=== PATIENT | male | born 1960 | race Caucasian/White ===

== ENCOUNTER 2022-10-22 08:36 | Emergency (ER) | payer MEDICAID, SELFPAY ==
--- NOTE | ~2022-10-22 | US_ITS ---
EXAMINATION: US VENOUS ULTRASOUND WITH DOPPLER LOWER EXTREMITY, LEFT CLINICAL INFORMATION: Pain and bruising. Evaluate for deep vein thrombosis. COMPARISON: None available. TECHNIQUE: Ultrasound of the deep veins is performed from the hip to the calf with compression sonography and color and pulse Doppler assessment. Spectral analysis with color-flow imaging is performed. FINDINGS: The common femoral vein is compressible and exhibits a normal phasic waveform; this suggests that the iliac veins are widely patent above. Within the proximal thigh, the visualized profunda femoris vein is normal. The examined greater saphenous vein and saphenofemoral junction are normal. Superficial femoral vein is patent in the proximal, mid and distal thigh. Popliteal vein is normal to the level of the trifurcation. On compression lyons scale and color Doppler images, the visualized deep calf veins are normal. No evidence of Bland's cyst. US/US venous duplex LE IMPRESSION: No evidence of deep vein thrombosis in the left lower extremity.
[2022-10-22 08:38] VITALS: BP 150/93; PULSE 93; RESP 18; TEMP 35.9; O2SAT 97; BMI 32.3
--- NOTE | 2022-10-22 09:07 | ED.GENADULT ---
HPI - General Adult General Chief complaint: General Medical Stated complaint: L calf pain/bruise Time Seen by Provider: 10/22/22 09:05 Source: patient Mode of arrival: ambulatory History of Present Illness HPI narrative: 62-year-old male with past medical history RLE DVT on Xarelto, s/p right hip replacement in May, presenting to the ED complaining of left calf cramping and noted ecchymosis on Friday. Patient reports cramping still present with persistent pain. denies recently missing doses of his Xarelto. Denies known injury, trauma or fall, SOB/CP, numbness/tingling Onset (ago): day(s) Related Data Allergies Allergy/AdvReac Type Severity Reaction Status Date / Time No Known Allergies Allergy Verified 10/22/22 08:41 Review of Systems Review of Systems: Constitutional: No Fever, No Chills ENT/Mouth: No Ear Pain, No Nasal Congestion, No sore throat, No Rhinorrhea, No Swallowing Difficulty Cardiovascular: No Chest Pain, No SOB Respiratory: No Cough, No Sputum, No Wheezing Gastrointestinal: No Nausea, No Vomiting, No Diarrhea, No Constipation, No Abdominal pain Genitourinary: No Dysuria, No Urinary Frequency, No Hematuria, No Flank Pain Musculoskeletal: + joint pain, No Myalgias, + Joint Swelling Skin: + Skin Lesions, No rash Neuro: No Weakness, No Numbness, No Paresthesias Yes all other systems are reviewed and are negative Constitutional: Constitutional: Reports as per [facility] Past Medical History Attestation statement: The following information was validated with the patient. Social History Social History Advance Directives: No Advance Directives Information Provided: Yes Physical Exam ED Vital Signs: Vital Signs - 24 hr 10/22/22 08:38 Temperature 96.6 F L Pulse Rate 93 Respiratory Rate 18 Blood Pressure 150/93 H Pulse Oximetry 97 Oxygen Delivery Method Room Air BMI result Body Mass Index 32.3 Const General: cooperative, healthy appearing and no acute distress Orientation/consciousness: patient oriented x3 Limitations: no limitations HENMT Head: Yes normal to inspection and Yes atraumatic Ears: hearing grossly normal bilaterally General nose exam: Normal external nose present Face and sinus: Yes normal facial exam Eyes General: appearance normal, both eyes and all related structures EOM: EOMs intact bilaterally Neck Neck: Yes normal visual inspection and Yes no meningeal signs Resp Effort & Inspection: normal respiratory effort and no respiratory distress Cardio Rate: regular rate Heart sounds: S1 normal heart sound present and S2 normal heart sound present Peripheral pulses: posterior tibial pulses present Skin Rashes: no rashes Wounds: no wounds Neuro General: patient oriented x3, tone normal and no meningeal signs Gait exam (Neuro): Normal gait present Extrem Other: +Left lower extremity 2+ pitting edema with posterior popliteal ecchymosis. Calf with noted tenderness to palpation. Compartments soft. Neurovascularly intact distally. No erythema/ warmth. No RLE edema Course Course Course Narrative: US venous duplex LE LT IMPRESSION:? No evidence of deep vein thrombosis in the left lower extremity. - H&H stable. INR 1.5 >> Hamlet wrap applied for comfort and stability. Recommended close PCP follow-up. Results discussed with patient including worrisome signs and symptoms and strict return precautions, and when to return to the emergency department. They verbalized understanding and feel safe for discharge at this time. Medical Decision Making Medical Decision Making [facility] Narrative: 62-year-old male with past medical history RLE DVT on Xarelto, s/p right hip replacement in May, presenting to the ED complaining of left calf cramping and noted ecchymosis on Friday. on exam vital signs stable, NAD, nontoxic appearing, physical exam as above with noted left lower extremity pitting edema and posterior popliteal ecchymosis and calf tenderness parents denies reported trauma. Concern for DVT vs hematoma. Low suspicion for PE/ACS at this time. low concern for compartment syndrome Plan: Labs, venous duplex ultrasound Please refer to course for remaining clinical decision making, interpretation of labs/imaging results, and discussions with consultants and/or family members. Differential Diagnosis Differential Diagnoses: The differential diagnosis associated with the presentation includes As above Admission/Observation Consideration of admission/observation: Escalation of care including admission/observation considered Lab Data [facility] Lab Attestation statement: I reviewed the patient's lab results. 10/22/22 10:39 Labs: Lab Results 10/22/22 10/22/22 Range/Units 10:39 10:39 WBC 4.8 (4.8-10.8) X10*3/uL RBC 4.55 L (4.60-5.80) X10*6/uL Hgb 13.4 L (14.0-18.0) g/dl Hct 39.8 L (42.0-52.0) % MCV 87.5 (80.0-98.0) fL MCH 29.5 (27.0-33.0) pg MCHC 33.7 (31.0-36.0) g/dl RDW 15.0 (11.0-16.0) % Plt Count 137 L (160-400) X10*3/uL MPV 8.4 L (9.4-12.4) fL Immature Gran % (Auto) 0.4 (0.0-0.4) % Neut % (Auto) 71.6 (45-73) % Lymph % (Auto) 15.6 L (20-40) % [place] % (Auto) 10.4 (2-11) % Eos % (Auto) 1.2 (0-4) % Baso % (Auto) 0.8 (0-2) % Lymph # (Auto) 0.8 L (1.2-4.9) X10*3/uL [place] # (Auto) 0.5 (0.1-1.2) X10*3/uL Eos # (Auto) 0.1 (0.0-0.4) X10*3/uL Baso # (Auto) 0.0 (0.0-0.2) X10*3/uL Abs Immat Gran (auto) 0.02 (0.00-0.03) X10*3/uL Absolute Neuts (auto) 3.4 (2.0-8.3) x10*3/uL Absolute Nucleated RBC 0.000 (0.0-0.012) X10*3/uL Nucleated RBC % (auto) 0.0 (0.0-0.2) /100WBC PT 17.6 H (10.0-13.1) SEC INR 1.5 H (0.9-1.1) APTT 36.1 (26.0-36.4) SEC Radiology Impression Discussion of test interpretation with radiology: I have reviewed the radiologist's reading. External Record Review External record reviewed: Inpatient record, Office record, Outpatient record, Prior outpatient labs, Prior outpatient radiology, Primary care record and Outside ED record Discharge Plan Discharge Clinical Impression: Pain of left calf, Ecchymosis Patient Disposition: Home, Self-Care Instructions: Leg Pain (ED), Ecchymosis (ED) Additional Instructions: Your blood work is reassuring. Your ultrasound does not show a blood clot wear Hamlet wrap at home for comfort and stability. Elevate. please have close follow-up with your doctor. If symptoms persist or worsen, bruising spreading, you develop shortness of breath, redness or warmth to your leg return to the ED Referrals: Danuta Sanford MD [Primary Care Provider] - 3 days Interventions: ED Discharge Assessment Last Done: 10/22/22 11:24 Discharge Date/Time: 10/22/22 11:29
[2022-10-22 10:45] LABS: MANUAL DIFF FLAG NO
[2022-10-22 10:47] LABS: Basophils Percent Auto 0.8 % (0-2); Eosinophils Absolute Auto 0.1 X10*3/uL (0.0-0.4); Eosinophils Percent Auto 1.2 % (0-4); Hematocrit 39.8 % (42.0-52.0); Hemoglobin 13.4 g/dl (14.0-18.0); Imm Gran Abs Auto 0.02 X10*3/uL (0.00-0.03); Imm Gran Pct Auto 0.4 % (0.0-0.4); Lymphocytes Absolute Auto 0.8 X10*3/uL (1.2-4.9); Lymphocytes Percent Auto 15.6 % (20-40); Mean Corpuscular HGB Conc 33.7 g/dl (31.0-36.0); Mean Corpuscular Hemoglobin 29.5 pg (27.0-33.0); Mean Corpuscular Volume 87.5 fL (80.0-98.0); Mean Platelet Volume 8.4 fL (9.4-12.4); Monocytes Absolute Auto 0.5 X10*3/uL (0.1-1.2); Monocytes Percent Auto 10.4 % (2-11); Neutrophils Absolute Auto 3.4 x10*3/uL (2.0-8.3); Neutrophils Percent Auto 71.6 % (45-73); Platelet Count 137 X10*3/uL (160-400); Red Blood Count 4.55 X10*6/uL (4.60-5.80); White Blood Count 4.8 X10*3/uL (4.8-10.8)
[2022-10-22 10:55] LABS: INTERNATIONAL NORM RATIO 1.5 (0.9-1.1); Prothrombin Time 17.6 SEC (10.0-13.1)
[2022-10-22 10:58] LABS: Partial Thromboplastin Time 36.1 SEC (26.0-36.4)
== END 2022-10-22 11:29 | disposition home or self-care (01) ==
PROVIDERS: Physician Assistant; Emergency Provider Emergency Medicine Emergency Medical Services; PCP Internal Medicine
DX: M79.662 Pain in left lower leg (principal); R58 Hemorrhage, not elsewhere classified; R60.0 Localized edema; Z86.718 Personal history of other venous thrombosis and embolism; Z79.01 Long term (current) use of anticoagulants
CPT/HCPCS: 36415; 85025; 85610; 85730; 93971; 99283; 99284

== ENCOUNTER 2022-11-10 12:50 | Observation (INO) | payer OTHER, SELFPAY ==
[2022-11-10] VITALS (9 sets, daily range): BP systolic 119–155; BP diastolic 67–89; PULSE 63–140; RESP 13–20; TEMP 36.4–37.1; O2SAT 96–97; BMI 32.3
--- NOTE | ~2022-11-10 | XR_ITS ---
EXAMINATION: XR CHEST CLINICAL INFORMATION: Atrial fibrillation. Rule out CHF. COMPARISON: Previous chest x-ray most recent October 2016 TECHNIQUE: 2 views of the chest were obtained. FINDINGS: The cardiac and mediastinal contours are normal. The lungs are clear. No pleural effusion or pneumothorax. Degenerative changes of the spine. XR/XR chest 2V IMPRESSION: No evidence for acute disease in the chest.
--- NOTE | 2022-11-10 12:52 | ECG_ITS ---
Test Reason : PALPITATIONS Blood Pressure : / mmHG Vent. Rate : 144 BPM Atrial Rate : 000 BPM P-R Int : 000 ms QRS Dur : 074 ms QT Int : 290 ms P-R-T Axes : 000 019 -17 degrees QTc Int : 449 ms Atrial fibrillation with rapid ventricular response Nonspecific ST abnormality Abnormal ECG No previous ECGs available Referred By: Mati Royal Electronically Signed By:Estiven Hutchins
--- NOTE | 2022-11-10 13:13 | ED_ITS ---
HPI - General Adult General Chief complaint: General Medical <Mati Royal - Last Filed: 11/10/22 13:13> Stated complaint: Irregular heartbeat <Mati Royla - Last Filed: 11/10/22 13:13> Time Seen by Provider: 11/10/22 13:13 <Mati Royal - Last Filed: 11/10/22 13:13> Source: patient <Dany Hwang MD - Last Filed: 11/10/22 17:16> Mode of arrival: ambulatory <Dany Hwang MD - Last Filed: 11/10/22 17:16> Limitations: no limitations <Dany Hwang MD - Last Filed: 11/10/22 17:16> History of Present Illness HPI narrative: 62-year-old male who presents emergency department for evaluation of rapid irregular heartbeat. The patient states that he woke up from sleep in states that he was having a drain that startled him. This was at 02:00 hours on 11/10/2022 (greater than 24 hours prior to evaluation). He states that since the onset he has been feeling anxious. He feels a fluttering sensation in his heart. He states that he can feel his heart beating irregularly. He denied chest pain, neck pain, arm pain, jaw pain nausea, vomiting, shortness of breath or dyspnea on exertion. He states that he has had intermittent fluttering sensations the last 1-2 hours but has never lasted this long. He states that 30 years ago he did have a very rapid heart rate and was given 1 shot a medication at [facility] which resolved his symptoms. The patient states that he had a left hip surgery 6 years ago which was complica phillip and eventually required surgical repair May 2022. He states that approximately 1 year prior he developed a blood clot in was on Xarelto 20 mg once a day until 2 weeks prior when his doctor stopped his medication. He does not have a history of atrial fibrillation or coronary artery disease.. <Dany Hwang MD - Last Filed: 11/10/22 17:16> Related Data Allergies/adverse reactions: Allergies Allergy/AdvReac Type Severity Reaction Status Date / Time No Known Allergies Allergy Verified 10/22/22 08:41 <Mati Brown Last Filed: 11/10/22 13:13> Review of Systems Review of Systems: Yes all other systems are reviewed and are negative <Dany Hwang MD - Last Filed: 11/10/22 17:16> [facility] Past Medical History [facility] Narrative: Past medical history: None. Past surgical history: Right hip replacement 6 years prior, revision May 2022. Social history: He denies tobacco use. He states he drinks 3 vodka drinks 3 times a week. Denies drug use. <Dany Hwang MD - Last Filed: 11/10/22 17:16> Social History Social History: Social History Advance Directives: No Advance Directives Information Provided: Yes <Mati Royal - Last Filed: 11/10/22 13:13> Physical Exam ED Vital Signs: Vital Signs - 24 hr 11/10/22 13:05 11/10/22 13:51 11/10/22 15:03 Temperature 98.5 F 98.2 F Pulse Rate 63 140 H 79 Respiratory Rate 20 18 13 Blood Pressure 155/87 H 154/81 H 125/79 Pulse Oximetry 97 96 96 Oxygen Delivery Method Room Air Room Air Room Air 11/10/22 15:59 Temperature Pulse Rate 90 Respiratory Rate 19 Blood Pressure 128/83 Pulse Oximetry 96 Oxygen Delivery Method Room Air BMI result Body Mass Index 32.3 <Mati Royal - Last Filed: 11/10/22 13:13> Vital Signs - 24 hr 11/10/22 13:05 11/10/22 13:51 11/10/22 15:03 Temperature 98.5 F 98.2 F Pulse Rate 63 140 H 79 Respiratory Rate 20 18 13 Blood Pressure 155/87 H 154/81 H 125/79 Pulse Oximetry 97 96 96 Oxygen Delivery Method Room Air Room Air Room Air 11/10/22 15:59 Temperature Pulse Rate 90 Respiratory Rate 19 Blood Pressure 128/83 Pulse Oximetry 96 Oxygen Delivery Method Room Air BMI result Body Mass Index 32.3 <Dany Hwang MD - Last Filed: 11/10/22 17:16> Const General: cooperative and no acute distress <Dany Hwang MD - Last Filed: 11/10/22 17:16> Orientation/consciousness: oriented to person and oriented to place <MD Kevin Walton Last Filed: 11/10/22 17:16> Limitations: no limitations <Dany Hwang MD - Last Filed: 11/10/22 17:16> HENMT Head: Yes normal to inspection, Yes normocephalic and Yes atraumatic <Dany Hwang MD - Last Filed: 11/10/22 17:16> Ears: external ears normal <MD Kevin Walton Last Filed: 11/10/22 17:16> General nose exam: Normal external nose present <MD Kevin Walton Last Filed: 11/10/22 17:16> Face and sinus: Yes normal facial exam <MD Kevin Walton Last Filed: 11/10/22 17:16> Mouth: Normal oral and palatal mucosa present <Dany Hwang MD - Last Filed: 11/10/22 17:16> Throat: Yes posterior oropharynx normal <MD Kevin Walton Last Filed: 11/10/22 17:16> Eyes General: appearance normal, both eyes and all related structures <MD Kevin Walton Last Filed: 11/10/22 17:16> Pupils: Equal, round and reactive pupils present <MD Kevin Walton Last Filed: 11/10/22 17:16> Neck Neck: Yes normal visual inspection, Yes no lymphadenopathy, Yes trachea midline and Yes supple <Dany Hwang MD - Last Filed: 11/10/22 17:16> Chest Chest palpation & inspection: normal inspection of the chest and normal palpation of entire chest wall <MD Kevin Walton Last Filed: 11/10/22 17:16> Resp Effort & Inspection: normal respiratory effort and able to speak in complete sentences <MD Kevin Walton Last Filed: 11/10/22 17:16> Auscultation: clear to auscultation bilaterally <MD Kevin Walton Last Filed: 11/10/22 17:16> Cardio Other: Irregularly irregular rhythm, normal S1-S2, no murmurs rubs or gallops <Fernanda Hwang MD - Last Filed: 11/10/22 17:16> Heart sounds: Murmur heart sound present <Dany Hwang MD - Last Filed: 11/10/22 17:16> GI Inspection: Yes normal to inspection <Dany Hwang MD - Last Filed: 11/10/22 17:16> Palpation (GI): Soft to palpation, nontender and no guarding <Dany Hwang MD - Last Filed: 11/10/22 17:16> Auscultation: normal bowel sounds <Dany Hwang MD - Last Filed: 11/10/22 17:16> General: Yes no CVA tenderness <Dany Hwang MD - Last Filed: 11/10/22 17:16> Back/Spine/Pelvis Back: no CVA tenderness <Dany Hwang MD - Last Filed: 11/10/22 17:16> Skin General skin exam: no rashes or lesions noted <Dany Hwang MD - Last Filed: 11/10/22 17:16> Neuro General: oriented to person and oriented to place <Dany Hwang MD - Last Filed: 11/10/22 17:16> Cranial nerves: Yes CN's II-XII intact bilaterally and Yes Equal, round and reactive pupils present <Dany Hwang MD - Last Filed: 11/10/22 17:16> Cognition (Neuro): normal cognition <Dany Hwang MD - Last Filed: 11/10/22 17:16> Motor exam (neuro): 5/5 motor strength present throughout <Dany Hwang MD - Last Filed: 11/10/22 17:16> Extrem General: Yes normal to inspection <Dany Hwang MD - Last Filed: 11/10/22 17:16> Psych Appearance: grossly normal <Dany Hwang MD - Last Filed: 11/10/22 17:16> Speech and movement: Normal speech and movement present <Dany Hwang MD - Last Filed: 11/10/22 17:16> Affect: normal affect <Dany Hwang MD - Last Filed: 11/10/22 17:16> Attitude: cooperative <Dany Hwang MD - Last Filed: 11/10/22 17:16> Thought process: Normal thought process present <Dany Hwang MD - Last Filed: 11/10/22 17:16> Thought content: Normal thought content present <Dany Hwang MD - Last Filed: 11/10/22 17:16> Course Course Course Narrative: A 62-year-old male presents for evaluation of irregular heartbeat. He reports this started 1-1/2 days ago. His pulse on palpation is irregular and fast. EKG shows AFib at 1:44bpm <Mati Royal - Last Filed: 11/10/22 13:13> Medications Administered Discontinued Medications Generic Name Dose Route Start Last Admin Trade Name Freq PRN Reason Stop Dose Admin Diltiazem HCl 20 mg 11/10/22 13:43 11/10/22 13:50 Diltiazem Hcl 50 Mg/10 Ml Vial IVPUSH 11/10/22 13:44 20 mg STAT STA Administration Rivaroxaban 20 mg 11/10/22 13:43 11/10/22 13:49 Rivaroxaban 20 Mg Tablet PO 11/10/22 13:44 20 mg ONCE ONE Administration <Mati Royal - Last Filed: 11/10/22 13:13> Medications Administered Discontinued Medications Generic Name Dose Route Start Last Admin Trade Name Freq PRN Reason Stop Dose Admin Diltiazem HCl 20 mg 11/10/22 13:43 11/10/22 13:50 Diltiazem Hcl 50 Mg/10 Ml Vial IVPUSH 11/10/22 13:44 20 mg STAT STA Administration Rivaroxaban 20 mg 11/10/22 13:43 11/10/22 13:49 Rivaroxaban 20 Mg Tablet PO 11/10/22 13:44 20 mg ONCE ONE Administration <Dany Hwang MD - Last Filed: 11/10/22 17:16> Medical Decision Making Medical Decision Making MDM Narrative: 8-year-old male who presents emergency department for evaluation rapid irregular heart rate which began on Friday morning (11/09/2022) at 02:00 hours. Twelve EKG revealed atrial fibrillation with a RVR 120-150 beats per minute. Patient has no history of atrial fibrillation. I ordered a CBC, CMP, lipase, magnesium, PT/INR, PTT, urine drug screen, ETOH level. Patient was placed on a cardiac and O2 saturation monitor. Patient was ordered to get diltiazem 20 mg IV. Patient was also given Xarelto 20 mg orally. 1708: My interpretation patient's laboratory evaluation as follows: CBC was normal. PT/INR was normal. CMP was normal. Lipase was normal. High sensitive troponin I was detectable but not elevated 3.7. Twelve EKG is consistent with atrial fibrillation with rapid ventricular response with no ischemic or injury pattern Patient required a 2nd dose of diltiazem 10 mg IV. He remains in atrial fibrillation. I will discuss admission with the covering hospitalist. <Dany Hwang MD - Last Filed: 11/10/22 17:16> Differential Diagnosis Differential diagnosis includes was not limited to atrial fibrillation, myocardial infarction, congestive heart failure <Dany Hwang MD - Last Filed: 11/10/22 17:16> Consult Healthcare Provider Management of the patient was discussed with: Hospitalist <Dany Hwang MD - Last Filed: 11/10/22 17:16> Lab Data [facility] Lab Attestation statement: I reviewed the patient's lab results. <Dany Hwang MD - Last Filed: 11/10/22 17:16> Please see [facility] <Dany Hwang MD - Last Filed: 11/10/22 17:16> Result Diagrams: 11/10/22 13:37 11/10/22 13:37 <Mati Royal - Last Filed: 11/10/22 13:13> Labs: Lab Results 11/10/22 11/10/22 11/10/22 Range/Units 13:37 13:37 14:45 WBC 6.2 (4.8-10.8) X10*3/uL RBC 4.78 (4.60-5.80) X10*6/uL Hgb 14.3 (14.0-18.0) g/dl Hct 41.3 L (42.0-52.0) % MCV 86.4 (80.0-98.0) fL MCH 29.9 (27.0-33.0) pg MCHC 34.6 (31.0-36.0) g/dl RDW 15.1 (11.0-16.0) % Plt Count 208 D (160-400) X10*3/uL MPV 9.0 L (9.4-12.4) fL Immature Gran % (Auto) 0.5 H (0.0-0.4) % Neut % (Auto) 70.2 (45-73) % Lymph % (Auto) 17.6 L (20-40) % [place] % (Auto) 10.1 (2-11) % Eos % (Auto) 1.0 (0-4) % Baso % (Auto) 0.6 (0-2) % Lymph # (Auto) 1.1 L (1.2-4.9) X10*3/uL [place] # (Auto) 0.6 (0.1-1.2) X10*3/uL Eos # (Auto) 0.1 (0.0-0.4) X10*3/uL Baso # (Auto) 0.0 (0.0-0.2) X10*3/uL Abs Immat Gran (auto) 0.03 (0.00-0.03) X10*3/uL Absolute Neuts (auto) 4.4 (2.0-8.3) x10*3/uL Absolute Nucleated RBC 0.000 (0.0-0.012) X10*3/uL Nucleated RBC % (auto) 0.0 (0.0-0.2) /100WBC PT (10.0-13.1) SEC INR (0.9-1.1) APTT (26.0-36.4) SEC Sodium 140 (135-145) mmol/L Potassium 4.2 (3.3-5.1) mmol/L Chloride 108 (96-108) mmol/L Carbon Dioxide 22 (22-29) mmol/L Anion Gap 14 (12-20) BUN 16 (9-16) mg/dL Creatinine 0.93 (0.5-1.4) mg/dL Estim Creat Clear Calc 126.3 Estimated GFR > 60 Random Glucose 108 (60-115) mg/dL Calcium 9.2 (8.4-10.2) mg/dL Magnesium 1.8 (1.6-2.6) mg/dL Total Bilirubin 0.5 (0.0-1.0) mg/dL AST 20 (5-37) U/L ALT 36 (0-40) U/L Alkaline Phosphatase 66 (39-117) U/L Troponin I High Sens 3.7 (<3.5-35.0) ng/L Total Protein 6.9 (6.5-8.0) g/dL Albumin 4.2 (3.5-5.0) g/dL Lipase 17 (8-78) U/L Urine Opiates Screen (Not Detect) Urine Fentanyl Screen (Not Detect) Ur Barbiturates Screen (Not Detect) Ur Phencyclidine Scrn (Not Detect) Ur Amphetamines Screen (Not Detect) U Benzodiazepines Scrn (Not Detect) Urine Cocaine Screen (Not Detect) U Marijuana (THC) Screen (Not Detect) Ethyl Alcohol < 10 mg/dL 11/10/22 11/10/22 Range/Units 14:45 16:01 WBC (4.8-10.8) X10*3/uL RBC (4.60-5.80) X10*6/uL Hgb (14.0-18.0) g/dl Hct (42.0-52.0) % MCV (80.0-98.0) fL MCH (27.0-33.0) pg MCHC (31.0-36.0) g/dl RDW (11.0-16.0) % Plt Count (160-400) X10*3/uL MPV (9.4-12.4) fL Immature Gran % (Auto) (0.0-0.4) % Neut % (Auto) (45-73) % Lymph % (Auto) (20-40) % [place] % (Auto) (2-11) % Eos % (Auto) (0-4) % Baso % (Auto) (0-2) % Lymph # (Auto) (1.2-4.9) X10*3/uL [place] # (Auto) (0.1-1.2) X10*3/uL Eos # (Auto) (0.0-0.4) X10*3/uL Baso # (Auto) (0.0-0.2) X10*3/uL Abs Immat Gran (auto) (0.00-0.03) X10*3/uL Absolute Neuts (auto) (2.0-8.3) x10*3/uL Absolute Nucleated RBC (0.0-0.012) X10*3/uL Nucleated RBC % (auto) (0.0-0.2) /100WBC PT 12.3 (10.0-13.1) SEC INR 1.1 (0.9-1.1) APTT 31.2 (26.0-36.4) SEC Sodium (135-145) mmol/L Potassium (3.3-5.1) mmol/L Chloride (96-108) mmol/L Carbon Dioxide (22-29) mmol/L Anion Gap (12-20) BUN (9-16) mg/dL Creatinine (0.5-1.4) mg/dL Estim Creat Clear Calc Estimated GFR Random Glucose (60-115) mg/dL Calcium (8.4-10.2) mg/dL Magnesium (1.6-2.6) mg/dL Total Bilirubin (0.0-1.0) mg/dL AST (5-37) U/L ALT (0-40) U/L Alkaline Phosphatase (39-117) U/L Troponin I High Sens (<3.5-35.0) ng/L Total Protein (6.5-8.0) g/dL Albumin (3.5-5.0) g/dL Lipase (8-78) U/L Urine Opiates Screen Not Detected (Not Detect) Urine Fentanyl Screen Not Detected (Not Detect) Ur Barbiturates Screen Not Detected (Not Detect) Ur Phencyclidine Scrn Not Detected (Not Detect) Ur Amphetamines Screen Not Detected (Not Detect) U Benzodiazepines Scrn Not Detected (Not Detect) Urine Cocaine Screen Not Detected (Not Detect) U Marijuana (THC) Screen POSITIVE H (Not Detect) Ethyl Alcohol mg/dL <Mati Royal - Last Filed: 11/10/22 13:13> Lab Results 11/10/22 11/10/22 11/10/22 Range/Units 13:37 13:37 14:45 WBC 6.2 (4.8-10.8) X10*3/uL RBC 4.78 (4.60-5.80) X10*6/uL Hgb 14.3 (14.0-18.0) g/dl Hct 41.3 L (42.0-52.0) % MCV 86.4 (80.0-98.0) fL MCH 29.9 (27.0-33.0) pg MCHC 34.6 (31.0-36.0) g/dl RDW 15.1 (11.0-16.0) % Plt Count 208 D (160-400) X10*3/uL MPV 9.0 L (9.4-12.4) fL Immature Gran % (Auto) 0.5 H (0.0-0.4) % Neut % (Auto) 70.2 (45-73) % Lymph % (Auto) 17.6 L (20-40) % [place] % (Auto) 10.1 (2-11) % Eos % (Auto) 1.0 (0-4) % Baso % (Auto) 0.6 (0-2) % Lymph # (Auto) 1.1 L (1.2-4.9) X10*3/uL [place] # (Auto) 0.6 (0.1-1.2) X10*3/uL Eos # (Auto) 0.1 (0.0-0.4) X10*3/uL Baso # (Auto) 0.0 (0.0-0.2) X10*3/uL Abs Immat Gran (auto) 0.03 (0.00-0.03) X10*3/uL Absolute Neuts (auto) 4.4 (2.0-8.3) x10*3/uL Absolute Nucleated RBC 0.000 (0.0-0.012) X10*3/uL Nucleated RBC % (auto) 0.0 (0.0-0.2) /100WBC PT (10.0-13.1) SEC INR (0.9-1.1) APTT (26.0-36.4) SEC Sodium 140 (135-145) mmol/L Potassium 4.2 (3.3-5.1) mmol/L Chloride 108 (96-108) mmol/L Carbon Dioxide 22 (22-29) mmol/L Anion Gap 14 (12-20) BUN 16 (9-16) mg/dL Creatinine 0.93 (0.5-1.4) mg/dL Estim Creat Clear Calc 126.3 Estimated GFR > 60 Random Glucose 108 (60-115) mg/dL Calcium 9.2 (8.4-10.2) mg/dL Magnesium 1.8 (1.6-2.6) mg/dL Total Bilirubin 0.5 (0.0-1.0) mg/dL AST 20 (5-37) U/L ALT 36 (0-40) U/L Alkaline Phosphatase 66 (39-117) U/L Troponin I High Sens 3.7 (<3.5-35.0) ng/L Total Protein 6.9 (6.5-8.0) g/dL Albumin 4.2 (3.5-5.0) g/dL Lipase 17 (8-78) U/L Urine Opiates Screen (Not Detect) Urine Fentanyl Screen (Not Detect) Ur Barbiturates Screen (Not Detect) Ur Phencyclidine Scrn (Not Detect) Ur Amphetamines Screen (Not Detect) U Benzodiazepines Scrn (Not Detect) Urine Cocaine Screen (Not Detect) U Marijuana (THC) Screen (Not Detect) Ethyl Alcohol < 10 mg/dL 11/10/22 11/10/22 Range/Units 14:45 16:01 WBC (4.8-10.8) X10*3/uL RBC (4.60-5.80) X10*6/uL Hgb (14.0-18.0) g/dl Hct (42.0-52.0) % MCV (80.0-98.0) fL MCH (27.0-33.0) pg MCHC (31.0-36.0) g/dl RDW (11.0-16.0) % Plt Count (160-400) X10*3/uL MPV (9.4-12.4) fL Immature Gran % (Auto) (0.0-0.4) % Neut % (Auto) (45-73) % Lymph % (Auto) (20-40) % [place] % (Auto) (2-11) % Eos % (Auto) (0-4) % Baso % (Auto) (0-2) % Lymph # (Auto) (1.2-4.9) X10*3/uL [place] # (Auto) (0.1-1.2) X10*3/uL Eos # (Auto) (0.0-0.4) X10*3/uL Baso # (Auto) (0.0-0.2) X10*3/uL Abs Immat Gran (auto) (0.00-0.03) X10*3/uL Absolute Neuts (auto) (2.0-8.3) x10*3/uL Absolute Nucleated RBC (0.0-0.012) X10*3/uL Nucleated RBC % (auto) (0.0-0.2) /100WBC PT 12.3 (10.0-13.1) SEC INR 1.1 (0.9-1.1) APTT 31.2 (26.0-36.4) SEC Sodium (135-145) mmol/L Potassium (3.3-5.1) mmol/L Chloride (96-108) mmol/L Carbon Dioxide (22-29) mmol/L Anion Gap (12-20) BUN (9-16) mg/dL Creatinine (0.5-1.4) mg/dL Estim Creat Clear Calc Estimated GFR Random Glucose (60-115) mg/dL Calcium (8.4-10.2) mg/dL Magnesium (1.6-2.6) mg/dL Total Bilirubin (0.0-1.0) mg/dL AST (5-37) U/L ALT (0-40) U/L Alkaline Phosphatase (39-117) U/L Troponin I High Sens (<3.5-35.0) ng/L Total Protein (6.5-8.0) g/dL Albumin (3.5-5.0) g/dL Lipase (8-78) U/L Urine Opiates Screen Not Detected (Not Detect) Urine Fentanyl Screen Not Detected (Not Detect) Ur Barbiturates Screen Not Detected (Not Detect) Ur Phencyclidine Scrn Not Detected (Not Detect) Ur Amphetamines Screen Not Detected (Not Detect) U Benzodiazepines Scrn Not Detected (Not Detect) Urine Cocaine Screen Not Detected (Not Detect) U Marijuana (THC) Screen POSITIVE H (Not Detect) Ethyl Alcohol mg/dL <Dany Hwang MD - Last Filed: 11/10/22 17:16> Independent Interpretation I performed an independent interpretation of an: EKG <Dany Hwang MD - Last Filed: 11/10/22 17:16> Interpretation: My independent interpretation patient's 12 EKG done at 12:56 hours is as follows: Atrial fibrillation with a ventricular rate of 144, normal QRS and QTC intervals, no ST segment elevation, no ST segment depression, no T-wave abnormalities. No old EKG for comparison <Dany Hwang MD - Last Filed: 11/10/22 17:16> Discharge Plan Discharge Clinical Impression: New onset atrial fibrillation, Atrial fibrillation with rapid ventricular response <Mati Royal - Last Filed: 11/10/22 13:13> Patient Disposition: Admitted As Inpatient <Mati Royal - Last Filed: 11/10/22 13:13>
[2022-11-10 13:41] LABS: MANUAL DIFF FLAG NO
[2022-11-10 13:42] LABS: Basophils Percent Auto 0.6 % (0-2); Eosinophils Absolute Auto 0.1 X10*3/uL (0.0-0.4); Hematocrit 41.3 % (42.0-52.0); Hemoglobin 14.3 g/dl (14.0-18.0); Imm Gran Abs Auto 0.03 X10*3/uL (0.00-0.03); Imm Gran Pct Auto 0.5 % (0.0-0.4); Lymphocytes Absolute Auto 1.1 X10*3/uL (1.2-4.9); Lymphocytes Percent Auto 17.6 % (20-40); Mean Corpuscular HGB Conc 34.6 g/dl (31.0-36.0); Mean Corpuscular Hemoglobin 29.9 pg (27.0-33.0); Mean Corpuscular Volume 86.4 fL (80.0-98.0); Monocytes Absolute Auto 0.6 X10*3/uL (0.1-1.2); Monocytes Percent Auto 10.1 % (2-11); Neutrophils Absolute Auto 4.4 x10*3/uL (2.0-8.3); Neutrophils Percent Auto 70.2 % (45-73); Platelet Count 208 X10*3/uL (160-400); Red Blood Count 4.78 X10*6/uL (4.60-5.80); Red Cell Distribution Width 15.1 % (11.0-16.0); White Blood Count 6.2 X10*3/uL (4.8-10.8)
[2022-11-10] MEDS: Rivaroxaban 20 MG TABLET PO (13:49)
[2022-11-10] MEDS: dilTIAZem HCL 50 MG/10 ML VIAL 20 MG IVPUSH (13:50)
[2022-11-10 14:03] LABS: Troponin-I High Sensitivity 3.7 ng/L (<3.5-35.0)
--- NOTE | 2022-11-10 14:09 | PC.NURSE ---
pt a+o x4, denies pain. he reports that last night he began having heart flutters that he describes as feeling excited/feeling anxious . he reports that the flutters woke him up from his sleep and he thought he was having a nightmare. pt states that he was taken off of eliquis about 2 wks ago. he also says this has happened to him in the past and was given med and it helped him. no other medical hx reported. 20g IV inserted in L hand and 20g in his R forearm. iv Cardizem given and po eliquis given. current HR mid 90s to 105. pt resting quietly, no apparent distress. he denies cp.
[2022-11-10 14:56] LABS: INTERNATIONAL NORM RATIO 1.1 (0.9-1.1); Prothrombin Time 12.3 SEC (10.0-13.1)
[2022-11-10 14:58] LABS: Partial Thromboplastin Time 31.2 SEC (26.0-36.4)
[2022-11-10 15:22] LABS: Alanine Aminotransferase 36 U/L (0-40); Albumin Level 4.2 g/dL (3.5-5.0); Alkaline Phosphatase 66 U/L (39-117); Anion Gap 14 (12-20); Aspartate Amino Transferase 20 U/L (5-37); Bilirubin Total 0.5 mg/dL (0.0-1.0); Blood Urea Nitrogen 16 mg/dL (9-16); Calcium 9.2 mg/dL (8.4-10.2); Carbon Dioxide 22 mmol/L (22-29); Chloride 108 mmol/L (96-108); Creatinine Clr Calc Pharmacy 126.3; Estimated Glomerular Filt Rate > 60; Ethanol < 10 mg/dL; Glucose Random 108 mg/dL (60-115); Lipase 17 U/L (8-78); Magnesium 1.8 mg/dL (1.6-2.6); Potassium 4.2 mmol/L (3.3-5.1); Sodium 140 mmol/L (135-145); Total Protein 6.9 g/dL (6.5-8.0)
[2022-11-10 16:51] LABS: Amphetamine Screen Urine Not Detected (Not Detect); Barbiturates, Urine Not Detected (Not Detect); Benzodiazepines Screen Urine Not Detected (Not Detect); Cannabinoid Screen Urine POSITIVE (Not Detect); Cocaine Screen Urine Not Detected (Not Detect); Fentanyl, urine Not Detected (Not Detect); Opiate Screen Urine Not Detected (Not Detect); Phencyclidine Screen Urine Not Detected (Not Detect)
--- NOTE | 2022-11-10 17:23 | PM.IMHP ---
History of Present Illness Date of Service: 11/10/22 Attending physician on admission: Maxime Jacobsen Chief Complaint: Palpitations Pt is a 62-year-old male with a PMH significant for?hx of DVT in 2021 previously on Xarelto (stopped two weeks ago), testicular cancer at age 37 s/p left orchiectomy, and right hip replacement who presents to the ED with?a rapid, irregular heartbeat for the past 36+ hours. Patient states that he awoke from sleep approximately 02:00 on Friday morning feeling anxious. Went to the bathroom and found himself feeling hot, anxious, and with a fluttering heartbeat. Checked his pulse and noticed that it was rapid and irregular. Patient then went back to sleep and awoke the next morning to find he still had a rapid irregular heartbeat which lasted throughout the day and through the next night. Pt presented to the ED today when he awoke to persistent irregular heartbeat. Patient states that he has had approximately 5 similar episodes in the past, the first when he was in his 30s. 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 Went to ED at [facility] where he received an injection that returned him to normal sinus rhythm. Around 1 year ago patient experienced his longest episode of rapid irregular heartbeat which lasted throughout the night. Other episodes have been quite brief, lasting minutes to maybe an hour or two. 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 Patient denies paroxysmal nocturnal dyspnea, but , who is at bedside, says that the patient will occasionally stops breathing at night while sleeping. Patient denies fever, chills, nausea, vomiting, diarrhea. No abdominal pain. Denies chest pain/pressure. No shortness of breath. Denies lightheadedness, dizziness, headache. In the ED patient was afebrile, but tachycardic up to 140s, hypertensive up 155/87. Labs were unremarkable, troponin negative at 3.7. EKG demonstrated AFib with RVR of 144. Pt was treated with Cardizem 20 mg IV push and Xarelto. Pt will be admitted to the hospital under observation for treatment and further evaluation of AFib with RVR. Review of Systems Review of Systems: Rapid, irregular heartbeat Feeling anxious Feeling flushed/hot Denies chest pain/pressure No shortness of breath Denies fever, chills, nausea, vomiting, diarrhea, abdominal pain Yes all other systems are reviewed and are negative PMFSH Social History Patient Tobacco Use Status: Never used Tobacco Advance Directives: No Advance Directives Information Provided: Yes Nutrition Risks: No Nutritional Risk Meds Allergies Allergy/AdvReac Type Severity Reaction Status Date / Time No Known Allergies Allergy Verified 10/22/22 08:41 Home Medications Medication Instructions Recorded Confirmed Last Taken Type No Known Home Meds 11/10/22 11/10/22 Unknown History Physical Exam Vital Signs and Narrative: Vital Signs: Last Vital Signs Temp 98.2 F 11/10/22 15:03 Pulse 90 11/10/22 15:59 Resp 19 11/10/22 15:59 BP 128/83 11/10/22 15:59 Pulse Ox 96 11/10/22 15:59 O2 Del Method Room Air 11/10/22 15:59 BMI result Body Mass Index 32.3 Constitutional: Alert, in no acute distress. Mental Status: Oriented to person, place and time. Eyes: Pupils are equal, round, and reactive to light. Ear, Nose, and Throat: Oropharynx clear, mucous membranes moist. Ears and nose without deformities. Trachea midline. Respiratory: Clear to auscultation bilaterally. No wheezing, rales, or rhonchi. Cardiovascular: Irregularly irregular rhythm, tachycardic. Gastrointestinal: Abdomen soft, non-tender, non-distended. Normal bowel sounds. Neurologic: Cranial nerves II-XII are grossly intact bilaterally. No focal neurological deficits. Moves all extremities spontaneously. Skin: No rashes or lesions noted. Musculoskeletal: No cyanosis or clubbing. Extremities: No edema. Psychiatric: Normal mood and affect. Results Labs 11/10/22 13:37 11/10/22 14:45 Labs: Laboratory Results - last 24 hr 11/10/22 11/10/22 11/10/22 13:37 13:37 14:45 MCV 86.4 MCH 29.9 MCHC 34.6 RDW 15.1 Plt Count 208 D MPV 9.0 L Immature Gran % (Auto) 0.5 H Neut % (Auto) 70.2 Lymph % (Auto) 17.6 L Maverick % (Auto) 10.1 Eos % (Auto) 1.0 Baso % (Auto) 0.6 Lymph # (Auto) 1.1 L Maverick # (Auto) 0.6 Eos # (Auto) 0.1 Baso # (Auto) 0.0 Abs Immat Gran (auto) 0.03 Absolute Neuts (auto) 4.4 Absolute Nucleated RBC 0.000 Nucleated RBC % (auto) 0.0 PT INR APTT Anion Gap 14 Estim Creat Clear Calc 126.3 Estimated GFR > 60 Random Glucose 108 Calcium 9.2 Magnesium 1.8 Total Bilirubin 0.5 AST 20 ALT 36 Alkaline Phosphatase 66 Troponin I High Sens 3.7 Total Protein 6.9 Albumin 4.2 Lipase 17 Urine Opiates Screen Urine Fentanyl Screen Ur Barbiturates Screen Ur Phencyclidine Scrn Ur Amphetamines Screen U Benzodiazepines Scrn Urine Cocaine Screen U Marijuana (THC) Screen Ethyl Alcohol < 10 11/10/22 11/10/22 14:45 16:01 MCV MCH MCHC RDW Plt Count MPV Immature Gran % (Auto) Neut % (Auto) Lymph % (Auto) Maverick % (Auto) Eos % (Auto) Baso % (Auto) Lymph # (Auto) Maverick # (Auto) Eos # (Auto) Baso # (Auto) Abs Immat Gran (auto) Absolute Neuts (auto) Absolute Nucleated RBC Nucleated RBC % (auto) PT 12.3 INR 1.1 APTT 31.2 Anion Gap Estim Creat Clear Calc Estimated GFR Random Glucose Calcium Magnesium Total Bilirubin AST ALT Alkaline Phosphatase Troponin I High Sens Total Protein Albumin Lipase Urine Opiates Screen Not Detected Urine Fentanyl Screen Not Detected Ur Barbiturates Screen Not Detected Ur Phencyclidine Scrn Not Detected Ur Amphetamines Screen Not Detected U Benzodiazepines Scrn Not Detected Urine Cocaine Screen Not Detected U Marijuana (THC) Screen POSITIVE H Ethyl Alcohol Assessment and Plan (1) Atrial fibrillation with rapid ventricular response: Status: Acute Plan Pt is a 62-year-old male with a PMH significant for?hx of DVT in 2021 previously on Xarelto (stopped two weeks ago), testicular cancer at age 37 s/p left orchiectomy, and right hip replacement who presents to the ED with?a rapid, irregular heartbeat for the past 36+ hours. Pt will be admitted to observation on telemetry for treatment and further evaluation of AFib with RVR. AFib with RVR Pt states he has noticed a fast, irregular heartbeat for past 36+ hours EKG showed AFib with RVR of 144 Has had approximately 5 previous similar episodes in past 25 years Patient received diltiazem 20 mg and 10 mg IV in ED with rate improvement Will be started on Cardizem 30 mg p.o. q.6 Will restart Xarelto 20 mg daily Echocardiogram Cardiology consult Monitor on telemetry Question of ELIEL Patient denies PND, though endorses stopping breathing during sleep Consider home sleep study Full Code Attending:?Dr. Jacobsen DVT Prophylaxis: On Xarelto Pt will be admitted to observation on telemetry for treatment and further evaluation of AFib with RVR. Time Spent With Patient Time: Total time managing care of this patient today ____ minutes. Quality Stroke Does the patient have a stroke diagnosis?: No VTE Prior VTE?: No VTE Risk Level:: Medical - moderate - high VTE Device Contraindication: Treatment Not Indicated VTE Drug Contraindication: N/A - Med Ordered
--- NOTE | 2022-11-10 17:42 | PHA.MEDREC ---
Addendum entered by Eboni Mcclain RPh 11/10/22 17:48: KATHY HAS REVIEWED MED REC Original Note: Pharmacy Consult ? Medication Reconciliation Pharmacy has completed the medication reconciliation. Spoke to patient to confirm meds. Patient does not currently take any meds. Patient reports previously being on Xarelto 20mg but has discontinued the medication about 2 weeks ago.
[2022-11-10] MEDS: dilTIAZem HCL 50 MG/10 ML VIAL 10 MG IVPUSH (17:53)
--- NOTE | 2022-11-10 17:58 | PC.NURSE ---
hr 112-115, cardizem 10mg given iv. pt seen by MARK Cross, at his bedside. pt pending admission.
--- NOTE | 2022-11-10 18:55 | PC.NURSE ---
attempted to give report to receiving RN Mariama, she is not able to take report at this time. call back in 10-15 mins will pass on to oncoming nurse.
[2022-11-10] MEDS: dilTIAZem HCL 30 MG TABLET PO (21:28)
[2022-11-10] MEDS: 0.9 % Sodium Chloride Flush 3 ML SYRINGE IVFLUSH (21:28)
[2022-11-11 03:47] VITALS: BP 136/72; PULSE 86; RESP 20; TEMP 36.3; O2SAT 96
--- NOTE | 2022-11-11 07:00 | CA_ITS ---
Transthoracic Echo with Contrast Patient (Last, First, Middle): Jf Jiménez, Gender: Male Date of : 1960 Age: 62 Procedure Date: 11/11/2022 Procedure Type: Transthoracic Echo with Contrast Location: [facility] [place] Height: 198.12 cm Weight: 127.01 kg BSA: 2.60 m2 Heart Rate: bpm BP: 136 / 72 mmHg Metal Spray Operator: WHIT Referring MD: Tay FLORES Symptoms: AFib with RVR Study Quality: Fair/Contrast ECG Rhythm: Atrial Fibrillation Conclusions: - Normal left ventricular size and systolic function. There is mildly increased left ventricular wall thickness. The visually estimated ejection fraction is between 55-60%. - Mildly increased right ventricular cavity size. There is normal right ventricular systolic function. - The left atrium is likely dilated. The right atrium is mildly dilated. - Mildly elevated right atrial pressure. There is no evidence of pulmonary hypertension. - There is mild dilatation of the sinuses of Valsalva measuring 3.90 cm and mild dilatation of the ascending aorta measuring 3.50 cm. Findings Procedure Information Contrast agent, definity, is being given per protocol without apparent complications. Left Ventricle Normal left ventricular size and systolic function. There is mildly increased left ventricular wall thickness. The visually estimated ejection fraction is between 55-60%. There is no evidence of regional wall motion abnormalities. Diastolic function is indeterminate on the basis of available data. There is moderate septal asymmetric hypertrophy. Right Ventricle Mildly increased right ventricular cavity size. There is normal right ventricular systolic function. Atria The left atrium is likely dilated. The right atrium is mildly dilated. Aortic Valve Normal aortic valve structure and function. There is no aortic valve stenosis. There is no aortic valve regurgitation. Mitral Valve The mitral valve appears normal. There is no mitral valve regurgitation. There is no mitral valve stenosis. Pulmonic Valve The pulmonic valve is likely normal. Tricuspid Valve Normal tricuspid valve structure and function. There is trace tricuspid valve regurgitation. The right ventricular systolic pressure is 26 mmHg. Mildly elevated right atrial pressure. There is no evidence of pulmonary hypertension. Great Vessels There is mild dilatation of the sinuses of Valsalva measuring 3.90 cm and mild dilatation of the ascending aorta measuring 3.50 cm. The visualized portions of the pulmonary artery and branches are normal. Venous The inferior vena cava is dilated and collapses greater than 50% with inspiration. Pericardium/Pleural There is no evidence of pericardial effusion. Prior Study Comparison No prior study available for comparison. Measurements 2D Linear Measurements IVSd: 1.40 0.6-0.9/0.6-1.0 cm LVIDd: 5.30 3.9-5.3/4.2-5.9 cm LVIDd Index: 2.04 2.4-3.2/2.2-3.1 cm/m2 LVIDs: 3.16 2.0-3.6 cm LVPWd: 1.17 0.7-1.1 cm LA Diam: 4.40 2.7-3.8/3.0-4.0 cm LAIDs Index: 1.69 1.5-2.3 cm/m2 LV Mass: 352.11 67-162/88-224 g LV Mass Index: 135.43 43-95/49-115 g/m2 LVOT Diam: 2.00 3.0+(-)1.3 cm 2D Systolic Function EF 4C: 46.10 >55% EF 2C: 50.20 >55% EF BiP: 50.70 >55% Mitral Valve MV Pk E: 0.82 MV Decel Time: 217.00 E'Lateral: 13.90 E'Medial: 13.30 E/E' Med: 6.20 E/E' Lat: 5.90 PHT: 63.00 MVA PHT: 3.49 Decel Gosper: 3.80 Aortic Valve AoV Pk Stew: 1.50 AoV Mn Stew: 1.07 AoV VTI: 0.26 AoV Pk Grad: 9.00 Aov Mn Grad: 5.00 DINESH Cont.VTI: 2.17 LVOT LVOT Pk Stew: 1.09 LVOT Mn Stew: 0.73 LVOT VTI: 0.18 LVOT Pk Grad: 5.00 LVOT Mn Grad: 3.00 LVOT Diam: 2.00 LVOT Area: 3.14 Diastolic Function MV Pk E: 0.82 E'Medial: 13.30 E/E' Med: 6.20 E' Laterial: 13.90 E/E' Lat: 5.90 Right Ventricle TAPSE (mm): 18.80 TVS' Stew: 12.30 Tricuspid Valve TR Pk Stew: 2.13 TR Pk Grad: 18.00 RA Press: 8.00 RVSP: 26.00 Great Vessels Aorta Sinus of Valsalva: 3.90 2.0-3.5 cm Ao Asc: 3.50 2.1-3.4 cm Pulmonary Valve PV Pk Stew: 1.03 Peak PV Grad: 4.00 Updated in Other Vendor System with Status of Final Estiven Hutchins MD electronically signed on 11/11/2022 1:42:57 PM with status of Final
[2022-11-11] MEDS: dilTIAZem HCL 30 MG TABLET PO (07:20)
[2022-11-11] MEDS: 0.9 % Sodium Chloride Flush 3 ML SYRINGE IVFLUSH ×2 (07:20→20:24)
[2022-11-11 07:36] VITALS: BP 140/76; PULSE 73; RESP 18; TEMP 36.2; O2SAT 97
--- NOTE | 2022-11-11 09:53 | PC.NURSE ---
Pt Afib on telemetry, HR 90s/100s with rest, as high as 160s with activity. No SOB, chest pain reported. pt is on 30mg PO Cardizem. Dr. Arnett made aware.
[2022-11-11] MEDS: Metoprolol Tartrate 25 MG TABLET PO ×3 (10:34→20:23)
[2022-11-11 11:15] VITALS: BP 129/77; PULSE 98; RESP 20; TEMP 37.1; O2SAT 95
[2022-11-11] MEDS: dilTIAZem HCL 125 MG in 0.9 % Sodium Chloride 100 ML 10 MG IVCONT (12:00)
--- NOTE | 2022-11-11 12:03 | MHC.EVENTN ---
Pt HR consistently in the 120s and higher even at rest, Pt feels heart racing, no dizziness, chest pain. Dr. Arnett made aware. Cardizem drip ordered. Cardizem drip running at 10mg/hr. Pt HR currently 130s. Will continue to monitor.
--- NOTE | 2022-11-11 12:08 | PM.CNCAR ---
History of Present Illness History of Present Illness Date of Service: 11/11/22 Requesting physician: Keegan Arnett Chief complaint: Afib Narrative: 62-year-old gentleman with background history of palpitations and alcohol use presenting for palpitations and AFib with RVR. He is saying he has been experiencing palpitations off and on for long time. He drinks workup to 3 times a week up to 3 drinks at a time. He smokes cigarettes and marijuana. He has been experiencing palpitations since Friday. He described as a fluttering sensation in the chest. No chest discomfort or shortness of breath. Previously had right lower extremity DVT and has some edema on the right leg chronically. 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 No bleeding concerns in the past. No other medical history by report. Not taking any medications at home. [facility] Social History Social History Household Members: Spouse Housing: House Do you presently have visiting nurse or other home services: No Patient Tobacco Use Status: Never used Tobacco Use of substances other than those prescribed or required for medical reasons: Yes Substance Use Type: Marijuana Substance Use Frequency: Monthly Last Used Substance: Days (ago) Last Used Substance Other:: 11/08/22 Currently Displaying Signs/Symptoms of Drug Intoxication Withdrawal: No Any prior treatment program specific to substance use: No Have you been hit, kicked, punched, or otherwise hurt by someone within the past year? If so, by whom?: No Do you feel safe in your current relationship?: No Is there a partner from a previous relationship who is making you feel unsafe now?: No Are you made to feel afraid or neglected: No Spiritual Healthcare Practices: N/A Pentecostal Healthcare Practices: Julio Cesar Cultural Healthcare Practices: N/A Advance Directives: No Advance Directives Information Provided: Yes Do you have thoughts of harming others: None Do you have a plan to hurt others: No Plan Recently lost weight without trying: No Eating poorly because of decreased appetite: No Nutrition Risks: No Nutritional Risk Poor oral hygiene: No Meds Allergies Allergy/AdvReac Type Severity Reaction Status Date / Time No Known Allergies Allergy Verified 10/22/22 08:41 Active Medications: Current Medications Acetaminophen (Acetaminophen 325 Mg Tablet) 650 mg PO Q6H PRN PRN Reason: Pain, Mild (Pain Scale 1-3) Digoxin (Digoxin 0.5 Mg/2 Ml Ampul) 0.25 mg IVPUSH Q6H [facility] Stop: 11/12/22 00:16 Docusate Sodium (Docusate Sodium 100 Mg Capsule) 100 mg PO DAILY PRN PRN Reason: Constipation Diltiazem HCl 125 mg/ Sodium (Chloride) 125 mls @ 0 mls/hr IVCONT .Q0M [facility]; Protocol Last Admin: 11/11/22 12:00 Dose: 10 mg/hr, 10 mls/hr Metoprolol Tartrate (Metoprolol Tartrate 25 Mg Tablet) 25 mg PO TID [facility]; Protocol Ondansetron HCl (Ondansetron Hcl 4 Mg/2 Ml Vial) 4 mg IVPUSH Q8H PRN PRN Reason: Nausea and Vomiting Pharmacy Consult (Consult Rx Perform Med Rec) 1 each MISCELLANE ONCE PRN PRN Reason: Consult order Sodium Chloride (0.9 % Sodium Chloride Flush 3 Ml Syringe) 3 ml IVFLUSH QSHIFT [facility] Last Admin: 11/11/22 07:20 Dose: 3 ml Home Medications Medication Instructions Recorded Confirmed Last Taken Type No Known Home Meds 11/10/22 11/10/22 Unknown History Physical Exam Vital Signs: Vital Signs: Last Vital Signs Temp 98.7 F 11/11/22 11:15 Pulse 98 11/11/22 11:15 Resp 20 11/11/22 11:15 BP 129/77 11/11/22 11:15 Pulse Ox 95 11/11/22 11:15 O2 Del Method Room Air 11/11/22 11:15 BMI result Body Mass Index 32.3 GENERAL APPEARANCE: in no acute distress, pleasant. NECK: no carotid bruit, no jugular venous distention. SKIN: no suspicious lesions, warm and dry. HEART: no murmurs, irregular rate and rhythm. LUNGS: clear to auscultation bilaterally. ABDOMEN: soft, nontender. EXTREMITIES: no edema. PERIPHERAL PULSES: equal. NEUROLOGIC: No gross deficits, AAO X 3 Objective Labs and Meds 11/10/22 13:37 11/10/22 14:45 Lab results: Laboratory Results - last 24 hr 11/10/22 11/10/22 11/10/22 13:37 13:37 14:45 WBC 6.2 RBC 4.78 Hgb 14.3 Hct 41.3 L MCV 86.4 MCH 29.9 MCHC 34.6 RDW 15.1 Plt Count 208 D MPV 9.0 L Immature Gran % (Auto) 0.5 H Neut % (Auto) 70.2 Lymph % (Auto) 17.6 L Dod[place] % (Auto) 10.1 Eos % (Auto) 1.0 Baso % (Auto) 0.6 Lymph # (Auto) 1.1 L [place] # (Auto) 0.6 Eos # (Auto) 0.1 Baso # (Auto) 0.0 Abs Immat Gran (auto) 0.03 Absolute Neuts (auto) 4.4 Absolute Nucleated RBC 0.000 Nucleated RBC % (auto) 0.0 PT INR APTT Sodium 140 Potassium 4.2 Chloride 108 Carbon Dioxide 22 Anion Gap 14 BUN 16 Creatinine 0.93 Estim Creat Clear Calc 126.3 Estimated GFR > 60 Random Glucose 108 Calcium 9.2 Magnesium 1.8 Total Bilirubin 0.5 AST 20 ALT 36 Alkaline Phosphatase 66 Troponin I High Sens 3.7 Total Protein 6.9 Albumin 4.2 Lipase 17 Urine Opiates Screen Urine Fentanyl Screen Ur Barbiturates Screen Ur Phencyclidine Scrn Ur Amphetamines Screen U Benzodiazepines Scrn Urine Cocaine Screen U Marijuana (THC) Screen Ethyl Alcohol < 10 11/10/22 11/10/22 14:45 16:01 WBC RBC Hgb Hct MCV MCH MCHC RDW Plt Count MPV Immature Gran % (Auto) Neut % (Auto) Lymph % (Auto) Doddridge % (Auto) Eos % (Auto) Baso % (Auto) Lymph # (Auto) Dod[place]idge # (Auto) Eos # (Auto) Baso # (Auto) Abs Immat Gran (auto) Absolute Neuts (auto) Absolute Nucleated RBC Nucleated RBC % (auto) PT 12.3 INR 1.1 APTT 31.2 Sodium Potassium Chloride Carbon Dioxide Anion Gap BUN Creatinine Estim Creat Clear Calc Estimated GFR Random Glucose Calcium Magnesium Total Bilirubin AST ALT Alkaline Phosphatase Troponin I High Sens Total Protein Albumin Lipase Urine Opiates Screen Not Detected Urine Fentanyl Screen Not Detected Ur Barbiturates Screen Not Detected Ur Phencyclidine Scrn Not Detected Ur Amphetamines Screen Not Detected U Benzodiazepines Scrn Not Detected Urine Cocaine Screen Not Detected U Marijuana (THC) Screen POSITIVE H Ethyl Alcohol Imaging Radiologist's impression: Impressions Chest X-Ray 11/10/22 18:20 IMPRESSION: No evidence for acute disease in the chest. Assessment and Plan (1) Atrial fibrillation with rapid ventricular response: Status: Acute Plan 62-year-old gentleman presenting for atrial fibrillation with rapid ventricular response. Currently his chads Vasc score is 0. He was on Xarelto for DVT. This was resumed on admission. I thing continue Xarelto because he will need Xarelto for 4 weeks in case we cardiovert him. Adding metoprolol 25 mg 3 times a day. Adding load of digoxin. Will review echocardiography. Keep him NPO after midnight for tentative JENNA cardioversion tomorrow. We discussed about alcohol abstinence and the relationship of alcohol use with atrial fibrillation. Thank you for allowing me to participate in the care of your patient. Please feel free to contact me if you have any questions. Time Spent With Patient Time: Total time managing care of this patient today ____ minutes. Procedures Date of Service Date of Service: 11/11/22
[2022-11-11] MEDS: Digoxin 0.5 MG/2 ML AMPUL 0.25 MG IVPUSH (12:19)
--- NOTE | 2022-11-11 14:54 | HO.PM.IMPN ---
Subjective Subjective Date of Service: 11/11/22 Interval History: Complaining of chest palpitations denies shortness of breath, no chest pain, noted to have ventricular rate up to 180s with activity and around 120 at rest, no lightheadedness, no dizziness, no fevers, no chills. Review of Systems Review of Systems: Yes all other systems are reviewed and are negative Physical Exam Vital Signs: Vital Signs: Last Vital Signs Temp 98.7 F 11/11/22 11:15 Pulse 98 11/11/22 11:15 Resp 20 11/11/22 11:15 BP 129/77 11/11/22 11:15 Pulse Ox 95 11/11/22 11:15 O2 Del Method Room Air 11/11/22 11:15 BMI result Body Mass Index 32.3 Const: Other: General awake alert x3, in no acute distress. Neck supple no JVD. CVS irregular rate rhythm, no murmurs Respiratory lungs clear to auscultation, no respiratory distress, no wheeze, no rhonchi. Gastrointestinal abdomen soft, nontender, bowel sounds audible, no guarding , no rigidity. Extremities no edema. Neuro nonfocal Skin no rash Psych appropriate affect Objective Data Active Medications Acetaminophen (Acetaminophen 325 Mg Tablet) 650 mg PO Q6H PRN PRN Reason: Pain, Mild (Pain Scale 1-3) Digoxin (Digoxin 0.5 Mg/2 Ml Ampul) 0.25 mg IVPUSH Q6H COUNT INCLUDES THE [facility] Stop: 11/12/22 00:16 Last Admin: 11/11/22 12:19 Dose: 0.25 mg Documented By: COTEMA Docusate Sodium (Docusate Sodium 100 Mg Capsule) 100 mg PO DAILY PRN PRN Reason: Constipation Diltiazem HCl 125 mg/ Sodium (Chloride) 125 mls @ 0 mls/hr IVCONT .Q0M COUNT INCLUDES THE [facility]; Protocol Last Admin: 11/11/22 12:00 Dose: 10 mg/hr, 10 mls/hr Documented By: COTEMA Metoprolol Tartrate (Metoprolol Tartrate 25 Mg Tablet) 25 mg PO TID COUNT INCLUDES THE [facility]; Protocol Ondansetron HCl (Ondansetron Hcl 4 Mg/2 Ml Vial) 4 mg IVPUSH Q8H PRN PRN Reason: Nausea and Vomiting Pharmacy Consult (Consult Rx Perform Med Rec) 1 each MISCELLANE ONCE PRN PRN Reason: Consult order Rivaroxaban (Rivaroxaban 20 Mg Tablet) 20 mg PO DAILY@1700 COUNT INCLUDES THE [facility] Sodium Chloride (0.9 % Sodium Chloride Flush 3 Ml Syringe) 3 ml IVFLUSH QSHIFT [facility] Last Admin: 11/11/22 14:50 Dose: Not Given Documented By: LOBO Non-Admin Reason: IV Running Labs 11/10/22 13:37 11/10/22 14:45 Labs: Laboratory Results - last 24 hr 11/10/22 11/10/22 11/10/22 14:45 14:45 16:01 PT 12.3 INR 1.1 APTT 31.2 Anion Gap 14 Estim Creat Clear Calc 126.3 Estimated GFR > 60 Random Glucose 108 Calcium 9.2 Magnesium 1.8 Total Bilirubin 0.5 AST 20 ALT 36 Alkaline Phosphatase 66 Total Protein 6.9 Albumin 4.2 Lipase 17 Urine Opiates Screen Not Detected Urine Fentanyl Screen Not Detected Ur Barbiturates Screen Not Detected Ur Phencyclidine Scrn Not Detected Ur Amphetamines Screen Not Detected U Benzodiazepines Scrn Not Detected Urine Cocaine Screen Not Detected U Marijuana (THC) Screen POSITIVE H Ethyl Alcohol < 10 Assessment and Plan (1) New onset atrial fibrillation: Status: Acute (2) Atrial fibrillation with rapid ventricular response: Status: Acute Plan 62-year-old male with a PMH significant for?hx of DVT in 2021 previously on Xarelto (stopped two weeks ago), testicular cancer at age 37 s/p left orchiectomy, and right hip replacement who presents to the ED with?a rapid, irregular heartbeat for the past 36+ hours. Pt will be admitted to observation on telemetry for treatment and further evaluation of AFib with RVR. AFib with RVR Persistent chest palpitations and rapid ventricular rate, normal troponin, no chest pain Has had approximately 5 previous similar episodes in past 25 years Will DC Cardizem 30 mg q.6 hours and placed on IV Cardizem drip , continue Xarelto for possible cardioversion for 4 weeks Follow Echocardiogram, check TSH, recommend to abstain from alcohol Seen by Cardiology, Dr. Hutchins added digoxin and metoprolol, possible cardioversion at a.m. will keep him NPO after midnight Question of ELIEL Recommend outpatient sleep study Alcohol use disorder as per patient he drinks alcohol 3-4 times per week mostly 2-4 vodka , his last drink was 2 days ago denies withdrawal symptoms, Full Code DVT Prophylaxis: On Xarelto Pt will need continued stay in hospital for management of atrial fibrillation with RVR, requiring telemetry monitoring. Time Spent With Patient Time: Total time managing care of this patient today ____ minutes. Quality Stroke Does the patient have a stroke diagnosis?: No VTE Prior VTE?: No VTE Risk Level:: Medical - moderate - high VTE Device Contraindication: Treatment Not Indicated VTE Drug Contraindication: N/A - Med Ordered
[2022-11-11 15:39] VITALS: BP 114/75; PULSE 85; RESP 20; TEMP 36.1; O2SAT 97
--- NOTE | 2022-11-11 15:57 | MHC.CM.PN ---
Addendum entered by Estella Armstrong 11/11/22 16:15: PTS PICKED UP HIS TRUCK, SHE WILL PROVIDE TRANSPORT AT DC Original Note: PT REPORTS HE LIVES AT HOME WITH HIS AND IS INDEPENDENT WITH CARE PT HAS NO SERVICES AND NO DME PT DOES NOT HAVE A PCP. HE REPORTS A PLAN TO SIGN UP WITH DR STEPHENS, HOWEVER HAS NOT YET SCHEDULED HIS 1ST APPT HE DOES NOT HAVE A HCP, HE DID TAKE THE INFORMATION AND DOCUMENT AND IS AWARE CM CAN ASSIST HE IS NOT COVID [employer] OBS NOTICE DELIVERED CURRENT DC PLAN IS HOME WITH NO SERVICES PT DROVE HIMSELF (SECURITY IS AWARE HIS [facility] IS PARKED IN THE ED LOT)
[2022-11-11] MEDS: Rivaroxaban 20 MG TABLET PO (16:15)
[2022-11-11 19:22] VITALS: BP 112/67; PULSE 74; RESP 20; TEMP 36.2; O2SAT 95
[2022-11-12] VITALS (14 sets, daily range): BP systolic 110–152; BP diastolic 52–93; PULSE 69–130; RESP 12–20; TEMP 35.9–36.7; O2SAT 93–98
--- NOTE | 2022-11-12 | ECG_ITS ---
Test Reason : s/p cardioversion Blood Pressure : / mmHG Vent. Rate : 068 BPM Atrial Rate : 068 BPM P-R Int : 188 ms QRS Dur : 080 ms QT Int : 378 ms P-R-T Axes : 010 010 003 degrees QTc Int : 401 ms Normal sinus rhythm Normal ECG When compared with ECG of 10-NOV-2022 12:56, Sinus rhythm has replaced Atrial fibrillation Vent. rate has decreased BY 76 BPM Referred By: Estiven Hutchins Electronically Signed By:Estiven Hutchins
[2022-11-12] MEDS: dilTIAZem HCL 125 MG in 0.9 % Sodium Chloride 100 ML 10 MG IVCONT (00:38)
[2022-11-12] MEDS: Metoprolol Tartrate 25 MG TABLET PO (09:11)
--- NOTE | 2022-11-12 11:59 | P.CONAN_ITS ---
HPI - Anesthesia Eval Consult details Narrative: recurrent a fib PMFSH Active Problems Active Problems: All Active Problems (Updated 11/10/22 @ 17:16 by Dany Hwang MD) New onset atrial fibrillation (Acute) Atrial fibrillation with rapid ventricular response (Acute) Family History Family history of problems with anesthesia: No Surgical History History of Problems with Anesthesia: No Social History Social History Household Members: Spouse Housing: House Do you presently have visiting nurse or other home services: No Patient Tobacco Use Status: Never used Tobacco Use of substances other than those prescribed or required for medical reasons: Yes Substance Use Type: Marijuana Substance Use Frequency: Monthly Last Used Substance: Days (ago) Last Used Substance Other:: 11/08/22 Currently Displaying Signs/Symptoms of Drug Intoxication Withdrawal: No Any prior treatment program specific to substance use: No Have you been hit, kicked, punched, or otherwise hurt by someone within the past year? If so, by whom?: No Do you feel safe in your current relationship?: No Is there a partner from a previous relationship who is making you feel unsafe now?: No Are you made to feel afraid or neglected: No Spiritual Healthcare Practices: N/A Shinto Healthcare Practices: Julio Cesar Cultural Healthcare Practices: N/A Advance Directives: No Advance Directives Information Provided: Yes Do you have thoughts of harming others: None Do you have a plan to hurt others: No Plan Recently lost weight without trying: No Eating poorly because of decreased appetite: No Nutrition Risks: No Nutritional Risk Poor oral hygiene: No service: No Current occupational status: disabled Meds Allergies Allergy/AdvReac Type Severity Reaction Status Date / Time No Known Allergies Allergy Verified 10/22/22 08:41 Active Medications: Current Medications Acetaminophen (Acetaminophen 325 Mg Tablet) 650 mg PO Q6H PRN PRN Reason: Pain, Mild (Pain Scale 1-3) Docusate Sodium (Docusate Sodium 100 Mg Capsule) 100 mg PO DAILY PRN PRN Reason: Constipation Diltiazem HCl 125 mg/ Sodium (Chloride) 125 mls @ 0 mls/hr IVCONT .Q0M [facility]; Protocol Last Titration: 11/12/22 10:11 Dose: 5 mg/hr, 5 mls/hr Metoprolol Tartrate (Metoprolol Tartrate 25 Mg Tablet) 25 mg PO TID [facility]; Protocol Last Admin: 11/12/22 09:11 Dose: 25 mg Ondansetron HCl (Ondansetron Hcl 4 Mg/2 Ml Vial) 4 mg IVPUSH Q8H PRN PRN Reason: Nausea and Vomiting Pharmacy Consult (Consult Rx Perform Med Rec) 1 each MISCELLANE ONCE PRN PRN Reason: Consult order Rivaroxaban (Rivaroxaban 20 Mg Tablet) 20 mg PO DAILY@1700 [facility] Last Admin: 11/11/22 16:15 Dose: 20 mg Sodium Chloride (0.9 % Sodium Chloride Flush 3 Ml Syringe) 3 ml IVFLUSH QSHIFT [facility] Last Admin: 11/12/22 07:35 Dose: Not Given Home Medications Medication Instructions Recorded Confirmed Last Taken Type No Known Home Meds 11/10/22 11/10/22 Unknown History Exam Exam Date and Time: November 12, 2022 1159 Height,Weight and Vital Signs: Height 6 ft 6 in Weight 127.191 kg Last Vital Signs Temp 97.8 F 11/12/22 10:57 Pulse 74 11/12/22 10:57 Resp 20 11/12/22 10:57 BP 128/67 11/12/22 10:57 Pulse Ox 93 11/12/22 10:57 O2 Del Method Room Air 11/12/22 10:57 Pertinent Lab Results Pertinent Lab Results: Laboratory Tests 11/10/22 11/10/22 11/10/22 13:37 13:37 14:45 WBC 6.2 RBC 4.78 Hgb 14.3 Hct 41.3 L MCV 86.4 MCH 29.9 MCHC 34.6 RDW 15.1 Plt Count 208 D MPV 9.0 L Immature Gran % (Auto) 0.5 H Neut % (Auto) 70.2 Lymph % (Auto) 17.6 L [place] % (Auto) 10.1 Eos % (Auto) 1.0 Baso % (Auto) 0.6 Lymph # (Auto) 1.1 L [place] # (Auto) 0.6 Eos # (Auto) 0.1 Baso # (Auto) 0.0 Abs Immat Gran (auto) 0.03 Absolute Neuts (auto) 4.4 Absolute Nucleated RBC 0.000 Nucleated RBC % (auto) 0.0 PT INR APTT Sodium 140 Potassium 4.2 Chloride 108 Carbon Dioxide 22 Anion Gap 14 BUN 16 Creatinine 0.93 Estim Creat Clear Calc 126.3 Estimated GFR > 60 Random Glucose 108 Calcium 9.2 Magnesium 1.8 Total Bilirubin 0.5 AST 20 ALT 36 Alkaline Phosphatase 66 Troponin I High Sens 3.7 Total Protein 6.9 Albumin 4.2 Lipase 17 Urine Opiates Screen Urine Fentanyl Screen Ur Barbiturates Screen Ur Phencyclidine Scrn Ur Amphetamines Screen U Benzodiazepines Scrn Urine Cocaine Screen U Marijuana (THC) Screen Ethyl Alcohol < 10 11/10/22 11/10/22 14:45 16:01 WBC RBC Hgb Hct MCV MCH MCHC RDW Plt Count MPV Immature Gran % (Auto) Neut % (Auto) Lymph % (Auto) [place] % (Auto) Eos % (Auto) Baso % (Auto) Lymph # (Auto) [place] # (Auto) Eos # (Auto) Baso # (Auto) Abs Immat Gran (auto) Absolute Neuts (auto) Absolute Nucleated RBC Nucleated RBC % (auto) PT 12.3 INR 1.1 APTT 31.2 Sodium Potassium Chloride Carbon Dioxide Anion Gap BUN Creatinine Estim Creat Clear Calc Estimated GFR Random Glucose Calcium Magnesium Total Bilirubin AST ALT Alkaline Phosphatase Troponin I High Sens Total Protein Albumin Lipase Urine Opiates Screen Not Detected Urine Fentanyl Screen Not Detected Ur Barbiturates Screen Not Detected Ur Phencyclidine Scrn Not Detected Ur Amphetamines Screen Not Detected U Benzodiazepines Scrn Not Detected Urine Cocaine Screen Not Detected U Marijuana (THC) Screen POSITIVE H Ethyl Alcohol Airway Mallampati Class: III TM Dist: >3cm Heart: rapid, irregular Lungs: cta Assessment and Plan Assessment Anesthesia Assessment: Anesthesia Plan Discussed and Chart Reviewed Final Anesthetic Review Family History of Problems with Anesthesia: No History of Problems with Anesthesia: No NPO: Yes ASA Class: III Final Preanesthetic Review: No Changes in Pt Med Stat, Consent Obtained/Reviewed and Anes Risks/Benef Reviewed Patient Risk: Intermediate Procedure Risk: Intermediate Anesthetic Plan Anesthetic Plan: MAC: Disposition: Standard PACU
--- NOTE | 2022-11-12 12:54 | PC.NURSE ---
telepack in floor chart
--- NOTE | 2022-11-12 13:40 | CA_ITS ---
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 JENNA performed before cardioversion. No left atrial or left atrial appendage thrombus. ??? We proceeded with cardioversion. Findings Procedure Information Consent was obtained prior to the procedure. Pre JENNA oral cavity was checked and revealed no overcrowding. The adult 3D probe was passed with no difficulty. Left Ventricle Normal left ventricular size and systolic function. The visually estimated ejection fraction is between 55-60%. There is no evidence of regional wall motion abnormalities. Right Ventricle Normal right ventricular cavity size and systolic function. Atria No thrombus in the left atrium or left atrial appendage. Aortic Valve There is a normal trileaflet aortic valve. Mitral Valve Normal mitral valve structure and function. There is trace mitral valve regurgitation. Pulmonic Valve The pulmonic valve was not well visualized. Tricuspid Valve Normal tricuspid valve structure and function. Great Vessels Small plaque is seen in the descending thoracic aorta. Pericardium/Pleural There is no evidence of pericardial effusion. Updated by Estiven Hutchins on 04:52 PM with Status of Final Estiven Hutcihns MD electronically signed on 11/13/2022 4:52:31 PM with status of Final
--- NOTE | 2022-11-12 13:51 | MHC.SHP ---
Pre-Procedural Eval Section A Date of Service: 11/12/22 The patient is an INPATIENT: Yes Section B Chief Complaint: Afib Details of Present Illness: For JENNA and cardioversion. Allergies: Allergies Allergy/AdvReac Type Severity Reaction Status Date / Time No Known Allergies Allergy Verified 10/22/22 08:41 Plan Diagnosis/Plan: Unchanged I have reviewed the history and physical and performed a pertinent physical examination on my patient. No changes have occurred unless specified. Time Spent With Patient Time: Total time managing care of this patient today ____ minutes.
--- NOTE | 2022-11-12 13:52 | PM.PNCARD ---
Subjective Subjective Date of Service: 11/12/22 Interval history: Seen and examined at bedside. Physical Exam Vital Signs: Last Vital Signs Temp 98 F 11/12/22 12:51 Pulse 81 11/12/22 12:51 Resp 20 11/12/22 12:51 BP 137/93 H 11/12/22 12:51 Pulse Ox 98 11/12/22 12:51 O2 Del Method Room Air 11/12/22 12:51 BMI result Body Mass Index 32.3 GENERAL APPEARANCE: in no acute distress, pleasant. NECK: no carotid bruit, no jugular venous distention. SKIN: no suspicious lesions, warm and dry. HEART: no murmurs, irregular rate and rhythm. LUNGS: clear to auscultation bilaterally. ABDOMEN: soft, nontender. EXTREMITIES: no edema. PERIPHERAL PULSES: equal. NEUROLOGIC: No gross deficits, AAO X 3 Objective Labs and Meds 11/10/22 13:37 11/10/22 14:45 Progress Note: A&P Assessment and plan (1) New onset atrial fibrillation: Status: Acute Plan 62 male with symptomatic PAF. For JENNA cardioversion today. Will continue Xarelto x 6 weeks post cardioversion. Complete abstinence from alcohol. Time Spent With Patient Time: Total time managing care of this patient today ____ minutes. Progress Note: Quality Stroke Does the patient have a stroke diagnosis?: No Procedures Date of Service Date of Service: 11/12/22
--- NOTE | 2022-11-12 14:59 | HO.CARDIVERS ---
Cardioversion Procedure Note Cardioversion Date of Procedure: Ordering Provider: Estiven Hutchins Performing Provider: Estiven Hutchins Indication for Procedure: PAF Performed with Transesophageal Echo: Yes JENNA findings (if JENNA Performed): No LA or MILLIE thrombus. Consent: Verbal and Written consent was obtained from the patient before starting. The patient was made aware of the risk of stroke, arrhythmia and failure to achieve sinus rhythm. Procedure: After consent obtained, defib pads were attached and the patient was sedated by the anesthesia team. Once adequate sedation achieved, single synchronized shock of 200 joules was given and patient converted to sinus rhythm. No acute complications. Recommendations: Continue Xarelto at least for next 6 weeks. Change metoprolol to Toprol-XL 75 mg once a day. Stop the Cardizem drip. Thank you for allowing me to participate in the care of your patient. Please feel free to contact me if you have any questions.
--- NOTE | 2022-11-12 15:11 | P.PNIM_ITS ---
Subjective Subjective Date of Service: 11/12/22 Interval History: Heart rate up to 160s atrial fibrillation with activity upright rated IV Cardizem drip to 15 mcg per hour patient continued to complain of palpitations no chest pain, no shortness of breath no headache or dizziness. Denies nausea vomiting diarrhea is NPO for cardioversion this afternoon. Review of Systems Review of Systems: Yes all other systems are reviewed and are negative Physical Exam Vital Signs: Vital Signs: Last Vital Signs Temp 98 F 11/12/22 15:02 Pulse 78 11/12/22 15:02 Resp 14 11/12/22 15:02 BP 148/82 H 11/12/22 15:02 Pulse Ox 98 11/12/22 15:02 O2 Del Method Room Air 11/12/22 15:02 O2 Flow Rate 4 11/12/22 14:33 BMI result Body Mass Index 32.3 Const: Other: General awake alert x3, in no acute distress.? Neck supple no JVD. CVS irregular rate rhythm, no murmurs Respiratory lungs clear to auscultation, no respiratory distress, no wheeze, no rhonchi. Gastrointestinal abdomen soft, nontender, bowel sounds audible, no guarding , no rigidity. Extremities no? edema. Neuro nonfocal Skin no rash Psych appropriate affect Objective Data Active Medications Acetaminophen (Acetaminophen 325 Mg Tablet) 650 mg PO Q6H PRN PRN Reason: Pain, Mild (Pain Scale 1-3) Docusate Sodium (Docusate Sodium 100 Mg Capsule) 100 mg PO DAILY PRN PRN Reason: Constipation Metoprolol Succinate (Metoprolol Succinate Er 25 Mg Tab.Er.24h) 75 mg PO DAILY [facility]; Protocol Ondansetron HCl (Ondansetron Hcl 4 Mg/2 Ml Vial) 4 mg IVPUSH Q8H PRN PRN Reason: Nausea and Vomiting Pharmacy Consult (Consult Rx Perform Med Rec) 1 each MISCELLANE ONCE PRN PRN Reason: Consult order Rivaroxaban (Rivaroxaban 20 Mg Tablet) 20 mg PO DAILY@1700 [facility] Last Admin: 11/11/22 16:15 Dose: 20 mg Documented By: COTEMA Sodium Chloride (0.9 % Sodium Chloride Flush 3 Ml Syringe) 3 ml IVFLUSH QSHIFT [facility] Last Admin: 11/12/22 14:24 Dose: Not Given Documented By: N-SOFFA Non-Admin Reason: See Note Labs 11/10/22 13:37 11/10/22 14:45 Assessment and Plan (1) New onset atrial fibrillation: Status: Acute (2) Atrial fibrillation with rapid ventricular response: Status: Acute Plan 62-year-old male with a PMH significant for?hx of DVT in 2021 previously on Xarelto (stopped two weeks ago), testicular cancer at age 37 s/p left orchiectomy, and right hip replacement who presents to the ED with?a rapid, ir regular heartbeat for the past 36+ hours. Pt will be admitted to observation on telemetry for treatment and further evaluation of AFib with RVR. AFib with RVR Persistent chest palpitations and rapid ventricular rate, normal troponin, no chest pain Has had approximately 5 previous similar episodes in past 25 years on IV Cardizem drip , metoprolol 25 q8 and Xarelto Echocardiogram showed EF 55-60%, normal right ventricular systolic function, likely left atrial dilatation, normal was sending Ms. home TSH, recommend to abstain from alcohol Underwent successful cardioversion converted to normal sinus rhythm Cardio recommend to DC IV Cardizem and continue Toprol-XL 75 mg daily and Xarelto for 6 weeks Question of ELIEL Recommend outpatient sleep study Alcohol use disorder as per patient he drinks alcohol 3-4 times per week mostly 2-4 vodka , his last drink was 2 days ago denies withdrawal symptoms, Full Code DVT Prophylaxis: On Xarelto Pt will need continued stay in hospital for for continued tele monitoring post cardioversion of atrial fibrillation with RVR,. Time Spent With Patient Time: Total time managing care of this patient today ____ minutes. Quality Stroke Does the patient have a stroke diagnosis?: No VTE Prior VTE?: No VTE Risk Level:: Medical - moderate - high VTE Device Contraindication: Treatment Not Indicated VTE Drug Contraindication: N/A - Med Ordered
[2022-11-12] MEDS: Metoprolol Succinate ER 25 MG TAB.ER.24H 75 MG PO (15:31)
[2022-11-12] MEDS: Rivaroxaban 20 MG TABLET PO (16:35)
[2022-11-13] VITALS: BP 127/60; PULSE 72; RESP 20; TEMP 36.1; O2SAT 97
[2022-11-13] MEDS: 0.9 % Sodium Chloride Flush 3 ML SYRINGE IVFLUSH ×2 (00:03→08:03)
[2022-11-13 03:38] VITALS: BP 116/58; PULSE 68; RESP 20; TEMP 37.3; O2SAT 97
[2022-11-13 07:22] VITALS: BP 127/73; PULSE 64; RESP 18; TEMP 37.6; O2SAT 98
[2022-11-13] MEDS: Metoprolol Succinate ER 25 MG TAB.ER.24H 75 MG PO (08:03)
--- NOTE | 2022-11-13 10:57 | MHC.CM.PN ---
Patient has been medically cleared for dc to home today, self care.
--- NOTE | 2022-11-13 12:43 | HO.POSTANES ---
Post Anesthesia Evaluation Post Anesthesia Evaluation Vital Signs: Vital Signs Temp Pulse Resp BP Pulse Ox O2 Del Method 11/13/22 07:22 99.6 F 64 18 127/73 98 Room Air 11/13/22 03:38 99.1 F 68 20 116/58 L 97 Room Air Anesthesia: Monitored Mental Status: Awake Pain Control: Satisfactory Nausea/Vomiting: None Hydration: Adequate Anesthesia-Related Issues: No Anes. Related Issues
--- NOTE | 2022-11-13 13:29 | PM.PNCARD ---
Subjective Subjective Date of Service: 11/13/22 Interval history: Seen and examined at bedside. Denying any symptoms currently in sinus rhythm. Physical Exam Vital Signs: Last Vital Signs Temp 99.6 F 11/13/22 07:22 Pulse 64 11/13/22 07:22 Resp 18 11/13/22 07:22 BP 127/73 11/13/22 07:22 Pulse Ox 98 11/13/22 07:22 O2 Del Method Room Air 11/13/22 07:22 O2 Flow Rate 4 11/12/22 14:33 BMI result Body Mass Index 32.3 GENERAL APPEARANCE: in no acute distress, pleasant. NECK: no carotid bruit, no jugular venous distention. SKIN: no suspicious lesions, warm and dry. HEART: no murmurs, regular rate and rhythm. LUNGS: clear to auscultation bilaterally. ABDOMEN: soft, nontender. EXTREMITIES: no edema. PERIPHERAL PULSES: equal. NEUROLOGIC: No gross deficits, AAO X 3 Objective Labs and Meds 11/10/22 13:37 11/10/22 14:45 Progress Note: A&P Assessment and plan (1) Atrial fibrillation with rapid ventricular response: Status: Acute Plan Pleasant 62-year-old gentleman presenting with AFib with RVR. He underwent cardioversion successfully yesterday. In sinus rhythm currently. He is going to stay on Xarelto for 6 weeks and then stop it. He will see us in the office in the coming weeks. I have advised him to completely abstain from alcohol. Should be discharged on Xarelto and Toprol-XL 75 mg once a day. Thank you for allowing me to participate in the care of your patient. Please feel free to contact me if you have any questions. Time Spent With Patient Time: Total time managing care of this patient today ____ minutes. Progress Note: Quality Stroke Does the patient have a stroke diagnosis?: No Procedures Date of Service Date of Service: 11/13/22
--- NOTE | 2022-11-13 16:37 | P.DS_ITS ---
DS: Providers Provider Date of Service: 11/13/22 Date of admission: 11/10/22 18:32 Primary care physician: Danuta Sanford MD Consults: 11/10/22 18:35 Consult to Cardiology Routine [place]ing [place] [facility] [place] Reason for consultation: Afib with RVR DS: Diagnosis Discharge Diagnosis (1) Atrial fibrillation with rapid ventricular response: Status: Acute DS: Summary Hospital Course Hospital Course: History of presenting illness. Date of Service: 11/10/22 Attending physician on admission: Maxime Jacobsen Chief Complaint: Palpitations Pt is a 62-year-old male with a PMH significant for?hx of DVT in 2021 previously on Xarelto (stopped two weeks ago), testicular cancer at age 37 s/p left orchiectomy, and right hip replacement who presents to the ED with?a rapid, irre gular heartbeat for the past 36+ hours.? Patient states that he awoke from sleep approximately 02:00 on Friday morning feeling anxious.? Went to the bathroom and found himself feeling hot, anxious, and with a fluttering heartbeat.? Checked his pulse and noticed that it was rapid and irregular.? Patient then went back to sleep and awoke the next morning to find he still had a rapid irregular heartbeat which lasted throughout the day and through the next night. Pt presented to the ED today when he awoke to persistent irregular heartbeat.? Patient states that he has had approximately 5 similar episodes in the past, the first when he was in his 30s. 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 Went to ED at [facility] where he received an injection that returned him to normal sinus rhythm.? Around 1 year ago patient experienced his longest episode of rapid irregular heartbeat which lasted throughout the night.? Other episodes have been quite brief, lasting minutes to maybe an hour or two.? Patient is not currently on any home medications and not currently seeing a entrance guard. Patient denies paroxysmal nocturnal dyspnea, but , who is at bedside, says that the patient will occasionally stops breathing at night while sleeping.? Patient denies fever, chills, nausea, vomiting, diarrhea.? No abdominal pain.? Denies chest camilo n/pressure.? No shortness of breath.? Denies lightheadedness, dizziness, headache. ? In the ED patient was afebrile, but tachycardic up to 140s, hypertensive up 155/87. Labs were unremarkable, troponin negative at 3.7. EKG demonstrated AFib with RVR of 144. Pt was treated with Cardizem 20 mg IV push and Xarelto. Pt will be admitted to the hospital under observation for treatment and further evalua tion of AFib with RVR. Hospital course 62-year-old male with a PMH significant for?hx of DVT in 2021 previously on Xarelto (stopped two weeks ago), testicular cancer at age 37 s/p left orchiectomy, and right hip replacement who presents to the ED with?a rapid, irregular heartbeat for the past 36+ hours. Pt will be admitted to observation on telemetry for treatment and further evaluation of AFib with RVR. AFib with RVR patient admitted to medical floor treated with IV Cardizem drip , Xarelto and metoprolol patient continued to be in AFib with rapid ventricular response,Echocardiogram showed EF 55-60%, normal right ventricular systolic function, likely left atrial dilatation, normal TSH, subsequently Underwent successful cardioversion converted to normal sinus rhythm , and remain in sinus rhythm in last 24 hours therefore being discharged home on Toprol-XL 75 mg daily and Xarelto for 6 weeks, patient can not continue physical therapy as before. Question of ELIEL Recommend outpatient sleep study Alcohol use disorder drinks alcohol 3-4 times per week mostly 2-4 vodka , patient had no withdrawal symptoms and has been strongly recommended to abstain from alcohol since contributing to atrial fibrillation patient understands the risk of continued alcohol and willing to quit. Time Spent with Patient Time attestation: Total time managing care of this patient today ____ minutes. Discharge coordination time: Greater than 30 minutes Quality: Safe Use of Opioids Does Pt have an Active Cancer Diagnosis on the Problem List?: No Quality: Stroke Does the patient have a stroke diagnosis?: No Physical Exam Vital Signs: Vital Signs: Last Vital Signs Temp 99.6 F 11/13/22 07:22 Pulse 64 11/13/22 07:22 Resp 18 11/13/22 07:22 BP 127/73 11/13/22 07:22 Pulse Ox 98 11/13/22 07:22 O2 Del Method Room Air 11/13/22 07:22 O2 Flow Rate 4 11/12/22 14:33 BMI result Body Mass Index 32.3 Const: Other: General awake alert x3, in no acute distress.? Neck supple no JVD. CVS regular rate rhythm, no murmurs Respiratory lungs clear to auscultation, no respiratory distress, no wheeze, no rhonchi. Gastrointestinal abdomen soft, nontender, bowel sounds audible, no guarding , no rigidity. Extremities no? edema. Neuro nonfocal Skin no rash Psych appropriate affect Discharge Plan Discharge Patient Disposition: Home, Self-Care Discharge Diagnosis: New onset atrial fibrillation with RVR Referrals: Po,Danuta Devine MD [Primary Care Provider] - 1 Week Discharge Medications: New Xarelto 20 mg Tablet 20 mg PO DAILY@1700 Qty: 40 0RF metoprolol succinate 25 mg Tablet Extended Release 24 Hr 75 mg PO DAILY Qty: 30 0RF Protocol: Hold for SBP/HR < HOLD for SBP < : 90 HOLD for HR < : 60 Discharge Orders: Discharge Order (Routine); Ordered 11/13/22 Ordered By: Keegan Arnett Diet: Advance to usual diet Activity on Discharge: As tolerated Stand Alone Forms: Patient Portal Discharge page, Work/School Release Care Plan Goals: Atrial fibrillation new onset status post cardioversion now in normal sinus rhythm continue Xarelto 20 mg 1 tablet daily for total 6 weeks and take metoprolol XL 75 mg by mouth daily, strongly recommend to abstain from alcohol Health Concerns: Alcohol use Plan of Treatment: Outpatient follow-up with primary care physician and entrance guard Dr. Hutchins call for appointment Assessment: As above Patient Instructions: Metoprolol (By mouth), Rivaroxaban (By mouth) Discharge Date/Time: 11/13/22 13:00
== END 2022-11-13 13:00 | disposition home or self-care (01) ==
LOC: HO.ED 17:16 → HO.EDOVER 18:43 → HO.IMC 18:46
PROVIDERS: Internal Medicine Cardiovascular Disease; Physician Assistant; Admitting Provider Student in an Organized Health Care Education/Training Program; Emergency Provider Emergency Medicine Emergency Medical Services; PCP Internal Medicine; Visit Provider Hospitalist
PROC: (CPT 93312; principal; 2022-11-12 13:30)
PROC: 5A2204Z Restoration of Cardiac Rhythm, Single (ICD-10-PCS; CPT 93312; 2022-11-12 13:30)
DX: I48.20 Chronic atrial fibrillation, unspecified (principal); R60.0 Localized edema; F41.9 Anxiety disorder, unspecified; F10.988 Alcohol use, unspecified with other alcohol-induced disorder; Y90.0 Blood alcohol level of less than 20 mg/100 ml; F17.210 Nicotine dependence, cigarettes, uncomplicated; F12.90 Cannabis use, unspecified, uncomplicated; Z96.641 Presence of right artificial hip joint; Z86.718 Personal history of other venous thrombosis and embolism
CPT/HCPCS: 93312; 36415; 71046; 80053; 80307; 82077; 83690; 83735; 84484; 85025; 85610; 85730; 92960; 93005; 93306; 96374; 96376; 99222; 99285; J1160; J3010; Q9957

== ENCOUNTER 2022-12-04 10:43 | Outpatient (REF) | payer OTHER, SELFPAY ==
[2022-12-04 11:00] LABS: MANUAL DIFF FLAG NO
[2022-12-04 11:39] LABS: Basophils Absolute Auto 0.1 X10*3/uL (0.0-0.2); Basophils Percent Auto 0.8 % (0-2); Eosinophils Absolute Auto 0.3 X10*3/uL (0.0-0.4); Eosinophils Percent Auto 4.4 % (0-4); Hematocrit 40.8 % (42.0-52.0); Hemoglobin 13.8 g/dl (14.0-18.0); Imm Gran Abs Auto 0.03 X10*3/uL (0.00-0.03); Imm Gran Pct Auto 0.5 % (0.0-0.4); Lymphocytes Absolute Auto 1.4 X10*3/uL (1.2-4.9); Lymphocytes Percent Auto 21.8 % (20-40); Mean Corpuscular HGB Conc 33.8 g/dl (31.0-36.0); Mean Corpuscular Hemoglobin 30.1 pg (27.0-33.0); Mean Corpuscular Volume 89.1 fL (80.0-98.0); Mean Platelet Volume 10.7 fL (9.4-12.4); Monocytes Absolute Auto 0.5 X10*3/uL (0.1-1.2); Monocytes Percent Auto 7.3 % (2-11); Neutrophils Absolute Auto 4.1 x10*3/uL (2.0-8.3); Neutrophils Percent Auto 65.2 % (45-73); Platelet Count 200 X10*3/uL (160-400); Red Blood Count 4.58 X10*6/uL (4.60-5.80); Red Cell Distribution Width 14.4 % (11.0-16.0); White Blood Count 6.3 X10*3/uL (4.8-10.8)
== END 2022-12-04 10:44 | disposition home or self-care (01) ==
LOC: HO.LAB 10:43
PROVIDERS: PCP Internal Medicine; Visit Provider Physician Assistant
DX: Z79.01 Long term (current) use of anticoagulants (principal)
CPT/HCPCS: 36415; 85025

== ENCOUNTER → 2022-12-05 14:05 | Outpatient (BNVA) | payer OTHER, SELFPAY | PROVIDERS: PCP Internal Medicine; Referring Provider Internal Medicine; Visit Provider Internal Medicine Cardiovascular Disease | DX: I48.0 Paroxysmal atrial fibrillation (principal); Z79.01 Long term (current) use of anticoagulants; Z79.899 Other long term (current) drug therapy | CPT/HCPCS: 93005; 99212 ==

== ENCOUNTER → 2023-01-15 09:57 | Outpatient (REF) | payer OTHER, SELFPAY | LOC: HO.SL 09:57 | PROVIDERS: PCP Internal Medicine; Visit Provider Physician Assistant | DX: R06.81 Apnea, not elsewhere classified (principal); I48.91 Unspecified atrial fibrillation; R06.83 Snoring; F10.11 Alcohol abuse, in remission | CPT/HCPCS: 95806 ==

== ENCOUNTER 2023-02-18 10:06 | Outpatient (AMB) | payer OTHER, SELFPAY ==
[2023-02-18 10:13] VITALS: BP 178/82; PULSE 84; O2SAT 98; BMI 33.9
--- NOTE | 2023-02-18 10:13 | MHC.PC.OV ---
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 Allergies No Known Allergies Allergy (Verified 02/18/23 10:16) Medication List - Last Reconciled 02/18/23 by Danuta Sanford MD metoprolol succinate ER 50 mg See Protocol PO DAILY 60 days Tobacco use date assessed: 12/04/22 Dental Screening Dental Screen Date: 02/18/23 Did you have a dental visit in the last 12 months?: No Did you have a dental problem in the last 6 months where you did not have access to dental care?: No Was dental information given to patient?: No HPI 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 Patient follows up with Cardiology with atrial fibrillation (October 2022) patient had JENNA cardioversion and successfully cardioverted on Xarelto and metoprolol 75 mg once a day patient has stop drinking alcohol already metoprolol was decreased to 50 mg once a day due to dizziness echocardiogram November 2022 55-60% ejection fraction. R hip pain s/p replacement 2016 falling off work- With r rotator cuff. post [facility] Medical History (Updated 02/18/23 @ 10:59 by Danuta Sanford MD) Atrial fibrillation DVT (deep venous thrombosis) History of alcohol abuse History of cardioversion Testicular cancer Witnessed apneic spells Surgical History (Updated 02/18/23 @ 10:52 by Danuta Sanford MD) H/O rotator cuff surgery H/O thumb surgery History of orchiectomy History of right hip replacement Hx of tonsillectomy Family History (Updated 02/18/23 @ 10:53 by Danuta Sanford MD) Mother Breast cancer Father Irregular heart beat Maternal Grandfather Heart attack Paternal Grandfather Heart attack Social History (Updated 02/18/23 @ 10:55 by Danuta Sanford MD) Household Members: Spouse Housing: House Do you presently have visiting nurse or other home services: No Alcohol intake: former Year quit: 2022 Patient Tobacco Use Status: Former Tobacco user Tobacco use type: Cigar Years Smoked: stopped 42 years old e-Cigarette/Vaping Use: Never Used Second Hand Smoke Exposure: No Substance Use Type: Marijuana service: No Current occupational status: disabled Current occupational exposures/hazards: No Cognitive needs: No Hearing needs: No Vision needs: No Questionnaire PHQ-9 Over the last 2 weeks, how often have you been bothered by any of the following problems? 1. Little interest or pleasure in doing things: not at all 2. Feeling down, depressed, or hopeless: not at all 3. Trouble falling or staying asleep, or sleeping too much: not at all 4. Feeling tired or having little energy: not at all 5. Poor appetite or overeating: not at all 6. Feeling bad about yourself - or that you are a failure or have let yourself or your family down: not at all 7. Trouble concentrating on things, such as reading the newspaper or watching television: not at all 8. Moving or speaking so slowly that other people could have noticed. Or the opposite - being so fidgety or restless that you have been moving around a lot more than usual: not at all 9. Thoughts that you would be better off or of hurting yourself in some way: not at all Total score: 0 Depression Screening Interpretation: Negative Source: Developed by Drs. Ildefonso Mills, Celeste Knight, Brett Maurice and colleagues, with an educational leslee from [employer]. Thrive Questionnaire Date Thrive assessed: 02/18/23 I am a: Patient What is your living situation today?: I have a steady place to live Within the past 12 months, did the food you bought not last and you didn't have the money to get more?: Never true Within the past 12 months, did you worry whether your food would run out before you got money to buy more?: Never true Do you have trouble paying for medicines?: No Do you have trouble getting transportation to medical appointments?: No Do you have trouble paying your heating and electricity bill?: No Do you have trouble taking care of your child, family member or friend?: No Do you have trouble with day-to-day activities such as bathing, preparing meals, shopping, managing finances, etc.?: No Are you currently unemployed and looking for a job?: No Are you interested in more education?: No Currently or been in a relationship where the following occur: no concerns reported AUDIT C Alcohol Use Questionnaire (AUDIT-C) 1. How often do you have a drink containing alcohol?: 2-3 times a week 2. How many drinks containing alcohol do you have on a typical day when you are drinking?: 3 or 4 3. How often do you have six or more drinks on one occasion?: Never Total Score: 4 RUBÉN-7 AMB Questionnaire RUBÉN-7 Date RUBÉN - 7 assessed: 02/18/23 Feeling nervous, anxious, or on edge: 0 = Not at all Not being able to stop or control worryin = Not at all Worrying too much about different things: 0 = Not at all Trouble relaxin = Not at all Being so restless that it is hard to sit still: 0 = Not at all Becoming easily annoyed or irritable: 0 = Not at all Feeling afraid as if something awful might happen: 0 = Not at all Total RUBÉN-7 score (0-4 normal; 5-9 mild; 10-14 moderate; 15-21 severe): 0 Source: Developed by Drs. Ildefonso Mills, Celeste Knight, Brett Maurice and colleagues, with an educational leslee from [employer]. Review of Systems Const Denies poor appetite and Denies weakness Eyes Denies no additional complaints ENT Reports Normal hearing present, Denies dizziness, Denies nasal congestion, Denies tinnitus and Denies sore throat Card Denies chest pain, Denies syncope, Denies rapid heart rate and Denies dyspnea Resp Denies cough and Denies dyspnea GI Denies change in stool character, Reports constipation, Denies diarrhea, Denies nausea and Denies vomiting Denies dysuria and Denies urinary frequency Neuro Reports Normal hearing present, Denies confusion, Denies dizziness, Denies syncope and Denies weakness Psych Denies confusion Physical exam (Primary Care) Vital Signs: Last Vital Signs Pulse 84 02/18/23 10:13 BP 178/82 H 02/18/23 10:13 Pulse Ox 98 02/18/23 10:13 Oxygen Delivery Method Room Air 02/18/23 10:13 Care Plan Goal for BP management: prostate N , guaiac negative BMI result Body Mass Index 33.9 Tobacco/Smoking Status: Tobacco use Status Tobacco use date assessed 12/04/22 02/18/23 10:20 Patient Tobacco Use Status Former Tobacco user 02/18/23 10:20 Tobacco use type Cigar 02/18/23 10:20 e-Cigarette/Vaping Use Never Used 02/18/23 10:20 PHQ-9: PHQ-9 Score PHQ-9: Total score 0 02/18/23 10:20 Depression Screening Interpretation: Negative Thrive Assessment: Date of Thrive Assessment Date Thrive assessed 02/18/23 02/18/23 10:20 Currently or been in a relationship where the following occur: no concerns reported Const General: No confusion Orientation/consciousness: No confusion HENMT Head: Yes normocephalic Ears: external ears normal and TM's normal bilaterally Face and sinus: Yes normal facial exam Mouth: moist mucous membranes Throat: Yes tonsils normal Eyes Conjunctivae: conjunctivae normal Pupils: Equal, round and reactive pupils present and Pupil accommodation reflex normal Direct Ophthalmoscopy: normal light reflex Neck Neck: No lymphadenopathy Thyroid: Thyroid normal Chest Chest palpation & inspection: normal inspection of the chest Resp Effort & Inspection: normal respiratory effort and no audible wheezes Auscultation: clear to auscultation bilaterally, no crackles, no wheezes and lung sounds not diminished Cardio Rate: regular rate Rhythm: regular rhythm Peripheral pulses: radial pulses present and dorsalis pedis present GI Palpation (GI): no masses Auscultation: normal bowel sounds and normoactive bowel sounds Male General Exam: Yes normal external exam Skin General skin exam: no rashes or lesions noted Rashes: no rashes Neuro General: No confusion Cranial nerves: Yes Equal, round and reactive pupils present and Yes Normal hearing present Cognition (Neuro): normal cognition Gait exam (Neuro): Normal gait present Motor exam (neuro): 5/5 motor strength present throughout Deep tendon reflexes (DTR's): Right brachioradialis reflex intensity grade: 2+, Left brachioradialis reflex intensity grade: 2+, Right patellar reflex intensity grade: 2+ and Left patellar reflex intensity grade: 2+ Extrem General: No edema Assessment and Plan Assessment & Plan (1) Annual physical exam: Code(s): Z00.00 - Encounter for general adult medical examination without abnormal findings (2) Atrial fibrillation: Comment: Status post cardioversion October 2022 Code(s): I48.91 - Unspecified atrial fibrillation Qualifiers: Atrial fibrillation type: unspecified Qualified Code(s): I48.91 - Unspecified atrial fibrillation Plan: Chads Vasc score 0 no anticoagulation. (3) History of alcohol abuse: Code(s): F10.11 - Alcohol abuse, in remission Plan: Patient has stopped alcohol 10/2022 (4) DVT (deep venous thrombosis): Comment: 2021 Right Code(s): I82.409 - Acute embolism and thrombosis of unspecified deep veins of unspecified lower extremity (5) Tinnitus: Code(s): H93.19 - Tinnitus, unspecified ear (6) Colon cancer screening: Code(s): Z12.11 - Encounter for screening for malignant neoplasm of colon Orders: Orders Vitamin B12 and Folate Today I48.91 - Unspecified atrial fibrillation Comprehensive Met. Panel Today I48.91 - Unspecified atrial fibrillation Lipid Panel Today E78.00 - Pure hypercholesterolemia, unspecified, I48.91 - Unspecified atrial fibrillation Magnesium Today I48.91 - Unspecified atrial fibrillation Phosphorus Today I48.91 - Unspecified atrial fibrillation Prostate Specific Antigen Scr Today I48.91 - Unspecified atrial fibrillation Free T4 (Free Thyroxine) Today I48.91 - Unspecified atrial fibrillation Thyroid Stimulating Hormone Today I48.91 - Unspecified atrial fibrillation Complete Blood Count Auto Diff Today I48.91 - Unspecified atrial fibrillation Referrals Speech and Hearing Referral H93.19 - Tinnitus, unspecified ear Gastroenterology Referral Z12.11 - Encounter for screening for malignant neoplasm of colon Coding Level of Care Code New Pt Prev Care 40-64y(62822) Diagnoses Annual physical exam Z00.00 Atrial fibrillation I48.91 Atrial fibrillation type: unspecified History of alcohol abuse F10.11 DVT (deep venous thrombosis) I82.409 Tinnitus H93.19 Colon cancer screening Z12.11
[2023-02-18 10:47] VITALS: BP 130/70
== END 2023-02-18 11:17 | disposition home or self-care (01) ==
PROVIDERS: PCP Internal Medicine; Visit Provider Internal Medicine
DX: Z00.00 Encounter for general adult medical examination without abnormal findings (principal); I48.91 Unspecified atrial fibrillation; F10.11 Alcohol abuse, in remission; I82.409 Acute embolism and thrombosis of unspecified deep veins of unspecified lower extremity; H93.19 Tinnitus, unspecified ear; Z12.11 Encounter for screening for malignant neoplasm of colon
CPT/HCPCS: 99386

== ENCOUNTER 2023-05-19 09:58 | Outpatient (REF) | payer OTHER, SELFPAY ==
[2023-05-19 10:10] LABS: MANUAL DIFF FLAG NO
[2023-05-19 10:29] LABS: Basophils Percent Auto 0.6 % (0-2); Eosinophils Absolute Auto 0.1 X10*3/uL (0.0-0.4); Hematocrit 43.8 % (42.0-52.0); Hemoglobin 14.9 g/dl (14.0-18.0); Imm Gran Abs Auto 0.01 X10*3/uL (0.00-0.03); Imm Gran Pct Auto 0.2 % (0.0-0.4); Lymphocytes Percent Auto 19.2 % (20-40); Mean Corpuscular Hemoglobin 30.6 pg (27.0-33.0); Mean Corpuscular Volume 89.9 fL (80.0-98.0); Mean Platelet Volume 9.2 fL (9.4-12.4); Monocytes Absolute Auto 0.5 X10*3/uL (0.1-1.2); Monocytes Percent Auto 9.9 % (2-11); Neutrophils Absolute Auto 3.4 x10*3/uL (2.0-8.3); Neutrophils Percent Auto 68.1 % (45-73); Platelet Count 154 X10*3/uL (160-400); Red Blood Count 4.87 X10*6/uL (4.60-5.80); Red Cell Distribution Width 14.9 % (11.0-16.0)
[2023-05-19 11:36] LABS: Alanine Aminotransferase 43 U/L (0-40); Albumin Level 4.2 g/dL (3.5-5.0); Alkaline Phosphatase 71 U/L (39-117); Anion Gap 14 (12-20); Aspartate Amino Transferase 31 U/L (5-37); Bilirubin Total 0.5 mg/dL (0.0-1.0); Blood Urea Nitrogen 13 mg/dL (9-16); Calcium 9.9 mg/dL (8.4-10.2); Carbon Dioxide 26 mmol/L (22-29); Chloride 106 mmol/L (96-108); Cholesterol 272 mg/dL (<200); Estimated Glomerular Filt Rate > 60; Glucose Random 187 mg/dL (60-115); HDL Cholesterol 79 mg/dL (>40); LDL Cholesterol Calculated 179 mg/dL (<100); Magnesium 1.8 mg/dL (1.6-2.6); Phosphorus 2.9 mg/dL (2.7-4.5); Potassium 4.9 mmol/L (3.3-5.1); Sodium 141 mmol/L (135-145); Total Protein 7.6 g/dL (6.5-8.0); Triglycerides 70 mg/dL (<150)
[2023-05-19 11:53] LABS: Folate 5.4 ng/mL (> or = 4.0); Prostate Specific Antigen Scr 1.58 ng/mL (<0.05-4.0); Vitamin B12 476 pg/mL (200-900)
[2023-05-19 11:54] LABS: Free T4 (Free Thyroxine) 0.73 ng/dL (0.71-1.85); Thyroid Stimulating Hormone 1.13 uIU/mL (0.32-4.0)
== END 2023-05-19 09:59 | disposition home or self-care (01) ==
LOC: HO.LAB 09:58
PROVIDERS: PCP Internal Medicine; Visit Provider Internal Medicine
DX: I48.91 Unspecified atrial fibrillation (principal); E78.00 Pure hypercholesterolemia, unspecified
CPT/HCPCS: 36415; 80053; 80061; 82607; 82746; 83735; 84100; 84153; 84439; 84443; 85025

== ENCOUNTER 2023-05-26 12:20 | Outpatient (AMB) | payer OTHER, SELFPAY ==
--- NOTE | 2023-05-26 12:24 | MHC.OFFVIS ---
Intake Vital Signs 05/26/23 12:25 Height 6 ft 6 in Weight 278 lb BMI 32.1 BP 126/63 Blood Pressure Location Lt brachial Position Sitting Pulse 112 H Intake Visit Reasons: Colonoscopy Screening Intake Note: Patient new consult for 1st pre colonoscopy screening. Patient denies any GI issues. 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: No Accompanied by: Self / Same As Patient Allergies No Known Allergies Allergy (Verified 05/26/23 12:24) Medication List - Last Reconciled 05/26/23 by Fabiana Del Angel PA-C metoprolol succinate ER 50 mg PO DAILY HPI HPI Comments History of Present Illness Details A 62 y/o male referred for index screening colonoscopy-he is very anxious even being here to discuss the procedure No family history of GI cancers He says he feels not ready for invasive a exam- is there an alternative Has a normal bowel pattern He has a good appetite No nausea, vomiting, hematemesis, hematochezia, abdominal pain, fever chills No chest pain, shortness of breath PFSH Medical History History of cardioversion History of alcohol abuse Atrial fibrillation Witnessed apneic spells DVT (deep venous thrombosis) Testicular cancer Surgical History H/O thumb surgery Hx of tonsillectomy H/O rotator cuff surgery History of right hip replacement History of orchiectomy Family History Mother Breast cancer Father Irregular heart beat Maternal Grandfather Heart attack Paternal Grandfather Heart attack Social History Household Members: Spouse Housing: House Do you presently have visiting nurse or other home services: No Alcohol intake: former Year quit: 2022 Patient Tobacco Use Status: Former Tobacco user Tobacco use type: Cigar Years Smoked: stopped 42 years old e-Cigarette/Vaping Use: Never Used Second Hand Smoke Exposure: No Substance Use Type: Marijuana service: No Current occupational status: disabled Current occupational exposures/hazards: No Cognitive needs: No Hearing needs: No Vision needs: No Review of Systems Const All systems reviewed & are unremarkable except as noted in HPI and below Card Denies chest pain, Denies rapid heart rate and Denies dyspnea Resp Denies dyspnea GI Denies abdominal pain, Denies bloating, Denies change in bowel habits, Denies heartburn, Denies nausea and Denies vomiting Psych Reports anxiety Physical Exam Vital Signs: Last Vital Signs Pulse 112 H 05/26/23 12:25 BP 126/63 05/26/23 12:25 BMI result Body Mass Index 32.1 Const General: cooperative, healthy appearing, comfortable and no acute distress Orientation/consciousness: patient oriented x3 Limitations: no limitations Eyes Sclerae: sclerae normal Resp Effort & Inspection: normal respiratory effort and able to speak in complete sentences Auscultation: clear to auscultation bilaterally, no rales, no rhonchi and no wheezes Cardio Rate: regular rate (Oct) and tachycardic (Oct) Rhythm: regular rhythm Heart sounds: S1 normal heart sound present and S2 normal heart sound present GI Inspection: Yes normal to inspection Palpation (GI): Soft to palpation and nontender Auscultation: normal bowel sounds Skin General skin exam: no rashes or lesions noted Neuro General: patient oriented x3 Extrem General: Yes full ROM Psych Appearance: grossly normal and well kempt Mental Status: mental status grossly normal Speech and movement: Normal speech and movement present and Clear speech present Affect: normal affect Attitude: cooperative Thought process: Normal thought process present Thought content: Normal thought content present Insight: Good insight present (Psych) Judgement: Good judgement present (Psych) Assessment & Plan Assessment & Plan (1) History of alcohol abuse: Comment: few days a wk Code(s): F10.11 - Alcohol abuse, in remission (2) Colon cancer screening: Comment: Discussed benefits versus risks, and alternatives Code(s): Z12.11 - Encounter for screening for malignant neoplasm of colon Plan: Cologuard, if positive recommend colonoscopy Plan Cologuard Orders: Referrals Cologuard Test Z12.11 - Encounter for screening for malignant neoplasm of colon Patient Instructions: Pleasant 62-year-old male referred for index screening colonoscopy he has no family history of GI cancers, he has no GI complaints. We discussed on importance of screening colonoscopy as well as alternatives to include Cologuard, in which he opts for. He stands approximately 13% false positive, if positive we recommend colonoscopy. He is agreeable to the plan Will be sent to insurance for authorization any issues he will be notified. As well, he will call the office 2 weeks after sample submitted for results No major barriers to understanding were identified. Appreciate the opportunity assist in care the patient Coding Level of Care Code New Pt Level 3 (33022) Diagnoses History of alcohol abuse F10.11 Colon cancer screening Z12.11 Time Spent (min) 30
[2023-05-26 12:25] VITALS: BP 126/63; PULSE 112; BMI 32.1
== END 2023-05-26 14:07 | disposition home or self-care (01) ==
PROVIDERS: PCP Internal Medicine; Visit Provider Physician Assistant
DX: F10.11 Alcohol abuse, in remission (principal); Z12.11 Encounter for screening for malignant neoplasm of colon
CPT/HCPCS: 99203

== ENCOUNTER → 2023-05-26 12:20 | Outpatient (BNVA) | payer OTHER, SELFPAY | PROVIDERS: PCP Internal Medicine; Visit Provider Physician Assistant | DX: Z01.818 Encounter for other preprocedural examination (principal); F10.11 Alcohol abuse, in remission | CPT/HCPCS: 99202 ==

== ENCOUNTER 2023-05-28 08:33 | Outpatient (AMB) | payer OTHER, SELFPAY ==
--- NOTE | 2023-05-28 08:37 | A.OFFPC_ITS ---
Vital Signs 05/28/23 08:38 05/28/23 08:44 Height 6 ft 6 in Weight 288 lb BMI 33.3 BP 166/92 H 140/88 H Blood Pressure Location Lt brachial Rt brachial Position Sitting Sitting Pulse 83 Pulse Source Pulse Oximeter Pulse Oximetry (%) 99 Oxygen Delivery Method Room Air Intake Visit Reasons: 3 month follow up Intake Note: Patient is here to follow up on Afib. 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: Not Required per policy Accompanied by: Self / Same As Patient Allergies No Known Allergies Allergy (Verified 05/28/23 08:38) Medication List - Last Reconciled 05/28/23 by Danuta Sanford MD metoprolol succinate ER 50 mg PO DAILY Tobacco use date assessed: 05/28/23 Dental Screening Dental Screen Date: 05/28/23 Did you have a dental visit in the last 12 months?: No Did you have a dental problem in the last 6 months where you did not have access to dental care?: No Was dental information given to patient?: No HPI 3 month follow up HPI0 Details 62-year-old obese male with atrial fibri llation history of alcohol abuse DVT tinnitus last seen in February 2023. Patient is here for follow-up. Patient did see gastroenterology and was ordered for Cologuard testing. Meanwhile blood work was done May 19 noted an elevated blood sugar to 187. Also noted liver function elevation as well as a very high bad cholesterol LDL is 179 goal of less than 130. Patient has been feeling fine and will be seeing Cardiology after this appointment. FORMERLY [facility], [facility] Medical History (Updated 05/28/23 @ 09:27 by Danuta Sanford MD) History of cardioversion History of alcohol abuse Atrial fibrillation Witnessed apneic spells DVT (deep venous thrombosis) Testicular cancer Surgical History (Updated 05/28/23 @ 08:42 by EVELYNE Smith) H/O thumb surgery Hx of tonsillectomy H/O rotator cuff surgery History of right hip replacement History of orchiectomy Family History Mother Breast cancer Father Irregular heart beat Maternal Grandfather Heart attack Paternal Grandfather Heart attack Social History (Updated 05/28/23 @ 08:42 by EVELYNE Smith) Household Members: Spouse Housing: House Do you presently have visiting nurse or other home services: No Alcohol intake: current Alcohol intake frequency: holidays/special occasions only Patient Tobacco Use Status: Former Tobacco user Tobacco use type: Cigar Years Smoked: stopped 42 years old e-Cigarette/Vaping Use: Never Used Second Hand Smoke Exposure: No Substance Use Type: Marijuana service: No Current occupational status: disabled Current occupational exposures/hazards: No Cognitive needs: No Hearing needs: No Vision needs: No Questionnaire Thrive Questionnaire Date Thrive assessed: 02/18/23 RUBÉN-7 AMB Questionnaire RUBÉN-7 Date RUBÉN - 7 assessed: 02/18/23 Source: Developed by Drs. Ildefonso Mills, Celeste Knight, Brett Maurice and colleagues, with an educational leslee from [employer]. Physical exam (Primary Care) Vital Signs: Last Vital Signs Pulse 83 05/28/23 08:38 BP 140/88 H 05/28/23 08:44 Pulse Ox 99 05/28/23 08:38 Oxygen Delivery Method Room Air 05/28/23 08:38 BMI result Body Mass Index 33.3 Tobacco/Smoking Status: Tobacco use Status Tobacco use date assessed 05/28/23 05/28/23 08:46 Patient Tobacco Use Status Former Tobacco user 05/28/23 08:46 Tobacco use type Cigar 05/28/23 08:46 e-Cigarette/Vaping Use Never Used 05/28/23 08:46 Thrive Assessment: Date of Thrive Assessment Date Thrive assessed 02/18/23 05/28/23 08:46 Const General: alert; No acute distress Eyes Conjunctivae: conjunctivae normal Resp Auscultation: clear to auscultation bilaterally Cardio Rate: regular rate Rhythm: regular rhythm GI Inspection: Yes normal to inspection Extrem General: Yes normal to inspection and No edema Results AMB Hemoglobin A1c AMB Hemoglobin A1c 5.6 % Last Edit by EVELYNE Smith on 05/28/23 09:14 Assessment and Plan Assessment & Plan (1) Colon cancer screening: Comment: Discussed benefits versus risks, and alternatives Code(s): Z12.11 - Encounter for screening for malignant neoplasm of colon Plan: Cologuard testing ordered (2) Atrial fibrillation: Comment: Status post cardioversion October 2022 Code(s): I48.91 - Unspecified atrial fibrillation Qualifiers: Atrial fibrillation type: unspecified Qualified Code(s): I48.91 - Unspecified atrial fibrillation Plan: Continue to follow-up (3) Elevated blood sugar: Code(s): R73.9 - Hyperglycemia, unspecified Plan: Decrease the amount of carbohydrate intake, pasta, bread, rice and potatoes are all sugar and that is aside from all the sweet stuff, remember that fruits are good but they are Sweet also. Hemoglobin A1c is in the normal range. (4) LFT elevation: Code(s): R79.89 - Other specified abnormal findings of blood chemistry Plan: Will order for repeat testing with ultrasound of the abdomen (5) Hypercholesterolemia: Code(s): E78.00 - Pure hypercholesterolemia, unspecified Plan: Avoid fried foods, chicken skin, eggs, butter margarine, pastries and meat. Be it pork or beef they have a lot of cholesterol LDL goal of less than 130 and triglyceride of less than 150. (6) Hypertension: Code(s): I10 - Essential (primary) hypertension Plan: Noted blood pressure to be elevated presently on metoprolol. Was previously on 75 mg but due to not feeling well was drop down to 50 mg. Patient will be seeing Cardiology today. Orders: Orders Hepatitis B,C Profile 3 Months R79.89 - Other specified abnormal findings of blood chemistry AMB Hemoglobin A1c Today R73.9 - Hyperglycemia, unspecified US abdomen complete Today R79.89 - Other specified abnormal findings of blood chemistry Lipid Panel 3 Months E78.00 - Pure hypercholesterolemia, unspecified Comprehensive Met. Panel 3 Months E78.00 - Pure hypercholesterolemia, unspecified Hemoglobin A1c 3 Months E78.00 - Pure hypercholesterolemia, unspecified Coding Level of Care Code Est Pt Level 4 (05161) Diagnoses Colon cancer screening Z12.11 Atrial fibrillation, unspecified type I48.91 Atrial fibrillation type: unspecified Elevated blood sugar R73.9 LFT elevation R79.89 Hypercholesterolemia E78.00 Hypertension I10
[2023-05-28 08:38] VITALS: BP 166/92; PULSE 83; O2SAT 99; BMI 33.3
[2023-05-28 08:44] VITALS: BP 140/88
== END 2023-05-28 11:17 | disposition home or self-care (01) ==
PROVIDERS: PCP Internal Medicine; Visit Provider Internal Medicine
DX: Z12.11 Encounter for screening for malignant neoplasm of colon (principal); I48.91 Unspecified atrial fibrillation; R73.9 Hyperglycemia, unspecified; E78.00 Pure hypercholesterolemia, unspecified; I10 Essential (primary) hypertension
CPT/HCPCS: 83036; 99214

== ENCOUNTER 2023-05-28 09:37 | Outpatient (AMB) | payer OTHER, SELFPAY ==
[2023-05-28 09:59] VITALS: BP 148/80; PULSE 96; BMI 33.4
--- NOTE | 2023-05-28 09:59 | A.OFFVIS_ITS ---
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 He was seen in the hospital when he presented with paroxysmal atrial fibrillation and palpitations. After discussion he was taken for JENNA cardioversion. He was successfully cardioverted and was discharged home on rivaroxaban and metoprolol succinate 75 mg once a day. The plan was to continue the rivaroxaban for 6 weeks as his stroke risk is low. He was drinking alcohol previously and has stop drinking completely. He also has been snoring at night and had some features of sleep apnea and has been referred for sleep study by his primary care team. No bleeding concerns. He is saying he takes 3 tablets of metoprolol succinate which is 75 mg he gets some lightheadedness. 05/28/2023: He returns for follow-up. B een doing well. Occasionally feels palpitations lasting for few seconds. He is exercising and with activity he has no symptoms. No chest discomfort. He has been off Xarelto after cardioversion. His chads Vasc score was 1 for hypertension. Blood pressure is elevated. He does not drink as much but does drink on weekends specially when he is watching sports. He is saying he drinks vodka and beer. FORMERLY [facility], [facility] Medical History (Updated 05/28/23 @ 09:27 by Danuta Sanford MD) History of cardioversion History of alcohol abuse Atrial fibrillation Witnessed apneic spells DVT (deep venous thrombosis) Testicular cancer Surgical History (Updated 05/28/23 @ 08:42 by EVELYNE Smith) H/O thumb surgery Hx of tonsillectomy H/O rotator cuff surgery History of right hip replacement History of orchiectomy Family History Mother Breast cancer Father Irregular heart beat Maternal Grandfather Heart attack Paternal Grandfather Heart attack Social History (Updated 05/28/23 @ 08:42 by EVELYNE Smith) Household Members: Spouse Housing: House Do you presently have visiting nurse or other home services: No Alcohol intake: current Alcohol intake frequency: holidays/special occasions only Patient Tobacco Use Status: Former Tobacco user Tobacco use type: Cigar Years Smoked: stopped 42 years old e-Cigarette/Vaping Use: Never Used Second Hand Smoke Exposure: No Substance Use Type: Marijuana service: No Current occupational status: disabled Current occupational exposures/hazards: No Cognitive needs: No Hearing needs: No Vision needs: No Review of Systems Const Denies chills, Denies fatigue, Denies fever(s), Denies frequent falls, Denies weakness, Denies weight gain and Denies weight loss ENT Denies dizziness Card Denies chest pain, Denies leg edema, Denies lightheadedness, Denies palpitations, Denies dyspnea, Denies dyspnea on exertion, Denies orthopnea and Denies other (loss of consciousness) Resp Denies cough, Denies dyspnea and Denies dyspnea on exertion GI Denies hematochezia and Denies change in stool character Musc Denies abnormal gait, Denies muscle weakness, Denies numbness, Denies radiating pain into limb and Denies tingling Neuro Denies abnormal gait, Denies dizziness, Denies frequent falls, Denies numbness, Denies tingling and Denies weakness Endo Denies fatigue and Denies palpitations Physical Exam Vital Signs: Last Vital Signs Pulse 96 05/28/23 09:59 BP 148/80 H 05/28/23 09:59 BMI result Body Mass Index 33.4 GENERAL APPEARANCE: in no acute distress, pleasant. NECK: no carotid bruit, no jugular venous distention. SKIN: no suspicious lesions, warm and dry. HEART: no murmurs, regular rate and rhythm. LUNGS: clear to auscultation bilaterally. ABDOMEN: soft, nontender. EXTREMITIES: no edema. PERIPHERAL PULSES: equal. NEUROLOGIC: No gross deficits, AAO X 3 Results AMB Hemoglobin A1c AMB Hemoglobin A1c 5.6 % Last Edit by EVELYNE Smith on 05/28/23 09:14 Assessment & Plan Assessment & Plan (1) Hypertension: Code(s): I10 - Essential (primary) hypertension (2) Atrial fibrillation: Comment: Status post cardioversion October 2022 Code(s): I48.91 - Unspecified atrial fibrillation Qualifiers: Atrial fibrillation type: unspecified Qualified Code(s): I48.91 - Unspecified atrial fibrillation Plan Pleasant 62-year-old gentleman who is here for follow-up. He was seen in the hospital for paroxysmal atrial fibrillation and underwent cardioversion. He was on Xarelto for few weeks and subsequently was taken off the Xarelto. He could not tolerate Toprol-XL at 75 mg and was decreased to 50 mg daily and he has been tolerating that well. He has occasional palpitations lasting for few seconds. Overall he is stable. In terms of blood pressure, his blood pressure is elevated. We discussed about adding hydrochlorothiazide and we will start that as next medication. I have advised him to cut back on his alcohol as it will help his blood pressure as well as episodes of atrial fibrillation. If he had frequent palpitations then we will consider exercise stress test to rule out any obstructive coronary disease. After that we can try pill in the pocket approach with flecainide. Thank you for allowing me to participate in the care of your patient. Please feel free to contact me if you have any questions. Medications: New hydrochlorothiazide 12.5 mg PO QAM 60 tabs 3RF I10 - Essential (primary) hypertension Coding Level of Care Code Est Pt Level 4 (60632) Diagnoses Hypertension I10 Atrial fibrillation, unspecified type I48.91 Atrial fibrillation type: unspecified
== END 2023-05-28 10:35 | disposition home or self-care (01) ==
PROVIDERS: PCP Internal Medicine; Visit Provider Internal Medicine Cardiovascular Disease
DX: I10 Essential (primary) hypertension (principal); I48.91 Unspecified atrial fibrillation
CPT/HCPCS: 99214

== ENCOUNTER → 2023-05-28 09:37 | Outpatient (BNVA) | payer OTHER, SELFPAY | PROVIDERS: PCP Internal Medicine; Visit Provider Internal Medicine Cardiovascular Disease | DX: I48.91 Unspecified atrial fibrillation (principal); I10 Essential (primary) hypertension | CPT/HCPCS: 99212 ==

== ENCOUNTER 2023-06-05 09:50 | Outpatient (REF) | payer OTHER, SELFPAY ==
--- NOTE | ~2023-06-05 | US_ITS ---
EXAMINATION: US ABDOMEN COMPLETE CLINICAL INFORMATION: Other specified abnormal findings of blood chemistry. COMPARISON: None available. TECHNIQUE: Real-time imaging of the abdominal viscera. FINDINGS: PANCREAS: Limited due to bowel gas. ABDOMINAL AORTA: The proximal, mid, and distal segments are normal in caliber. INFERIOR VENA CAVA: Visualized portions are normal. LIVER: Liver echotexture is increased. Liver is upper normal in size. The liver is normal in contour. No focal hepatic lesion. There is no intrahepatic biliary duct dilatation seen. GALLBLADDER: There is ring down artifact from the anterior gallbladder wall in the fundus questionable for adenomyosis. The gallbladder wall is minimally thickened measuring 0.4 cm. No definite gallstones. The gallbladder is normal in size. COMMON BILE DUCT: Normal in caliber measuring 0.54 cm in diameter. RIGHT KIDNEY: Normal. No hydronephrosis. No renal calculi or focal parenchymal lesions. The kidney measures 12.0 cm in maximum dimension. LEFT KIDNEY: Normal. No hydronephrosis. No renal calculi or focal parenchymal lesions. The kidney measures 12.8 cm in maximum dimension. SPLEEN: Normal. The spleen measures 12.6 cm in maximum dimension. FREE FLUID: None. US/US abdomen complete IMPRESSION: Echogenic upper normal-size liver. Differential would include fatty infiltration and hepatocellular disease. Question focal adenomyosis of the gallbladder fundus. Limited visualization of the pancreas.
== END 2023-06-05 09:51 | disposition home or self-care (01) ==
LOC: HO.HMGCX 09:50
PROVIDERS: PCP Internal Medicine; Visit Provider Internal Medicine
DX: R79.89 Other specified abnormal findings of blood chemistry (principal)
CPT/HCPCS: 76700

== ENCOUNTER 2023-06-09 06:35 | Inpatient (IN) | payer OTHER, SELFPAY ==
[2023-06-09] VITALS (16 sets, daily range): BP systolic 91–127; BP diastolic 51–75; PULSE 63–156; RESP 12–20; TEMP 36.1–37.2; O2SAT 95–99; BMI 34.1
--- NOTE | 2023-06-09 | ECG_ITS ---
Test Reason : PALPITATIONS Blood Pressure : / mmHG Vent. Rate : 143 BPM Atrial Rate : 000 BPM P-R Int : 000 ms QRS Dur : 078 ms QT Int : 258 ms P-R-T Axes : 000 035 007 degrees QTc Int : 398 ms Atrial fibrillation with rapid ventricular response Nonspecific ST abnormality Abnormal ECG When compared with ECG of 12-NOV-2022 15:13, Atrial fibrillation has replaced Sinus rhythm Vent. rate has increased BY [address] now depressed in Lateral leads Referred By: Generic ED Physician Electronically Signed By:MARY JANE VELAZCO MD
--- NOTE | ~2023-06-09 | XR_ITS ---
Normal EXAMINATION: XR CHEST 2 VIEW CLINICAL INFORMATION: Shortness of breath, atrial fibrillation COMPARISON: 11/10/2022 TECHNIQUE: PA and lateral views of the chest obtained. FINDINGS: The lungs are clear. There are no pleural effusions. The cardiomediastinal silhouette is normal. XR/XR chest 2V IMPRESSION: No acute cardiopulmonary disease.
--- NOTE | 2023-06-09 06:46 | ED.ARRPALP ---
HPI - Arrhythmia/Palpitations General Chief Complaint: Arrhythmia/Palpitations Stated Complaint: arrhythmia Time Seen by Provider: 06/09/23 06:46 Source: patient, RN notes reviewed and old records reviewed Mode of arrival: ambulatory History of Present Illness HPI narrative: 62-year-old male past medical history of HTN, DVT, proximal AFib on metoprolol, not anticoagulated, presenting to the ED complaining of palpitations, increased anxiety, and SOB since Friday. Admits to similar symptoms in the past. Admits to compliance with his medications, took his Metoprolol and HCTZ today. Also reports intermittent lightheadedness. Denies fever/chills, pedal edema, abdominal pain, nausea/vomiting, chest pain MD complaint: rapid heart beat and palpitations Related Data Previous Rx's Medication Instructions Recorded apixaban 5 mg tablet (Eliquis) 5 mg PO BID #60 tabs 06/10/23 dronedarone 400 mg tablet (Multaq) 400 mg PO BID #60 tabs 06/10/23 Allergies Allergy/AdvReac Type Severity Reaction Status Date / Time No Known Allergies Allergy Verified 06/10/23 09:44 Review of Systems Review of Systems: Constitutional: No Fever, No Chills, No Fatigue, No Malaise ENT/Mouth: No Ear Pain, No Nasal Congestion, No Sinus Pain, No Hoarseness, No sore throat, No Rhinorrhea, No Swallowing Difficulty Eyes: No Eye Pain, No Swelling, No Redness, No Vision Changes Cardiovascular: No Chest Pain, + SOB, No Edema, +Palpitations Respiratory: No Cough, No Sputum, No Dyspnea Gastrointestinal: No Nausea, No Vomiting, No Diarrhea, No Constipation, No Abdominal pain Genitourinary: No Dysuria, No Urinary Frequency, No Hematuria, No Urgency, No Flank Pain Musculoskeletal: No joint pain, No Myalgias, No Joint Swelling Skin: No Skin Lesions, No rash Neuro: No Weakness, No Numbness, No Paresthesias, No Loss of Consciousness, + lightheaded, No Headache Yes all other systems are reviewed and are negative Constitutional: Constitutional: Reports as per HPI [facility] Past Medical History Attestation statement: The following information was validated with the patient. Source: old records reviewed Medical History History of cardioversion History of alcohol abuse Atrial fibrillation DVT (deep venous thrombosis) Testicular cancer Surgical History H/O thumb surgery Hx of tonsillectomy H/O rotator cuff surgery History of right hip replacement History of orchiectomy Family History Family History Mother Breast cancer Father Irregular heart beat Maternal Grandfather Heart attack Paternal Grandfather Heart attack Social History Household Members: Spouse Housing: House Do you presently have visiting nurse or other home services: No Alcohol intake: current Alcohol intake frequency: a few times a week Patient Tobacco Use Status: Former Tobacco user Quit Date: 1989 Tobacco use type: Cigar Years Smoked: stopped 42 years old e-Cigarette/Vaping Use: Never Used Second Hand Smoke Exposure: No Substance Use Type: Marijuana service: No Current occupational status: disabled Current occupational exposures/hazards: No Cognitive needs: No Hearing needs: No Vision needs: No Physical Exam Vital Signs: Vital Signs: Last Vital Signs Temp 97.8 F 06/10/23 15:52 Pulse 79 06/10/23 16:00 Resp 16 06/10/23 15:52 BP 124/63 06/10/23 16:00 Pulse Ox 98 06/10/23 15:52 O2 Del Method Room Air 06/10/23 15:52 BMI result Body Mass Index 34.1 Const: General: cooperative, healthy appearing and no acute distress Orientation/consciousness: patient oriented x3 Limitations: no limitations HEENT: Head: Yes normal to inspection and Yes atraumatic Ears: hearing grossly normal bilaterally General nose exam: Normal external nose present Face and sinus: Yes normal facial exam Eyes: General: appearance normal, both eyes and all related structures EOM: EOMs intact bilaterally Neck: Neck: Yes normal visual inspection and Yes no meningeal signs Resp: Effort & Inspection: normal respiratory effort and no respiratory distress Auscultation: clear to auscultation bilaterally, no crackles and no wheezes Cardio: Rate: tachycardic Rhythm: abnormal rhythm Heart sounds: S1 normal heart sound present and S2 normal heart sound present GI: Inspection: Yes normal to inspection Palpation (GI): Soft to palpation, nontender, no guarding and not rigid Skin: Rashes: no rashes Wounds: no wounds Neuro: General: patient oriented x3, tone normal, moves all extremities, no meningeal signs, no focal motor deficits and CN's II-XI intact bilaterally Cranial nerves: Yes CN's II-XII intact bilaterally Gait exam (Neuro): Normal gait present Extrem: General: Yes normal to inspection, Yes no pedal edema and Yes no calf tenderness Course Course Course Narrative: -905--potassium mildly low at 3.0 > PO repletion ordered -initial troponin 5.9 > repeat 3.4, RI unlikely. COVID/flu/RSV negative XR chest 2V IMPRESSION: No acute cardiopulmonary disease. -917--heart rate bouncing 92-103. will consult patients behavioral assistant Dr. Hutchins -[phone]--Dr. Hutchins evaluated patient in the ED, recommended admission with plan for cardioversion tomorrow. Recommended initiating Eliquis 5 mg b.i.d. will contact hospitalist Medications Administered Generic Name Dose Route Start Last Admin Trade Name Freq PRN Reason Stop Dose Admin Apixaban 5 mg 06/09/23 21:00 06/10/23 09:30 Apixaban 5 Mg Tablet PO 5 mg BID KASEY Administration Dronedarone 400 mg 06/10/23 11:00 06/10/23 12:28 Dronedarone Hcl 400 Mg Tablet PO 400 mg BID KASEY Administration Metoprolol Succinate 50 mg 06/10/23 16:10 06/10/23 16:41 Metoprolol Succinate Er 50 Mg Tab.Er.24h PO 50 mg DAILY KASEY Administration Protocol Sodium Chloride 3 ml 06/09/23 16:00 06/10/23 16:41 0.9 % Sodium Chloride Flush 3 Ml Syringe IVFLUSH 3 ml QSHIFT KASEY Administration Discontinued Medications Generic Name Dose Route Start Last Admin Trade Name Freq PRN Reason Stop Dose Admin Apixaban 5 mg 06/09/23 09:47 06/09/23 10:36 Apixaban 5 Mg Tablet PO 06/09/23 09:48 5 mg ONCE ONE Administration Sodium Chloride 1,000 mls @ 999 mls/hr 06/09/23 07:00 06/09/23 08:29 Ns IV 06/09/23 08:00 Infused .Q1H1M KASEY Infusion Metoprolol Tartrate 5 mg 06/09/23 06:57 06/09/23 07:02 Metoprolol Tartrate 5 Mg/5 Ml Vial IVPUSH 06/09/23 06:58 5 mg ONCE ONE Administration Metoprolol Tartrate 2.5 mg 06/09/23 07:48 06/09/23 08:28 Metoprolol Tartrate 5 Mg/5 Ml Vial IVPUSH 06/09/23 07:49 2.5 mg ONCE ONE Administration Metoprolol Tartrate 25 mg 06/09/23 12:10 06/10/23 08:47 Metoprolol Tartrate 25 Mg Tablet PO 25 mg BID KASEY Administration Protocol Metoprolol Tartrate 5 mg 06/10/23 09:20 06/10/23 09:31 Metoprolol Tartrate 5 Mg/5 Ml Vial IVPUSH 06/10/23 09:21 5 mg ONCE ONE Administration Potassium Chloride 60 meq 06/09/23 07:34 06/09/23 08:29 Potassium Chloride Packet 20 Meq Packet PO 06/09/23 07:35 60 meq ONCE ONE Administration Medical Decision Making Medical Decision Making MDM Narrative: 62-year-old male past medical history of HTN, DVT, proximal AFib on metoprolol, not anticoagulated, presenting to the ED complaining of palpitations, increased anxiety, and SOB since Friday. On exam tachycardic, low-grade temp 99.0 degrees, EKG noted AFib with RVR at a rate of 143. Physical exam as noted above. Concern for proximal AFib. Rule out metabolic and infectious etiologies. Lower suspicion for acute ACS or PE. Plan: EKG, labs, CXR, IVF, viral testing, rate control medications [id number] = 1 (anticoagulation not recommended at this time) Please refer to course for remaining clinical decision making, interpretation of labs/imaging results, and discussions with consultants and/or family members. Differential Diagnosis Differential Diagnoses: The differential diagnosis associated with the presentation includes As above Admission/Observation Consideration of admission/observation: Escalation of care including admission/observation considered Consult Healthcare Provider Management of the patient was discussed with: Signals Intelligence Analyst (Cardiology) Lab Data [facility] Lab Attestation statement: I reviewed the patient's lab results. 06/10/23 06:06 06/10/23 06:06 Labs: Lab Results 06/09/23 06/09/23 06/09/23 Range/Units 06:50 07:41 08:31 WBC 6.6 (4.8-10.8) X10*3/uL RBC 5.17 (4.60-5.80) X10*6/uL Hgb 15.9 (14.0-18.0) g/dl Hct 45.5 (42.0-52.0) % MCV 88.0 (80.0-98.0) fL MCH 30.8 (27.0-33.0) pg MCHC 34.9 (31.0-36.0) g/dl RDW 13.9 (11.0-16.0) % Plt Count 260 D (160-400) X10*3/uL MPV 8.9 L (9.4-12.4) fL Immature Gran % (Auto) 0.4 (0.0-0.4) % Neut % (Auto) 68.8 (45-73) % Lymph % (Auto) 18.5 L (20-40) % Centre % (Auto) 10.3 (2-11) % Eos % (Auto) 1.3 (0-4) % Baso % (Auto) 0.7 (0-2) % Lymph # (Auto) 1.3 (1.2-4.9) X10*3/uL Centre # (Auto) 0.7 (0.1-1.2) X10*3/uL Eos # (Auto) 0.1 (0.0-0.4) X10*3/uL Baso # (Auto) 0.1 (0.0-0.2) X10*3/uL Abs Immat Gran (auto) 0.03 (0.00-0.03) X10*3/uL Absolute Neuts (auto) 4.9 (2.0-8.3) x10*3/uL Absolute Nucleated RBC 0.000 (0.0-0.012) X10*3/uL Nucleated RBC % (auto) 0.0 (0.0-0.2) /100WBC PT 13.2 (11.1-13.3) SEC INR 1.1 (0.9-1.1) Sodium 136 (135-145) mmol/L Potassium 3.0 L D (3.3-5.1) mmol/L Chloride 99 (96-108) mmol/L Carbon Dioxide 26 (22-29) mmol/L Anion Gap 14 (12-20) BUN 13 (9-16) mg/dL Creatinine 1.32 (0.5-1.4) mg/dL Estim Creat Clear Calc 86.6 Estimated GFR 55 Random Glucose 155 H (60-115) mg/dL Calcium 9.3 D (8.4-10.2) mg/dL Magnesium 2.0 (1.6-2.6) mg/dL Total Bilirubin 0.8 (0.0-1.0) mg/dL AST 32 (5-37) U/L ALT 41 H (0-40) U/L Alkaline Phosphatase 67 (39-117) U/L Troponin I High Sens 5.9 D 3.4 (<3.5-35.0) ng/L B-Natriuretic Peptide 48 (<100) pg/mL Total Protein 8.0 (6.5-8.0) g/dL Albumin 4.5 (3.5-5.0) g/dL Influenza Type A (PCR) NEGATIVE (Negative) Influenza Type B (PCR) NEGATIVE (Negative) RSV RNA Qual (PCR) NEGATIVE (Negative) SARS-CoV-2 RNA (RT-PCR) NEGATIVE (Negative) Independent Interpretation I performed an independent interpretation of an: EKG (My interpretation EKG AFib with RVR at a rate of 143. QRS 78. QTC 398. No STEMI.) Radiology Impression Discussion of test interpretation with radiology: I have reviewed the radiologist's reading. External Record Review External record reviewed: Inpatient record, Office record, Outpatient record, Prior outpatient labs, Prior outpatient radiology, Primary care record and Outside ED record Tests considered The following testing was considered but not selected: As above Critical Care Time Critical Care Time Critical Care Time: Yes Total Critical Care Time: 50 Attestation: I have personally provided critical care time exclusive of time spent on separately billable procedures. Time includes review of lab data, radiology results, discussion with consultants, and monitoring for potential decompensation. Intervention performed as documented. Discharge Plan Discharge Clinical Impression: Atrial fibrillation with rapid ventricular response Patient Disposition: Admitted As Inpatient Interventions: Admission Worksheet (ED) Last Done: 06/09/23 15:48 Discharge Date/Time: 06/09/23 16:09
[2023-06-09 06:55] LABS: Hematocrit 45.5 % (42.0-52.0); Hemoglobin 15.9 g/dl (14.0-18.0); Mean Corpuscular HGB Conc 34.9 g/dl (31.0-36.0); Mean Corpuscular Hemoglobin 30.8 pg (27.0-33.0); Mean Platelet Volume 8.9 fL (9.4-12.4); Platelet Count 260 X10*3/uL (160-400); Red Blood Count 5.17 X10*6/uL (4.60-5.80); Red Cell Distribution Width 13.9 % (11.0-16.0); White Blood Count 6.6 X10*3/uL (4.8-10.8)
--- NOTE | 2023-06-09 06:57 | MHC.EDTECH ---
THIS PCT JUST ASSUMED CARE OF PT ,PT WAS HOOKED UP TO [facility] ARCHITECT ,VITALS TAKEN ,BLOOD DRAWN AND SENT TO LAB ,PT GOT CHANGE INTO GOWN ,PILLOW GIVEN ,CALL SINGH WITHIN PT REACH .
--- NOTE | 2023-06-09 07:00 | CA_ITS ---
Transthoracic Echocardiogram Patient (Last, First, Middle): Jf Jiménez, Gender: Male Date of : 1960 Age: 62 Procedure Date: 06/09/2023 Procedure Type: Transthoracic Echocardiogram Location: [facility] [place] Height: 193.04 cm Weight: 127.01 kg BSA: 2.56 m2 Heart Rate: 100 bpm BP: 100 / 65 mmHg General Laborer: Referring MD: Huong Fuentes NP Symptoms: afib rvr Study Quality: Fair ECG Rhythm: Atrial Fibrillation Conclusions: - Normal left ventricular size and systolic function. There is mildly increased left ventricular wall thickness. The visually estimated ejection fraction is between 55-60%. - Mildly increased right ventricular cavity size. There is normal right ventricular systolic function. Findings Left Ventricle Normal left ventricular size and systolic function. There is mildly increased left ventricular wall thickness. The visually estimated ejection fraction is between 55-60%. There is no evidence of regional wall motion abnormalities. Diastolic function is indeterminate on the basis of available data. Right Ventricle Mildly increased right ventricular cavity size. There is normal right ventricular systolic function. Atria The left atrium is normal in size. Aortic Valve Normal aortic valve structure and function. There is no aortic valve stenosis. There is no aortic valve regurgitation. Mitral Valve Normal mitral valve structure and function. There is trace mitral valve regurgitation. There is no mitral valve stenosis. Pulmonic Valve The pulmonic valve is likely normal. There is trace pulmonic valve regurgitation. Tricuspid Valve Normal tricuspid valve structure. There is trace tricuspid valve regurgitation. Normal right atrial pressure. There is no evidence of pulmonary hypertension. Great Vessels All visible segments of the aorta are normal in size. The visualized portions of the pulmonary artery and branches are normal. Venous The inferior vena cava is normal in size and collapses greater than 50% with inspiration. Pericardium/Pleural There is no evidence of pericardial effusion. Prior Study Comparison No significant change compared to prior study dated: 11/11/2022. Measurements 2D Linear Measurements IVSd: 1.11 0.6-0.9/0.6-1.0 cm LVIDd: 4.53 3.9-5.3/4.2-5.9 cm LVIDd Index: 1.77 2.4-3.2/2.2-3.1 cm/m2 LVIDs: 3.25 2.0-3.6 cm LVPWd: 1.00 0.7-1.1 cm Ao Root: 3.10 2.1-3.5 cm LA Diam: 3.90 2.7-3.8/3.0-4.0 cm LAIDs Index: 1.52 1.5-2.3 cm/m2 LV Mass: 207.79 67-162/88-224 g LV Mass Index: 81.17 43-95/49-115 g/m2 LVOT Diam: 2.20 3.0+(-)1.3 cm Mitral Valve MV Pk E: 0.74 MV Decel Time: 156.00 E'Lateral: 10.10 E'Medial: 6.96 E/E' Med: 10.60 E/E' Lat: 7.30 PHT: 46.00 MVA PHT: 4.78 Decel Kershaw: 4.73 Aortic Valve AoV Pk Stew: 1.31 AoV Mn Stew: 0.78 AoV VTI: 0.22 AoV Pk Grad: 7.00 Aov Mn Grad: 3.00 DINESH Cont.VTI: 2.31 LVOT LVOT Pk Stew: 0.68 LVOT Mn Stew: 0.44 LVOT VTI: 0.13 LVOT Pk Grad: 2.00 LVOT Mn Grad: 1.00 LVOT Diam: 2.20 LVOT Area: 3.80 Diastolic Function MV Pk E: 0.74 E'Medial: 6.96 E/E' Med: 10.60 E' Laterial: 10.10 E/E' Lat: 7.30 Right Ventricle TAPSE (mm): 19.00 TVS' Stew: 11.00 Tricuspid Valve TR Pk Stew: 2.28 TR Pk Grad: 21.00 RA Press: 3.00 RVSP: 24.00 Great Vessels Aorta Ao Root-2D: 3.10 2.0-3.7 cm Ao Asc: 3.30 2.1-3.4 cm Updated in Other Vendor System with Status of Final Estiven Hutchins MD electronically signed on 06/09/2023 8:10:57 PM with status of Final
[2023-06-09] MEDS: 0.9 % Sodium Chloride 1,000 ML 999 ML IV (07:02)
[2023-06-09] MEDS: Metoprolol Tartrate 5 MG/5 ML VIAL IVPUSH (07:02)
[2023-06-09 07:05] LABS: MANUAL DIFF FLAG NO
--- NOTE | 2023-06-09 07:10 | PC.NURSE ---
PT IS A/O X 4 NO SOB/CAITY NOTED SPEAKS IN FULL SENTENCES. LUNGS - CTA. HEART RATE - IRREGULAR AT 115. PT DENIES ANY PAIN/DISC. NO EDEMA NOTED. PT AWARE OF PLAN OF CARE.
[2023-06-09 07:11] LABS: Anion Gap 14 (12-20)
[2023-06-09 07:15] LABS: Alanine Aminotransferase 41 U/L (0-40); Albumin Level 4.5 g/dL (3.5-5.0); Alkaline Phosphatase 67 U/L (39-117); Aspartate Amino Transferase 32 U/L (5-37); Bilirubin Total 0.8 mg/dL (0.0-1.0); Blood Urea Nitrogen 13 mg/dL (9-16); Calcium 9.3 mg/dL (8.4-10.2); Carbon Dioxide 26 mmol/L (22-29); Chloride 99 mmol/L (96-108); Creatinine Clr Calc Pharmacy 86.6; Estimated Glomerular Filt Rate 55; Glucose Random 155 mg/dL (60-115); Sodium 136 mmol/L (135-145)
[2023-06-09 07:16] LABS: Troponin-I High Sensitivity 5.9 ng/L (<3.5-35.0)
--- NOTE | 2023-06-09 07:20 | PC.NURSE ---
PT TO XRAY VIA STRETCHER.
[2023-06-09 07:38] LABS: B Type Natriuretic Peptide 48 pg/mL (<100)
[2023-06-09] MEDS: Metoprolol Tartrate 5 MG/5 ML VIAL 2.5 MG IVPUSH (08:28)
[2023-06-09 08:29] LABS: Basophils Absolute Auto 0.1 X10*3/uL (0.0-0.2); Basophils Percent Auto 0.7 % (0-2); Eosinophils Absolute Auto 0.1 X10*3/uL (0.0-0.4); Eosinophils Percent Auto 1.3 % (0-4); Imm Gran Abs Auto 0.03 X10*3/uL (0.00-0.03); Imm Gran Pct Auto 0.4 % (0.0-0.4); Lymphocytes Absolute Auto 1.3 X10*3/uL (1.2-4.9); Lymphocytes Percent Auto 18.5 % (20-40); Monocytes Absolute Auto 0.7 X10*3/uL (0.1-1.2); Monocytes Percent Auto 10.3 % (2-11); Neutrophils Absolute Auto 4.9 x10*3/uL (2.0-8.3); Neutrophils Percent Auto 68.8 % (45-73)
[2023-06-09] MEDS: Potassium Chloride Packet 20 MEQ PACKET 60 MEQ PO (08:29)
[2023-06-09 08:31] LABS: Influenza A PCR NEGATIVE (Negative); Influenza B PCR NEGATIVE (Negative); Resp Syncy Virus RNA Qual PCR NEGATIVE (Negative); SARS COV2 PCR INHOUSE NEGATIVE (Negative)
[2023-06-09 08:42] LABS: INTERNATIONAL NORM RATIO 1.1 (0.9-1.1); Prothrombin Time 13.2 SEC (11.1-13.3)
[2023-06-09 08:54] LABS: Troponin-I High Sensitivity 3.4 ng/L (<3.5-35.0)
--- NOTE | 2023-06-09 09:33 | ECG_ITS ---
Test Reason : REPEAT Blood Pressure : / mmHG Vent. Rate : 098 BPM Atrial Rate : 000 BPM P-R Int : 000 ms QRS Dur : 086 ms QT Int : 324 ms P-R-T Axes : 000 015 005 degrees QTc Int : 413 ms Atrial fibrillation Abnormal ECG When compared with ECG of 09-JUN-2023 06:37, ST elevation has replaced ST depression in Lateral leads Referred By: Radha Hutton Electronically Signed By:MARY JANE VELAZCO MD
[2023-06-09] MEDS: Apixaban 5 MG TABLET PO ×2 (10:36→20:54)
--- NOTE | 2023-06-09 10:38 | PC.NURSE ---
PT SEEN BY HOSP ([facility]) PT AWARE OF PLAN OF CARE FOR ADMISSION.
--- NOTE | 2023-06-09 10:48 | PC.NURSE ---
pt states diarrhea x 1.
--- NOTE | 2023-06-09 12:08 | PM.IMHP ---
History of Present Illness Date of Service: 06/09/23 Chief Complaint: shortness of breath 62 year old man with hx of afib, HTN presenting with worsening sob, palpitations and weakness for 2 days. He has a hx of afib and was successfully cardioverted in October 2023. He reported compliance with BB and [id number] score was only a 1 so he was not placed on anticoagulation. He denied fever, chills, nausea, vomiting, diarrhea, sick contacts, recent illness, chest pain. In the ED, he was noted to be in afib rvr, given metoprolol and Eliquis. He also received Eliquis 5mg as well asd potassium for hypokalemia. He will be admitted for further management of afib rvr. Review of Systems Review of Systems: Denies any recent fever chills or decrease in appetite respiratory reported sob with tachycardia cardiovascular Denied chest pain, reported heart palpitations gastrointestinal denies any dysphagia abdominal pain nausea vomiting or diarrhea genitourinary denies any dysuria frequency or hematuria musculoskeletal denies any joint pain or swelling neuropsych denies any weakness or seizures all other systems reviewed are negative [facility] Medical History (Updated 06/09/23 @ 12:10 by Huong Fuentes NP) History of cardioversion History of alcohol abuse Atrial fibrillation DVT (deep venous thrombosis) Testicular cancer Family History Mother Breast cancer Father Irregular heart beat Maternal Grandfather Heart attack Paternal Grandfather Heart attack Surgical History H/O thumb surgery Hx of tonsillectomy H/O rotator cuff surgery History of right hip replacement History of orchiectomy Social History Household Members: Spouse Housing: House Do you presently have visiting nurse or other home services: No Alcohol intake: current Alcohol intake frequency: holidays/special occasions only Patient Tobacco Use Status: Former Tobacco user Tobacco use type: Cigar Years Smoked: stopped 42 years old e-Cigarette/Vaping Use: Never Used Second Hand Smoke Exposure: No Substance Use Type: Marijuana Advance Directives: No Advance Directives Information Provided: Yes Nutrition Risks: No Nutritional Risk service: No Current occupational status: disabled Current occupational exposures/hazards: No Cognitive needs: No Hearing needs: No Vision needs: No Meds Allergies Allergy/AdvReac Type Severity Reaction Status Date / Time No Known Allergies Allergy Verified 05/28/23 08:38 Active Medications: Current Medications Acetaminophen (Acetaminophen 325 Mg Tablet) 650 mg PO Q6H PRN PRN Reason: Pain, Mild (Pain Scale 1-3) Apixaban (Apixaban 5 Mg Tablet) 5 mg PO BID KASEY Ondansetron HCl (Ondansetron Hcl 4 Mg/2 Ml Vial) 4 mg IVPUSH Q8H PRN PRN Reason: Nausea and Vomiting Sodium Chloride (0.9 % Sodium Chloride Flush 3 Ml Syringe) 3 ml IVFLUSH QSHIFT KASEY Physical Exam Vital Signs and Narrative: Vital Signs: Last Vital Signs Temp 98.5 F 06/09/23 10:51 Pulse 84 06/09/23 10:51 Resp 18 06/09/23 10:51 BP 120/52 L 06/09/23 10:51 Pulse Ox 99 06/09/23 10:51 O2 Del Method Room Air 06/09/23 10:51 BMI result Body Mass Index 34.1 Appearing in no acute distress head is normocephalic atraumatic eyes pupils are PERRLA sclera is anicteric mouth throat mucous membranes are intact and moist neck is supple no lymphadenopathy, no JVD noted lung sounds are clear to auscultation heart IRIR positive bowel sounds, abdomen is soft, nontender neuro patient is alert x3, no focal deficits Results Labs 06/09/23 06:50 06/09/23 06:50 Labs: Laboratory Results - last 24 hr 06/09/23 06/09/23 06/09/23 06:50 07:41 08:31 MCV 88.0 MCH 30.8 MCHC 34.9 RDW 13.9 Plt Count 260 D MPV 8.9 L Immature Gran % (Auto) 0.4 Neut % (Auto) 68.8 Lymph % (Auto) 18.5 L Power % (Auto) 10.3 Eos % (Auto) 1.3 Baso % (Auto) 0.7 Lymph # (Auto) 1.3 Power # (Auto) 0.7 Eos # (Auto) 0.1 Baso # (Auto) 0.1 Abs Immat Gran (auto) 0.03 Absolute Neuts (auto) 4.9 Absolute Nucleated RBC 0.000 Nucleated RBC % (auto) 0.0 PT 13.2 INR 1.1 Anion Gap 14 Estim Creat Clear Calc 86.6 Estimated GFR 55 Random Glucose 155 H Calcium 9.3 D Magnesium 2.0 Total Bilirubin 0.8 AST 32 ALT 41 H Alkaline Phosphatase 67 B-Natriuretic Peptide 48 Total Protein 8.0 Albumin 4.5 Influenza Type A (PCR) NEGATIVE Influenza Type B (PCR) NEGATIVE RSV RNA Qual (PCR) NEGATIVE SARS-CoV-2 RNA (RT-PCR) NEGATIVE Imaging Radiologist's Impressions: Impressions Chest X-Ray 06/09/23 07:27 IMPRESSION: No acute cardiopulmonary disease. Assessment and Plan (1) Atrial fibrillation with rapid ventricular response: Status: Acute Plan 62 year old man admitted with acute on chronic atrial fibrillation with rapid ventricular response. he is s/p cardioversion 11/12/22 with issues recurrence of afib until now. Atrial fibrillation with rapid ventricular response, symptomatic sob, dyspnea and weakness Started Eliquis 5mg BID cardiology following Plan for cardioversion tomorrow metoprolol 25 BID for now Hypertension low BP hold HCTZ check orthostatic BP Hypokalemia repleted follow BMP Alcohol use. Patient reports cutting down significantly last drink 7 days ago no signs of withdrawal at this time DVT prophylaxis with Eliquis Full code patient will need at least 2 inpatient midnight requiring cardioversion and specialty follow up that can not be done at a less acute setting Quality Stroke Does the patient have a stroke diagnosis?: No VTE Prior VTE?: No VTE Risk Level:: Medical - moderate - high VTE Device Contraindication: Treatment Not Indicated VTE Drug Contraindication: N/A - Med Ordered
--- NOTE | 2023-06-09 12:34 | PM.CNCAR ---
History of Present Illness History of Present Illness Date of Service: 06/09/23 Requesting physician: Radha Hutton Chief complaint: Afib RVR Narrative: Pleasant 62-year-old gentleman who is presenting with AFib with RVR. He was seen in the office early May and was doing fine at that time. He was noticed to be hypertensive and hydrochlorothiazide 12.5 mg once a day was added to his regimen. He had that time complained that he has been experiencing some palpitations off and on lasting for few seconds. He said Friday started feeling palpitations and anxiety and these symptoms continue daily came to the emergency department. Was noticed to be in AFib with RVR. He was given IV metoprolol with some control of heart rate. He is also feeling tired. Apparently was diaphoretic when he came in but currently appears to be stable. Denying any chest discomfort. [facility] Past Medical History Medical History (Updated 06/09/23 @ 12:10 by Huong Fuentes NP) History of cardioversion History of alcohol abuse Atrial fibrillation DVT (deep venous thrombosis) Testicular cancer Family History Family History Mother Breast cancer Father Irregular heart beat Maternal Grandfather Heart attack Paternal Grandfather Heart attack Surgical History Surgical History H/O thumb surgery Hx of tonsillectomy H/O rotator cuff surgery History of right hip replacement History of orchiectomy Social History Social History Household Members: Spouse Housing: House Do you presently have visiting nurse or other home services: No Alcohol intake: current Alcohol intake frequency: holidays/special occasions only Patient Tobacco Use Status: Former Tobacco user Tobacco use type: Cigar Years Smoked: stopped 42 years old e-Cigarette/Vaping Use: Never Used Second Hand Smoke Exposure: No Substance Use Type: Marijuana Advance Directives: No Advance Directives Information Provided: Yes service: No Current occupational status: disabled Current occupational exposures/hazards: No Cognitive needs: No Hearing needs: No Vision needs: No Meds Allergies Allergy/AdvReac Type Severity Reaction Status Date / Time No Known Allergies Allergy Verified 05/28/23 08:38 Active Medications: Current Medications Acetaminophen (Acetaminophen 325 Mg Tablet) 650 mg PO Q6H PRN PRN Reason: Pain, Mild (Pain Scale 1-3) Apixaban (Apixaban 5 Mg Tablet) 5 mg PO BID [facility] Metoprolol Tartrate (Metoprolol Tartrate 25 Mg Tablet) 25 mg PO BID [facility]; Protocol Ondansetron HCl (Ondansetron Hcl 4 Mg/2 Ml Vial) 4 mg IVPUSH Q8H PRN PRN Reason: Nausea and Vomiting Sodium Chloride (0.9 % Sodium Chloride Flush 3 Ml Syringe) 3 ml IVFLUSH QSHIFT KASEY Physical Exam Vital Signs: Vital Signs: Last Vital Signs Temp 98.5 F 06/09/23 10:51 Pulse 70 06/09/23 12:17 Resp 18 06/09/23 12:17 BP 91/57 L 06/09/23 12:17 Pulse Ox 95 06/09/23 12:17 O2 Del Method Room Air 06/09/23 12:17 BMI result Body Mass Index 34.1 GENERAL APPEARANCE: in no acute distress, pleasant. NECK: no carotid bruit, no jugular venous distention. SKIN: no suspicious lesions, warm and dry. HEART: no murmurs, irregular rate and rhythm. Tachycardic. LUNGS: clear to auscultation bilaterally. ABDOMEN: soft, nontender. EXTREMITIES: no edema. PERIPHERAL PULSES: equal. NEUROLOGIC: No gross deficits, AAO X 3 Objective Labs and Meds 06/09/23 06:50 06/09/23 06:50 Lab results: Laboratory Results - last 24 hr 06/09/23 06/09/23 06/09/23 06:50 07:41 08:31 WBC 6.6 RBC 5.17 Hgb 15.9 Hct 45.5 MCV 88.0 MCH 30.8 MCHC 34.9 RDW 13.9 Plt Count 260 D MPV 8.9 L Immature Gran % (Auto) 0.4 Neut % (Auto) 68.8 Lymph % (Auto) 18.5 L [place] % (Auto) 10.3 Eos % (Auto) 1.3 Baso % (Auto) 0.7 Lymph # (Auto) 1.3 [place] # (Auto) 0.7 Eos # (Auto) 0.1 Baso # (Auto) 0.1 Abs Immat Gran (auto) 0.03 Absolute Neuts (auto) 4.9 Absolute Nucleated RBC 0.000 Nucleated RBC % (auto) 0.0 PT 13.2 INR 1.1 Sodium 136 Potassium 3.0 L D Chloride 99 Carbon Dioxide 26 Anion Gap 14 BUN 13 Creatinine 1.32 Estim Creat Clear Calc 86.6 Estimated GFR 55 Random Glucose 155 H Calcium 9.3 D Magnesium 2.0 Total Bilirubin 0.8 AST 32 ALT 41 H Alkaline Phosphatase 67 Troponin I High Sens 5.9 D 3.4 B-Natriuretic Peptide 48 Total Protein 8.0 Albumin 4.5 Influenza Type A (PCR) NEGATIVE Influenza Type B (PCR) NEGATIVE RSV RNA Qual (PCR) NEGATIVE SARS-CoV-2 RNA (RT-PCR) NEGATIVE Imaging Radiologist's impression: Impressions Chest X-Ray 06/09/23 07:27 IMPRESSION: No acute cardiopulmonary disease. Assessment and Plan (1) Atrial fibrillation with rapid ventricular response: Status: Acute Plan Pleasant 62-year-old gentleman with known history of atrial fibrillation, chads Vasc 1 was previously not on anticoagulation and presented with AFib with RVR. Start apixaban 5 mg twice a day. Continue oral metoprolol. Keep NPO after midnight for potential JENNA cardioversion tomorrow. If he cardiovert spontaneously then we have to consider anti arrhythmic therapy. I will decide that based on JENNA findings tomorrow. If he has LV dysfunction then certain medications cannot be used. He does not need long-term anticoagulation currently but will need it for at least 6 weeks post cardioversion. Thank you for allowing me to participate in the care of your patient. Please feel free to contact me if you have any questions. Procedures Date of Service Date of Service: 06/09/23
[2023-06-09] MEDS: Metoprolol Tartrate 25 MG TABLET PO ×2 (12:47→20:55)
--- NOTE | 2023-06-09 12:48 | PC.NURSE ---
this RN resumed care of pt at this time. pt medicated per provider order. vss and up to date. afib on laboratory monitor - HR between 90s-120s bpm. pt verbalizing no pain at this time but states that he's feeling palpitations. pt verbalizing no sob/wob at this time. resting comfortably in no apparent distress. respirations even and unlabored. call gregorio placed within reach.
--- NOTE | 2023-06-09 13:15 | PC.NURSE ---
tech performing orthos at this time. pt awaiting admission placement.
[2023-06-09 13:45] LABS: D Dimer High Sensitivity 165 NG/ML
--- NOTE | 2023-06-09 13:58 | PHA.MEDREC ---
Pharmacy Consult ? Medication Reconciliation Pharmacy has completed the medication reconciliation. Patient reported medications. Eleni Kenny, MauraD
--- NOTE | 2023-06-09 14:38 | PC.NURSE ---
vss and up to date at this time. pt awaiting bed placement at this time/aware of plan of care. resting comfortably in no apparent distress w/ the lights dimmed. respirations remain even and unlabored. call gregorio placed within reach.
--- NOTE | 2023-06-09 15:02 | PC.NURSE ---
echo being completed at this time.
[2023-06-09] MEDS: 0.9 % Sodium Chloride Flush 3 ML SYRINGE IVFLUSH (16:21)
[2023-06-10] VITALS (15 sets, daily range): BP systolic 94–136; BP diastolic 46–81; PULSE 60–113; RESP 14–62; TEMP 36.1–36.9; O2SAT 94–100
--- NOTE | 2023-06-10 | ECG_ITS ---
Test Reason : s/p cardioversion Blood Pressure : / mmHG Vent. Rate : 069 BPM Atrial Rate : 069 BPM P-R Int : 174 ms QRS Dur : 088 ms QT Int : 372 ms P-R-T Axes : 019 026 014 degrees QTc Int : 398 ms Sinus rhythm with occasional Premature ventricular complexes Otherwise normal ECG When compared with ECG of 09-JUN-2023 09:43, Sinus rhythm has replaced Atrial fibrillation Referred By: Estiven Hutchins Electronically Signed By:MARY JANE VELAZCO MD
[2023-06-10] MEDS: 0.9 % Sodium Chloride Flush 3 ML SYRINGE IVFLUSH ×4 (00:31→20:33)
[2023-06-10 07:10] LABS: MANUAL DIFF FLAG NO
[2023-06-10 07:18] LABS: Basophils Percent Auto 0.6 % (0-2); Eosinophils Absolute Auto 0.1 X10*3/uL (0.0-0.4); Eosinophils Percent Auto 2.3 % (0-4); Hematocrit 42.7 % (42.0-52.0); Hemoglobin 15.1 g/dl (14.0-18.0); Imm Gran Abs Auto 0.02 X10*3/uL (0.00-0.03); Imm Gran Pct Auto 0.4 % (0.0-0.4); Lymphocytes Absolute Auto 1.2 X10*3/uL (1.2-4.9); Lymphocytes Percent Auto 22.8 % (20-40); Mean Corpuscular HGB Conc 35.4 g/dl (31.0-36.0); Mean Corpuscular Hemoglobin 31.7 pg (27.0-33.0); Mean Corpuscular Volume 89.7 fL (80.0-98.0); Mean Platelet Volume 9.6 fL (9.4-12.4); Monocytes Absolute Auto 0.6 X10*3/uL (0.1-1.2); Monocytes Percent Auto 12.5 % (2-11); Neutrophils Absolute Auto 3.2 x10*3/uL (2.0-8.3); Neutrophils Percent Auto 61.4 % (45-73); Platelet Count 230 X10*3/uL (160-400); Red Blood Count 4.76 X10*6/uL (4.60-5.80); Red Cell Distribution Width 13.8 % (11.0-16.0); White Blood Count 5.1 X10*3/uL (4.8-10.8)
[2023-06-10 07:33] LABS: Anion Gap 13 (12-20); Blood Urea Nitrogen 11 mg/dL (9-16); Calcium 9.2 mg/dL (8.4-10.2); Carbon Dioxide 26 mmol/L (22-29); Chloride 103 mmol/L (96-108); Creatinine Clr Calc Pharmacy 131.3; Estimated Glomerular Filt Rate > 60; Glucose Random 116 mg/dL (60-115); Potassium 3.6 mmol/L (3.3-5.1); Sodium 138 mmol/L (135-145)
[2023-06-10] MEDS: Metoprolol Tartrate 25 MG TABLET PO (08:47)
[2023-06-10] MEDS: Apixaban 5 MG TABLET PO ×2 (09:30→20:33)
[2023-06-10] MEDS: Metoprolol Tartrate 5 MG/5 ML VIAL IVPUSH (09:31)
--- NOTE | 2023-06-10 10:05 | PM.PNCARD ---
Subjective Subjective Date of Service: 06/10/23 Interval history: Seen examined at bedside. Continues to be in atrial fibrillation with rapid ventricular response. He was given 0.5 mg IV metoprolol this morning. He is for JENNA cardioversion today. Physical Exam Vital Signs: Last Vital Signs Temp 98.1 F 06/10/23 09:50 Pulse 113 H 06/10/23 09:50 Resp 16 06/10/23 09:50 BP 110/81 06/10/23 09:50 Pulse Ox 98 06/10/23 09:50 O2 Del Method Room Air 06/10/23 09:50 BMI result Body Mass Index 34.1 GENERAL APPEARANCE: in no acute distress, pleasant. NECK: no carotid bruit, no jugular venous distention. SKIN: no suspicious lesions, warm and dry. HEART: no murmurs, irregular rate and rhythm. Tachycardic. LUNGS: clear to auscultation bilaterally. ABDOMEN: soft, nontender. EXTREMITIES: no edema. PERIPHERAL PULSES: equal. NEUROLOGIC: No gross deficits, AAO X 3 Objective Labs and Meds 06/10/23 06:06 06/10/23 06:06 Lab results: Laboratory Results - last 24 hr 06/09/23 06/10/23 13:33 06:06 WBC 5.1 RBC 4.76 Hgb 15.1 Hct 42.7 MCV 89.7 MCH 31.7 MCHC 35.4 RDW 13.8 Plt Count 230 MPV 9.6 Immature Gran % (Auto) 0.4 Neut % (Auto) 61.4 Lymph % (Auto) 22.8 [place] % (Auto) 12.5 H Eos % (Auto) 2.3 Baso % (Auto) 0.6 Lymph # (Auto) 1.2 [place] # (Auto) 0.6 Eos # (Auto) 0.1 Baso # (Auto) 0.0 Abs Immat Gran (auto) 0.02 Absolute Neuts (auto) 3.2 Absolute Nucleated RBC 0.000 Nucleated RBC % (auto) 0.0 D-Dimer High Sensitivty 165 Sodium 138 Potassium 3.6 Chloride 103 Carbon Dioxide 26 Anion Gap 13 BUN 11 Creatinine 0.87 Estim Creat Clear Calc 131.3 Estimated GFR > 60 Random Glucose 116 H Calcium 9.2 Progress Note: A&P Assessment and plan (1) Atrial fibrillation with rapid ventricular response: Status: Acute Plan 62-year-old gentleman with AFib with RVR. On metoprolol and apixaban. Plan is JENNA cardioversion today. Will start Multaq 400 mg twice a day after cardioversion. If he is stable to tomorrow then we will discharge him home with 6 weeks of apixaban. Thank you for allowing me to participate in the care of your patient. Please feel free to contact me if you have any questions. Time Spent With Patient Time: Total time managing care of this patient today ____ minutes. Progress Note: Quality Stroke Does the patient have a stroke diagnosis?: No Procedures Date of Service Date of Service: 06/10/23
--- NOTE | 2023-06-10 10:08 | HO.ANESPROP2 ---
HPI - Anesthesia Eval Consult details Narrative: 62 M for JENNA a fib with RVR h/o DVT , ETOH PMFSH Active Problems Active Problems: All Active Problems (Updated 06/09/23 @ 12:10 by Huong Fuentes NP) Atrial fibrillation with rapid ventricular response (Acute) Hypertension (Acute) Hypercholesterolemia (Acute) LFT elevation (Acute) Elevated blood sugar (Acute) Colon cancer screening (Acute) Tinnitus (Acute) History of alcohol abuse (Acute) DVT (deep venous thrombosis) (Acute) Annual physical exam (Acute) Atrial fibrillation (Acute) Past Medical History Medical History (Updated 06/11/23 @ 10:07 by Estiven Hutchins MD) History of cardioversion History of alcohol abuse Atrial fibrillation DVT (deep venous thrombosis) Testicular cancer Family History Family History Mother Breast cancer Father Irregular heart beat Maternal Grandfather Heart attack Paternal Grandfather Heart attack Family history of problems with anesthesia: No Surgical History Surgical History H/O thumb surgery Hx of tonsillectomy H/O rotator cuff surgery History of right hip replacement History of orchiectomy History of Problems with Anesthesia: No Social History Household Members: Spouse Housing: House Do you presently have visiting nurse or other home services: No Alcohol intake: current Alcohol intake frequency: a few times a week Patient Tobacco Use Status: Former Tobacco user Quit Date: 1989 Tobacco use type: Cigar Years Smoked: stopped 42 years old e-Cigarette/Vaping Use: Never Used Second Hand Smoke Exposure: No Substance Use Type: Marijuana service: No Current occupational status: disabled Current occupational exposures/hazards: No Cognitive needs: No Hearing needs: No Vision needs: No Meds Allergies Allergy/AdvReac Type Severity Reaction Status Date / Time No Known Allergies Allergy Verified 06/10/23 09:44 Active Medications: Current Medications Acetaminophen (Acetaminophen 325 Mg Tablet) 650 mg PO Q6H PRN PRN Reason: Pain, Mild (Pain Scale 1-3) Apixaban (Apixaban 5 Mg Tablet) 5 mg PO BID [facility] Last Admin: 06/10/23 09:30 Dose: 5 mg Metoprolol Tartrate (Metoprolol Tartrate 25 Mg Tablet) 25 mg PO BID [facility]; Protocol Last Admin: 06/10/23 08:47 Dose: 25 mg Ondansetron HCl (Ondansetron Hcl 4 Mg/2 Ml Vial) 4 mg IVPUSH Q8H PRN PRN Reason: Nausea and Vomiting Sodium Chloride (0.9 % Sodium Chloride Flush 3 Ml Syringe) 3 ml IVFLUSH QSHIFT [facility] Last Admin: 06/10/23 08:47 Dose: 3 ml Home Medications Medication Instructions Recorded Confirmed Last Taken Type metoprolol succinate 50 mg 50 mg PO DAILY 06/11/23 Unknown History tablet,extended release 24 hr Exam Height,Weight and Vital Signs: Height 6 ft 4 in Weight 127.006 kg Last Vital Signs Temp 98.1 F 06/10/23 09:50 Pulse 113 H 06/10/23 09:50 Resp 16 06/10/23 09:50 BP 110/81 06/10/23 09:50 Pulse Ox 98 06/10/23 09:50 O2 Del Method Room Air 06/10/23 09:50 Pertinent Lab Results Pertinent Lab Results: Laboratory Tests 06/09/23 06/09/23 06/09/23 06:50 07:41 08:31 WBC 6.6 RBC 5.17 Hgb 15.9 Hct 45.5 MCV 88.0 MCH 30.8 MCHC 34.9 RDW 13.9 Plt Count 260 D MPV 8.9 L Immature Gran % (Auto) 0.4 Neut % (Auto) 68.8 Lymph % (Auto) 18.5 L [place] % (Auto) 10.3 Eos % (Auto) 1.3 Baso % (Auto) 0.7 Lymph # (Auto) 1.3 [place] # (Auto) 0.7 Eos # (Auto) 0.1 Baso # (Auto) 0.1 Abs Immat Gran (auto) 0.03 Absolute Neuts (auto) 4.9 Absolute Nucleated RBC 0.000 Nucleated RBC % (auto) 0.0 PT 13.2 INR 1.1 D-Dimer High Sensitivty Sodium 136 Potassium 3.0 L D Chloride 99 Carbon Dioxide 26 Anion Gap 14 BUN 13 Creatinine 1.32 Estim Creat Clear Calc 86.6 Estimated GFR 55 Random Glucose 155 H Calcium 9.3 D Magnesium 2.0 Total Bilirubin 0.8 AST 32 ALT 41 H Alkaline Phosphatase 67 Troponin I High Sens 5.9 D 3.4 B-Natriuretic Peptide 48 Total Protein 8.0 Albumin 4.5 Influenza Type A (PCR) NEGATIVE Influenza Type B (PCR) NEGATIVE RSV RNA Qual (PCR) NEGATIVE SARS-CoV-2 RNA (RT-PCR) NEGATIVE 06/09/23 06/10/23 13:33 06:06 WBC 5.1 RBC 4.76 Hgb 15.1 Hct 42.7 MCV 89.7 MCH 31.7 MCHC 35.4 RDW 13.8 Plt Count 230 MPV 9.6 Immature Gran % (Auto) 0.4 Neut % (Auto) 61.4 Lymph % (Auto) 22.8 [place] % (Auto) 12.5 H Eos % (Auto) 2.3 Baso % (Auto) 0.6 Lymph # (Auto) 1.2 [place] # (Auto) 0.6 Eos # (Auto) 0.1 Baso # (Auto) 0.0 Abs Immat Gran (auto) 0.02 Absolute Neuts (auto) 3.2 Absolute Nucleated RBC 0.000 Nucleated RBC % (auto) 0.0 PT INR D-Dimer High Sensitivty 165 Sodium 138 Potassium 3.6 Chloride 103 Carbon Dioxide 26 Anion Gap 13 BUN 11 Creatinine 0.87 Estim Creat Clear Calc 131.3 Estimated GFR > 60 Random Glucose 116 H Calcium 9.2 Magnesium Total Bilirubin AST ALT Alkaline Phosphatase Troponin I High Sens B-Natriuretic Peptide Total Protein Albumin Influenza Type A (PCR) Influenza Type B (PCR) RSV RNA Qual (PCR) SARS-CoV-2 RNA (RT-PCR) Airway Mallampati Class: III TM Dist: >3cm Neck ROM: Full Loose/Missing/Broken Teeth: Yes Assessment and Plan Final Anesthetic Review Family History of Problems with Anesthesia: No History of Problems with Anesthesia: No NPO: Yes ASA Class: III and Emergency Final Preanesthetic Review: Meds/Allgs Chart Reviewed, Consent Obtained/Reviewed and Anes Risks/Benef Reviewed Patient Risk: Intermediate Procedure Risk: Intermediate Anesthetic Plan Anesthetic Plan: MAC: and Agree w/ Assess. and Plan Disposition: Standard PACU and Inp. Admit - IMC
--- NOTE | 2023-06-10 10:30 | CA_ITS ---
Transesophageal Echocardiogram Patient (Last, First, Middle): Jf Jiménez, Gender: Male Date of : 1960 Age: 62 Procedure Date: 06/10/2023 Procedure Type: Transesophageal Echocardiogram Location: [facility] [place] Height: 157.48 cm Weight: 127.01 kg BSA: 2.21 m2 Heart Rate: bpm Tape Keller Operator: JOSEPH Referring MD: Estiven Hutchins MD [employer] Supervisor: Estiven Hutchins MD Symptoms: Afib Conclusion: ??? Normal left ventricular size and systolic function. The visually estimated ejection fraction is between 55-60%. ??? There is no evidence of a thrombus in the left atrial appendage. ??? We proceeded with cardioversion. Findings Procedure Information Consent was obtained prior to the procedure. Pre JENNA oral cavity was checked and revealed no overcrowding. The probe was passed with no difficulty. Left Ventricle Normal left ventricular size and systolic function. The visually estimated ejection fraction is between 55-60%. Right Ventricle Normal right ventricular cavity size and systolic function. Atria There is no evidence of a thrombus in the left atrial appendage. Aortic Valve Normal aortic valve structure and function. Mitral Valve Normal mitral valve structure and function. Pulmonic Valve The pulmonic valve is normal. Tricuspid Valve Normal tricuspid valve structure. Great Vessels All visible segments of the aorta are normal in size. Pericardium/Pleural There is no evidence of pericardial effusion. Updated by Estiven Hutchins on 03:04 PM with Status of Final Estiven Hutchins MD electronically signed on 06/10/2023 3:04:55 PM with status of Final
--- NOTE | 2023-06-10 11:01 | HO.CARDIVERS ---
Cardioversion Procedure Note Cardioversion Date of Procedure: 06/10/2023 Ordering Provider: Estiven Hutchins Performing Provider: Estiven Hutchins Indication for Procedure: Atrial fibrillation with rapid ventricular response Performed with Transesophageal Echo: Yes JENNA findings (if JENNA Performed): No thrombus in left atrial appendage or left atrium. Consent: Verbal and Written consent was obtained from the patient before starting. The patient was made aware of the risk of stroke, arrhythmia, skin irritation. Procedure: After consent obtained, defib pads were attached and the patient was sedated by the anesthesia team. Once adequate sedation achieved, single synchronized shock of 200 joules was given which converted the rhythm to sinus. Left with anesthesia a stable condition for recovery. Complications: None Recommendations: Add Multaq 400 mg twice a day. Continue apixaban for 6 weeks.
[2023-06-10] MEDS: Dronedarone HCl 400 MG TABLET PO ×2 (12:28→20:32)
--- NOTE | 2023-06-10 12:57 | HO.PM.IMPN ---
Subjective Subjective Date of Service: 06/10/23 Review of Systems Follow up symptomatic afib rvr no chest pain, feels palpitations s/p cardioversion Physical Exam Vital Signs: Vital Signs: Last Vital Signs Temp 97.1 F 06/10/23 11:30 Pulse 66 06/10/23 11:30 Resp 20 06/10/23 11:30 BP 102/64 06/10/23 11:30 Pulse Ox 98 06/10/23 11:30 O2 Del Method Room Air 06/10/23 11:30 BMI result Body Mass Index 34.1 Appearing in no acute distress lung sounds are clear to auscultation heart regular rate rhythm, clear S1, S2 positive bowel sounds, abdomen is soft, nontender neuro patient is alert x3, no focal deficits Objective Data Active Medications Acetaminophen (Acetaminophen 325 Mg Tablet) 650 mg PO Q6H PRN PRN Reason: Pain, Mild (Pain Scale 1-3) Apixaban (Apixaban 5 Mg Tablet) 5 mg PO BID [facility] Last Admin: 06/10/23 09:30 Dose: 5 mg Documented By: KHARI Dronedarone (Dronedarone Hcl 400 Mg Tablet) 400 mg PO BID [facility] Last Admin: 06/10/23 12:28 Dose: 400 mg Documented By: KHARI Metoprolol Tartrate (Metoprolol Tartrate 25 Mg Tablet) 25 mg PO BID [facility]; Protocol Last Admin: 06/10/23 08:47 Dose: 25 mg Documented By: KHARI Sodium Chloride (0.9 % Sodium Chloride Flush 3 Ml Syringe) 3 ml IVFLUSH QSHIFT [facility] Last Admin: 06/10/23 08:47 Dose: 3 ml Documented By: KHARI Labs 06/10/23 06:06 06/10/23 06:06 Labs: Laboratory Results - last 24 hr 06/09/23 06/10/23 13:33 06:06 MCV 89.7 MCH 31.7 MCHC 35.4 RDW 13.8 Plt Count 230 MPV 9.6 Immature Gran % (Auto) 0.4 Neut % (Auto) 61.4 Lymph % (Auto) 22.8 [place] % (Auto) 12.5 H Eos % (Auto) 2.3 Baso % (Auto) 0.6 Lymph # (Auto) 1.2 [place] # (Auto) 0.6 Eos # (Auto) 0.1 Baso # (Auto) 0.0 Abs Immat Gran (auto) 0.02 Absolute Neuts (auto) 3.2 Absolute Nucleated RBC 0.000 Nucleated RBC % (auto) 0.0 D-Dimer High Sensitivty 165 Anion Gap 13 Estim Creat Clear Calc 131.3 Estimated GFR > 60 Random Glucose 116 H Calcium 9.2 Assessment and Plan (1) Atrial fibrillation with rapid ventricular response: Status: Acute Plan 62 year old man admitted with acute on chronic atrial fibrillation with rapid ventricular response. he is s/p cardioversion 11/12/22 with issues recurrence of afib until now. Atrial fibrillation with rapid ventricular response, symptomatic sob, dyspnea and weakness Started Eliquis 5mg BID cardiology following>s/p successful cardioversion today, started on Multaq 400 mg b.i.d. continue metoprolol 25 BID Hypertension low BP hold HCTZ check orthostatic BP Hypokalemia repleted follow BMP Alcohol use. Patient reports cutting down significantly last drink 7 days ago no signs of withdrawal at this time DVT prophylaxis with Eliquis Attending Dr. Ojeda Full code continue hospitalization for monitoring of status post cardioversion and safe disposition Quality Stroke Does the patient have a stroke diagnosis?: No VTE Prior VTE?: No VTE Risk Level:: Medical - moderate - high VTE Device Contraindication: Treatment Not Indicated VTE Drug Contraindication: N/A - Med Ordered
--- NOTE | 2023-06-10 13:04 | PM.DS ---
DS: Providers Provider Date of admission: 06/09/23 12:03 Primary care physician: Danuta Sanford MD Consults: 06/09/23 12:30 Consult to Cardiology Routine Consulting Provider: [facility] [place] [facility] Reason for consultation: afib rvr Has provider been notified: No DS: Diagnosis Discharge Diagnosis (1) Atrial fibrillation with rapid ventricular response: Status: Acute DS: Summary Hospital Course Hospital Course: 62 year old man with hx of afib, HTN presenting with worsening sob, palpitations and weakness for 2 days. He has a hx of afib and was successfully cardioverted in October 2023. He reported compliance with BB and [id number] score was only a 1 so he was not placed on anticoagulation. He denied fever, chills, nausea, vomiting, diarrhea, sick contacts, recent illness, chest pain. In the ED, he was noted to be in afib rvr, given metoprolol and Eliquis. He also received Eliquis 5mg as well asd potassium for hypokalemia. He will be admitted for further management of afib rvr. 62-year-old man treated for symptomatic atrial fibrillation with rapid ventricular response. Initially treated with metoprolol 25 mg twice daily, successfully cardioverted 06/10/2023. Started on Multaq 400 mg b.i.d. which he will continue at home. 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 Blood pressures during hospitalization were low. His hydrochlorothiazide was stopped and he should not continue taking it at home. He can monitor his blood pressures daily and document to share with his primary care provider to decide whether next some point he needs to be restarted on an antihypertensive. Alcohol use. No signs of withdrawal during hospitalization. Alcohol cessation encouraged Physical Exam Vital Signs: Vital Signs: Last Vital Signs Temp 97.1 F 06/10/23 11:30 Pulse 66 06/10/23 11:30 Resp 20 06/10/23 11:30 BP 102/64 06/10/23 11:30 Pulse Ox 98 06/10/23 11:30 O2 Del Method Room Air 06/10/23 11:30 BMI result Body Mass Index 34.1 DS: Data Data Completed and Pending Labs on day of discharge: Laboratory Results - last 24 hr 06/09/23 06/10/23 13:33 06:06 WBC 5.1 RBC 4.76 Hgb 15.1 Hct 42.7 MCV 89.7 MCH 31.7 MCHC 35.4 RDW 13.8 Plt Count 230 MPV 9.6 Immature Gran % (Auto) 0.4 Neut % (Auto) 61.4 Lymph % (Auto) 22.8 [place] % (Auto) 12.5 H Eos % (Auto) 2.3 Baso % (Auto) 0.6 Lymph # (Auto) 1.2 [place] # (Auto) 0.6 Eos # (Auto) 0.1 Baso # (Auto) 0.0 Abs Immat Gran (auto) 0.02 Absolute Neuts (auto) 3.2 Absolute Nucleated RBC 0.000 Nucleated RBC % (auto) 0.0 D-Dimer High Sensitivty 165 Sodium 138 Potassium 3.6 Chloride 103 Carbon Dioxide 26 Anion Gap 13 BUN 11 Creatinine 0.87 Estim Creat Clear Calc 131.3 Estimated GFR > 60 Random Glucose 116 H Calcium 9.2 Discharge Plan Discharge Patient Disposition: Home, Self-Care Discharge Diagnosis: atrial fibrillation with rapid ventricular response Referrals: Po,Danuta Devine MD [Primary Care Provider] - 1 Week Discharge Medications: New Multaq 400 mg Tablet 400 mg PO BID Qty: 60 0RF Eliquis 5 mg Tablet 5 mg PO BID Qty: 60 0RF Discontinued metoprolol succinate 50 mg tablet extended release 24 hr 50 mg PO DAILY Qty: 90 3RF hydrochlorothiazide 12.5 mg tablet 12.5 mg PO QAM Qty: 60 3RF Diet: Advance to usual diet Activity on Discharge: As tolerated Stand Alone Forms: Patient Portal Discharge page Care Plan Goals: No further episodes of atrial fibrillation Health Concerns: Atrial fibrillation with rapid ventricular response Plan of Treatment: Follow-up with printed circuit boards stripper etcher as needed Take all medications as prescribed Assessment: see discharge summary
--- NOTE | 2023-06-10 13:56 | MHC.CM.PN ---
Pt is independent, no home health services or med equipment, lives with spouse, drove himself here and plans to drive himself home. HCP form was given and discussed with him, he will take it home and discuss with family. DC plan is home, self care. CM to follow and assist as needed.
[2023-06-10] MEDS: Metoprolol Succinate ER 50 MG TAB.ER.24H PO (16:41)
[2023-06-11 03:41] VITALS: BP 120/56; PULSE 56; RESP 17; TEMP 36.3; O2SAT 97
[2023-06-11 08:00] VITALS: BP 107/55; PULSE 65; RESP 18; TEMP 36.4; O2SAT 99
[2023-06-11 08:07] VITALS: BP 107/55; BP 108/64
[2023-06-11] MEDS: 0.9 % Sodium Chloride Flush 3 ML SYRINGE IVFLUSH (08:47)
[2023-06-11] MEDS: Apixaban 5 MG TABLET PO (08:47)
[2023-06-11] MEDS: Dronedarone HCl 400 MG TABLET PO (08:47)
[2023-06-11] MEDS: Metoprolol Succinate ER 50 MG TAB.ER.24H PO (08:47)
--- NOTE | 2023-06-11 09:21 | HO.POSTANES ---
Post Anesthesia Evaluation Post Anesthesia Evaluation Date of Service: 06/10/23 Vital Signs: Vital Signs Temp Pulse Resp BP Pulse Ox O2 Del Method 06/11/23 08:07 107/55 L 06/11/23 08:07 108/64 06/11/23 08:00 97.5 F 65 18 107/55 L 99 Room Air 06/11/23 08:00 65 107/55 L 06/11/23 03:41 97.4 F 56 17 120/56 L 97 Room Air 06/10/23 23:35 63 130/70 06/10/23 23:30 97.0 F 60 62 H 130/70 97 Room Air Anesthesia: Monitored Mental Status: Awake Pain Control: Satisfactory Nausea/Vomiting: None Hydration: Adequate Anesthesia-Related Issues: No Anes. Related Issues
--- NOTE | 2023-06-11 10:06 | PM.PNCARD ---
Subjective Subjective Date of Service: 06/11/23 Interval history: Seen and examined at bedside. In sinus rhythm. He was started on Multaq last night. Tolerating medications well. Physical Exam Vital Signs: Last Vital Signs Temp 97.5 F 06/11/23 08:00 Pulse 65 06/11/23 08:00 Resp 18 06/11/23 08:00 BP 107/55 L 06/11/23 08:07 Pulse Ox 99 06/11/23 08:00 O2 Del Method Room Air 06/11/23 08:00 BMI result Body Mass Index 34.1 GENERAL APPEARANCE: in no acute distress, pleasant. NECK: no carotid bruit, no jugular venous distention. SKIN: no suspicious lesions, warm and dry. HEART: no murmurs, regular rate and rhythm. LUNGS: clear to auscultation bilaterally. ABDOMEN: soft, nontender. EXTREMITIES: no edema. PERIPHERAL PULSES: equal. NEUROLOGIC: No gross deficits, AAO X 3 Objective Labs and Meds 06/10/23 06:06 06/10/23 06:06 Progress Note: A&P Assessment and plan (1) PAF (paroxysmal atrial fibrillation): Status: Acute Plan Pleasant 62-year-old gentleman who is presenting for paroxysmal atrial fibrillation. He underwent JENNA cardioversion yesterday and has been started on Multaq. Doing well and is in sinus rhythm. Continue Multaq 400 mg twice a day and apixaban. Apixaban should be discontinued after 6 weeks. If he can tolerate and afford Multaq that it can be continued long-term. Continue Toprol XL 50 mg daily. Stop the hydrochlorothiazide. Thank you for allowing me to participate in the care of your patient. Please feel free to contact me if you have any questions. Time Spent With Patient Time: Total time managing care of this patient today ____ minutes. Progress Note: Quality Stroke Does the patient have a stroke diagnosis?: No Procedures Date of Service Date of Service: 06/11/23
[2023-06-11 12:00] VITALS: BP 121/62; RESP 16; TEMP 36.8; O2SAT 97
--- NOTE | 2023-06-11 13:06 | PM.DS ---
DS: Providers Provider Date of Service: 06/11/23 Date of admission: 06/09/23 12:03 Primary care physician: Danuta Sanford MD Consults: 06/09/23 12:30 Consult to Cardiology Routine Consulting Provider: [facility] [facility] [place] [facility] Reason for consultation: afib rvr Has provider been notified: No DS: Diagnosis Discharge Diagnosis (1) PAF (paroxysmal atrial fibrillation): Status: Acute DS: Summary Hospital Course Hospital Course: HPI on admission by Huong Fuentes NP 06/09: 62 year old man with hx of afib, HTN presenting with worsening sob, palpitations and weakness for 2 days. He has a hx of afib and was successfully cardioverted in October 2023. He reported compliance with BB and [id number] score was only a 1 so he was not placed on anticoagulation. He denied fever, chills, nausea, vomiting, diarrhea, sick contacts, recent illness, chest pain. In the ED, he was noted to be in afib rvr, given metoprolol and Eliquis. He also received Eliquis 5mg as well asd potassium for hypokalemia. He will be admitted for further management of afib rvr. Hospital course: 62-year-old man treated for symptomatic atrial fibrillation with rapid ventricular response. Initially treated with metoprolol 25 mg twice daily, successfully cardioverted 06/10/2023. Started on Multaq 400 mg b.i.d. which he will continue at home. 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 Blood pressures during hospitalization were low. His hydrochlorothiazide was stopped and he should not continue taking it at home. He can monitor his blood pressures daily and document to share with his primary care provider to decide whether next some point he needs to be restarted on an antihypertensive. Alcohol use. No signs of withdrawal during hospitalization. Alcohol cessation encouraged Follow up with cardiology as directed and pcp. Status at Discharge Functional status at discharge: independent ambulation Overall status at discharge: patient is progressing back to baseline Time Attestation Discharge coordination time: Greater than 30 minutes Quality: Safe Use of Opioids Does Pt have an Active Cancer Diagnosis on the Problem List?: No Quality: Stroke Does the patient have a stroke diagnosis?: No Physical Exam Vital Signs: Vital Signs: Last Vital Signs Temp 98.2 F 06/11/23 12:00 Pulse 65 06/11/23 08:00 Resp 16 06/11/23 12:00 BP 121/62 06/11/23 12:00 Pulse Ox 97 06/11/23 12:00 O2 Del Method Room Air 06/11/23 12:00 BMI result Body Mass Index 34.1 Constitutional - Awake and Alert, No apparent distress Eyes - PERRLA, EOMI Cardiovascular - S1S2, RRR, No edema Respiratory - Normal lung expansion, Normal respiratory effort, No respiratory distress, CTA bilaterally Extremities - no calf tenderness bilaterally, no swelling Skin - Warm/Dry Neurological - Alert & oriented x3 Psychological - Appropriate affect Discharge Plan Discharge Anticipated Discharge Date/Time: 06/11/23 13:06 Patient Disposition: Home, Self-Care Discharge Diagnosis: atrial fibrillation with rapid ventricular response Referrals: Estiven Hutchins MD [Physician] - 1 Week Po,Danuta Devine MD [Primary Care Provider] - 1 Week Discharge Medications: New Multaq 400 mg Tablet 400 mg PO BID Qty: 60 0RF Eliquis 5 mg Tablet 5 mg PO BID Qty: 60 0RF Discontinued metoprolol succinate 50 mg tablet extended release 24 hr 50 mg PO DAILY Qty: 90 3RF hydrochlorothiazide 12.5 mg tablet 12.5 mg PO QAM Qty: 60 3RF No Action metoprolol succinate 50 mg tablet extended release 24 hr 50 mg PO DAILY Discharge Orders: Discharge Order (Routine); Ordered 06/11/23 Ordered By: Leyda Clements Diet: Advance to usual diet Activity on Discharge: As tolerated Stand Alone Forms: Patient Portal Discharge page Care Plan Goals: No further episodes of atrial fibrillation Health Concerns: Atrial fibrillation with rapid ventricular response Plan of Treatment: Follow-up with fixture repairer fabricator as needed Take all medications as prescribed Assessment: see discharge summary Discharge Date/Time: 06/11/23 14:15
--- NOTE | 2023-06-11 13:27 | MHC.CM.PN ---
Pt has been medically cleared for DC, he will drive himself home, plan is home, self care.
== END 2023-06-11 14:15 | disposition home or self-care (01) | DRG 201 ==
LOC: HO.ED 09:51 → HO.EDOVER 12:11 → HO.IMC 15:20
PROVIDERS: Internal Medicine Cardiovascular Disease; Physician Assistant; Admitting Provider Nurse Practitioner Acute Care; Emergency Provider Emergency Medicine; PCP Internal Medicine; Visit Provider Physician Assistant
PROC: 5A2204Z Restoration of Cardiac Rhythm, Single (ICD-10-PCS; CPT 93312; principal; 2023-06-10 10:00)
PROC: 5A2204Z Restoration of Cardiac Rhythm, Single (ICD-10-PCS; 2023-06-10 10:00)
DX: I48.0 Paroxysmal atrial fibrillation (principal); E87.6 Hypokalemia; I10 Essential (primary) hypertension; Z20.822 Contact with and (suspected) exposure to COVID-19; Z86.718 Personal history of other venous thrombosis and embolism; Z87.891 Personal history of nicotine dependence; Z79.899 Other long term (current) drug therapy
CPT/HCPCS: 0241U; 36415; 71046; 80048; 80053; 83735; 83880; 84484; 85025; 85027; 85379; 85610; 92960; 93005; 93306; 99285; J2704; J3010; Q9957

== ENCOUNTER 2023-06-09 12:03 | Outpatient (BNV) | payer OTHER, SELFPAY | END 2023-06-10 10:30 | PROVIDERS: Admitting Provider Nurse Practitioner Acute Care; Emergency Provider Emergency Medicine; PCP Internal Medicine; Visit Provider Internal Medicine Cardiovascular Disease | DX: I48.91 Unspecified atrial fibrillation (principal) | CPT/HCPCS: 93312; 93320; 93325 ==

== ENCOUNTER → 2023-06-09 12:03 | Outpatient (BNV) | payer OTHER, SELFPAY | PROVIDERS: Admitting Provider Nurse Practitioner Acute Care; Emergency Provider Emergency Medicine; PCP Internal Medicine; Visit Provider Internal Medicine Cardiovascular Disease | DX: I48.0 Paroxysmal atrial fibrillation (principal) | CPT/HCPCS: 92960; 93306; 99223; 99232 ==

== ENCOUNTER → 2023-06-09 12:03 | Outpatient (BNV) | payer OTHER, SELFPAY | PROVIDERS: Admitting Provider Nurse Practitioner Acute Care; Emergency Provider Emergency Medicine; PCP Internal Medicine; Visit Provider Nurse Practitioner Acute Care | DX: I48.91 Unspecified atrial fibrillation (principal); I10 Essential (primary) hypertension; E87.6 Hypokalemia | CPT/HCPCS: 99223; 99232; 99239 ==

== ENCOUNTER 2023-07-02 07:52 | Outpatient (AMB) | payer OTHER, SELFPAY ==
[2023-07-02 08:01] VITALS: BP 140/76; PULSE 75; O2SAT 98; BMI 34.3
--- NOTE | 2023-07-02 08:01 | A.OFFPC_ITS ---
Vital Signs 07/02/23 08:01 07/02/23 08:45 Height 6 ft 4 in Weight 127.913 kg BMI 34.3 BP 140/76 H 134/74 Blood Pressure Location Lt brachial Lt brachial Position Sitting Pulse 75 Pulse Source Pulse Oximeter Pulse Oximetry (%) 98 Oxygen Delivery Method Room Air Intake Visit Reasons[place] [facility] [place]ib/rvr Allergies No Known Allergies Allergy (Verified 07/02/23 08:01) Medication List - Last Reconciled 07/02/23 by MARK Jorge apixaban (Eliquis) 5 mg PO BID dronedarone (Multaq) 400 mg PO BID metoprolol succinate ER 50 mg PO DAILY Tobacco use date assessed: 05/28/23 Dental Screening Dental Screen Date: 07/02/23 Did you have a dental visit in the last 12 months?: No Did you have a dental problem in the last 6 months where you did not have access to dental care?: No Was dental information given to patient?: No HPI HPI Comments History of Present Illness Details 8-year-old male with history of paroxysm al atrial fibrillation, hypertension, and alcohol use disorder presents the office today for hospital discharge follow-up. The patient was admitted to [facility] from 06/09-06/11 due to atrial fibrillation with rapid ventricular rate. Patient previously [place] [facility] [place] atrial fibrillation with RVR in October 2023 when he was successfully cardioverted and was discharged on toprol 75mg and xarelto x6 weeks. At that time, a CHADS2 Vasc score was only 1 so was not started on halfway anticoagulation. He had also been advised to cut back significantly on alcohol use or stop altogether. The patient reports that he has significantly cut back and is no longer a daily consumer of alcohol. Reports he still drinks around 4 beers on Sundays but otherwise does not consume any alcohol. He had also been compliant with his beta-abimbola. However he experienced recurrence of dyspnea on exertion, palpitations, and generalized weakness prompting him to return to the ED. while in the ED, potassium was noted to be 3.0 and was repleted with improvement to 3.6. Troponins were within normal limits and flat. Labs otherwise unremarkable. EKG in the ED showed atrial fibrillation with RVR, rate [address] depressions in the lateral leads. Rate was controlled with 5 mg IV push Lopressor x2 and 2.5 mg IV Lopressor. He was then started on metoprolol 25 mg b.i.d. and recommended for admission with cardioversion by Cardiology. He was admitted to Medicine and treated with metoprolol 25 mg twice daily and evaluated by Cardiology. He underwent JENNA showing normal LV systolic function with EF 55-60% and without evidence of any thrombus. He was successfully cardioverted on 06/10 and started on Multaq 400 mg twice daily and Toprol 50 mg daily both of which he has been compliant with. He was also advised to continue on Eliquis twice daily x6 weeks post cardioversion which can then be discontinued given low chads Vasc score. His hydrochlorothiazide was discontinued and he was advised that he should not resume this medication. Today, he reports he is feeling much better. Tested negative for ELIEL. He does occasionally feel short-lived palpitations about 2-3 times daily occur both at rest and with exertion. There is no associated lightheadedness, dyspnea, or chest pain. He does check his blood pressure on a daily basis which is well controlled with heart rates ranging in the 50s-60s. He states he has also cut back to 4 beers only consumed on Sundays and has also been working on lifestyle medication do help with his cholesterol, fatty liver, and weight. He continues following with Dr. Hutchins in cardiology. He denies any melena, hematochezia, hematemesis, epistaxis, or significant ecchymosis since starting the Eliquis. [facility] Medical History (Updated 06/13/23 @ 00:01 by Opal Hughes) History of cardioversion History of alcohol abuse Atrial fibrillation DVT (deep venous thrombosis) Testicular cancer Surgical History H/O thumb surgery Hx of tonsillectomy H/O rotator cuff surgery History of right hip replacement History of orchiectomy Family History Mother Breast cancer Father Irregular heart beat Maternal Grandfather Heart attack Paternal Grandfather Heart attack Social History Household Members: Spouse Housing: House Do you presently have visiting nurse or other home services: No Alcohol intake: current Alcohol intake frequency: a few times a week Comment: Pt gait and balance are steady. Patient Tobacco Use Status: Former Tobacco user Quit Date: 1989 Tobacco use type: Cigar Years Smoked: stopped 42 years old e-Cigarette/Vaping Use: Never Used Second Hand Smoke Exposure: No Substance Use Type: Marijuana service: No Current occupational status: disabled Current occupational exposures/hazards: No Cognitive needs: No Hearing needs: No Vision needs: Yes Questionnaire PHQ-9 Over the last 2 weeks, how often have you been bothered by any of the following problems? 1. Little interest or pleasure in doing things: not at all 2. Feeling down, depressed, or hopeless: not at all 3. Trouble falling or staying asleep, or sleeping too much: not at all 4. Feeling tired or having little energy: not at all 5. Poor appetite or overeating: not at all 6. Feeling bad about yourself - or that you are a failure or have let yourself or your family down: not at all 7. Trouble concentrating on things, such as reading the newspaper or watching television: not at all 8. Moving or speaking so slowly that other people could have noticed. Or the op posite - being so fidgety or restless that you have been moving around a lot more than usual: not at all 9. Thoughts that you would be better off or of hurting yourself in some way: not at all Total score: 0 Depression Screening Interpretation: Negative Depression Screening Done: Yes Source: Developed by Drs. Ildefonso Mills, Celeste Knight, Brett Maurice and colleagues, with an educational leslee from [employer]. Thrive Questionnaire Date Thrive assessed: 06/10/23 AUDIT C Alcohol Use Questionnaire (AUDIT-C) 1. How often do you have a drink containing alcohol?: 2-3 times a week 2. How many drinks containing alcohol do you have on a typical day when you are drinking?: 3 or 4 3. How often do you have six or more drinks on one occasion?: Never Total Score: 4 RUBÉN-7 AMB Questionnaire RUBÉN-7 Date RUBÉN - 7 assessed: 02/18/23 Source: Developed by Drs. Ildefonso Mills, Celeste Knight, Brett Maurice and colleagues, with an educational leslee from [employer]. Review of Systems Const All systems reviewed & are unremarkable except as noted in HPI and below Physical exam (Primary Care) Vital Signs: Last Vital Signs Pulse 75 07/02/23 08:01 BP 134/74 07/02/23 08:45 Pulse Ox 98 07/02/23 08:01 Oxygen Delivery Method Room Air 07/02/23 08:01 BMI result Body Mass Index 34.3 Tobacco/Smoking Status: Tobacco use Status Tobacco use date assessed 05/28/23 07/02/23 08:06 Patient Tobacco Use Status Former Tobacco user 07/02/23 08:06 Tobacco use type Cigar 07/02/23 08:06 e-Cigarette/Vaping Use Never Used 07/02/23 08:06 PHQ-9: PHQ-9 Score PHQ-9: Total score 0 07/02/23 10:49 Depression Screening Interpretation: Negative Thrive Assessment: Date of Thrive Assessment Date Thrive assessed 06/10/23 07/02/23 08:06 Const Other: Constitutional - Awake and Alert, No apparent distress Eyes - PERRLA, EOMI Cardiovascular - S1S2, RRR, No edema Respiratory - Normal lung expansion, Normal respiratory effort, No respiratory distress, CTA bilaterally Extremities - no calf tenderness bilaterally, no swelling Skin - Warm/Dry Neurological - Alert & oriented x3 Psychological - Appropriate affect Results Reviewed Results Reviewed: reviewed cbc, bmp, lipid profile, echocardiogram, ed report, h&p, cardiology consult, JENNA.cardioversion, discharge summary Assessment and Plan Assessment & Plan (1) PAF (paroxysmal atrial fibrillation): Code(s): I48.0 - Paroxysmal atrial fibrillation Plan: Rate and rhythm controlled after successful cardioversion. Continue on multaq 400mg BID and toprol 50mg daily. Continue eliquis for total of 6 weeks, refill provided. Echo reviewed. No heart failure. [id number] score 1. No indication for prison anticoagulation. Follow up with cardiology as prescribed. Check CBC to evaluate for any blood loss anemia r/t eliquis use. (2) Hypertension: Code(s): I10 - Essential (primary) hypertension Plan: BP controlled on recheck with blood pressure 134/74. Continue toprol 50mg daily. Low sodium diet and exercise encouraged. (3) Hypercholesterolemia: Code(s): E78.00 - Pure hypercholesterolemia, unspecified Plan: Uncontrolled with LDL 176 one month ago. Continue working on lowering consumption of unhealthy fats, processed foods, and sugars. Referral to nutrition placed. Orders: Orders Complete Blood Count Auto Diff Today E78.00 - Pure hypercholesterolemia, unspecified, I10 - Essential (primary) hypertension, I48.0 - Paroxysmal atrial fibrillation, R79.89 - Other specified abnormal findings of blood chemistry Comprehensive Met. Panel Today E78.00 - Pure hypercholesterolemia, unspecified, I10 - Essential (primary) hypertension, I48.0 - Paroxysmal atrial fibrillation, R79.89 - Other specified abnormal findings of blood chemistry Referrals Project Management Advisor Nutrition Referral E78.00 - Pure hypercholesterolemia, unspecified, I48.0 - Paroxysmal atrial fibrillation, R79.89 - Other specified abnormal findings of blood chemistry Medications: Refilled apixaban (Eliquis) 5 mg PO BID 26 tabs 0RF I48.91 - Unspecified atrial fibrillation Coding Level of Care Code New Pt Level 5 (47377) Diagnoses PAF (paroxysmal atrial fibrillation) I48.0 Hypertension I10 Hypercholesterolemia E78.00 Time Spent (min) 43
[2023-07-02 08:45] VITALS: BP 134/74
== END 2023-07-02 08:46 | disposition home or self-care (01) ==
PROVIDERS: PCP Internal Medicine; Visit Provider Physician Assistant
DX: I48.0 Paroxysmal atrial fibrillation (principal); I10 Essential (primary) hypertension; E78.00 Pure hypercholesterolemia, unspecified
CPT/HCPCS: 99215

== ENCOUNTER 2023-07-03 08:57 | Outpatient (REF) | payer OTHER, SELFPAY ==
[2023-07-03 09:26] LABS: MANUAL DIFF FLAG NO
[2023-07-03 09:48] LABS: Basophils Percent Auto 0.7 % (0-2); Eosinophils Absolute Auto 0.2 X10*3/uL (0.0-0.4); Eosinophils Percent Auto 2.6 % (0-4); Hematocrit 42.9 % (42.0-52.0); Hemoglobin 14.9 g/dl (14.0-18.0); Imm Gran Abs Auto 0.02 X10*3/uL (0.00-0.03); Imm Gran Pct Auto 0.3 % (0.0-0.4); Lymphocytes Absolute Auto 1.1 X10*3/uL (1.2-4.9); Lymphocytes Percent Auto 18.4 % (20-40); Mean Corpuscular HGB Conc 34.7 g/dl (31.0-36.0); Mean Corpuscular Hemoglobin 30.7 pg (27.0-33.0); Mean Corpuscular Volume 88.3 fL (80.0-98.0); Mean Platelet Volume 9.1 fL (9.4-12.4); Monocytes Absolute Auto 0.4 X10*3/uL (0.1-1.2); Monocytes Percent Auto 6.2 % (2-11); Neutrophils Absolute Auto 4.2 x10*3/uL (2.0-8.3); Neutrophils Percent Auto 71.8 % (45-73); Platelet Count 220 X10*3/uL (160-400); Red Blood Count 4.86 X10*6/uL (4.60-5.80); Red Cell Distribution Width 13.9 % (11.0-16.0); White Blood Count 5.8 X10*3/uL (4.8-10.8)
[2023-07-03 10:14] LABS: Alanine Aminotransferase 33 U/L (0-40); Albumin Level 4.2 g/dL (3.5-5.0); Alkaline Phosphatase 59 U/L (39-117); Anion Gap 14 (12-20); Aspartate Amino Transferase 22 U/L (5-37); Bilirubin Total 0.4 mg/dL (0.0-1.0); Blood Urea Nitrogen 15 mg/dL (9-16); Calcium 9.8 mg/dL (8.4-10.2); Carbon Dioxide 23 mmol/L (22-29); Chloride 106 mmol/L (96-108); Estimated Glomerular Filt Rate > 60; Glucose Random 117 mg/dL (60-115); Sodium 139 mmol/L (135-145); Total Protein 7.6 g/dL (6.5-8.0)
== END 2023-07-03 08:58 | disposition home or self-care (01) ==
LOC: HO.LAB 08:57
PROVIDERS: PCP Internal Medicine; Visit Provider Physician Assistant
DX: I48.0 Paroxysmal atrial fibrillation (principal); E78.00 Pure hypercholesterolemia, unspecified; R79.89 Other specified abnormal findings of blood chemistry; I10 Essential (primary) hypertension
CPT/HCPCS: 36415; 80053; 85025

== ENCOUNTER 2023-07-07 09:27 | Outpatient (AMB) | payer OTHER, SELFPAY ==
[2023-07-07 09:31] VITALS: BP 130/72; PULSE 60; BMI 34.7
--- NOTE | 2023-07-07 09:31 | MHC.OFFVIS ---
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 He was started on Multaq and Eliquis and now presents for follow-up. Today he reports that he has been doing well since his hospital discharge. He has not felt any recurrent AFib. He can clearly tell the difference between AFib and normal rhythm. He denies any chest discomfort at rest or with activity. No heart palpitations, presyncope, syncope, PND, orthopnea or edema. Taking all meds as directed. No bleeding issues reported. Currently still on disability. Had had a hip replacement last year. 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 [facility] Medical History History of cardioversion History of alcohol abuse Atrial fibrillation DVT (deep venous thrombosis) Testicular cancer Surgical History H/O thumb surgery Hx of tonsillectomy H/O rotator cuff surgery History of right hip replacement History of orchiectomy Family History Mother Breast cancer Father Irregular heart beat Maternal Grandfather Heart attack Paternal Grandfather Heart attack Social History Household Members: Spouse Housing: House Do you presently have visiting nurse or other home services: No Alcohol intake: current Alcohol intake frequency: a few times a week Comment: Pt gait and balance are steady. Patient Tobacco Use Status: Former Tobacco user Quit Date: 1989 Tobacco use type: Cigar Years Smoked: stopped 42 years old e-Cigarette/Vaping Use: Never Used Second Hand Smoke Exposure: No Substance Use Type: Marijuana service: No Current occupational status: disabled Current occupational exposures/hazards: No Cognitive needs: No Hearing needs: No Vision needs: Yes Review of Systems ENT Denies dizziness Card Denies chest pain, Denies chest pain at rest, Denies chest pain with activity, Denies rapid heart rate, Denies pedal edema, Denies edema, Denies leg edema, Denies lightheadedness, Denies palpitations, Denies dyspnea, Denies dyspnea on exertion and Denies orthopnea Resp Denies cough, Denies dyspnea and Denies dyspnea on exertion GI Denies hematochezia and Denies change in stool character Musc Denies abnormal gait, Denies limited range of motion, Denies muscle cramps, Denies muscle weakness, Denies numbness, Denies radiating pain into limb, Denies stiffness and Denies tingling Neuro Denies abnormal gait, Denies dizziness, Denies numbness and Denies tingling Endo Denies palpitations Physical Exam Vital Signs: Last Vital Signs Pulse 60 07/07/23 09:31 BP 130/72 07/07/23 09:31 BMI result Body Mass Index 34.7 Const General: cooperative, comfortable and no acute distress Orientation/consciousness: patient oriented x3 Neck Neck: Yes normal visual inspection Resp Effort & Inspection: normal respiratory effort Auscultation: clear to auscultation bilaterally, no crackles, no rales, no rhonchi and no wheezes Cardio Jugular venous distension: no JVD Rate: regular rate Rhythm: regular rhythm Heart sounds: S1 normal heart sound present, S2 normal heart sound present, no murmurs and no rubs Neuro General: patient oriented x3 Extrem General: Yes normal to inspection Psych Appearance: grossly normal Mental Status: mental status grossly normal Speech and movement: Normal speech and movement present Office Procedures EKG Details: Today, read by me, normal sinus rhythm, no acute ST or T-wave abnormalities, QTC 400 milliseconds rate 60 [id number], Complete Assessment & Plan Assessment & Plan (1) PAF (paroxysmal atrial fibrillation): Code(s): I48.0 - Paroxysmal atrial fibrillation Plan: History of paroxysmal atrial fibrillation with prior JENNA cardioversion 10/2023. Then maintained sinus rhythm until recently when he was admitted to [facility] with recurrent heart palpitations. He was started on Eliquis for anticoagulation and underwent a repeat JENNA cardioversion was successful conversion back to normal sinus rhythm. Transesophageal echo had shown EF 55-60%, no evidence of thrombus in the left atrial appendage, He was then started on Multaq 400 mg b.i.d. for rhythm control. He was continued on metoprolol. Today he reports that he has been feeling well since his hospital discharge. He has not felt any recurrent heart palpitations. EKG done today shows normal sinus rhythm, no acute ST or T-wave abnormalities, rate 60, QTC 400 milliseconds. Chads Vasc score of 1 with hypertension. Prior DVT isolated event. Reviewed with Dr. Hutchins who states anticoagulation can be stop 6 weeks post cardioversion which will be the week of July. Patient informed. He will let us know if he has any recurrent heart palpitations. Emergency care if needed for symptoms. Office EKG in 3 months. Cardiology follow-up and EKG in 6 months. (2) Hypertension: Code(s): I10 - Essential (primary) hypertension Plan: Well controlled at this time. Continue metoprolol. (3) Hospital discharge follow-up: Code(s): Z09 - Encounter for follow-up examination after completed treatment for conditions other than malignant neoplasm Plan: As above Plan Time spent on chart review, documentation, interview and assessment Medications: New metoprolol succinate ER 50 mg PO DAILY 90 tabs 3RF Changed From dronedarone (Multaq) 400 mg PO BID 60 tabs 0RF I48.91 - Unspecified atrial fibrillation To dronedarone (Multaq) 400 mg PO BID 90 days 180 tabs 3RF I48.91 - Unspecified atrial fibrillation Coding Level of Care Code Est Pt Level 4 (89833) Diagnoses PAF (paroxysmal atrial fibrillation) I48.0 Hypertension I10 Hospital discharge follow-up Z09 CPT Codes EKG - CPT: 53773-[id number], Complete ([id number]) Time Spent (min) 28
== END 2023-07-07 10:11 | disposition home or self-care (01) ==
PROVIDERS: PCP Internal Medicine; Visit Provider Nurse Practitioner Family
DX: I48.0 Paroxysmal atrial fibrillation (principal); I10 Essential (primary) hypertension; Z09 Encounter for follow-up examination after completed treatment for conditions other than malignant neoplasm
CPT/HCPCS: 93010; 99214

== ENCOUNTER → 2023-07-07 09:27 | Outpatient (BNVA) | payer OTHER, SELFPAY | PROVIDERS: PCP Internal Medicine; Visit Provider Nurse Practitioner Family | DX: Z09 Encounter for follow-up examination after completed treatment for conditions other than malignant neoplasm (principal); I48.0 Paroxysmal atrial fibrillation; I10 Essential (primary) hypertension | CPT/HCPCS: 93005; 99212 ==

== ENCOUNTER 2023-07-09 12:47 | Outpatient (REF) | payer OTHER, SELFPAY | END 2023-07-09 12:48 | disposition home or self-care (01) | LOC: HO.SH 12:47 | PROVIDERS: Visit Provider Internal Medicine | DX: Z01.118 Encounter for examination of ears and hearing with other abnormal findings (principal); H90.3 Sensorineural hearing loss, bilateral | CPT/HCPCS: 92557; 92567 ==

== ENCOUNTER 2023-08-06 12:21 | Outpatient (AMB) | payer OTHER, SELFPAY ==
--- NOTE | 2023-08-06 12:34 | A.OFFVIS_ITS ---
Intake VS Expanded 08/06/23 12:39 08/06/23 12:47 Height 6 ft 4 in 6 ft 4 in Weight 293 lb 6.964 oz 293 lb BMI 35.7 35.7 Intake Visit Reasons: Pure hypercholesterolemia, unspecified/LVM Allergies No Known Allergies Allergy (Verified 07/07/23 09:33) HPI Nutrition Presentation Details Pt presents for MNT for Hypercholesterolemia, elevated blood sugar, paraxosimal AFbi, fatty liver Pt reports working on reducing on candies/not adding salt to foods food allergy: denies etoh: reducing 3-4 drink smoking: occ twice/wk fruits/day: not daily (apple orange fish: 1-2 x/wk cod/lobster/seafood starches > 25 serving Ve serving/d NFT-Ygnaphw-Ke.Jeor Equation Height 6 ft 4 in Weight 293 lb Resting Metabolic Rate 2239.08 Calculated Activity Level Mild Activity Calories Needed to Maintain Weight 3078.74 Diagnosis Nutrition problem #1 food nutri know defi As related to (etiology) #1 diagnosis As evidenced by (sign/symptom) #1 knowledge deficit of diet Monitoring/Goals Nutrition problem monitoring level of knowledge/skill and total CHO intake Learning/Education Readiness to learn good Stages of change preparation Educational materials provided Yes (meal planning) Most Recent Diabetes Results: Creatinine 0.83 mg/dL (0.5-1.4) 07/03/23 Blood Urea Nitrogen 15 mg/dL (9-16) 07/03/23 Sodium 139 mmol/L (135-145) 07/03/23 Potassium 4.0 mmol/L (3.3-5.1) 07/03/23 Chloride 106 mmol/L (96-108) 07/03/23 Carbon Dioxide 23 mmol/L (22-29) 07/03/23 Calcium 9.8 mg/dL (8.4-10.2) 07/03/23 AST 22 U/L (5-37) 07/03/23 ALT 33 U/L (0-40) 07/03/23 Total Protein 7.6 g/dL (6.5-8.0) 07/03/23 Albumin 4.2 g/dL (3.5-5.0) 07/03/23 [facility] Medical History History of cardioversion History of alcohol abuse Atrial fibrillation DVT (deep venous thrombosis) Testicular cancer Surgical History H/O thumb surgery Hx of tonsillectomy H/O rotator cuff surgery History of right hip replacement History of orchiectomy Family History Mother Breast cancer Father Irregular heart beat Maternal Grandfather Heart attack Paternal Grandfather Heart attack Social History Household Members: Spouse Housing: House Do you presently have visiting nurse or other home services: No Alcohol intake: current Alcohol intake frequency: a few times a week Comment: Pt gait and balance are steady. Patient Tobacco Use Status: Former Tobacco user Quit Date: 1989 Tobacco use type: Cigar Years Smoked: stopped 42 years old e-Cigarette/Vaping Use: Never Used Second Hand Smoke Exposure: No Substance Use Type: Marijuana service: No Current occupational status: disabled Current occupational exposures/hazards: No Cognitive needs: No Hearing needs: No Vision needs: Yes Assessment & Plan Assessment & Plan (1) Elevated blood sugar: Comment: Pt also has hypercholesterolemia,l afib, fatty liver Code(s): R73.9 - Hyperglycemia, unspecified (2) Hypercholesterolemia: Code(s): E78.00 - Pure hypercholesterolemia, unspecified Plan Wt: 133 Kg ( 07/2023 ) Est kcal needs as per MSJ: 3100 (40% carb, 30% protein/fat) Est fluid needs as per 25-30 ml/d: 4000 Est prot per day as per 1 g/kg bw: 133 Recommend fiber intake : 8-10 g per day and gradually increase to 25-28 g per day for women and 35-38 g for men or as tolerated Recommend sodium intake per day : less than 1500 mg less than 2000 mg Educated patient on: ( R = reviewed V = verbalizes understanding N/R = needs review N/A = not applicable * Food sources of carbohydrate, adequate serving sizes and its role in various health conditions: R * Differences between complex carbohydrates a simple carbohydrates, role of fiber in diet: R * Lean protein sources of foods: R * Differences between types of fats and role in diet (mono on saturated fat fatty acids, saturated fatty acids, trans fats): R * Food sources of sodium in salt and healthy modifications for heart health in kidney health: R V R/V * Vitamins and minerals: N/R * Healthy plate method concept: R V * Physical activity: Benefits a precaution: R V * Patient Instructions: Reduce total carb at meal to less than 100 g choosing complex carbohydrates Choose lean protein foods, reduce on fried foods and empty calorie food in general Coding Level of Care Code Nutr Indiv Intake (61667) Diagnoses Elevated blood sugar R73.9 Hypercholesterolemia E78.00 Time Spent (min) 30
[2023-08-06 12:39] VITALS: BMI 35.7
[2023-08-19 13:18] VITALS: BMI 35.7
== END 2023-08-06 13:15 | disposition home or self-care (01) ==
PROVIDERS: PCP Internal Medicine; Visit Provider Dietitian, Registered
DX: R73.9 Hyperglycemia, unspecified (principal); E78.00 Pure hypercholesterolemia, unspecified

== ENCOUNTER → 2023-08-06 12:21 | Outpatient (BNVA) | payer OTHER, SELFPAY | PROVIDERS: PCP Internal Medicine; Visit Provider Dietitian, Registered | DX: E78.00 Pure hypercholesterolemia, unspecified (principal); R73.9 Hyperglycemia, unspecified; Z71.3 Dietary counseling and surveillance | CPT/HCPCS: 97802 ==

== ENCOUNTER 2023-10-01 08:53 | Outpatient (AMB) | payer OTHER, SELFPAY ==
[2023-10-01 08:57] VITALS: BP 152/92; PULSE 83; O2SAT 98; BMI 34.3
--- NOTE | 2023-10-01 08:57 | A.OFFPC_ITS ---
Vital Signs 3 10/01/23 08:57 10/01/23 09:39 Height 6 ft 4 in Weight 282 lb BMI 34.3 BP 152/92 H 144/80 H Blood Pressure Location Lt brachial Lt brachial Position Sitting Sitting Pulse 83 Pulse Source Pulse Oximeter Pulse Oximetry (%) 98 Oxygen Delivery Method Room Air Intake Visit Reasons: 3mth f/u Allergies No Known Allergies Allergy (Verified 10/01/23 08:57) Medication List - Last Reconciled 10/01/23 by Danuta Sanford MD alprazolam 0.25 mg PO BID PRN dronedarone (Multaq) 400 mg PO BID 90 days metoprolol succinate ER 50 mg PO DAILY Tobacco use date assessed: 10/01/23 Dental Screening Dental Screen Date: 10/01/23 Did you have a dental visit in the last 12 months?: No Did you have a dental problem in the last 6 months where you did not have access to dental care?: No Was dental information given to patient?: No HPI 3mth f/u 2 HPI0 Details 63-year-old obese male with atrial fibri llation hypercholesterolemia hypertension having an LFT elevation elevated blood sugar last seen in May 2023. Patient was advised to have the Cologuard testing. Review of the notes was seen by Cardiology in June post JENNA cardioversion started on Multaq and anticoagulation echocardiogram 55-60% ejection fraction no thrombus in the left atrial appendage continued on metoprolol and anticoagulation can be stopped 6 weeks post cardioversion week of July. August 06, 2023 [facility] Medical History History of cardioversion History of alcohol abuse Atrial fibrillation DVT (deep venous thrombosis) Testicular cancer Surgical History H/O thumb surgery Hx of tonsillectomy H/O rotator cuff surgery History of right hip replacement History of orchiectomy Family History Mother Breast cancer Father Irregular heart beat Maternal Grandfather Heart attack Paternal Grandfather Heart attack Social History Household Members: Spouse Housing: House Do you presently have visiting nurse or other home services: No Alcohol intake: current Alcohol intake frequency: a few times a week Comment: Pt gait and balance are steady. Patient Tobacco Use Status: Former Tobacco user Quit Date: 1989 Tobacco use type: Cigar Years Smoked: stopped 42 years old e-Cigarette/Vaping Use: Never Used Second Hand Smoke Exposure: No Substance Use Type: Marijuana service: No Current occupational status: disabled Current occupational exposures/hazards: No Cognitive needs: No Hearing needs: No Vision needs: Yes Questionnaire PHQ-9 Over the last 2 weeks, how often have you been bothered by any of the following problems? 1. Little interest or pleasure in doing things: nearly every day 2. Feeling down, depressed, or hopeless: nearly every day 3. Trouble falling or staying asleep, or sleeping too much: more than half the days 4. Feeling tired or having little energy: several days 5. Poor appetite or overeating: several days 6. Feeling bad about yourself - or that you are a failure or have let yourself or your family down: not at all 7. Trouble concentrating on things, such as reading the newspaper or watching television: not at all 8. Moving or speaking so slowly that other people could have noticed. Or the opposite - being so fidgety or restless that you have been moving around a lot more than usual: not at all 9. Thoughts that you would be better off or of hurting yourself in some way: not at all Total score: 10 Depression Screening Interpretation: Positive Depression Screening Done: Yes Source: Developed by Drs. Ildefonso Mills, Celeste Knight, Brett Maurice and colleagues, with an educational leslee from [employer]. Thrive Questionnaire Date Thrive assessed: 10/01/23 I am a: Patient What is your living situation today?: I have a steady place to live Within the past 12 months, did the food you bought not last and you didn't have the money to get more?: Never true Within the past 12 months, did you worry whether your food would run out before you got money to buy more?: Never true Do you have trouble paying for medicines?: No Do you have trouble getting transportation to medical appointments?: No Do you have trouble paying your heating and electricity bill?: No Do you have trouble taking care of your child, family member or friend?: No Do you have trouble with day-to-day activities such as bathing, preparing meals, shopping, managing finances, etc.?: No Are you currently unemployed and looking for a job?: No Are you interested in more education?: No Currently or been in a relationship where the following occur: no concerns reported THRIVE Score: 0 AUDIT C Alcohol Use Questionnaire (AUDIT-C) 1. How often do you have a drink containing alcohol?: 2-3 times a week 2. How many drinks containing alcohol do you have on a typical day when you are drinking?: 3 or 4 3. How often do you have six or more drinks on one occasion?: Never Total Score: 4 RUBÉN-7 AMB Questionnaire RUBÉN-7 Date RUBÉN - 7 assessed: 10/01/23 Feeling nervous, anxious, or on edge: 1 = Several days Not being able to stop or control worryin = Several days Worrying too much about different things: 1 = Several days Trouble relaxin = Several days Being so restless that it is hard to sit still: 1 = Several days Becoming easily annoyed or irritable: 1 = Several days Feeling afraid as if something awful might happen: 1 = Several days Total RUBÉN-7 score (0-4 normal; 5-9 mild; 10-14 moderate; 15-21 severe): 7 Source: Developed by Drs. Ildefonso Mills, Celeste Knight, Brett Maurice and colleagues, with an educational leslee from [employer]. Physical exam (Primary Care) Vital Signs: Last Vital Signs Pulse 83 10/01/23 08:57 BP 152/92 H 10/01/23 08:57 Pulse Ox 98 10/01/23 08:57 Oxygen Delivery Method Room Air 10/01/23 08:57 BMI result Body Mass Index 34.3 Tobacco/Smoking Status: Tobacco use Status Tobacco use date assessed 10/01/23 10/01/23 09:03 Patient Tobacco Use Status Former Tobacco user 10/01/23 09:03 Tobacco use type Cigar 10/01/23 09:03 e-Cigarette/Vaping Use Never Used 10/01/23 09:03 PHQ-9: PHQ-9 Score PHQ-9: Total score 10 10/01/23 09:03 Depression Screening Interpretation: Positive Thrive Assessment: Date of Thrive Assessment Date Thrive assessed 10/01/23 10/01/23 09:03 Currently or been in a relationship where the following occur: no concerns reported Const General: alert; No acute distress [facility] Head images: 2 1. bruise straight line on the L side of face 2. Eyes Conjunctivae: conjunctivae normal Resp Auscultation: clear to auscultation bilaterally Cardio Rate: regular rate Rhythm: regular rhythm GI Inspection: Yes normal to inspection Extrem General: Yes normal to inspection and No edema Assessment and Plan Assessment & Plan (1) PAF (paroxysmal atrial fibrillation): Comment: May 2023 status post JENNA cardioversion Code(s): I48.0 - Paroxysmal atrial fibrillation Plan: Patient followed up with Cardiology on Multaq 400 mg twice a day metoprolol 50 mg once a day- will continue to monitor for now (2) Hypertension: Code(s): I10 - Essential (primary) hypertension Plan: Continue with blood pressure medication. Decrease salt intake and exercise presently on metoprolol 50 mg once a day (3) Hypercholesterolemia: Code(s): E78.00 - Pure hypercholesterolemia, unspecified Plan: Avoid fried foods, chicken skin, eggs, butter margarine, pastries and meat. Be it pork or beef they have a lot of cholesterol LDL goal of less than 130 and triglyceride of less than 150 (4) Elevated blood sugar: Comment: Pt also has hypercholesterolemia,l afib, fatty liver Code(s): R73.9 - Hyperglycemia, unspecified Plan: Decrease the amount of carbohydrate intake, pasta, bread, rice and potatoes are all sugar and that is aside from all the sweet stuff, remember that fruits are good but they are Sweet also. (5) History of alcohol abuse: Comment: few days a wk Code(s): F10.11 - Alcohol abuse, in remission Plan: Patient is strongly advised to abstain. (6) Situational depression: Code(s): F43.21 - Adjustment disorder with depressed mood Plan: decline counselling for now Orders: Orders 2 Free T4 (Free Thyroxine) Today F43.21 - Adjustment disorder with depressed mood Complete Blood Count Auto Diff Today F43.21 - Adjustment disorder with depressed mood Thyroid Stimulating Hormone Today F43.21 - Adjustment disorder with depressed mood Magnesium Today F43.21 - Adjustment disorder with depressed mood Medications: New 2 alprazolam 0.25 mg PO BID PRN 20 tabs 0RF anxiety F43.21 - Adjustment disorder with depressed mood Coding Level of Care Code Est Pt Level 4 (79376) Diagnoses PAF (paroxysmal atrial fibrillation) I48.0 Hypertension I10 Hypercholesterolemia E78.00 Elevated blood sugar R73.9 History of alcohol abuse F10.11 Situational depression F43.21
[2023-10-01 09:39] VITALS: BP 144/80
== END 2023-10-01 09:44 | disposition home or self-care (01) ==
PROVIDERS: PCP Internal Medicine; Visit Provider Internal Medicine
DX: I48.0 Paroxysmal atrial fibrillation (principal); I10 Essential (primary) hypertension; E78.00 Pure hypercholesterolemia, unspecified; R73.9 Hyperglycemia, unspecified; F10.11 Alcohol abuse, in remission; F43.21 Adjustment disorder with depressed mood
CPT/HCPCS: 99214

== ENCOUNTER 2023-10-03 13:13 | Outpatient (REF) | payer OTHER, SELFPAY ==
[2023-10-03 13:34] LABS: MANUAL DIFF FLAG NO
[2023-10-03 13:52] LABS: Basophils Percent Auto 0.6 % (0-2); Eosinophils Absolute Auto 0.1 X10*3/uL (0.0-0.4); Eosinophils Percent Auto 1.2 % (0-4); Hematocrit 45.6 % (42.0-52.0); Hemoglobin 15.9 g/dl (14.0-18.0); Imm Gran Abs Auto 0.02 X10*3/uL (0.00-0.03); Imm Gran Pct Auto 0.3 % (0.0-0.4); Lymphocytes Percent Auto 14.8 % (20-40); Mean Corpuscular HGB Conc 34.9 g/dl (31.0-36.0); Mean Corpuscular Hemoglobin 31.7 pg (27.0-33.0); Monocytes Absolute Auto 0.6 X10*3/uL (0.1-1.2); Monocytes Percent Auto 9.2 % (2-11); Neutrophils Absolute Auto 4.9 x10*3/uL (2.0-8.3); Neutrophils Percent Auto 73.9 % (45-73); Platelet Count 191 X10*3/uL (160-400); Red Blood Count 5.01 X10*6/uL (4.60-5.80); White Blood Count 6.6 X10*3/uL (4.8-10.8)
[2023-10-03 14:07] LABS: Estimated Average Glucose 105 mg/dL; Hemoglobin A1c % 5.3 % (<6.0)
[2023-10-03 14:37] LABS: Alanine Aminotransferase 40 U/L (0-40); Albumin Level 4.5 g/dL (3.5-5.0); Alkaline Phosphatase 85 U/L (39-117); Anion Gap 19 (12-20); Aspartate Amino Transferase 38 U/L (5-37); Bilirubin Total 0.7 mg/dL (0.0-1.0); Blood Urea Nitrogen 10 mg/dL (9-16); Calcium 9.9 mg/dL (8.4-10.2); Carbon Dioxide 25 mmol/L (22-29); Chloride 101 mmol/L (96-108); Cholesterol 277 mg/dL (<200); Estimated Glomerular Filt Rate > 60; Glucose Random 115 mg/dL (60-115); HDL Cholesterol 105 mg/dL (>40); LDL Cholesterol Calculated 161 mg/dL (<100); Potassium 5.1 mmol/L (3.3-5.1); Sodium 140 mmol/L (135-145); Total Protein 8.1 g/dL (6.5-8.0); Triglycerides 57 mg/dL (<150)
[2023-10-03 14:51] LABS: Free T4 (Free Thyroxine) 0.99 ng/dL (0.71-1.85); Thyroid Stimulating Hormone 1.66 uIU/mL (0.32-4.0)
[2023-10-04 04:08] LABS: HBS Num1 0.14 mIU/mL (0-7.99); HBc Num1 0.06 S/CO (0.00-0.79); HBsAGNum1 0.41 S/CO (0.00-0.99); Hepatitis B Core Antibody Nonreactive (Nonreactive); Hepatitis B Surface Antigen Negative (Negative); ~HepC Num1 0.98 S/CO (0.00-0.79); ~Hepatitis B Surface Antibody NONREACTIVE (Nonreactive)
[2023-10-04 04:52] LABS: ~HepC Num2 0.99; ~HepC Num3 1.01; ~Hepatitis C Antibody GRAYZONE (Nonreactive)
== END 2023-10-03 13:14 | disposition home or self-care (01) ==
LOC: HO.LAB 13:13
PROVIDERS: PCP Internal Medicine; Visit Provider Internal Medicine
DX: E78.00 Pure hypercholesterolemia, unspecified (principal); F43.21 Adjustment disorder with depressed mood; R79.89 Other specified abnormal findings of blood chemistry
CPT/HCPCS: 36415; 80053; 80061; 83036; 83735; 84439; 84443; 85025; 86704; 86706; 86803; 87340

== ENCOUNTER → 2023-10-06 08:22 | Outpatient (BNVA) | payer OTHER, SELFPAY | PROVIDERS: PCP Internal Medicine; Visit Provider Nurse Practitioner Family | DX: Z79.899 Other long term (current) drug therapy (principal) | CPT/HCPCS: 93005 ==

== ENCOUNTER 2023-10-09 13:21 | Outpatient (REF) | payer OTHER, SELFPAY ==
[2023-10-10 09:20] LABS: ~HepC Num1 0.88 S/CO (0.00-0.79)
[2023-10-10 11:19] LABS: ~HepC Num2 0.88; ~HepC Num3 0.88; ~Hepatitis C Antibody GRAYZONE (Nonreactive)
[2023-10-10 15:22] LABS: HCV RNA PCR Qn <1.18 NOT DETECTED Log IU/mL (NOT DETECTED); HCV RNA PCR Qn <15 NOT DETECTED IU/mL (NOT DETECTED)
== END 2023-10-09 13:22 | disposition home or self-care (01) ==
LOC: HO.LAB 13:21
PROVIDERS: PCP Internal Medicine; Visit Provider Internal Medicine
DX: Z09 Encounter for follow-up examination after completed treatment for conditions other than malignant neoplasm (principal)
CPT/HCPCS: 36415; 86803; 87522; 87902

== ENCOUNTER → 2023-11-10 08:49 | Outpatient (BNVA) | payer OTHER, SELFPAY | PROVIDERS: PCP Internal Medicine; Visit Provider Dietitian, Registered ==

== ENCOUNTER 2023-12-29 09:12 | Outpatient (AMB) | payer OTHER, SELFPAY ==
--- NOTE | 2023-12-29 09:16 | A.OFFVIS_ITS ---
Vital Signs 12/29/23 09:19 Height 6 ft 4 in Weight 289 lb 10.998 oz BMI 35.3 BP 130/72 Blood Pressure Location Lt brachial Position Sitting Pulse 69 Intake Visit Reasons: 6 month follow up w. 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 He was seen in the hospital when he presented with paroxysmal atrial fibrillation and palpitations. After discussion he was taken for JENNA cardioversion. He was successfully cardioverted and was discharged home on rivaroxaban and metoprolol succinate 75 mg once a day. The plan was to continue the rivaroxaban for 6 weeks as his stroke risk is low. He was drinking alcohol previously and has stop drinking completely. He also has been snoring at night and had some features of sleep apnea and has been referred for sleep study by his primary care team. No bleeding concerns. He is saying he takes 3 tablets of metoprolol succinate which is 75 mg he gets some lightheadedness. 05/28/2023: He returns for follow-up. Been doing well. Occasionally feels palpitations lasting for few seconds. He is exercising and with activity he has no symptoms. No chest discomfort. He has been off Xarelto after cardioversion. His chads Vasc score was 1 for hypertension. Blood pressure is elevated. He does not drink as much but does drink on weekends specially when he is watching sports. He is saying he drinks vodka and beer. 12/29/23: The patient is here for follow-up. His recently and heWas on alprazolam after that. He is saying he has stopped using it at this stage. He is denying any significant. Taking Multaq and metoprolol. Not on anticoagulation currently. [facility] Medical History History of cardioversion History of alcohol abuse Atrial fibrillation DVT (deep venous thrombosis) Testicular cancer Surgical History H/O thumb surgery Hx of tonsillectomy H/O rotator cuff surgery History of right hip replacement History of orchiectomy Family History Mother Breast cancer Father Irregular heart beat Maternal Grandfather Heart attack Paternal Grandfather Heart attack Social History Household Members: Spouse Housing: House Do you presently have visiting nurse or other home services: No Alcohol intake: current Alcohol intake frequency: a few times a week Comment: Pt gait and balance are steady. Patient Tobacco Use Status: Former Tobacco user Tobacco use type: Cigar Years Smoked: stopped 42 years old e-Cigarette/Vaping Use: Never Used Second Hand Smoke Exposure: No Substance Use Type: Marijuana service: No Current occupational status: disabled Current occupational exposures/hazards: No Cognitive needs: No Hearing needs: No Vision needs: Yes Review of Systems Const Denies chills, Denies fatigue, Denies fever(s), Denies frequent falls, Denies weakness, Denies weight gain and Denies weight loss ENT Denies dizziness Card Denies chest pain, Denies leg edema, Denies lightheadedness, Denies palpitations, Denies dyspnea and Denies dyspnea on exertion Resp Denies cough, Denies dyspnea and Denies dyspnea on exertion GI Denies hematochezia Musc Denies abnormal gait, Denies muscle weakness, Denies numbness, Denies radiating pain into limb and Denies tingling Neuro Denies abnormal gait, Denies dizziness, Denies frequent falls, Denies numbness, Denies tingling and Denies weakness Endo Denies fatigue and Denies palpitations Physical Exam Vital Signs: Last Vital Signs Pulse 69 12/29/23 09:19 BP 130/72 12/29/23 09:19 BMI result Body Mass Index 35.3 GENERAL APPEARANCE: in no acute distress, pleasant. NECK: no carotid bruit, no jugular venous distention. SKIN: no suspicious lesions, warm and dry. HEART: no murmurs, regular rate and rhythm. LUNGS: clear to auscultation bilaterally. ABDOMEN: soft, nontender. EXTREMITIES: no edema. PERIPHERAL PULSES: equal. NEUROLOGIC: No gross deficits, AAO X 3 Office Procedures EKG Details: Sinus rhythm 69 beats per minute, normal axis, normal EKG, QTC 411 milliseconds. [id number], Complete Assessment & Plan Assessment & Plan (1) Hypertension: Code(s): I10 - Essential (primary) hypertension Category: Medical (2) Atrial fibrillation: Comment: Status post cardioversion October 2022 Code(s): I48.91 - Unspecified atrial fibrillation Category: Medical Qualifiers: Atrial fibrillation type: unspecified Qualified Code(s): I48.91 - Unspecified atrial fibrillation Plan Pleasant 63-year-old gentleman who is here for follow-up. He was seen in the hospital for paroxysmal atrial fibrillation and underwent cardioversion. He was on Xarelto for few weeks and subsequently was taken off the Xarelto. He could not tolerate Toprol-XL at 75 mg and was decreased to 50 mg daily and he has been tolerating that well. He has occasional palpitations lasting for few seconds. Overall he is stable. Blood pressure is well controlled. Clinically stable. We will see him back in few months. Thank you for allowing me to participate in the care of your patient. Please feel free to contact me if you have any questions. Coding Level of Care Code Est Pt Level 4 (21311) Diagnoses Hypertension I10 Atrial fibrillation, unspecified type I48.91 Atrial fibrillation type: unspecified CPT Codes EKG - CPT: 33877-[id number], Complete ([id number])
[2023-12-29 09:19] VITALS: BP 130/72; PULSE 69; BMI 35.3
== END 2023-12-29 09:36 | disposition home or self-care (01) ==
PROVIDERS: PCP Internal Medicine; Visit Provider Internal Medicine Cardiovascular Disease
DX: I10 Essential (primary) hypertension (principal); I48.91 Unspecified atrial fibrillation
CPT/HCPCS: 93010; 99214

== ENCOUNTER → 2023-12-29 09:12 | Outpatient (BNVA) | payer OTHER, SELFPAY | PROVIDERS: PCP Internal Medicine; Visit Provider Internal Medicine Cardiovascular Disease | DX: I48.91 Unspecified atrial fibrillation (principal); R00.2 Palpitations | CPT/HCPCS: 93005; 99212 ==

== ENCOUNTER 2024-01-19 09:48 | Outpatient (AMB) | payer OTHER, SELFPAY ==
[2024-01-19 09:54] VITALS: BP 162/92; PULSE 86; O2SAT 98; BMI 34.2
--- NOTE | 2024-01-19 09:54 | A.OFFPC_ITS ---
Vital Signs 01/19/24 09:54 Height 6 ft 4 in Weight 281 lb BMI 34.2 BP 162/92 H Blood Pressure Location Lt brachial Position Sitting Pulse 86 Pulse Source Pulse Oximeter Pulse Oximetry (%) 98 Oxygen Delivery Method Room Air Intake Visit Reasons: 3 Month F/U Allergies No Known Allergies Allergy (Verified 01/19/24 09:55) Tobacco use date assessed: 10/01/23 Dental Screening Dental Screen Date: 10/01/23 HPI 3 Month F/U HPI Details ASCVD risk 9.2% [id number] obese male with atrial fibrillation hypertension hypercholesterolemia elevated blood sugar history of alcohol abuse and situational depression coming in for follow-up. Last seen in 09/2023. Patient is here for follow-up. Review of the notes was seen by Cardiology December 28 seen (11/07/2022 successfully cardioverted discharged home on Xarelto and metoprolol 75 mg once a day planned 6 weeks of anticoagulation.) Complains of lightheadedness on 75 mg of metoprolol. Patient's recently . Multaq and metoprolol. 50 mg once a day. PAteint is taking it hard and very depressed [facility] Medical History (Updated 01/19/24 @ 09:58 by Danuta Sanford MD) Atrial fibrillation History of cardioversion History of alcohol abuse DVT (deep venous thrombosis) Testicular cancer Surgical History H/O thumb surgery Hx of tonsillectomy H/O rotator cuff surgery History of right hip replacement History of orchiectomy Family History Mother Breast cancer Father Irregular heart beat Maternal Grandfather Heart attack Paternal Grandfather Heart attack Social History Household Members: Spouse Housing: House Do you presently have visiting nurse or other home services: No Alcohol intake: current Alcohol intake frequency: a few times a week Comment: Pt gait and balance are steady. Patient Tobacco Use Status: Former Tobacco user Tobacco use type: Cigar Years Smoked: stopped 42 years old e-Cigarette/Vaping Use: Never Used Second Hand Smoke Exposure: No Substance Use Type: Marijuana service: No Current occupational status: disabled Current occupational exposures/hazards: No Cognitive needs: No Hearing needs: No Vision needs: Yes Questionnaire PHQ-9 Over the last 2 weeks, how often have you been bothered by any of the following problems? 1. Little interest or pleasure in doing things: nearly every day 2. Feeling down, depressed, or hopeless: nearly every day 3. Trouble falling or staying asleep, or sleeping too much: nearly every day 4. Feeling tired or having little energy: several days 5. Poor appetite or overeating: several days 6. Feeling bad about yourself - or that you are a failure or have let yourself or your family down: not at all 7. Trouble concentrating on things, such as reading the newspaper or watching television: not at all 8. Moving or speaking so slowly that other people could have noticed. Or the opposite - being so fidgety or restless that you have been moving around a lot more than usual: not at all 9. Thoughts that you would be better off or of hurting yourself in some way: not at all Total score: 11 Depression Screening Interpretation: Positive Depression Screening Done: Yes Source: Developed by Drs. Ildefonso Mills, Brett Sales and colleagues, with an educational leslee from [employer]. Thrive Questionnaire Date Thrive assessed: 10/01/23 AUDIT C Alcohol Use Questionnaire (AUDIT-C) 1. How often do you have a drink containing alcohol?: 2-3 times a week 2. How many drinks containing alcohol do you have on a typical day when you are drinking?: 3 or 4 3. How often do you have six or more drinks on one occasion?: Never Total Score: 4 RUBÉN-7 AMB Questionnaire RUBÉN-7 Date RUBÉN - 7 assessed: 10/01/23 Source: Developed by Drs. Ildefonso Mills, Brett Sales and colleagues, with an educational leslee from [employer]. Physical exam (Primary Care) Vital Signs: Last Vital Signs Pulse 86 01/19/24 09:54 BP 162/92 H 01/19/24 09:54 Pulse Ox 98 01/19/24 09:54 Oxygen Delivery Method Room Air 01/19/24 09:54 BMI result Body Mass Index 34.2 Tobacco/Smoking Status: Tobacco use Status Tobacco use date assessed 10/01/23 01/19/24 09:57 Patient Tobacco Use Status Former Tobacco user 01/19/24 09:57 Tobacco use type Cigar 01/19/24 09:57 e-Cigarette/Vaping Use Never Used 01/19/24 09:57 PHQ-9: PHQ-9 Score PHQ-9: Total score 10 01/19/24 09:57 Depression Screening Interpretation: Positive Thrive Assessment: Date of Thrive Assessment Date Thrive assessed 10/01/23 01/19/24 09:57 Const General: alert; No acute distress Eyes Conjunctivae: conjunctivae normal Resp Auscultation: clear to auscultation bilaterally Cardio Rate: regular rate Rhythm: regular rhythm GI Inspection: Yes normal to inspection Extrem General: Yes normal to inspection and No edema Assessment and Plan Assessment & Plan (1) PAF (paroxysmal atrial fibrillation): Comment: May 2023 status post JENNA cardioversion Code(s): I48.0 - Paroxysmal atrial fibrillation Plan: Patient continues to be followed up by Cardiology on Multaq and metoprolol chads Vasc score 1 (2) Hypertension: Code(s): I10 - Essential (primary) hypertension Plan: Continue with blood pressure medication. Decrease salt intake and exercise on metoprolol 50 mg once a day (3) Hypercholesterolemia: Code(s): E78.00 - Pure hypercholesterolemia, unspecified Plan: Avoid fried foods, chicken skin, eggs, butter margarine, pastries and meat. Be it pork or beef they have a lot of cholesterol LDL goal of less than 130 and triglyceride of less than 150. Discussion with patient ASCVD risk 9.2 intermediate (4) Elevated blood sugar: Comment: Pt also has hypercholesterolemia,l afib, fatty liver Code(s): R73.9 - Hyperglycemia, unspecified Plan: Hemoglobin A1c is normal. Decrease the amount of carbohydrate intake, pasta, bread, rice and potatoes are all sugar and that is aside from all the sweet stuff, remember that fruits are good but they are Sweet also. (5) History of alcohol abuse: Comment: few days a wk Code(s): F10.11 - Alcohol abuse, in remission Plan: Patient advised strongly to abstain from alcohol. (6) Situational depression: Code(s): F43.21 - Adjustment disorder with depressed mood Orders: Orders Lipid Panel 3 Months E78.00 - Pure hypercholesterolemia, unspecified Comprehensive Met. Panel 3 Months E78.00 - Pure hypercholesterolemia, unspecified Hemoglobin A1c 3 Months E78.00 - Pure hypercholesterolemia, unspecified Complete Blood Count Auto Diff 3 Months E78.00 - Pure hypercholesterolemia, unspecified Thyroid Stimulating Hormone 3 Months E78.00 - Pure hypercholesterolemia, unspecified Referrals Psychiatry Referral F43.21 - Adjustment disorder with depressed mood Medications: New sertraline 50 mg PO DAILY 30 tabs 1RF F43.21 - Adjustment disorder with depressed mood alprazolam 0.5 mg PO BEDTIME PRN 20 tabs 0RF sleep F43.21 - Adjustment disorder with depressed mood Coding Level of Care Code Tele New Pt Level 4 (34861) Diagnoses PAF (paroxysmal atrial fibrillation) I48.0 Hypertension I10 Hypercholesterolemia E78.00 Elevated blood sugar R73.9 History of alcohol abuse F10.11 Situational depression F43.21
== END 2024-01-19 10:15 | disposition home or self-care (01) ==
PROVIDERS: PCP Internal Medicine; Visit Provider Internal Medicine
DX: I48.0 Paroxysmal atrial fibrillation (principal); I10 Essential (primary) hypertension; E78.00 Pure hypercholesterolemia, unspecified; R73.9 Hyperglycemia, unspecified; F10.11 Alcohol abuse, in remission; F43.21 Adjustment disorder with depressed mood
CPT/HCPCS: 99214

== ENCOUNTER 2024-02-10 07:49 | Inpatient (IN) | payer OTHER, SELFPAY ==
[2024-02-10] VITALS (10 sets, daily range): BP systolic 132–196; BP diastolic 75–109; PULSE 81–131; RESP 16–22; TEMP 36.9–38; O2SAT 95–99; BMI 30.4
--- NOTE | 2024-02-10 | ECG_ITS ---
Test Reason : HYPOKALEMIA, QTC Blood Pressure : / mmHG Vent. Rate : 096 BPM Atrial Rate : 096 BPM P-R Int : 140 ms QRS Dur : 078 ms QT Int : 444 ms P-R-T Axes : 032 005 021 degrees QTc Int : 560 ms Normal sinus rhythm Nonspecific ST abnormality Prolonged QT Abnormal ECG When compared with ECG of 10-JUN-2023 11:14, Premature ventricular complexes are no longer Present ST now depressed in Lateral leads QT has lengthened Referred By: Iraj Montes De Oca Electronically Signed By:BARBI ODONNELL
--- NOTE | ~2024-02-10 | XR_ITS ---
EXAMINATION: XR CHEST CLINICAL INFORMATION: Fever, tachycardia COMPARISON: 06/09/2023 TECHNIQUE: Frontal view of the chest was obtained. FINDINGS: Cardiac and mediastinal contours are normal. Pulmonary vasculature is unremarkable. Lungs are clear. No consolidation, pneumothorax, or pleural effusion. Osteoarthritis is present in the acromioclavicular and glenohumeral joints. Degenerative spondylosis is present in the thoracic spine. XR/XR chest 1V IMPRESSION: No acute pulmonary disease.
--- NOTE | 2024-02-10 08:11 | PC.NURSE ---
Pt comes by EMS for n/v/d x3 days of unknown origin. VSS, afebrile, A&Ox3 18g in RAC from EMS wit IV fluids running. Pt dry heaves with spit up, skin is sweaty. Awaiting ED provider.
--- NOTE | 2024-02-10 08:33 | PC.NURSE ---
Pt expresses concern for ED to have his med list in which was given to EMS. List reads as follows: Multaq Sertraline Metoprolol Alprazolam
[2024-02-10 09:18] LABS: MANUAL DIFF FLAG NO
[2024-02-10 09:19] LABS: Basophils Percent Auto 0.2 % (0-2); Hematocrit 46.2 % (42.0-52.0); Imm Gran Abs Auto 0.05 X10*3/uL (0.00-0.03); Imm Gran Pct Auto 0.4 % (0.0-0.4); Lymphocytes Absolute Auto 0.7 X10*3/uL (1.2-4.9); Lymphocytes Percent Auto 5.6 % (20-40); Mean Corpuscular HGB Conc 36.8 g/dl (31.0-36.0); Mean Corpuscular Hemoglobin 32.4 pg (27.0-33.0); Mean Corpuscular Volume 88.2 fL (80.0-98.0); Mean Platelet Volume 9.1 fL (9.4-12.4); Monocytes Absolute Auto 0.9 X10*3/uL (0.1-1.2); Monocytes Percent Auto 7.1 % (2-11); Neutrophils Absolute Auto 10.4 x10*3/uL (2.0-8.3); Neutrophils Percent Auto 86.7 % (45-73); Platelet Count 202 X10*3/uL (160-400); Red Blood Count 5.24 X10*6/uL (4.60-5.80); Red Cell Distribution Width 13.7 % (11.0-16.0); White Blood Count 12.1 X10*3/uL (4.8-10.8)
[2024-02-10 09:55] LABS: Alanine Aminotransferase 46 U/L (0-40); Albumin Level 4.2 g/dL (3.5-5.0); Alkaline Phosphatase 80 U/L (39-117); Anion Gap 18 (12-20); Aspartate Amino Transferase 41 U/L (5-37); Bilirubin Direct 0.3 mg/dL (0.0-0.5); Bilirubin Total 1.2 mg/dL (0.0-1.0); Blood Urea Nitrogen 23 mg/dL (9-16); Carbon Dioxide 15 mmol/L (22-29); Chloride 106 mmol/L (96-108); Creatinine Clr Calc Pharmacy 105.1; Estimated Glomerular Filt Rate > 60; Glucose Random 139 mg/dL (60-115); Lipase 17 U/L (8-78); Potassium 2.8 mmol/L (3.3-5.1); Sodium 136 mmol/L (135-145); Total Protein 7.6 g/dL (6.5-8.0)
[2024-02-10 10:05] LABS: Influenza A PCR NEGATIVE (Negative); Influenza B PCR NEGATIVE (Negative); Resp Syncy Virus RNA Qual PCR NEGATIVE (Negative); SARS COV2 PCR INHOUSE NEGATIVE (Negative)
[2024-02-10] MEDS: ondansetron HCL 4 MG/2 ML VIAL IVPUSH (10:47)
--- NOTE | 2024-02-10 10:47 | PC.NURSE ---
Pt rests comfortably on the stretcher. C/o significant nausea, Zofran given. Pt awaiting ED provider.
--- NOTE | 2024-02-10 12:14 | ED_ITS ---
HPI - Nausea/Vomiting/Diarrhea General Chief complaint: Nausea/Vomiting/Diarrhea Stated complaint: N/V/D X3 DAYS PER EMS Time Seen by Provider: 02/10/24 11:54 Source: patient Limitations: no limitations History of Present Illness ED Provider: Dr. Dany Hwang HPI Narrative: 63-year-old male with a history of hypertension, atrial fibrillation, depression, DVT to the right leg after hip fracture who presents emergency department for evaluation of nausea, vomiting, diarrhea x3 days. Patient states he has been sick for proximally 3 days. He states that initially he was moving his bowels and vomiting every 15 minutes. He states he got a little better yesterday but developed nausea vomiting and are posadas again today. He complains of weakness, lightheadedness and dizziness. He denied fever but did have diaphoresis. He denied chest pain, shortness of breath, dyspnea on exertion, frequency or dysuria. He states that he was having epigastric abdominal pain when he attributes to vomiting. Patient was not been on antibiotics recently, has not gone on any trips outside of the country and is not aware of any other sick contacts. He states that he did make some soup 3 days ago but he did not think that this food was bad. Patient states he did have food poisoning in the past and his symptoms feel similar however the symptoms are lasting longer than his previous episode of food poisoning. Related Data Previous Rx's ?Medication ?Instructions ?Recorded dronedarone 400 mg tablet (Multaq) 400 mg PO BID 90 days #180 tabs 07/07/23 metoprolol succinate 50 mg 50 mg PO DAILY #90 tabs 07/07/23 tablet,extended release 24 hr alprazolam 0.5 mg tablet 0.5 mg PO BEDTIME PRN sleep #20 01/19/24 tabs sertraline 50 mg tablet 50 mg PO DAILY #30 tabs 01/19/24 Allergies Allergy/AdvReac Type Severity Reaction Status Date / Time No Known Allergies Allergy Verified 02/10/24 08:05 Review of Systems 2 Review of Systems: Yes all other systems are reviewed and are negative [facility] Past Medical History [facility] Narrative: Social history: The patient denies tobacco use. He drinks alcohol 3 times a week. He states that when he drinks he drinks 4-5 vodka drinks. He smokes marijuana 3 times a week. Medical History (Updated 02/10/24 @ 16:57 by Dany Hwang MD) Atrial fibrillation History of cardioversion History of alcohol abuse DVT (deep venous thrombosis) Testicular cancer Surgical History H/O thumb surgery Hx of tonsillectomy H/O rotator cuff surgery History of right hip replacement History of orchiectomy Family History Family History Mother Breast cancer Father Irregular heart beat Maternal Grandfather Heart attack Paternal Grandfather Heart attack Social History Social History Household Members: Spouse Housing: House Do you presently have visiting nurse or other home services: No Alcohol intake: current Alcohol intake frequency: a few times a week Comment: Pt gait and balance are steady. Patient Tobacco Use Status: Former Tobacco user Tobacco use type: Cigar Years Smoked: stopped 42 years old Smoked in Last 30 Days: No e-Cigarette/Vaping Use: Never Used Second Hand Smoke Exposure: No Use of substances other than those prescribed or required for medical reasons: Yes Substance Use Type: Marijuana Substance Use Frequency: Occasionally Advance Directives: No Advance Directives Information Provided: Yes Do you have a plan to hurt others: No Plan service: No Current occupational status: disabled Current occupational exposures/hazards: No Cognitive needs: No Hearing needs: No Vision needs: Yes Physical Exam 2 Vital Signs: Vital Signs: Last Vital Signs Temp 99.2 F 02/10/24 14:38 Pulse 89 02/10/24 14:38 Resp 18 02/10/24 14:38 BP 139/79 02/10/24 14:38 Pulse Ox 95 02/10/24 14:38 O2 Del Method Room Air 02/10/24 14:38 BMI result Body Mass Index 30.4 Vital signs revealed an elevated blood pressure of 175/99 otherwise unremarkable Exam: General: Awake, alert in no distress Head: Normocephalic, atraumatic EENT: PERRL, Lids normal, sclera normal, conjunctiva normal, nose normal , ears normal, throat without erythema or exudates, dry mucous membranes Neck: Supple, no adenopathy Lung: breath sounds symmetric, no wheezing, rales or rhonchi Chest: symmetric movement, nontender Heart: regular rate and rhythm, normal S1, S2 no murmurs or rubs Abdomen: soft, mild epigastric tenderness, nondistended, normal bowel sounds Back: no vertebral tenderness, no CVAT Extremities: no deformities, moves all extremities symmetrically Neuro: Awake, alert, oriented, normal speech, cranial nerves intact, moves all extremities symmetrically Psych: Pleasant, cooperative Medications Administered Generic Name Dose Route Start Last Admin Trade Name Freq PRN Reason Stop Dose Admin Potassium Chloride/Sodium Chloride 40 meq in 1,000 mls @ 250 mls/hr 02/10/24 12:15 02/10/24 16:12 Kcl 40 Meq In 0.9 % Sodium Chl IVCONT Not Given .Q4H KASEY Discontinued Medications Generic Name Dose Route Start Last Admin Trade Name Freq PRN Reason Stop Dose Admin Diphenhydramine HCl 50 mg 02/10/24 12:10 02/10/24 12:40 Diphenhydramine Hcl 50 Mg/Ml Vial IVPUSH 02/10/24 12:11 50 mg ONCE STA Administration Ketorolac Tromethamine 15 mg 02/10/24 12:10 02/10/24 12:40 Ketorolac Tromethamine 15 Mg/Ml Vial IVPUSH 02/10/24 12:11 15 mg ONCE STA Administration Metoclopramide HCl 10 mg 02/10/24 12:10 02/10/24 12:40 Metoclopramide Hcl 10 Mg/2 Ml Vial IVPUSH 02/10/24 12:11 10 mg ONCE STA Administration Ondansetron HCl 4 mg 02/10/24 10:38 02/10/24 10:47 Ondansetron Hcl 4 Mg/2 Ml Vial IVPUSH 02/10/24 10:39 4 mg ONCE ONE Administration Potassium Chloride 40 meq 02/10/24 12:10 02/10/24 14:44 Potassium Chloride Packet 20 Meq Packet PO 02/10/24 12:11 40 meq ONCE ONE Administration Medical Decision Making Medical Decision Making MDM Narrative: 63-year-old male with a history of hypertension, atrial fibrillation, depression, DVT to the right leg after hip fracture who presents emergency department for evaluation of nausea, vomiting, diarrhea x3 days. Patient had associated weakness, lightheadedness, dizziness, diaphoresis and epigastric pain. Patient was not been on antibiotics recently, has not gone on any trips outside of the country and is not aware of any other sick contacts. He states that he did make some soup 3 days ago but he did not think that this food was bad. Vital signs revealed an elevated blood pressure. Physical examination revealed epigastric tenderness. Differential diagnosis: ?Includes but is not limited to viral syndrome, gastroenteritis, food poisoning, C diff colitis, anemia, electrolyte abnormalities Following evaluation was ordered: CBC, CMP, liver panel, COVID-19, influenza, RSV, GI panel, lipase, C diff Patient was initially treated with the following: Zofran 4 mg IV EN route and Zofran 4 mg IV in department, Reglan 10 mg IV, Benadryl 50 mg IV, Toradol 15 mg IV. Normal saline x1 L. Normal saline with 40 mEq of potassium at 250 mL/hr, potassium chloride 40 mEq orally Course: 12:25 My interpretation patient's laboratory evaluation as follows: Elevated WBC 12,100 with a left shift 86 neutrophils. H&H was normal. Potassium low 2.8. CO2 low 15. BUN elevated 23 with a normal creatinine of 1.07. Glucose elevated 139. Bilirubin elevated 1.2. AST and ALT elevated 41 and 46 with a normal alk- phos. Lipase was normal. COVID-19, influenza and RSV were negative. 16:47 The patient was unable to drink his oral potassium. He states that he took 1 sip of the medication and and made all of his symptoms worse. Patient was not been able to drink fluids despite the above treatment. He continues to complain of nausea but he has had no vomiting or diarrhea since being in the emergency department. Patient was ordered to get a 2nd dose of Reglan 10 mg IV with Benadryl 50 mg IV. Given his lack of improvement in his inability to eat and drink, I will discuss admission with the covering hospitalist. I did add a magnesium to his blood work. Patient's potassium will be repeated after he completes his IV dose of potassium at 17:30 hours. Admission/Observation Consideration of admission/observation: Escalation of care including admission/observation considered Lab Data MDM Lab Attestation statement: I reviewed the patient's lab results. 02/10/24 09:14 02/10/24 09:14 Labs: Lab Results 02/10/24 Range/Units 09:14 WBC 12.1 H (4.8-10.8) X10*3/uL RBC 5.24 (4.60-5.80) X10*6/uL Hgb 17.0 (14.0-18.0) g/dl Hct 46.2 (42.0-52.0) % MCV 88.2 (80.0-98.0) fL MCH 32.4 (27.0-33.0) pg MCHC 36.8 H (31.0-36.0) g/dl RDW 13.7 (11.0-16.0) % Plt Count 202 (160-400) X10*3/uL MPV 9.1 L (9.4-12.4) fL Immature Gran % (Auto) 0.4 (0.0-0.4) % Neut % (Auto) 86.7 H (45-73) % Lymph % (Auto) 5.6 L (20-40) % [place] % (Auto) 7.1 (2-11) % Eos % (Auto) 0.0 (0-4) % Baso % (Auto) 0.2 (0-2) % Lymph # (Auto) 0.7 L (1.2-4.9) X10*3/uL [place] # (Auto) 0.9 (0.1-1.2) X10*3/uL Eos # (Auto) 0.0 (0.0-0.4) X10*3/uL Baso # (Auto) 0.0 (0.0-0.2) X10*3/uL Abs Immat Gran (auto) 0.05 H (0.00-0.03) X10*3/uL Absolute Neuts (auto) 10.4 H (2.0-8.3) x10*3/uL Absolute Nucleated RBC 0.000 (0.0-0.012) X10*3/uL Nucleated RBC % (auto) 0.0 (0.0-0.2) /100WBC Sodium 136 (135-145) mmol/L Potassium 2.8 L* D (3.3-5.1) mmol/L Chloride 106 (96-108) mmol/L Carbon Dioxide 15 L (22-29) mmol/L Anion Gap 18 (12-20) BUN 23 H (9-16) mg/dL Creatinine 1.07 (0.5-1.4) mg/dL Estim Creat Clear Calc 105.1 Estimated GFR > 60 Random Glucose 139 H (60-115) mg/dL Calcium 9.0 D (8.4-10.2) mg/dL Total Bilirubin 1.2 H (0.0-1.0) mg/dL Direct Bilirubin 0.3 (0.0-0.5) mg/dL AST 41 H (5-37) U/L ALT 46 H (0-40) U/L Alkaline Phosphatase 80 (39-117) U/L Total Protein 7.6 (6.5-8.0) g/dL Albumin 4.2 (3.5-5.0) g/dL Lipase 17 (8-78) U/L Influenza Type A (PCR) NEGATIVE (Negative) Influenza Type B (PCR) NEGATIVE (Negative) RSV RNA Qual (PCR) NEGATIVE (Negative) SARS-CoV-2 RNA (RT-PCR) NEGATIVE (Negative) Critical Care Time Critical Care Time Critical Care Time: Yes Total Critical Care Time: 35 Attestation: Critical Care: The patient was critically ill with a high probability of imminent or life threatening deterioration. I spent greater than 30 minutes of discontinuous time evaluating the patient,delivering critical care at the bedside, discussing and evaluating pertinent data with consultants. Critical care time does not include time spent performing separately billable procedures or teaching. Total time spent performing critical care was 35 minutes. Discharge Plan Discharge Patient Disposition: Admitted As Inpatient Prescriptions: No Action alprazolam 0.5 mg tablet 0.5 mg PO BEDTIME PRN (Reason: sleep) Qty: 20 0RF sertraline 50 mg tablet 50 mg PO DAILY Qty: 30 1RF Multaq 400 mg tablet 400 mg PO BID 90 Days Qty: 180 3RF metoprolol succinate 50 mg tablet extended release 24 hr 50 mg PO DAILY Qty: 90 3RF Print Language: Swedish
[2024-02-10] MEDS: Ketorolac Tromethamine 15 MG/ML VIAL IVPUSH (12:40)
[2024-02-10] MEDS: Metoclopramide HCl 10 MG/2 ML VIAL IVPUSH ×2 (12:40→17:13)
[2024-02-10] MEDS: diphenhydrAMINE HCL 50 MG/ML VIAL IVPUSH ×2 (12:40→17:13)
--- NOTE | 2024-02-10 12:42 | PC.NURSE ---
New orders place and started per SEP. VSS Pts IV noted to need reinforcement, Pt tolerated J-loop change well.
[2024-02-10] MEDS: KCl 40 mEq in 0.9 % Sodium Chl 40 MEQ/1,000 ML IV.SOLN 250 MEQ IVCONT (12:59)
--- NOTE | 2024-02-10 13:20 | PC.NURSE ---
Pt tolerating IV treatments well, no complaints and reports he has begun to feel improvement.
[2024-02-10] MEDS: Potassium Chloride Packet 20 MEQ PACKET 40 MEQ PO (14:44)
--- NOTE | 2024-02-10 15:32 | PC.NURSE ---
Pt noted to be dry heaving and spitting up oral K. Spoke with MD and plan to to let IV fluid replacement continue, hold off on oral K for now and re-assess. If Pt in need of Ativan, can order.
--- NOTE | 2024-02-10 17:24 | PM.IMHP ---
History of Present Illness Date of Service: 02/10/24 Chief Complaint: Nausea, vomitting and diarrhea The patient is a 63-year-old male with a past medical history significant for a deep vein thrombosis (DVT) in 2021 related to hip replacement, for which he completed anticoagulation with Xarelto. He also has a history of testicular cancer at age 37, status post left orchiectomy, and persistent atrial fibrillation (PAF) that required cardioversion in May 2023. He was subsequently started on Multaq and anticoagulation for 6 months due to a [id number] score of 1. He presents with 3 days of intractable nausea, vomiting, and non-bloody diarrhea. Consequently, he has been unable to eat or take medications and is becoming weak. Workup in the ED revealed a potassium level of 2.8, which improved to 3.4 after replacement. Despite hydration and antiemetic treatment (Benadryl 50 mg twice, Reglan 10 mg twice, Zofran 4 mg once), he still has been unable to tolerate oral intake, prompting admission. The patient has not traveled, has no sick contacts, and his last meal consisted of chicken and noodles that he ate alone. He denies fever, chills, or abdominal pain. A GI panel and C. difficile testing have been requested but have not yet been performed. Review of Systems Review of Systems: Gen: no fever Resp: no sob, no cough CV: no chest, no CALDERON, no leg edema GI: + n/v, no abd pain Neuro: No confusion Yes all other systems are reviewed and are negative [facility] Medical History Atrial fibrillation History of cardioversion History of alcohol abuse DVT (deep venous thrombosis) Testicular cancer Family History Mother Breast cancer Father Irregular heart beat Maternal Grandfather Heart attack Paternal Grandfather Heart attack Surgical History H/O thumb surgery Hx of tonsillectomy H/O rotator cuff surgery History of right hip replacement History of orchiectomy Social History Household Members: None Housing: Apartment Do you presently have visiting nurse or other home services: No Alcohol intake: current Alcohol intake frequency: a few times a week Comment: socks too small for pt's feet even XL; has non-skid slippers from home Patient Tobacco Use Status: Former Tobacco user Tobacco use type: Cigar Years Smoked: stopped 42 years old Smoked in Last 30 Days: No e-Cigarette/Vaping Use: Never Used Second Hand Smoke Exposure: No Use of substances other than those prescribed or required for medical reasons: Yes Substance Use Type: Marijuana Substance Use Frequency: Occasionally Currently Displaying Signs/Symptoms of Drug Intoxication Withdrawal: No Any prior treatment program specific to substance use: No Have you been hit, kicked, punched, or otherwise hurt by someone within the past year? If so, by whom?: No Do you feel safe in your current relationship?: No Current Relationship Is there a partner from a previous relationship who is making you feel unsafe now?: No Are you made to feel afraid or neglected: No Mandaen Healthcare Practices: Restoration/Scientologist Advance Directives: No Advance Directives Information Provided: Yes Do you have a plan to hurt others: No Plan Recently lost weight without trying: Unsure Eating poorly because of decreased appetite: Yes Nutrition Risks: Poor intake 0-25% >4 days Poor oral hygiene: No service: No Current occupational status: disabled Current occupational exposures/hazards: No Cognitive needs: No Hearing needs: No Vision needs: Yes Meds Allergies Allergy/AdvReac Type Severity Reaction Status Date / Time No Known Allergies Allergy Verified 02/10/24 08:05 Active Medications: Current Medications Potassium Chloride/Sodium Chloride (Kcl 40 Meq In 0.9 % Sodium Chl) 40 meq in 1,000 mls @ 250 mls/hr IVCONT .Q4H KASEY Last Infusion: 02/10/24 17:12 Dose: Infused Lactated Ringer's (Lr) 1,000 mls @ 125 mls/hr IV .Q8H KASEY Stop: 02/11/24 00:59 Physical Exam Vital Signs and Narrative: Vital Signs: Last Vital Signs Temp 98.5 F 02/10/24 17:12 Pulse 81 02/10/24 17:12 Resp 22 H 02/10/24 17:12 BP 196/109 H 02/10/24 17:12 Pulse Ox 97 02/10/24 17:12 O2 Del Method Room Air 02/10/24 17:12 BMI result Body Mass Index 30.4 Results Labs 02/11/24 06:03 02/11/24 06:03 Labs: Laboratory Results - last 24 hr 02/10/24 09:14 MCV 88.2 MCH 32.4 MCHC 36.8 H RDW 13.7 Plt Count 202 MPV 9.1 L Immature Gran % (Auto) 0.4 Neut % (Auto) 86.7 H Lymph % (Auto) 5.6 L [place] % (Auto) 7.1 Eos % (Auto) 0.0 Baso % (Auto) 0.2 Lymph # (Auto) 0.7 L [place] # (Auto) 0.9 Eos # (Auto) 0.0 Baso # (Auto) 0.0 Abs Immat Gran (auto) 0.05 H Absolute Neuts (auto) 10.4 H Absolute Nucleated RBC 0.000 Nucleated RBC % (auto) 0.0 Anion Gap 18 Estim Creat Clear Calc 105.1 Estimated GFR > 60 Random Glucose 139 H Calcium 9.0 D Magnesium 2.0 Total Bilirubin 1.2 H Direct Bilirubin 0.3 AST 41 H ALT 46 H Alkaline Phosphatase 80 Total Protein 7.6 Albumin 4.2 Lipase 17 Influenza Type A (PCR) NEGATIVE Influenza Type B (PCR) NEGATIVE RSV RNA Qual (PCR) NEGATIVE SARS-CoV-2 RNA (RT-PCR) NEGATIVE Assessment and Plan (1) Volume depletion: Status: Acute (2) Acute hypokalemia: Status: Acute (3) Diarrhea: Status: Acute (4) Vomiting: Status: Acute (5) Viral syndrome: Status: Acute Plan Pt is a 63-year-old male with a PMH significant for hx of DVT in 2021 around hip replacement, completed anticoagulation with Xarelto, testicular cancer at age 37 s/p left orchiectomy, and PAF. He required cardioversion in May 2023 and was started on Multaq and anticoagulation for 6 months for a [id number] score of 1. He presents with 3 days of intractable nausea, vomiting, and non-bloody diarrhea, complicated by hypokalemia and metabolic acidosis. #Nausea/Vomiting/Diarrhea: Suspect acute viral gastroenteritis. - Check C. difficile and GI panel. - Hydrate and replete electrolytes. - Clear liquid diet and advance as tolerated. Metabolic Acidosis: With bicarbonate of 15, likely due to the above, except for improvement with hydration., repeat 19, IVF and recheck in AM Prolonged QTc likely fom Hypokalemia, and antiemetics. Would avoid further Qt prolonging agentes, and repeat ECG in the morning Hypokalemia: Has been repleted and now 3.4, mag is normal, IVF with K and recheck in the morning Accelerated Hypertension: Likely due to not taking meds - IVmed as needed until able to take oral meds. Mildly Elevated LFTs: Likely related to the above, monitor LFTs. PAF : Not permanently anticoagulated s/p cardioversion and low [id number] score of 1 - Will continue Metoprolol and Multaq. Mood Disorder : Continue home meds. DVT Prophylaxis: Lovenox. Full code admission for at least 2 midnights for management of hypokalemia needing IV replacement in setting of prolonged Qtc, at risk for malignant arrythmia Quality Stroke Does the patient have a stroke diagnosis?: No VTE Prior VTE?: Yes VTE Risk Level:: Medical - moderate - high VTE Device Contraindication: Treatment Not Indicated VTE Drug Contraindication: N/A - Med Ordered
--- NOTE | 2024-02-10 17:31 | PHA.MEDREC ---
Pharmacy Consult ? Medication Reconciliation Pharmacy has completed the medication reconciliation. Confirmed medications with patient.
[2024-02-10 17:59] LABS: Anion Gap 18 (12-20); Blood Urea Nitrogen 23 mg/dL (9-16); Calcium 9.2 mg/dL (8.4-10.2); Carbon Dioxide 19 mmol/L (22-29); Chloride 106 mmol/L (96-108); Creatinine Clr Calc Pharmacy 111.3; Estimated Glomerular Filt Rate > 60; Glucose Random 128 mg/dL (60-115); Potassium 3.4 mmol/L (3.3-5.1); Sodium 140 mmol/L (135-145)
[2024-02-10] MEDS: Lactated Ringers 1,000 ML 125 ML IV (18:10)
[2024-02-10] MEDS: Enoxaparin Sodium 40 MG/0.4 ML SYRINGE SUBCUT (18:30)
[2024-02-10 18:52] LABS: Estimated Average Glucose 103 mg/dL; Hemoglobin A1c % 5.2 % (<6.0)
[2024-02-10] MEDS: KCl 40 mEq in 0.9 % Sodium Chl 40 MEQ/1,000 ML IV.SOLN 125 MEQ IVCONT ×2 (18:52→23:29)
--- NOTE | 2024-02-10 19:00 | PC.NURSE ---
ceived report from Shraddha Denson RN, assume care of pt at this time
[2024-02-10] MEDS: Prochlorperazine Edisylate 10 MG/2 ML VIAL 5 MG IVPUSH (21:38)
[2024-02-10] MEDS: Lactated Ringers 1,000 ML 999 ML IV (21:40)
[2024-02-10] MEDS: Dronedarone HCl 400 MG TABLET PO (21:44)
[2024-02-10] MEDS: Acetaminophen 325 MG TABLET 975 MG PO (21:45)
--- NOTE | 2024-02-10 23:02 | PC.NURSE ---
Addendum entered by Cierra Marion RN 02/11/24 06:08: Patient hypertensive on morning vitals at 04:50, SBP 184/96 which correlated with manual. Pt asymptomatic and denies pain; states he is on metoprolol though due to nausea the last time he took it was the evening of 02/08. MD notified though HR at time of notification was 58 (sinus rolnad). Amlodipine ordered by and given. Addendum entered by Cierra Marion RN 02/11/24 01:39: 00:15: EKG order clarified with MD as task appearing in worklist; MD replied that ekg is routine for 07:30 in the morning to reassess qTc. 01:30: Pt able to void, still no BM. Urine labs collected and sent. CIWA scoring 3, notified. Pt c/o nausea again, MD made aware with additional 1x dose compazine ordered; awaiting for pharmacist verification to administer. Original Note: Patient arrived to s3 at 21:00. Pt A&Ox4. Appeared flushed and diaphoretic on arrival. Vitals showed pt tachycardic 130's. Patient agreeable to rectal temp to assess for fever. Rectal temp was 100.4. Pt denies chest pain, palpitations, dizziness; asymptomatic. Covering Dr. Nazario Nettles notified; ekg deferred as recently done in ED 18:00 hour; reviewed showing prolonged QTc 560ms, discussed with MD. Orders for 975ml tylenol po and 1L LR bolus. Patient however nauseous, antiemetics requested prior to administered po meds. Compazine ordered and given with +effect. Clears liquid diet ordered and patient is tolerating at this time. Bolus initiated via right AC 18 access. MD written order to hold current fluids NS with 40mEq of KCL while bolus is infusing. Additional orders for CXR, BCx x2, lactic, and BMP/lytes. Pt is A&Ox4, very forthcoming and admits to drinking four or five vodkas at least three times a week since his seven months ago; condolences offered and resources discussed with patient who is agreeable to speaking with addiction medicine and spiritual services. Seizure precautions placed and notified, CIWA assessments ordered, thiamine IV ordered. Attempts made x2 to place a second IV though difficult due to dehydration. U/S IV requested and discussed with patient who is agreeable; attempting to obtain at this time. No BM yet, only flatus. Pt educated on stool sample need for GI panel and cdiff rule out. Contact precautions in place. No void at this time for UDS or U/A. Bed alarm on and safety measures in place. Please see admission assessment and tasks for full details.
[2024-02-10 23:11] LABS: MANUAL DIFF FLAG NO
[2024-02-10 23:13] LABS: Basophils Percent Auto 0.2 % (0-2); Hematocrit 43.2 % (42.0-52.0); Hemoglobin 15.4 g/dl (14.0-18.0); Imm Gran Abs Auto 0.03 X10*3/uL (0.00-0.03); Imm Gran Pct Auto 0.3 % (0.0-0.4); Lymphocytes Absolute Auto 0.7 X10*3/uL (1.2-4.9); Lymphocytes Percent Auto 6.1 % (20-40); Mean Corpuscular HGB Conc 35.6 g/dl (31.0-36.0); Mean Corpuscular Hemoglobin 32.3 pg (27.0-33.0); Mean Corpuscular Volume 90.6 fL (80.0-98.0); Mean Platelet Volume 8.8 fL (9.4-12.4); Monocytes Absolute Auto 0.8 X10*3/uL (0.1-1.2); Monocytes Percent Auto 6.9 % (2-11); Neutrophils Absolute Auto 9.8 x10*3/uL (2.0-8.3); Neutrophils Percent Auto 86.5 % (45-73); Platelet Count 177 X10*3/uL (160-400); Red Blood Count 4.77 X10*6/uL (4.60-5.80); Red Cell Distribution Width 13.8 % (11.0-16.0); White Blood Count 11.3 X10*3/uL (4.8-10.8)
--- NOTE | 2024-02-10 23:13 | PM.EVENT ---
Event Note Date of Service: 02/11/24 Event Note: 9:22 PM - Contacted by nursing to notify patient developed a temp of 100.4 and tachycardia of 131 bpm. No hypotension. Treatment with Tylenol, LR 1 L bolus ordered and to give Multaq. Labs: CBC, CMP, Mg, lactic acid and BCs X2 ordered. CXR stat showed no infiltrated, consolidations or pleural effusions. Viral testing for RSV, influeza and COVID-19 are negative. 9:55 PM - Tahcycardia, resolved. 10:16 PM - Informed that patient drinks 4-5 oz of vodka at least 3 times per week. CIWA q4h ordered as well as Thiamine IV, folic acid and multivitamins. 11:07 PM - Labs reviewed. Leukocytosis is improving and no lactic acidosis. K+ level is now normal. If fevers reoccur and/or BCs are positive we turner consider empiric IV antibiotic therapy. UA results are still pending. Time Spent With Patient Time: Total time managing care of this patient today ____ minutes.
[2024-02-10 23:27] LABS: Lactic Acid 1.2 mmol/L (0.5-2.0)
[2024-02-10] MEDS: Thiamine HCL 100 MG in 0.9 % Sodium Chloride 100 ML 202 MG IV (23:29)
[2024-02-10] MEDS: 0.9 % Sodium Chloride Flush 3 ML SYRINGE IVFLUSH (23:30)
[2024-02-10 23:31] LABS: Alanine Aminotransferase 42 U/L (0-40); Albumin Level 3.9 g/dL (3.5-5.0); Alkaline Phosphatase 69 U/L (39-117); Anion Gap 16 (12-20); Aspartate Amino Transferase 32 U/L (5-37); Blood Urea Nitrogen 21 mg/dL (9-16); Calcium 8.6 mg/dL (8.4-10.2); Carbon Dioxide 18 mmol/L (22-29); Chloride 109 mmol/L (96-108); Creatinine Clr Calc Pharmacy 107.5; Estimated Glomerular Filt Rate > 60; Glucose Random 147 mg/dL (60-115); Magnesium 1.9 mg/dL (1.6-2.6); Potassium 3.3 mmol/L (3.3-5.1); Sodium 140 mmol/L (135-145); Total Protein 6.9 g/dL (6.5-8.0)
[2024-02-11] VITALS (8 sets, daily range): BP systolic 133–184; BP diastolic 80–99; PULSE 71–85; RESP 16–20; TEMP 36.6–37.1; O2SAT 95–97
[2024-02-11] MEDS: Prochlorperazine Edisylate 10 MG/2 ML VIAL 5 MG IVPUSH ×3 (01:54→19:40)
[2024-02-11 02:16] LABS: Appearance Urine Clear; Color Urine Yellow; Glucose Urine UA 100 mg/dL (Negative); Leukocyte Esterase Urine Negative (Negative); Nitrite Urine Negative (Negative); Specific Gravity - Urine 1.025 (1.005-1.025); Urine Blood Negative (Negative); Urine Ketones 40 mg/dL (Negative); Urine Protein Trace mg/dL (Neg-Trace)
[2024-02-11 02:29] LABS: Amphetamine Screen Urine Not Detected (Not Detect); Barbiturates, Urine Not Detected (Not Detect); Benzodiazepines Screen Urine POSITIVE (Not Detect); Buprenorphine Scr Not Detected (Not Detect); Cannabinoid Screen Urine POSITIVE (Not Detect); Cocaine Screen Urine Not Detected (Not Detect); Fentanyl, urine Not Detected (Not Detect); Methadone Screen, Urine Not Detected (Not Detect); Opiate Screen Urine Not Detected (Not Detect); Oxycodone Screen Urine Not Detected (Not Detect); Phencyclidine Screen Urine Not Detected (Not Detect)
[2024-02-11] MEDS: KCl 40 mEq in 0.9 % Sodium Chl 40 MEQ/1,000 ML IV.SOLN 125 MEQ IVCONT (05:11)
[2024-02-11] MEDS: amLODIPine Besylate 5 MG TABLET PO (05:11)
[2024-02-11 06:40] LABS: Hematocrit 41.8 % (42.0-52.0); Hemoglobin 14.9 g/dl (14.0-18.0); Mean Corpuscular HGB Conc 35.6 g/dl (31.0-36.0); Mean Corpuscular Hemoglobin 32.3 pg (27.0-33.0); Mean Corpuscular Volume 90.5 fL (80.0-98.0); Mean Platelet Volume 9.2 fL (9.4-12.4); Platelet Count 171 X10*3/uL (160-400); Red Blood Count 4.62 X10*6/uL (4.60-5.80); Red Cell Distribution Width 13.9 % (11.0-16.0); White Blood Count 9.6 X10*3/uL (4.8-10.8)
[2024-02-11 06:44] LABS: Alanine Aminotransferase 37 U/L (0-40); Albumin Level 3.7 g/dL (3.5-5.0); Alkaline Phosphatase 67 U/L (39-117); Anion Gap 14 (12-20); Aspartate Amino Transferase 25 U/L (5-37); Bilirubin Direct 0.3 mg/dL (0.0-0.5); Bilirubin Total 1.1 mg/dL (0.0-1.0); Blood Urea Nitrogen 17 mg/dL (9-16); Calcium 8.7 mg/dL (8.4-10.2); Carbon Dioxide 19 mmol/L (22-29); Chloride 110 mmol/L (96-108); Creatinine Clr Calc Pharmacy 131.6; Estimated Glomerular Filt Rate > 60; Glucose Random 137 mg/dL (60-115); Potassium 3.5 mmol/L (3.3-5.1); Sodium 139 mmol/L (135-145); Total Protein 6.6 g/dL (6.5-8.0)
--- NOTE | 2024-02-11 07:30 | ECG_ITS ---
Test Reason : qtc check Blood Pressure : / mmHG Vent. Rate : 089 BPM Atrial Rate : 089 BPM P-R Int : 150 ms QRS Dur : 074 ms QT Int : 366 ms P-R-T Axes : 015 016 021 degrees QTc Int : 445 ms Normal sinus rhythm Nonspecific ST and T wave abnormality Abnormal ECG When compared with ECG of 10-FEB-2024 18:33, QT has shortened Referred By: Rudolph Nettles Electronically Signed By:BARBI ODONNELL
[2024-02-11] MEDS: Folic Acid 1 MG TABLET PO (08:39)
[2024-02-11] MEDS: Multivitamin TABLET 1 TAB PO (08:39)
[2024-02-11] MEDS: Sertraline HCL 50 MG TABLET PO (08:39)
[2024-02-11] MEDS: Metoprolol Succinate ER 50 MG TAB.ER.24H PO (08:39)
[2024-02-11] MEDS: Dronedarone HCl 400 MG TABLET PO ×2 (08:40→21:14)
[2024-02-11] MEDS: Thiamine HCL 100 MG in 0.9 % Sodium Chloride 100 ML 202 MG IV (08:40)
--- NOTE | 2024-02-11 09:17 | HO.PM.IMPN ---
Subjective Subjective Date of Service: 02/11/24 Interval History: f/u on n/v, diarrhea, low potasium, prolonged Qtc he's feeling much better, n/v improved. No further diarrhea, tachycardia and elevated bp resoled, K correct, Qtc has normalized Physical Exam Vital Signs: Vital Signs: Last Vital Signs Temp 98.6 F 02/11/24 07:48 Pulse 77 02/11/24 07:48 Resp 20 02/11/24 07:48 BP 136/87 02/11/24 07:48 Pulse Ox 96 02/11/24 07:48 O2 Del Method Room Air 02/11/24 07:48 BMI result Body Mass Index 30.0 General: AO X 3, no acute distress Resp: CTA bilateral CVS: S1,S2,RRR GI: +BS, NT, no distention Skin: No rash Neuro: motor grossly intact Psych: appropriate affect Objective Data Active Medications Acetaminophen (Acetaminophen 325 Mg Tablet) 975 mg PO Q6H PRN PRN Reason: Pain, Mild (Pain Scale 1-3), fever or headache Last Admin: 02/10/24 21:45 Dose: 975 mg Documented By: MARIN Alprazolam (Alprazolam 0.5 Mg Tablet) 0.5 mg PO BEDTIME PRN PRN Reason: sleep Calcium Carbonate (Calcium Carbonate 750 Mg Tab.Chew) 750 mg PO Q4H PRN PRN Reason: Heartburn Dronedarone (Dronedarone Hcl 400 Mg Tablet) 400 mg PO BID [facility] Last Admin: 02/11/24 08:40 Dose: 400 mg Documented By: SUDHAKAR Enoxaparin Sodium (Enoxaparin Sodium 40 Mg/0.4 Ml Syringe) 40 mg SUBCUT Q24H [facility] Last Admin: 02/10/24 18:30 Dose: 40 mg Documented By: CELI Folic Acid (Folic Acid 1 Mg Tablet) 1 mg PO DAILY [facility] Last Admin: 02/11/24 08:39 Dose: 1 mg Documented By: SUDHAKAR Thiamine HCl 100 mg/ Sodium (Chloride) 101 mls @ 202 mls/hr IV DAILY [facility] Stop: 02/15/24 22:29 Last Infusion: 02/11/24 09:14 Dose: Infused Documented By: SUDHAKAR Labetalol HCl (Labetalol Hcl 100 Mg/20 Ml Vial) 10 mg IVPUSH Q8H PRN; Protocol PRN Reason: l Magnesium Hydroxide (Milk Of Magnesia 30 Ml Oral.Susp) 30 ml PO DAILY PRN PRN Reason: Constipation Melatonin (Melatonin 3 Mg Tablet) 6 mg PO BEDTIME PRN PRN Reason: Insomnia Metoprolol Succinate (Metoprolol Succinate Er 50 Mg Tab.Er.24h) 50 mg PO DAILY [facility]; Protocol Last Admin: 02/11/24 08:39 Dose: 50 mg Documented By: SUDHAKAR Multivitamins/Vitamin C (Multivitamin Tablet) 1 tab PO DAILY [facility] Last Admin: 02/11/24 08:39 Dose: 1 tab Documented By: SUDHAKAR Prochlorperazine Edisylate (Prochlorperazine Edisylate 10 Mg/2 Ml Vial) 5 mg IVPUSH Q6H PRN PRN Reason: Nausea and Vomiting Last Admin: 02/11/24 08:43 Dose: 5 mg Documented By: SUDHAKAR Sertraline HCl (Sertraline Hcl 50 Mg Tablet) 50 mg PO DAILY [facility] Last Admin: 02/11/24 08:39 Dose: 50 mg Documented By: SUDHAKAR Sodium Chloride (0.9 % Sodium Chloride Flush 3 Ml Syringe) 3 ml IVFLUSH QSHIFT [facility] Last Admin: 02/11/24 08:40 Dose: Not Given Documented By: SUDHAKAR Non-Admin Reason: IV Running Labs 02/11/24 06:03 02/11/24 06:03 Labs: Laboratory Results - last 24 hr 02/10/24 02/10/24 02/10/24 09:14 17:41 23:06 MCV 88.2 MCH 32.4 MCHC 36.8 H RDW 13.7 Plt Count 202 MPV 9.1 L Immature Gran % (Auto) 0.4 Neut % (Auto) 86.7 H Lymph % (Auto) 5.6 L [place] % (Auto) 7.1 Eos % (Auto) 0.0 Baso % (Auto) 0.2 Lymph # (Auto) 0.7 L [place] # (Auto) 0.9 Eos # (Auto) 0.0 Baso # (Auto) 0.0 Abs Immat Gran (auto) 0.05 H Absolute Neuts (auto) 10.4 H Absolute Nucleated RBC 0.000 Nucleated RBC % (auto) 0.0 Anion Gap 18 18 Estim Creat Clear Calc 105.1 111.3 Estimated GFR > 60 > 60 Random Glucose 139 H 128 H Estimat Average Glucose 103 Hemoglobin A1c % 5.2 Lactic Acid 1.2 Calcium 9.0 D 9.2 Magnesium 2.0 Total Bilirubin 1.2 H Direct Bilirubin 0.3 AST 41 H ALT 46 H Alkaline Phosphatase 80 Total Protein 7.6 Albumin 4.2 Lipase 17 Urine Color Urine Appearance Urine pH Ur Specific [place] Urine Protein Urine Glucose (UA) Urine Ketones Urine Blood Urine Nitrite Ur Leukocyte Esterase Urine Opiates Screen Ur Buprenorphine Scrn Ur Oxycodone Screen Urine Methadone Screen Urine Fentanyl Screen Ur Barbiturates Screen Ur Phencyclidine Scrn Ur Amphetamines Screen U Benzodiazepines Scrn Urine Cocaine Screen U Marijuana (THC) Screen Influenza Type A (PCR) NEGATIVE Influenza Type B (PCR) NEGATIVE RSV RNA Qual (PCR) NEGATIVE SARS-CoV-2 RNA (RT-PCR) NEGATIVE 02/10/24 02/11/24 02/11/24 23:07 02:04 06:03 MCV 90.6 90.5 MCH 32.3 32.3 MCHC 35.6 35.6 RDW 13.8 13.9 Plt Count 177 171 MPV 8.8 L 9.2 L Immature Gran % (Auto) 0.3 Neut % (Auto) 86.5 H Lymph % (Auto) 6.1 L [place] % (Auto) 6.9 Eos % (Auto) 0.0 Baso % (Auto) 0.2 Lymph # (Auto) 0.7 L [place] # (Auto) 0.8 Eos # (Auto) 0.0 Baso # (Auto) 0.0 Abs Immat Gran (auto) 0.03 Absolute Neuts (auto) 9.8 H Absolute Nucleated RBC 0.000 0.000 Nucleated RBC % (auto) 0.0 0.0 Anion Gap 16 14 Estim Creat Clear Calc 107.5 131.6 Estimated GFR > 60 > 60 Random Glucose 147 H 137 H Estimat Average Glucose Hemoglobin A1c % Lactic Acid Calcium 8.6 D 8.7 Magnesium 1.9 Total Bilirubin 1.0 1.1 H Direct Bilirubin 0.3 AST 32 25 ALT 42 H 37 Alkaline Phosphatase 69 67 Total Protein 6.9 6.6 Albumin 3.9 3.7 Lipase Urine Color Yellow Urine Appearance Clear Urine pH 6.0 Ur Specific [place] 1.025 Urine Protein Trace Urine Glucose (UA) 100 H Urine Ketones 40 Urine Blood Negative Urine Nitrite Negative Ur Leukocyte Esterase Negative Urine Opiates Screen Not Detected Ur Buprenorphine Scrn Not Detected Ur Oxycodone Screen Not Detected Urine Methadone Screen Not Detected Urine Fentanyl Screen Not Detected Ur Barbiturates Screen Not Detected Ur Phencyclidine Scrn Not Detected Ur Amphetamines Screen Not Detected U Benzodiazepines Scrn POSITIVE H Urine Cocaine Screen Not Detected U Marijuana (THC) Screen POSITIVE H Influenza Type A (PCR) Influenza Type B (PCR) RSV RNA Qual (PCR) SARS-CoV-2 RNA (RT-PCR) Assessment and Plan (1) Volume depletion: Status: Acute (2) Acute hypokalemia: Status: Acute Plan Pt is a 63-year-old male with a PMH significant for hx of DVT in 2021 around hip replacement, completed anticoagulation with Xarelto, testicular cancer at age 37 s/p left orchiectomy, and PAF. He required cardioversion in May 2023 and was started on Multaq and anticoagulation for 6 months for a [id number] score of 1. He presents with 3 days of intractable nausea, vomiting, and non-bloody diarrhea, complicated by hypokalemia and metabolic acidosis. #Nausea/Vomiting/Diarrhea: Suspect acute viral gastroenteritis, possible food poison as well as cyclical vomitting from marijuana. He has been agresively hydrated and given antiemetic and has improved. C. difficile and GI panel panel requested but he's no longer having diarrhea, WBC has normalized without antibiotics, normal lactic acid. Advancing diet and if tolerated can go home. Metabolic Acidosis: With bicarbonate of 15, likely relaed to above, and hyperchloremic metabolic acidosis from NS, stopped normal saline, add LR Prolonged QTc likely fom Hypokalemia, and antiemetics, QTc is back to normal with correction of potassium and Hypokalemia: Has been repleted and now 3.4, mag is normal, IVF with K and recheck in the morning Accelerated Hypertension: Likely due to not taking meds. Blood pressure is back to normal and restarted on his home meds Mildly Elevated LFTs: Likely related to the above, LFTs back to normal PAF : Not permanently anticoagulated s/p cardioversion and low [id number] score of 1 - Will continue Metoprolol and Multaq. Mood Disorder : Continue home meds. DVT Prophylaxis: Lovenox. Full code Discharge later today if tolerated PO Quality Stroke Does the patient have a stroke diagnosis?: No VTE Prior VTE?: Yes VTE Risk Level:: Medical - moderate - high VTE Device Contraindication: Treatment Not Indicated VTE Drug Contraindication: N/A - Med Ordered
[2024-02-11] MEDS: Lactated Ringers 1,000 ML 125 ML IVCONT ×2 (09:46→17:22)
--- NOTE | 2024-02-11 13:45 | MHC.CM.PN ---
CM MET WITH PT AT BEDSIDE. PT LIVES ALONE. INDEPENDENT WITH MOBILITY AT BASELINE. +HCP PCP DR. STEPHENS. DP: HOME, NO SERVICES IS THE GOAL. PT HAS OWN RIDE HOME. CM WILL CONTINUE TO FOLLOW FOR ANY CHANGE TO DC PLAN/NEEDS
--- NOTE | 2024-02-11 14:27 | MHC.RECOVRN ---
AUDIT-C Brief Intervention Pt had positive screen for unhealthy alcohol use on admission, subsequently met with t/w to discuss alcohol use and recovery supports/options. Pt voices concern regarding alcohol use and is aware that drinking at unhealthy levels is known to increase risk of alcohol related health problems. Pt reports approximately 5 vodka drinks 3x weekly, with about 2 oz of vodka in each drink. Pt expresses how alcohol use has impacted health, including negative impact on healing time with current illness. Discussed risk reduction strategies including drinking below the recommended limit. Provided pt with written resources including information on inpatient and outpatient treatment, MILI, harm reduction, and recovery coaching. Pt plans to meet with cost recovery technician this evening and review written resources. Pt provided with t/w contact information if questions or concerns arise. Denies other questions or concerns at this time.
[2024-02-11 14:28] LABS: Anion Gap 11 (12-20); Blood Urea Nitrogen 14 mg/dL (9-16); Calcium 8.8 mg/dL (8.4-10.2); Carbon Dioxide 22 mmol/L (22-29); Chloride 109 mmol/L (96-108); Creatinine Clr Calc Pharmacy 127.1; Estimated Glomerular Filt Rate > 60; Glucose Random 154 mg/dL (60-115); Potassium 3.3 mmol/L (3.3-5.1); Sodium 139 mmol/L (135-145)
[2024-02-11] MEDS: Enoxaparin Sodium 40 MG/0.4 ML SYRINGE SUBCUT (17:22)
--- NOTE | 2024-02-11 18:20 | MHC.RECOVSUP ---
? Reason for consult Recovery Support o Current location: [address] o Identified substance use concern: Alcohol - Support ? Intervention: o Community resources provided o Harm reduction discussion ? Plan: o Patient to follow up with H after discharge ? Additional information: spoke with patient and we talk about Recovery and harm reduction.. We talk about different pathways. patient stated that he would like a catalyst recovery operator.
[2024-02-11] MEDS: 0.9 % Sodium Chloride Flush 3 ML SYRINGE IVFLUSH (19:40)
[2024-02-11 23:23] LABS: CDiff Gene PCR NEGATIVE (Negative)
[2024-02-12] VITALS (10 sets, daily range): BP systolic 120–177; BP diastolic 83–100; PULSE 67–200; RESP 12–20; TEMP 36.2–36.9; O2SAT 95–97
[2024-02-12] MEDS: ALPRAZolam 0.5 MG TABLET PO ×2 (00:49→21:44)
[2024-02-12] MEDS: Lactated Ringers 1,000 ML 125 ML IVCONT (00:50)
[2024-02-12] MEDS: Loperamide HCl 2 MG CAPSULE PO ×2 (03:59→13:22)
[2024-02-12] MEDS: Sertraline HCL 50 MG TABLET PO (09:13)
[2024-02-12] MEDS: Prochlorperazine Edisylate 10 MG/2 ML VIAL 5 MG IVPUSH ×2 (09:13→19:49)
[2024-02-12] MEDS: Dronedarone HCl 400 MG TABLET PO ×2 (09:13→21:31)
[2024-02-12] MEDS: Folic Acid 1 MG TABLET PO (09:13)
[2024-02-12] MEDS: Metoprolol Succinate ER 50 MG TAB.ER.24H PO (09:13)
[2024-02-12] MEDS: Multivitamin TABLET 1 TAB PO (09:13)
[2024-02-12] MEDS: Thiamine HCL 100 MG in 0.9 % Sodium Chloride 100 ML 202 MG IV (09:13)
[2024-02-12 10:36] LABS: Glucose, Whole Blood 122 mg/dL (60-115)
--- NOTE | 2024-02-12 10:44 | PC.NURSE ---
At ~1040 pt returned from bathroom to bed and was noted on monitor to be in SVT HR 214 highest. Pt A/Ox4 did note that he felt like his heart was beating very fast. Rapid response called, MD and code team to bedside. SVT broke and pt return to SR-ST. EKG done. No new orders at this time, will continue to monitor.
[2024-02-12 11:46] LABS: Blood Urea Nitrogen 8 mg/dL (9-16)
[2024-02-12 11:47] LABS: Calcium 8.5 mg/dL (8.4-10.2); Creatinine Clr Calc Pharmacy 159.8; Estimated Glomerular Filt Rate > 60; Glucose Random 127 mg/dL (60-115); Magnesium 1.8 mg/dL (1.6-2.6)
[2024-02-12 12:09] LABS: Anion Gap 15 (12-20); Carbon Dioxide 22 mmol/L (22-29); Chloride 102 mmol/L (96-108); Potassium 2.9 mmol/L (3.3-5.1); Sodium 136 mmol/L (135-145)
[2024-02-12] MEDS: Potassium Chloride ER 20 MEQ TAB.ER.PRT 40 MEQ PO (13:22)
[2024-02-12] MEDS: Potassium Chloride/H20 10 MEQ/100 ML PIGGYBACK 100 MEQ IV (13:22)
--- NOTE | 2024-02-12 14:14 | ECG_ITS ---
Test Reason : tachy Blood Pressure : / mmHG Vent. Rate : 091 BPM Atrial Rate : 091 BPM P-R Int : 152 ms QRS Dur : 078 ms QT Int : 360 ms P-R-T Axes : 015 010 020 degrees QTc Int : 442 ms Normal sinus rhythm Nonspecific ST and T wave abnormality Abnormal ECG When compared with ECG of 11-FEB-2024 07:29, No significant change was found Referred By: Renea Chan Electronically Signed By:BARBI ODONNELL
[2024-02-12] MEDS: Magnesium Sulfate/H2O 2 GM/50 ML PIGGYBACK IV (14:25)
--- NOTE | 2024-02-12 14:48 | HO.PM.IMPN ---
Subjective Subjective Date of Service: 02/12/24 Interval History: seen and evaluated this morning had a rapid response called for Tachycardia of 200s , resolved Found to have hypokalemia no other overnight events Review of Systems Review of Systems: Yes all other systems are reviewed and are negative Physical Exam Vital Signs: Vital Signs: Last Vital Signs Temp 97.7 F 02/12/24 12:00 Pulse 83 02/12/24 12:00 Resp 12 02/12/24 12:00 BP 143/87 H 02/12/24 12:00 Pulse Ox 97 02/12/24 12:00 O2 Del Method Room Air 02/12/24 12:00 BMI result Body Mass Index 30.0 Const: Other: Constitutional : Awake, interactive Neck : Normal inspection, Supple Cardiovascular : RRR, no JVP, no lower extremity edema Respiratory : good bilateral air entry, no crackles, wheezes or rhonchi Gastrointestinal: soft, lax, Normal bowel sounds, Non tender Skin : Warm, Dry Neurological : Alert & oriented x3, No focal deficit Objective Data Active Medications Acetaminophen (Acetaminophen 325 Mg Tablet) 975 mg PO Q6H PRN PRN Reason: Pain, Mild (Pain Scale 1-3), fever or headache Last Admin: 02/10/24 21:45 Dose: 975 mg Documented By: MARIN Alprazolam (Alprazolam 0.5 Mg Tablet) 0.5 mg PO BEDTIME PRN PRN Reason: sleep Last Admin: 02/12/24 00:49 Dose: 0.5 mg Documented By: MARIN Calcium Carbonate (Calcium Carbonate 750 Mg Tab.Chew) 750 mg PO Q4H PRN PRN Reason: Heartburn Dronedarone (Dronedarone Hcl 400 Mg Tablet) 400 mg PO BID [facility] Last Admin: 02/12/24 09:13 Dose: 400 mg Documented By: SUDHAKAR Enoxaparin Sodium (Enoxaparin Sodium 40 Mg/0.4 Ml Syringe) 40 mg SUBCUT Q24H [facility] Last Admin: 02/11/24 17:22 Dose: 40 mg Documented By: SUDHAKAR Folic Acid (Folic Acid 1 Mg Tablet) 1 mg PO DAILY [facility] Last Admin: 02/12/24 09:13 Dose: 1 mg Documented By: SUDHAKAR Thiamine HCl 100 mg/ Sodium (Chloride) 101 mls @ 202 mls/hr IV DAILY [facility] Stop: 02/15/24 22:29 Last Infusion: 02/12/24 10:12 Dose: Infused Documented By: SUDHAKAR Magnesium Sulfate (Magnesium Sulfate/H2o) 2 gm in 50 mls @ 25 mls/hr IV ONCE ONE Stop: 02/12/24 14:55 Last Admin: 02/12/24 14:25 Dose: 25 mls/hr Documented By: SUDHAKAR Labetalol HCl (Labetalol Hcl 100 Mg/20 Ml Vial) 10 mg IVPUSH Q8H PRN; Protocol PRN Reason: l Loperamide HCl (Loperamide Hcl 2 Mg Capsule) 2 mg PO Q4H PRN PRN Reason: Diarrhea Last Admin: 02/12/24 13:22 Dose: 2 mg Documented By: SUDHAKAR Magnesium Hydroxide (Milk Of Magnesia 30 Ml Oral.Susp) 30 ml PO DAILY PRN PRN Reason: Constipation Melatonin (Melatonin 3 Mg Tablet) 6 mg PO BEDTIME PRN PRN Reason: Insomnia Metoprolol Succinate (Metoprolol Succinate Er 50 Mg Tab.Er.24h) 50 mg PO DAILY [facility]; Protocol Last Admin: 02/12/24 09:13 Dose: 50 mg Documented By: SUDHAKAR Multivitamins/Vitamin C (Multivitamin Tablet) 1 tab PO DAILY [facility] Last Admin: 02/12/24 09:13 Dose: 1 tab Documented By: SUDHAKAR Prochlorperazine Edisylate (Prochlorperazine Edisylate 10 Mg/2 Ml Vial) 5 mg IVPUSH Q6H PRN PRN Reason: Nausea and Vomiting Last Admin: 02/12/24 09:13 Dose: 5 mg Documented By: SUDHAKAR Sertraline HCl (Sertraline Hcl 50 Mg Tablet) 50 mg PO DAILY [facility] Last Admin: 02/12/24 09:13 Dose: 50 mg Documented By: SUDHAKAR Sodium Chloride (0.9 % Sodium Chloride Flush 3 Ml Syringe) 3 ml IVFLUSH QSHIFT [facility] Last Admin: 02/12/24 09:00 Dose: Not Given Documented By: SUDHAKAR Non-Admin Reason: IV Running Labs 02/11/24 06:03 02/12/24 11:11 Labs: Laboratory Results - last 24 hr 02/11/24 02/12/24 02/12/24 21:20 10:33 11:11 Anion Gap 15 Estim Creat Clear Calc 159.8 Estimated GFR > 60 POC Glucose 122 H Random Glucose 127 H Calcium 8.5 Magnesium 1.8 C. difficile Tox B Gene NEGATIVE Microbiology Microbiology Results: Microbiology 02/10/24 23:07 Blood Culture - Preliminary Blood - Venous No growth after 24 hours. 02/10/24 23:07 Blood Culture - Preliminary Blood - Venous No growth after 24 hours. Assessment and Plan (1) Acute hypokalemia: Status: Acute (2) Vomiting: Status: Acute (3) SVT (supraventricular tachycardia): Status: Acute Plan Pt is a 63-year-old male with a PMH significant for hx of DVT in 2021 around hip replacement, completed anticoagulation with Xarelto, testicular cancer at age 37 s/p left orchiectomy, and PAF. He required cardioversion in May 2023 and was started on Multaq and anticoagulation for 6 months for a [id number] score of 1. SVT incident of tachycardia, responded well to carotid massage and PO MEtoprolol Correct electrolytes: Keep Mg > 2 and K >3 Monitor Nausea/Vomiting/Diarrhea likely 2/2 acute viral gastroenteritis/food poison/CVS from marijuana. DC IVF Anti-emetic as needed C. difficile -ve and GI panel pendubg WBC has normalized without antibiotics Advanced diet to regular Acute Hypokalemia K of 2.9 give IV and PO replacement acute Metabolic Acidosis resolved - Prolonged QTc likely fom Hypokalemia, and antiemetics, , QTc is back to normal with correction of potassium - Accelerated Hypertension: Blood pressure is back to normal and restarted on his home meds - Mildly Elevated LFTs: Likely related to the above, LFTs back to normal - PAF : Not permanently anticoagulated s/p cardioversion and low [id number] score of 1. continue Metoprolol and Multaq. - Mood Disorder : Continue home meds. DVT Prophylaxis: Lovenox. Give acute hypokalemia, nausea and episode of SVT will continue to monitor him overnight with a plan to DC tomorrow if better Quality Stroke Does the patient have a stroke diagnosis?: No VTE Prior VTE?: Yes VTE Risk Level:: Medical - moderate - high VTE Device Contraindication: Treatment Not Indicated VTE Drug Contraindication: N/A - Med Ordered
[2024-02-12] MEDS: Enoxaparin Sodium 40 MG/0.4 ML SYRINGE SUBCUT (18:26)
[2024-02-13] VITALS (9 sets, daily range): BP systolic 115–167; BP diastolic 66–91; PULSE 70–100; RESP 12–18; TEMP 36.1–36.9; O2SAT 95–98
[2024-02-13 06:42] LABS: Hemoglobin 14.8 g/dl (14.0-18.0); Mean Corpuscular HGB Conc 36.1 g/dl (31.0-36.0); Mean Corpuscular Hemoglobin 32.5 pg (27.0-33.0); Mean Corpuscular Volume 89.9 fL (80.0-98.0); Mean Platelet Volume 9.5 fL (9.4-12.4); Platelet Count 173 X10*3/uL (160-400); Red Blood Count 4.56 X10*6/uL (4.60-5.80); Red Cell Distribution Width 13.2 % (11.0-16.0); White Blood Count 7.9 X10*3/uL (4.8-10.8)
[2024-02-13 06:57] LABS: Anion Gap 13 (12-20); Blood Urea Nitrogen 12 mg/dL (9-16); Calcium 8.9 mg/dL (8.4-10.2); Carbon Dioxide 25 mmol/L (22-29); Chloride 102 mmol/L (96-108); Creatinine Clr Calc Pharmacy 138.1; Estimated Glomerular Filt Rate > 60; Glucose Random 101 mg/dL (60-115); Magnesium 2.2 mg/dL (1.6-2.6); Sodium 137 mmol/L (135-145)
[2024-02-13] MEDS: 0.9 % Sodium Chloride Flush 3 ML SYRINGE IVFLUSH ×3 (08:09→21:14)
[2024-02-13] MEDS: Prochlorperazine Edisylate 10 MG/2 ML VIAL 5 MG IVPUSH (08:09)
[2024-02-13] MEDS: Thiamine HCL 100 MG in 0.9 % Sodium Chloride 100 ML 202 MG IV (08:14)
[2024-02-13] MEDS: Potassium Chloride ER 20 MEQ TAB.ER.PRT 40 MEQ PO (08:23)
[2024-02-13] MEDS: Metoprolol Succinate ER 50 MG TAB.ER.24H PO (08:23)
[2024-02-13] MEDS: Multivitamin TABLET 1 TAB PO (08:23)
[2024-02-13] MEDS: Dronedarone HCl 400 MG TABLET PO ×2 (08:23→21:11)
[2024-02-13] MEDS: Sertraline HCL 50 MG TABLET PO (08:23)
[2024-02-13] MEDS: Folic Acid 1 MG TABLET PO (08:23)
--- NOTE | 2024-02-13 08:52 | PC.NURSE ---
HR 130's when ambulating to BR. Came down to 100's and then 80's within minutes. Pt reported feeling slightly dizzy. Otherwise asymptomatic. Dr. Rocio galloway.
[2024-02-13] MEDS: ondansetron HCL 4 MG/2 ML VIAL IVPUSH (10:56)
[2024-02-13] MEDS: Calcium Carbonate 750 MG TAB.CHEW PO (11:05)
[2024-02-13] MEDS: ALPRAZolam 0.5 MG TABLET PO ×2 (13:58→21:48)
[2024-02-13] MEDS: Famotidine/PF 20 MG/2 ML VIAL IVPUSH (13:58)
[2024-02-13] MEDS: Metoclopramide HCl 10 MG/2 ML VIAL 5 MG IVPUSH (13:58)
--- NOTE | 2024-02-13 14:19 | MHC.CM.PN ---
EMR REVIEWED, PT N/V/D HYPOKALEMIA, PT REMAINS HYPOKALEMIC, NO PLAN FOR DC TODAY, ANTIC PT WILL DC OVER W/E HOME SELF CARE AND WILL ARRANGE TRANSPORT, CM WILL CONT TO FOLLOW DC NEEDS.
[2024-02-13] MEDS: Enoxaparin Sodium 40 MG/0.4 ML SYRINGE SUBCUT (17:48)
--- NOTE | 2024-02-13 18:29 | PC.NURSE ---
Pt nauseous and having heartburn. Medicated with compazine and tums with poor effect. Dr. Chan ordered pepcid IV, reglan IV, and xanax po, all x1. Pt reports some effect. Resting quietly. Refusing to eat because he feels afraid he will vomit. Drinking a lot of fluids. dr. Chan aware.
[2024-02-13 19:51] LABS: Glucose, Whole Blood 107 mg/dL (60-115)
--- NOTE | 2024-02-14 00:53 | PC.NURSE ---
0026- ALERTED BY [facility] [place] [facility]IT[facility] THAT PATIENTS RHYTHM SHOWED A 2 SECOND PAUSE AT 0026. PT AWAKE, DENIED PAIN, WATCHING TV, HR 70'S. CHARGE NURSE AND HOSPITALIST ON DUTY NOTIFIED. MD MADE AWARE OF PREVIOUS DAY HYPOKALEMIA AND REPLACEMENT DOSES OF POTASSIUM AND MAG. HOSPITALIST REPLIED TO KEEP MONITORING FOR NOW. PT ON TELE, WILL CONTINUE TO MONITOR CLOSELY.
[2024-02-14 03:16] VITALS: BP 115/62; PULSE 63; RESP 16; TEMP 36.6; O2SAT 97
[2024-02-14 07:12] LABS: Anion Gap 15 (12-20); Blood Urea Nitrogen 16 mg/dL (9-16); Calcium 9.4 mg/dL (8.4-10.2); Carbon Dioxide 25 mmol/L (22-29); Chloride 101 mmol/L (96-108); Creatinine Clr Calc Pharmacy 127.1; Estimated Glomerular Filt Rate > 60; Glucose Random 103 mg/dL (60-115); Potassium 3.5 mmol/L (3.3-5.1); Sodium 137 mmol/L (135-145)
[2024-02-14 08:02] VITALS: BP 103/66; PULSE 81; RESP 18; TEMP 36.1; O2SAT 99
[2024-02-14 08:43] VITALS: BP 127/74; PULSE 102
[2024-02-14] MEDS: Metoprolol Succinate ER 50 MG TAB.ER.24H PO (08:43)
[2024-02-14] MEDS: Dronedarone HCl 400 MG TABLET PO (08:43)
[2024-02-14] MEDS: Multivitamin TABLET 1 TAB PO (08:43)
[2024-02-14] MEDS: Sertraline HCL 50 MG TABLET PO (08:44)
[2024-02-14] MEDS: 0.9 % Sodium Chloride Flush 3 ML SYRINGE IVFLUSH (08:44)
[2024-02-14] MEDS: Folic Acid 1 MG TABLET PO (08:44)
--- NOTE | 2024-02-14 10:39 | PM.DS ---
DS: Providers Provider Date of Service: 02/14/24 Date of admission: 02/10/24 17:59 Primary care physician: Danuta Sanford MD Consults: 02/10/24 22:17 Addiction Medicine Routine Consulting Provider: Joselin Arias Reason for consultation: admission assessment scoring DS: Diagnosis Discharge Diagnosis (1) Acute hypokalemia: Status: Acute (2) Vomiting: Status: Acute (3) SVT (supraventricular tachycardia): Status: Acute (4) Volume depletion: Status: Acute (5) Diarrhea: Status: Acute (6) Viral syndrome: Status: Acute DS: Summary Hospital Course Hospital Course: Admission note HPI The patient is a 63-year-old male with a past medical history significant for a deep vein thrombosis (DVT) in 2021 related to hip replacement, for which he completed anticoagulation with Xarelto. He also has a history of testicular cancer at age 37, status post left orchiectomy, and persistent atrial fibrillation (PAF) that required cardioversion in May 2023. He was subsequently started on Multaq and anticoagulation for 6 months due to a [id number] score of 1. He presents with 3 days of intractable nausea, vomiting, and non-bloody diarrhea. Consequently, he has been unable to eat or take medications and is becoming weak. Workup in the ED revealed a potassium level of 2.8, which improved to 3.4 after replacement. Despite hydration and antiemetic treatment (Benadryl 50 mg twice, Reglan 10 mg twice, Zofran 4 mg once), he still has been unable to tolerate oral intake, prompting admission. The patient has not traveled, has no sick contacts, and his last meal consisted of chicken and noodles that he ate alone. He denies fever, chills, or abdominal pain. A GI panel and C. difficile testing have been requested but have not yet been performed. Hospital course The patient was admitted primarly for evaluation of Nausea/Vomiting/Diarrhea likely secondary to acute viral gastroenteritis/food poison treated with bowel rest and advancing diet slowly, IVF, and Anti-emetic as needed as he tested negative for C.difficile. WBC has normalized without antibiotics usage as it is likely viral source. Advanced diet to regular with good tolerance. will be discharged on PRN Zofran and Omeprazole given symptoms suggestive of possible underlying gastritis. Developed an episode of SVT that responded well to carotid massage without the need of IV medications and resumed on home dose PO MEtoprolol with good tolerance. Also treated for Acute Hypokalemia with IV and PO replacement that gave him nausea. improved with omeprazole and antacids. acute Metabolic Acidosis on presentation resolved with IV fluids usage. Elevated Hypertension on admission. Blood pressure back to normal after restarting his home meds. will need outpatient follow up for BP control. Hx of PAF : Not permanently anticoagulated s/p cardioversion and low [id number] score of 1. continue Metoprolol and Multaq. Discharge plan Advance diet slowly over the next few days Drink plenty of fluids with electrolytes Zofran as needed for nausea Omeprazole for gastric reflux Time Attestation Discharge Coordination Time (in mins): 38 Quality: Safe Use of Opioids Does Pt have an Active Cancer Diagnosis on the Problem List?: No Quality: Stroke Does the patient have a stroke diagnosis?: No Physical Exam Vital Signs: Vital Signs: Last Vital Signs Temp 97.0 F 02/14/24 08:02 Pulse 102 H 02/14/24 08:43 Resp 18 02/14/24 08:02 BP 127/74 02/14/24 08:43 Pulse Ox 99 02/14/24 08:02 O2 Del Method Room Air 02/14/24 08:02 BMI result Body Mass Index 30.0 Const: Other: Constitutional : Awake, interactive Neck : Normal inspection, Supple Cardiovascular : RRR, no JVP, no lower extremity edema Respiratory : good bilateral air entry, no crackles, wheezes or rhonchi Gastrointestinal: soft, lax, Normal bowel sounds, Non tender Skin : Warm, Dry Neurological : Alert & oriented x3, No focal deficit DS: Data Data Completed and Pending Completed studies during hospitalization [Text1]: Procedures [employer] of Cardiac Rhythm, Single (06/09/23) Ultrasonography of Heart with Aorta, Transesophageal (06/09/23) Labs on day of discharge: Laboratory Results - last 24 hr 02/13/24 02/14/24 19:39 06:32 Hold Purple Top SEE NOTE Sodium 137 Potassium 3.5 Chloride 101 Carbon Dioxide 25 Anion Gap 15 BUN 16 Creatinine 0.88 Estim Creat Clear Calc 127.1 Estimated GFR > 60 POC Glucose 107 Random Glucose 103 Calcium 9.4 Preliminary micro results at discharge 02/10/24 23:07 Blood Culture - Preliminary Blood - Venous No growth after 48 hours. 02/10/24 23:07 Blood Culture - Preliminary Blood - Venous No growth after 48 hours. Imaging Chest x-ray: Radiologist's impression: ITS Impressions Chest X-Ray 02/10/24 23:10 IMPRESSION: No acute pulmonary disease. Discharge Plan Discharge Anticipated Discharge Date/Time: 02/14/24 10:19 Patient Disposition: Home, Self-Care Discharge Diagnosis: Gastroenteritis Referrals: Po,Danuta Devine MD [Primary Care Provider] - 1 Week Discharge Medications: New omeprazole 20 mg capsule,delayed release(DR/EC) 20 mg PO DAILY Qty: 90 0RF ondansetron 4 mg tablet,disintegrating 4 mg PO Q8H PRN (Reason: nausea and vomiting) Qty: 20 0RF Continued alprazolam 0.5 mg tablet 0.5 mg PO BEDTIME PRN (Reason: sleep) Qty: 20 0RF sertraline 50 mg tablet 50 mg PO DAILY Qty: 30 1RF Multaq 400 mg tablet 400 mg PO BID 90 Days Qty: 180 3RF metoprolol succinate 50 mg tablet extended release 24 hr 50 mg PO DAILY Qty: 90 3RF Discharge Orders: Discharge Order (Routine); Ordered 02/14/24 Ordered By: Renea Chan Diet: Advance to usual diet Activity on Discharge: As tolerated Stand Alone Forms: Patient Portal Discharge page Print Language: [place] Care Plan Goals: Advance diet slowly over the next few days Drink plenty of fluids with electrolytes Zofran as needed for nausea Omeprazole for gastric reflux Health Concerns: Read below Plan of Treatment: Read below Assessment: Read below
--- NOTE | 2024-02-14 11:51 | MHC.CM.PN ---
pt dcd home self care
== END 2024-02-14 11:46 | disposition home or self-care (01) | DRG 249 ==
LOC: HO.ED 16:57 → HO.S3 19:48 → HO.EDOVER 02-12 14:18
PROVIDERS: Internal Medicine; Admitting Provider Internal Medicine; Emergency Provider Emergency Medicine Emergency Medical Services; PCP Internal Medicine; Visit Provider Student in an Organized Health Care Education/Training Program
DX: A08.4 Viral intestinal infection, unspecified (principal); E87.21 Acute metabolic acidosis; I47.10 Supraventricular tachycardia, unspecified; E87.6 Hypokalemia; R94.31 Abnormal electrocardiogram [ECG] [EKG]; I48.0 Paroxysmal atrial fibrillation; I10 Essential (primary) hypertension; Z20.822 Contact with and (suspected) exposure to COVID-19; Z85.47 Personal history of malignant neoplasm of testis; Z90.79 Acquired absence of other genital organ(s); Z87.891 Personal history of nicotine dependence; Z86.718 Personal history of other venous thrombosis and embolism; Z79.899 Other long term (current) drug therapy
CPT/HCPCS: 0241U; 36415; 71045; 80048; 80053; 80076; 80307; 81003; 82248; 82947; 83036; 83605; 83690; 83735; 85025; 85027; 87040; 87493; 87507; 93005; 94799; 99285; J0737; J1200; J1650; J1885; J2405; J2765; J3411; J3475; J3480; J7120

== ENCOUNTER 2024-02-10 17:59 | Outpatient (BNV) | payer OTHER, SELFPAY | END 2024-02-12 14:14 | PROVIDERS: Admitting Provider Internal Medicine; Emergency Provider Emergency Medicine Emergency Medical Services; PCP Internal Medicine; Visit Provider Internal Medicine | DX: R00.0 Tachycardia, unspecified (principal); R94.31 Abnormal electrocardiogram [ECG] [EKG] | CPT/HCPCS: 93010 ==

== ENCOUNTER 2024-02-10 17:59 | Outpatient (BNV) | payer OTHER, SELFPAY | END 2024-02-10 18:33 | PROVIDERS: Admitting Provider Internal Medicine; Emergency Provider Emergency Medicine Emergency Medical Services; PCP Internal Medicine; Visit Provider Internal Medicine | DX: R94.31 Abnormal electrocardiogram [ECG] [EKG] (principal); E87.6 Hypokalemia | CPT/HCPCS: 93010 ==

== ENCOUNTER 2024-02-10 17:59 | Outpatient (BNV) | payer OTHER, SELFPAY | END 2024-02-11 07:30 | PROVIDERS: Admitting Provider Internal Medicine; Emergency Provider Emergency Medicine Emergency Medical Services; PCP Internal Medicine; Visit Provider Internal Medicine | DX: R94.31 Abnormal electrocardiogram [ECG] [EKG] (principal) | CPT/HCPCS: 93010 ==

== ENCOUNTER → 2024-02-10 17:59 | Outpatient (BNV) | payer OTHER, SELFPAY | PROVIDERS: Admitting Provider Internal Medicine; Emergency Provider Emergency Medicine Emergency Medical Services; PCP Internal Medicine; Visit Provider Internal Medicine | DX: E86.9 Volume depletion, unspecified (principal); E87.6 Hypokalemia; R19.7 Diarrhea, unspecified; R11.10 Vomiting, unspecified; B34.9 Viral infection, unspecified | CPT/HCPCS: 99223; 99232; 99233; 99239; 99499 ==

== ENCOUNTER 2024-02-17 13:57 | Outpatient (AMB) | payer OTHER, SELFPAY ==
--- NOTE | 2024-02-17 14:16 | A.OFFPC_ITS ---
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 He was admitted on 02/10/24 @ [facility] for Gastroenteritis and Hypokalemia. He was discharged home on 02/14/24. He was discharged home on Zofran and Omeprazole. Today Pt reports nausea and nausea (at least one episode after eating a large piece od steak last night). Denies abdominal pain, fevers or chills. He has been hydrating well with fluids. [facility] Medical History Atrial fibrillation History of cardioversion History of alcohol abuse DVT (deep venous thrombosis) Testicular cancer Surgical History H/O thumb surgery Hx of tonsillectomy H/O rotator cuff surgery History of right hip replacement History of orchiectomy Family History Mother Breast cancer Father Irregular heart beat Maternal Grandfather Heart attack Paternal Grandfather Heart attack Social History Household Members: None Housing: Apartment Do you presently have visiting nurse or other home services: No Alcohol intake: current Alcohol intake frequency: a few times a week Comment: socks too small for pt's feet even XL; has non-skid slippers from home Patient Tobacco Use Status: Former Tobacco user Tobacco use type: Cigar Years Smoked: stopped 42 years old e-Cigarette/Vaping Use: Never Used Second Hand Smoke Exposure: No Substance Use Type: Marijuana service: No Current occupational status: disabled Current occupational exposures/hazards: No Cognitive needs: No Hearing needs: No Vision needs: Yes Questionnaire Thrive Questionnaire Date Thrive assessed: 02/11/24 RUBÉN-7 AMB Questionnaire RUBÉN-7 Date RUBÉN - 7 assessed: 10/01/23 Source: Developed by Drs. Ildefonso Mills, Celeste Knight, Brett Maurice and colleagues, with an educational leslee from [employer]. Review of Systems Const All systems reviewed & are unremarkable except as noted in HPI and below Physical exam (Primary Care) Vital Signs: Last Vital Signs Pulse 87 02/17/24 14:17 BP 98/60 02/17/24 14:17 Pulse Ox 99 02/17/24 14:17 Oxygen Delivery Method Room Air 02/17/24 14:17 BMI result Body Mass Index 30.2 Tobacco/Smoking Status: Tobacco use Status Tobacco use date assessed 10/01/23 02/17/24 14:17 Patient Tobacco Use Status Former Tobacco user 02/17/24 14:17 Tobacco use type Cigar 02/17/24 14:17 e-Cigarette/Vaping Use Never Used 02/17/24 14:17 Thrive Assessment: Date of Thrive Assessment Date Thrive assessed 02/11/24 02/17/24 14:17 Const General: comfortable Orientation/consciousness: patient oriented x3 Resp Effort & Inspection: normal respiratory effort and able to speak in complete sentences Auscultation: clear to auscultation bilaterally, no crackles, no rales, no rhonchi and no wheezes Cardio Heart sounds: S1 normal heart sound present and S2 normal heart sound present GI Inspection: Yes normal to inspection Palpation (GI): Soft to palpation, not firm, nontender, no guarding, not rigid and Hepatosplenomegaly present Neuro General: patient oriented x3, gait normal and moves all extremities Psych Speech and movement: Normal speech and movement present Vital Signs: Last Vital Signs Pulse 87 02/17/24 14:17 BP 98/60 02/17/24 14:17 Pulse Ox 99 02/17/24 14:17 Oxygen Delivery Method Room Air 02/17/24 14:17 BMI result Body Mass Index 30.2 Const General: comfortable Orientation/consciousness: patient oriented x3 Resp Effort & Inspection: normal respiratory effort and able to speak in complete sentences Auscultation: clear to auscultation bilaterally, no crackles, no rales, no rhonchi and no wheezes Cardio Heart sounds: S1 normal heart sound present and S2 normal heart sound present GI Inspection: Yes normal to inspection Palpation (GI): Soft to palpation, not firm, nontender, no guarding, not rigid and Hepatosplenomegaly present Neuro General: patient oriented x3, gait normal and moves all extremities Psych Speech and movement: Normal speech and movement present Assessment and Plan Assessment & Plan (1) Gastroenteritis: Code(s): K52.9 - Noninfective gastroenteritis and colitis, unspecified Plan: Zofran PRN for Nausea/vomiting BLAND diet Advance diet slowly Coding Level of Care Code Est Pt Level 4 (09166) Diagnoses Gastroenteritis K52.9 Comment 20 minutes spent on reviewing hospital notes
[2024-02-17 14:17] VITALS: BP 98/60; PULSE 87; O2SAT 99; BMI 30.2
== END 2024-02-17 14:53 | disposition home or self-care (01) ==
PROVIDERS: PCP Internal Medicine; Visit Provider Nurse Practitioner Family
DX: K52.9 Noninfective gastroenteritis and colitis, unspecified (principal)
CPT/HCPCS: 99214

== ENCOUNTER 2024-03-04 06:39 | Outpatient (REF) | payer OTHER, SELFPAY ==
[2024-03-05 15:43] LABS: HCV RNA PCR Qn <1.18 NOT DETECTED Log IU/mL (NOT DETECTED); HCV RNA PCR Qn <15 NOT DETECTED IU/mL (NOT DETECTED)
== END 2024-03-04 06:40 | disposition home or self-care (01) ==
LOC: HO.LAB 06:39
PROVIDERS: PCP Internal Medicine; Visit Provider Internal Medicine
DX: Z09 Encounter for follow-up examination after completed treatment for conditions other than malignant neoplasm (principal); Z11.59 Encounter for screening for other viral diseases
CPT/HCPCS: 36415; 87522; 87902

== ENCOUNTER 2024-03-05 14:41 | Outpatient (AMB) | payer OTHER, SELFPAY ==
[2024-03-05 14:44] VITALS: BP 116/64; PULSE 85; O2SAT 95; BMI 31.9
--- NOTE | 2024-03-05 14:44 | A.OFFPC_ITS ---
Vital Signs 03/05/24 14:44 Height 6 ft 6 in Weight 276 lb BMI 31.9 BP 116/64 Blood Pressure Location Rt brachial Position Sitting Pulse 85 Pulse Source Pulse Oximeter Pulse Oximetry (%) 95 Oxygen Delivery Method Room Air Intake Visit Reasons: PE Intake Note: Patient is here today for a physical. 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 Allergies No Known Allergies Allergy (Verified 03/05/24 14:45) Medication List - Last Reconciled 03/05/24 by Danuta Sanford MD dronedarone (Multaq) 400 mg PO BID 90 days metoprolol succinate ER 50 mg PO DAILY ondansetron 4 mg PO Q8H PRN Tobacco use date assessed: 10/01/23 Dental Screening Dental Screen Date: 03/05/24 Did you have a dental visit in the last 12 months?: No Did you have a dental problem in the last 6 months where you did not have access to dental care?: No HPI PE HPI Details 63-year-old obese male with atrial fibri llation hypertension hypercholesterolemia elevated blood sugar with a history of alcohol abuse coming in for physical exam last seen in January 2024. Patient also has depression. Noted 15 lb weight gain. Review of the notes patient was recently seen in the [facility] for gastroenteritis. Conservative management. Patient was also discharged recently from the hospital for hypokalemia SVT diarrhea viral syndrome. Patient also has a history of DVT in 2021 related to hip replacement history of testicular cancer 37 years old status post left orchiectomy for the atrial fibrillation cardioversion done in 06/09/2023.. Diagnosis gastroenteritis. [facility] Medical History Atrial fibrillation History of cardioversion History of alcohol abuse DVT (deep venous thrombosis) Testicular cancer Surgical History H/O thumb surgery Hx of tonsillectomy H/O rotator cuff surgery History of right hip replacement History of orchiectomy Family History Mother Breast cancer Father Irregular heart beat Maternal Grandfather Heart attack Paternal Grandfather Heart attack Social History (Updated 03/05/24 @ 15:40 by Danuta Sanford MD) Household Members: None Housing: Apartment Do you presently have visiting nurse or other home services: No Alcohol intake: current Alcohol intake frequency: a few times a week Comment: 2 drinks a day Patient Tobacco Use Status: Former Tobacco user Tobacco use type: Cigar Years Smoked: stopped 42 years old, smokes weed e-Cigarette/Vaping Use: Never Used Second Hand Smoke Exposure: No Substance Use Type: Marijuana service: No Current occupational status: disabled Current occupational exposures/hazards: No Cognitive needs: No Hearing needs: No Vision needs: Yes Questionnaire PHQ-9 Over the last 2 weeks, how often have you been bothered by any of the following problems? 1. Little interest or pleasure in doing things: nearly every day 2. Feeling down, depressed, or hopeless: nearly every day 3. Trouble falling or staying asleep, or sleeping too much: nearly every day 4. Feeling tired or having little energy: several days 5. Poor appetite or overeating: several days 6. Feeling bad about yourself - or that you are a failure or have let yourself or your family down: not at all 7. Trouble concentrating on things, such as reading the newspaper or watching television: not at all 8. Moving or speaking so slowly that other people could have noticed. Or the opposite - being so fidgety or restless that you have been moving around a lot more than usual: not at all 9. Thoughts that you would be better off or of hurting yourself in some way: not at all Total score: 11 Depression Screening Interpretation: Positive Depression Screening Done: Yes Source: Developed by Drs. Ildefonso Mills, Brett Sales and colleagues, with an educational leslee from [employer]. Thrive Questionnaire Date Thrive assessed: 02/11/24 AUDIT C Alcohol Use Questionnaire (AUDIT-C) 1. How often do you have a drink containing alcohol?: 2-3 times a week 2. How many drinks containing alcohol do you have on a typical day when you are drinking?: 3 or 4 3. How often do you have six or more drinks on one occasion?: Never Total Score: 4 RUBÉN-7 AMB Questionnaire RUBÉN-7 Date RUBÉN - 7 assessed: 10/01/23 Source: Developed by Drs. Ildefonso Mills, Brett Sales and colleagues, with an educational leslee from [employer]. Review of Systems Const Denies poor appetite and Denies weakness Eyes Denies no additional complaints ENT Reports Normal hearing present, Denies dizziness, Denies nasal congestion, Denies tinnitus and Denies sore throat Card Denies chest pain, Denies syncope, Denies rapid heart rate and Denies dyspnea Resp Denies cough and Denies dyspnea GI Denies change in stool character, Reports constipation, Denies diarrhea, Denies nausea and Denies vomiting Denies dysuria and Denies urinary frequency Neuro Reports Normal hearing present, Denies confusion, Denies dizziness, Denies syncope and Denies weakness Psych Denies confusion Physical exam (Primary Care) Vital Signs: Last Vital Signs Pulse 85 03/05/24 14:44 BP 116/64 03/05/24 14:44 Pulse Ox 95 03/05/24 14:44 Oxygen Delivery Method Room Air 03/05/24 14:44 BMI result Body Mass Index 31.9 Tobacco/Smoking Status: Tobacco use Status Tobacco use date assessed 10/01/23 03/05/24 14:45 Patient Tobacco Use Status Former Tobacco user 03/05/24 14:45 Tobacco use type Cigar 03/05/24 14:45 e-Cigarette/Vaping Use Never Used 03/05/24 14:45 PHQ-9: PHQ-9 Score PHQ-9: Total score 11 03/05/24 15:06 Depression Screening Interpretation: Positive Thrive Assessment: Date of Thrive Assessment Date Thrive assessed 02/11/24 03/05/24 14:45 Const General: No confusion Orientation/consciousness: No confusion HENMT Head: Yes normocephalic Ears: external ears normal and TM's normal bilaterally Face and sinus: Yes normal facial exam Mouth: moist mucous membranes Throat: Yes tonsils normal Eyes Conjunctivae: conjunctivae normal Pupils: Equal, round and reactive pupils present and Pupil accommodation reflex normal Direct Ophthalmoscopy: normal light reflex Neck Neck: No lymphadenopathy Thyroid: Thyroid normal Chest Chest palpation & inspection: normal inspection of the chest Resp Effort & Inspection: normal respiratory effort and no audible wheezes Auscultation: clear to auscultation bilaterally, no crackles, no wheezes and lung sounds not diminished Cardio Rate: regular rate Rhythm: regular rhythm Peripheral pulses: radial pulses present and dorsalis pedis present GI Other: declined Palpation (GI): no masses Auscultation: normal bowel sounds and normoactive bowel sounds Rectal Exam - Male: Yes deferred Other: s/p orchiectomy Male General Exam: Yes normal external exam Skin General skin exam: no rashes or lesions noted Rashes: no rashes Neuro General: No confusion Cranial nerves: Yes Equal, round and reactive pupils present and Yes Normal hearing present Cognition (Neuro): normal cognition Gait exam (Neuro): Normal gait present Motor exam (neuro): 5/5 motor strength present throughout Deep tendon reflexes (DTR's): Right brachioradialis reflex intensity grade: 2+, Left brachioradialis reflex intensity grade: 2+, Right patellar reflex intensity grade: 2+ and Left patellar reflex intensity grade: 2+ Extrem General: No edema Assessment and Plan Assessment & Plan (1) Annual physical exam: Code(s): Z00.00 - Encounter for general adult medical examination without abnormal findings Plan: Patient is advised to eat healthy, keep well hydrated, keep active and have adequate sleep. (2) Gastroenteritis: Code(s): K52.9 - Noninfective gastroenteritis and colitis, unspecified Plan: Resolved (3) Colon cancer screening: Comment: Discussed benefits versus risks, and alternatives Code(s): Z12.11 - Encounter for screening for malignant neoplasm of colon Plan: Discussion about colon cancer screening (4) Hypercholesterolemia: Code(s): E78.00 - Pure hypercholesterolemia, unspecified Plan: Avoid fried foods, chicken skin, eggs, butter margarine, pastries and meat. Be it pork or beef they have a lot of cholesterol LDL goal of less than 130 and triglyceride of less than 150 (5) Hypertension: Code(s): I10 - Essential (primary) hypertension Plan: Continue with blood pressure medication. Decrease salt intake and exercise on metoprolol 50 mg once a day (6) PAF (paroxysmal atrial fibrillation): Comment: May 2023 status post JENNA cardioversion Code(s): I48.0 - Paroxysmal atrial fibrillation Plan: Continue with Multaq. (7) Situational depression: Code(s): F43.21 - Adjustment disorder with depressed mood Plan: Continue with present medication (8) Insomnia: Code(s): G47.00 - Insomnia, unspecified (9) Onychomycosis: Code(s): B35.1 - Tinea unguium (10) Colonoscopy refused: Code(s): Z53.20 - Procedure and treatment not carried out because of patient's decision for unspecified reasons Medications: New trazodone 50 mg PO BEDTIME PRN 30 tabs 3RF sleep G47.00 - Insomnia, unspec ified ciclopirox 8% 1 appl topical BEDTIME 4 weeks 6.6 mL 2RF B35.1 - Tinea unguium Coding Level of Care Code Est Pt Prev Care 40-64y(05623) Diagnoses Annual physical exam Z00.00 Gastroenteritis K52.9 Colon cancer screening Z12.11 Hypercholesterolemia E78.00 Hypertension I10 PAF (paroxysmal atrial fibrillation) I48.0 Situational depression F43.21 Insomnia G47.00 Onychomycosis B35.1 Colonoscopy refused Z53.20
== END 2024-03-05 16:05 | disposition home or self-care (01) ==
PROVIDERS: PCP Internal Medicine; Visit Provider Internal Medicine
DX: Z00.00 Encounter for general adult medical examination without abnormal findings (principal); K52.9 Noninfective gastroenteritis and colitis, unspecified; I48.0 Paroxysmal atrial fibrillation; Z12.11 Encounter for screening for malignant neoplasm of colon; E78.00 Pure hypercholesterolemia, unspecified; I10 Essential (primary) hypertension; F43.21 Adjustment disorder with depressed mood; G47.00 Insomnia, unspecified; B35.1 Tinea unguium; Z53.20 Procedure and treatment not carried out because of patient's decision for unspecified reasons
CPT/HCPCS: 99396

== ENCOUNTER 2024-05-05 11:14 | Outpatient (AMB) | payer OTHER, SELFPAY ==
[2024-05-05 11:24] VITALS: BP 150/80; PULSE 68; BMI 33.4
--- NOTE | 2024-05-05 11:24 | MHC.OFFVIS ---
Vital Signs 05/05/24 11:24 Height 6 ft 6 in Weight 288 lb 12.889 oz BMI 33.4 BP 150/80 H Blood Pressure Location Lt brachial Position Sitting Pulse 68 Pulse Source Monitor Intake Visit Reasons: 4m follow up Intake Note: 4 mth f/up [employer] Operator Required: No Accompanied by: Self / Same As Patient Allergies No Known Allergies Allergy (Verified 03/05/24 14:45) Medication List - Last Reconciled 05/05/24 by Estiven Hutchins MD ciclopirox 8% 1 appl topical BEDTIME 4 weeks dronedarone (Multaq) 400 mg PO BID 90 days metoprolol succinate ER 50 mg PO DAILY trazodone 50 mg PO BEDTIME PRN HPI Comments Details: 63-year-old gentleman who is here for follow-up. He was seen in the hospital when he presented with paroxysmal atrial fibrillation and palpitations. After discussion he was taken for JENNA cardioversion. He was successfully cardioverted and was discharged home on rivaroxaban and metoprolol succinate 75 mg once a day. The plan was to continue the rivaroxaban for 6 weeks as his stroke risk is low. He was drinking alcohol previously and has stop drinking completely. He also has been snoring at night and had some features of sleep apnea and has been referred for sleep study by his primary care team. No bleeding concerns. He is saying he takes 3 tablets of metoprolol succinate which is 75 mg he gets some lightheadedness. 05/28/2023: He returns for follow-up. Been doing well. Occasionally feels palpitations lasting for few seconds. He is exercising and with activity he has no symptoms. No chest discomfort. He has been off Xarelto after cardioversion. His chads Vasc score was 1 for hypertension. Blood pressure is elevated. He does not drink as much but does drink on weekends specially when he is watching sports. He is saying he drinks vodka and beer. 12/29/23: The patient is here for follow-up. His recently and he was on alprazolam after that. He is saying he has stopped using it at this stage. He is denying any significant. Taking Multaq and metoprolol. Not on anticoagulation currently. 05/05/24: Here for follow-up. Overall doing well. One episode of atrial fibrillation while he had gastroenteritis and was in the ER. This was short lived. He has been using Multaq and metoprolol. His blood pressure is elevated and manual recheck is 140/80. He is saying that he has been checking blood pressure at home and in the morning hours the blood pressure is high and as the time passes blood pressure improves. He unfortunately lost his in July and mornings are quite tough for him emotionally. Potentially this is the reason his blood pressure is elevated in the mornings. He continues to drink few drinks of vodka. He has been using a lot of processed foods with more salt intake than usual. [facility] Medical History Atrial fibrillation History of cardioversion History of alcohol abuse DVT (deep venous thrombosis) Testicular cancer Surgical History H/O thumb surgery Hx of tonsillectomy H/O rotator cuff surgery History of right hip replacement History of orchiectomy Family History Mother Breast cancer Father Irregular heart beat Maternal Grandfather Heart attack Paternal Grandfather Heart attack Social History Household Members: None Housing: Apartment Do you presently have visiting nurse or other home services: No Alcohol intake: current Alcohol intake frequency: a few times a week Comment: 2 drinks a day Patient Tobacco Use Status: Former Tobacco user Tobacco use type: Cigar Years Smoked: stopped 42 years old, smokes weed e-Cigarette/Vaping Use: Never Used Second Hand Smoke Exposure: No Substance Use Type: Marijuana service: No Current occupational status: disabled Current occupational exposures/hazards: No Cognitive needs: No Hearing needs: No Vision needs: Yes Review of Systems Const Denies chills, Denies fatigue, Denies fever(s), Denies frequent falls, Denies weakness, Denies weight gain and Denies weight loss ENT Denies dizziness Card Denies chest pain, Denies leg edema, Denies lightheadedness, Denies palpitations, Denies dyspnea and Denies dyspnea on exertion Resp Denies cough, Denies dyspnea and Denies dyspnea on exertion GI Denies hematochezia Musc Denies abnormal gait, Denies muscle weakness, Denies numbness, Denies radiating pain into limb and Denies tingling Neuro Denies abnormal gait, Denies dizziness, Denies frequent falls, Denies numbness, Denies tingling and Denies weakness Endo Denies fatigue and Denies palpitations Physical Exam Vital Signs: Last Vital Signs Pulse 68 05/05/24 11:24 BP 150/80 H 05/05/24 11:24 BMI result Body Mass Index 33.4 Manual blood pressure 140/80. GENERAL APPEARANCE: in no acute distress, pleasant. NECK: no carotid bruit, no jugular venous distention. SKIN: no suspicious lesions, warm and dry. HEART: no murmurs, regular rate and rhythm. LUNGS: clear to auscultation bilaterally. ABDOMEN: soft, nontender. EXTREMITIES: no edema. PERIPHERAL PULSES: equal. NEUROLOGIC: No gross deficits, AAO X 3 Office Procedures EKG Details: Sinus rhythm 68 beats per minute, normal axis, normal ECG, QTC 425 milliseconds. [id number], Complete Assessment & Plan Assessment & Plan (1) PAF (paroxysmal atrial fibrillation): Comment: May 2023 status post JENNA cardioversion Code(s): I48.0 - Paroxysmal atrial fibrillation Category: Medical (2) Hypertension: Code(s): I10 - Essential (primary) hypertension Category: Medical Plan Pleasant 63 year gentleman who is here for follow-up. He has background history of paroxysmal atrial fibrillation. He is on metoprolol and Multaq. His CHADS-VASc score is 1 for hypertension. Currently on metoprolol succinate 50 mg daily. His blood pressure is 140/80 manually. He has been eating process food and his salt intake is more than usual. I have advised him to watch closely what he is eating and also cut back on alcohol intake. He will continue to monitor his blood pressure. We will see him back in few months. If blood pressure continues to be elevated then I would favor starting him on a thiazide diuretic. Continue dronedarone and metoprolol succinate. Currently not on anticoagulation as above but as he crosses 67 we may have to do a discussion about anticoagulation. Thank you for allowing me to participate in the care of your patient. Please feel free to contact me if you have any questions. Coding Level of Care Code Est Pt Level 4 (72917) Diagnoses PAF (paroxysmal atrial fibrillation) I48.0 Hypertension I10 CPT Codes EKG - CPT: 27741-[id number], Complete ([id number])
== END 2024-05-05 11:54 | disposition home or self-care (01) ==
PROVIDERS: PCP Internal Medicine; Visit Provider Internal Medicine Cardiovascular Disease
DX: I48.0 Paroxysmal atrial fibrillation (principal); I10 Essential (primary) hypertension
CPT/HCPCS: 93010; 99214

== ENCOUNTER → 2024-05-05 11:14 | Outpatient (BNVA) | payer OTHER, SELFPAY | PROVIDERS: PCP Internal Medicine; Visit Provider Internal Medicine Cardiovascular Disease | DX: I48.0 Paroxysmal atrial fibrillation (principal); I10 Essential (primary) hypertension; R00.2 Palpitations | CPT/HCPCS: 93005; 99212 ==

== ENCOUNTER 2024-05-18 15:38 | Outpatient (AMB) | payer OTHER, SELFPAY ==
[2024-05-18 15:43] VITALS: BP 120/68; PULSE 80; O2SAT 98; BMI 33.6
--- NOTE | 2024-05-18 15:43 | A.OFFPC_ITS ---
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 Patient has refused colonoscopy. Patient has seen Cardiology in May 05 for the atrial fibrillation had JENNA cardioversion discharge on blood thinner metoprolol presently on Multaq and metoprolol patient was advised that if the blood pressure remains to be elevated thiazide diuretic to be started. [facility] Medical History Atrial fibrillation History of cardioversion History of alcohol abuse DVT (deep venous thrombosis) Testicular cancer Surgical History H/O thumb surgery Hx of tonsillectomy H/O rotator cuff surgery History of right hip replacement History of orchiectomy Family History Mother Breast cancer Father Irregular heart beat Maternal Grandfather Heart attack Paternal Grandfather Heart attack Social History Household Members: None Housing: Apartment Do you presently have visiting nurse or other home services: No Alcohol intake: current Alcohol intake frequency: a few times a week Comment: 2 drinks a day Patient Tobacco Use Status: Former Tobacco user Tobacco use type: Cigar Years Smoked: stopped 42 years old, smokes weed e-Cigarette/Vaping Use: Never Used Second Hand Smoke Exposure: No Substance Use Type: Marijuana service: No Current occupational status: disabled Current occupational exposures/hazards: No Cognitive needs: No Hearing needs: No Vision needs: Yes Questionnaire PHQ-9 Over the last 2 weeks, how often have you been bothered by any of the following problems? 1. Little interest or pleasure in doing things: nearly every day 2. Feeling down, depressed, or hopeless: nearly every day 3. Trouble falling or staying asleep, or sleeping too much: nearly every day 4. Feeling tired or having little energy: several days 5. Poor appetite or overeating: several days 6. Feeling bad about yourself - or that you are a failure or have let yourself or your family down: not at all 7. Trouble concentrating on things, such as reading the newspaper or watching television: not at all 8. Moving or speaking so slowly that other people could have noticed. Or the opposite - being so fidgety or restless that you have been moving around a lot more than usual: not at all 9. Thoughts that you would be better off or of hurting yourself in some way: not at all Total score: 11 Depression Screening Interpretation: Positive Depression Screening Done: Yes 49741 - PHQ-9 Billing: Yes Source: Developed by Drs. Ildefonso Mills, Cleeste Knight, Brett Maurice and colleagues, with an educational leslee from [employer]. Thrive Questionnaire Date Thrive assessed: 02/11/24 AUDIT C Alcohol Use Questionnaire (AUDIT-C) 1. How often do you have a drink containing alcohol?: 2-3 times a week 2. How many drinks containing alcohol do you have on a typical day when you are drinking?: 3 or 4 3. How often do you have six or more drinks on one occasion?: Never Total Score: 4 RUBÉN-7 AMB Questionnaire RUBÉN-7 Date RUBÉN - 7 assessed: 10/01/23 Source: Developed by Drs. Ildefonso Mills, Celeste Knight, Brett Maurice and colleagues, with an educational leslee from [employer]. Physical exam (Primary Care) Vital Signs: Last Vital Signs Pulse 80 05/18/24 15:43 BP 120/68 05/18/24 15:43 Pulse Ox 98 05/18/24 15:43 Oxygen Delivery Method Room Air 05/18/24 15:43 BMI result Body Mass Index 33.6 Tobacco/Smoking Status: Tobacco use Status Tobacco use date assessed 10/01/23 05/18/24 15:44 Patient Tobacco Use Status Former Tobacco user 05/18/24 15:44 Tobacco use type Cigar 05/18/24 15:44 e-Cigarette/Vaping Use Never Used 05/18/24 15:44 PHQ-9: PHQ-9 Score PHQ-9: Total score 11 05/18/24 15:56 Depression Screening Interpretation: Positive Thrive Assessment: Date of Thrive Assessment Date Thrive assessed 02/11/24 05/18/24 15:44 Const General: alert; No acute distress Eyes Conjunctivae: conjunctivae normal Resp Auscultation: clear to auscultation bilaterally Cardio Rate: regular rate Rhythm: regular rhythm GI Inspection: Yes normal to inspection Extrem General: Yes normal to inspection and No edema Coding Level of Care Code Est Pt Level 4 (99994) Diagnoses Colonoscopy refused Z53.20 Situational depression F43.21 PAF (paroxysmal atrial fibrillation) I48.0 Hypertension I10 Hypercholesterolemia E78.00 Elevated blood sugar R73.9 History of alcohol abuse F10.11 Assessment & Plan Assessment & Plan (1) Colonoscopy refused: Code(s): Z53.20 - Procedure and treatment not carried out because of patient's decision for unspecified reasons Category: Medical Plan: Discussed with the patient regarding: Tests (2) Situational depression: Code(s): F43.21 - Adjustment disorder with depressed mood Category: Medical Plan: Continue with trazodone and discussion about counseling and therapy. (3) PAF (paroxysmal atrial fibrillation): Comment: May 2023 status post JENNA cardioversion Code(s): I48.0 - Paroxysmal atrial fibrillation Category: Medical Plan: Patient follows up with Cardiology. Low chads Vasc score and so no anticoagul ation presently on Multaq and metoprolol. (4) Hypertension: Code(s): I10 - Essential (primary) hypertension Category: Medical Plan: Continue with blood pressure medication. Decrease salt intake and exercise presently takes metoprolol 50 mg once a (5) Hypercholesterolemia: Code(s): E78.00 - Pure hypercholesterolemia, unspecified Category: Medical Plan: Avoid fried foods, chicken skin, eggs, butter margarine, pastries and meat. Be it pork or beef they have a lot of cholesterol LDL goal of less than 130 and triglyceride of less than 150. Will advised patient to get retested (6) Elevated blood sugar: Comment: Pt also has hypercholesterolemia,l afib, fatty liver Code(s): R73.9 - Hyperglycemia, unspecified Category: Medical Plan: Decrease the amount of carbohydrate intake, pasta, bread, rice and potatoes are all sugar and that is aside from all the sweet stuff, remember that fruits are good but they are Sweet also. (7) History of alcohol abuse: Comment: few days a wk Code(s): F10.11 - Alcohol abuse, in remission Category: Medical Plan: Patient is advised to abstain from alcohol. Orders: Referrals Psychiatry Outpatient Consultation Service F43.21 - Adjustment disorder with depressed mood Medications: New hydrochlorothiazide 12.5 mg PO QAM 30 tabs 3RF I10 - Essential (primary) hypertension Refilled trazodone 50 mg PO BEDTIME PRN 90 tabs 3RF sleep G47.00 - Insomnia, unspecified ciclopirox 8% 1 appl topical BEDTIME 4 weeks 6.6 mL 2RF B35.1 - Tinea unguium
== END 2024-05-18 16:57 | disposition home or self-care (01) ==
LOC: HO.HMCH 15:38
PROVIDERS: PCP Internal Medicine; Visit Provider Internal Medicine
DX: Z53.20 Procedure and treatment not carried out because of patient's decision for unspecified reasons (principal); F43.21 Adjustment disorder with depressed mood; I48.0 Paroxysmal atrial fibrillation; I10 Essential (primary) hypertension; E78.00 Pure hypercholesterolemia, unspecified; R73.9 Hyperglycemia, unspecified; F10.11 Alcohol abuse, in remission

== ENCOUNTER → 2024-05-18 15:38 | Outpatient (BNVA) | payer OTHER, SELFPAY | PROVIDERS: PCP Internal Medicine; Visit Provider Internal Medicine | DX: F43.21 Adjustment disorder with depressed mood (principal); I48.0 Paroxysmal atrial fibrillation; I10 Essential (primary) hypertension; E78.00 Pure hypercholesterolemia, unspecified; R73.9 Hyperglycemia, unspecified; F10.11 Alcohol abuse, in remission | CPT/HCPCS: 99212 ==

== ENCOUNTER 2024-06-21 13:20 | Outpatient (AMB) | payer OTHER, SELFPAY ==
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
== END 2024-06-21 14:38 | disposition home or self-care (01) ==
LOC: HO.HOP 13:20
PROVIDERS: PCP Internal Medicine; Visit Provider Clinical Nurse Specialist Psychiatric/Mental Health
DX: F32.1 Major depressive disorder, single episode, moderate (principal); Z63.4 Disappearance and death of family member; F10.10 Alcohol abuse, uncomplicated
CPT/HCPCS: 90792

== ENCOUNTER → 2024-06-21 13:20 | Outpatient (BNVA) | payer OTHER, SELFPAY | PROVIDERS: PCP Internal Medicine; Visit Provider Clinical Nurse Specialist Psychiatric/Mental Health | DX: F32.1 Major depressive disorder, single episode, moderate (principal); F10.10 Alcohol abuse, uncomplicated; Z63.4 Disappearance and death of family member | CPT/HCPCS: 90792 ==

== ENCOUNTER 2024-07-16 07:16 | Outpatient (REF) | payer OTHER, SELFPAY ==
[2024-07-16 07:30] LABS: MANUAL DIFF FLAG NO
[2024-07-16 07:52] LABS: Basophils Absolute Auto 0.1 X10*3/uL (0.0-0.2); Basophils Percent Auto 1.5 % (0-2); Eosinophils Absolute Auto 0.3 X10*3/uL (0.0-0.4); Hematocrit 40.7 % (42.0-52.0); Hemoglobin 14.3 g/dl (14.0-18.0); Imm Gran Abs Auto 0.03 X10*3/uL (0.00-0.03); Imm Gran Pct Auto 0.6 % (0.0-0.4); Lymphocytes Absolute Auto 1.4 X10*3/uL (1.2-4.9); Lymphocytes Percent Auto 29.2 % (20-40); Mean Corpuscular HGB Conc 35.1 g/dl (31.0-36.0); Mean Corpuscular Hemoglobin 30.7 pg (27.0-33.0); Mean Corpuscular Volume 87.3 fL (80.0-98.0); Monocytes Absolute Auto 0.5 X10*3/uL (0.1-1.2); Monocytes Percent Auto 11.4 % (2-11); Neutrophils Absolute Auto 2.4 x10*3/uL (2.0-8.3); Neutrophils Percent Auto 51.3 % (45-73); Platelet Count 180 X10*3/uL (160-400); Red Blood Count 4.66 X10*6/uL (4.60-5.80); Red Cell Distribution Width 13.5 % (11.0-16.0); White Blood Count 4.7 X10*3/uL (4.8-10.8)
[2024-07-16 07:53] LABS: Estimated Average Glucose 114 mg/dL; Hemoglobin A1C 140.5666 umol/L; Hemoglobin A1c % 5.6 % (<6.0); Total Hemoglobin (HGBA1C) 3739.4173 umol/L
[2024-07-16 08:27] LABS: Alanine Aminotransferase 35 U/L (0-40); Albumin Level 4.4 g/dL (3.5-5.0); Alkaline Phosphatase 63 U/L (39-117); Anion Gap 20 (12-20); Aspartate Amino Transferase 36 U/L (5-37); Bilirubin Total 0.5 mg/dL (0.0-1.0); Blood Urea Nitrogen 14 mg/dL (9-16); Calcium 9.3 mg/dL (8.4-10.2); Carbon Dioxide 20 mmol/L (22-29); Chloride 98 mmol/L (96-108); Cholesterol 264 mg/dL (<200); Estimated Glomerular Filt Rate > 60; Glucose Random 100 mg/dL (60-115); HDL Cholesterol 78 mg/dL (>40); LDL Cholesterol Calculated 161 mg/dL (<100); Potassium 3.4 mmol/L (3.3-5.1); Sodium 135 mmol/L (135-145); Total Protein 7.8 g/dL (6.5-8.0); Triglycerides 126 mg/dL (<150)
[2024-07-16 08:43] LABS: Thyroid Stimulating Hormone 1.23 uIU/mL (0.32-4.0)
[2024-07-19 14:18] LABS: HCV RNA PCR Qn <1.18 NOT DETECTED Log IU/mL (NOT DETECTED); HCV RNA PCR Qn <15 NOT DETECTED IU/mL (NOT DETECTED)
== END 2024-07-16 07:17 | disposition home or self-care (01) ==
LOC: HO.LAB 07:16
PROVIDERS: PCP Internal Medicine; Visit Provider Internal Medicine
DX: E78.00 Pure hypercholesterolemia, unspecified (principal)
CPT/HCPCS: 36415; 80053; 80061; 83036; 84443; 85025; 87522; 87902

== ENCOUNTER 2024-07-19 09:46 | Outpatient (AMB) | payer OTHER, SELFPAY ==
--- OUTSIDE RECORDS SUMMARY | 2024-07-19 09:48 | XMS_ITS ---
Author Name [facility] Organization Unknown History of Medication Use Medication Directions Dispensed Refills Start Date End Date Stat methocarbamol (ROBAXIN) 750 MG tablet Take 1 tablet (750 mg total) by mouth 4 times daily (every 6 hours) as needed for muscle spasms. 06/25/2022 active minocycline (MINOCIN) 100 MG capsule Take 1 capsule (100 mg total) by mouth 2 (two) times a day. 06/25/2022 active rivaroxaban (XARELTO) 20 MG tablet Take 1 tablet (20 mg total) by mouth every morning. Take with meals. Do not start until June 20 Do not start before June 20, 2022. 06/04/2022 active acetaminophen (TYLENOL) 325 MG tablet Take 3 tablets (975 mg total) by mouth every 8 (eight) hours around the clock. 06/25/2022 active HYDROmorphone (DILAUDID) 2 MG tablet Take 1-2 tablets (2-4 mg total) by mouth every 3 (three) hours as needed for moderate pain or severe pain. Max Daily Amount: 32 mg 06/25/2022 active minocycline (MINOCIN) 100 MG capsule Take 1 capsule (100 mg total) by mouth 2 (two) times a day. 06/25/2022 active rivaroxaban (XARELTO) 20 MG tablet Take 1 tablet (20 mg total) by mouth every morning. Take with meals. Do not start until June 20 Do not start before June 20, 2022. 06/04/2022 active rivaroxaban (XARELTO) 10 MG tablet Take 1 tablet (10 mg total) by mouth every morning. Take this on Friday () morning and on morning resume previous 20mg dosing Do not start before June 19, 2022. 06/25/2022 active mupirocin (BACTROBAN) 2 % ointment Apply topically 2 (two) times a day. Apply ointment with Qtip inside each side of your nose twice a day for five days 06/07/2022 active senna-docusate (SENNA-S) 8.6-50 MG Take 2 tablets by mouth nightly. 06/25/2022 active enoxaparin (LOVENOX) 40 MG/0.4ML injection Inject 0.4 mL (40 mg total) under the skin daily. Take first dose at 7 am on 06/15/22 and last dose at 7 am on 06/16/22 Do not start before June 15, 2022. 06/04/2022 active PANTOprazole (PROTONIX) 40 MG EC tablet Take 1 tablet (40 mg total) by mouth daily. 06/25/2022 active meloxicam (MOBIC) 15 MG tablet Take 1 tablet (15 mg total) by mouth daily. 06/25/2022 active polyethylene glycol (miraLAx) 17 g packet Take 1 packet (17 g total) by mouth daily as needed for constipation (if not BM by postop day #1). 06/25/2022 active Problems Problem Status Onset Date Problem Type Date of Resolution Source Testicular cancer active ProblemAct [facility] MRSA (methicillin resistant Staphylococcus aureus) active 2016-07-21 ProblemAct [facility] Status post total replacement of right hip active EncounterDiagnosisAct [facility] Arthritis of right hip active 2022-06-17 ProblemAct [facility] Femoral neck fracture active 2017-02-27 ProblemAct [facility] Infection associated with internal fixation device of right femur active 2017-03-13 ProblemAct [facility] DVT (deep venous thrombosis) active 2021-07-21 ProblemAct [facility] Painful orthopaedic hardware active 2018-06-18 ProblemAct [facility]
--- NOTE | 2024-07-19 09:51 | MHC.PC.OV ---
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 Accompanied by: Self / Same As Patient Allergies No Known Allergies Allergy (Verified 07/19/24 09:57) Medication List - Last Reconciled 07/19/24 by Renata Vines PA-C ciclopirox 8% 1 appl topical BEDTIME 4 weeks dronedarone (Multaq) 400 mg PO BID 90 days hydrochlorothiazide 12.5 mg PO QAM metoprolol succinate ER 50 mg PO DAILY sertraline (Zoloft) 50 mg PO DAILY trazodone 50 mg orally take 1-2 tablets at bedtime prn sleep PRN; Tobacco use date assessed: 10/01/23 Dental Screening Dental Screen Date: 03/05/24 HPI HTN, atrial fibrillation HPI Details 64-year-old male with past medical history of hypercholesterolemia, hypertension, atrial fibrillation, depression last seen by Dr. Sanford April 2024 coming in for follow up. In review of the notes patient was seen by outpatient psychiatric clinic 06/28/2024 patient was started on Zoloft 50 mg daily in trazodone increased to 100 mg at bedtime. Patient takes his blood pressure at home and they have been in the 130 systolic over 70 diastolic range. He does mentioned about 1-1/2 weeks ago he started with an itchy rash above the buttocks that is spread to the groin area, arms, and abdomen. He has been using [id number] hydrocortisone cream with no relief. Denies any change in soaps, laundry detergents or foods. He did recently started new medication sertraline but has taken it intermittently and has not taken this medication in over a week. Rash continues to progress and is very itchy. [facility] Medical History Atrial fibrillation History of cardioversion History of alcohol abuse DVT (deep venous thrombosis) Testicular cancer Surgical History H/O thumb surgery Hx of tonsillectomy H/O rotator cuff surgery History of right hip replacement History of orchiectomy Family History Mother Breast cancer Father Irregular heart beat Maternal Grandfather Heart attack Paternal Grandfather Heart attack Social History Household Members: None Housing: Apartment Do you presently have visiting nurse or other home services: No Alcohol intake: current Alcohol intake frequency: a few times a week Comment: 2 drinks a day Patient Tobacco Use Status: Former Tobacco user Tobacco use type: Cigar Years Smoked: stopped 42 years old, smokes weed e-Cigarette/Vaping Use: Never Used Second Hand Smoke Exposure: No Substance Use Type: Marijuana service: No Current occupational status: disabled Current occupational exposures/hazards: No Cognitive needs: No Hearing needs: No Vision needs: Yes Questionnaire Thrive Questionnaire Date Thrive assessed: 02/11/24 RUBÉN-7 AMB Questionnaire RUBÉN-7 Date RUBÉN - 7 assessed: 10/01/23 Source: Developed by Drs. Ildefonso Mills, Celeste Knight, Brett Maurice and colleagues, with an educational leslee from [employer] Review of Systems Const Denies body aches, Denies chills, Denies fever(s), Denies headache(s) and Denies poor appetite Eyes Reports no additional complaints ENT Denies dizziness and Denies headache(s) Card Denies chest pain, Denies syncope, Denies edema, Denies irregular heart rhythm, Denies lightheadedness and Denies dyspnea Resp Denies cough and Denies dyspnea GI Denies abdominal pain, Denies constipation, Denies diarrhea, Denies nausea and Denies vomiting Reports no additional complaints Musc Reports no additional complaints and Denies abnormal gait Skin/Breast Reports system reviewed and no additional complaints, except as documented Neuro Denies abnormal gait, Denies dizziness, Denies syncope and Denies headache(s) Psych Reports no additional complaints Physical exam (Primary Care) Vital Signs: Last Vital Signs Pulse 85 07/19/24 09:57 BP 130/72 07/19/24 10:33 Pulse Ox 95 07/19/24 09:57 Oxygen Delivery Method Room Air 07/19/24 09:57 BMI result Body Mass Index 33.6 Tobacco/Smoking Status: Tobacco use Status Tobacco use date assessed 10/01/23 07/19/24 09:51 Patient Tobacco Use Status Former Tobacco user 07/19/24 09:51 Tobacco use type Cigar 07/19/24 09:51 e-Cigarette/Vaping Use Never Used 07/19/24 09:51 Thrive Assessment: Date of Thrive Assessment Date Thrive assessed 02/11/24 07/19/24 09:51 Const General: cooperative, healthy appearing, comfortable and no acute distress Orientation/consciousness: patient oriented x3 HENMT Head: Yes normocephalic Ears: hearing grossly normal bilaterally General nose exam: Normal external nose present Eyes General: appearance normal, both eyes and all related structures Conjunctivae: conjunctivae normal Neck Neck: Yes full ROM and Yes no lymphadenopathy Resp Effort & Inspection: normal respiratory effort Auscultation: clear to auscultation bilaterally, no crackles, no rales, no rhonchi and no wheezes Cardio Rate: regular rate Rhythm: regular rhythm Skin Other: Dry, erythematous rash in patches over flexor surfaces of antecubital area, above the buttocks, upper back, bilateral forearms, axilla, and behind bilateral knees. Neuro General: patient oriented x3 Gait exam (Neuro): Normal gait present Extrem General: Yes normal to inspection, Yes full ROM and No edema Psych Affect: normal affect Attitude: cooperative Insight: Good insight present (Psych) Judgement: Good judgement present (Psych) Coding Level of Care Code Est Pt Level 4 (06362) Diagnoses Alcohol abuse F10.10 Hypertension I10 Hypercholesterolemia E78.00 Elevated blood sugar R73.9 Major depressive disorder, single episode, moderate F32.1 PAF (paroxysmal atrial fibrillation) I48.0 Allergic dermatitis L23.9 Assessment & Plan Assessment & Plan (1) Alcohol abuse: Code(s): F10.10 - Alcohol abuse, uncomplicated Category: Social Hx Plan: Patient strongly advised to abstain from alcohol. Patient was seen by psych clinic not on medication at this time (2) Hypertension: Code(s): I10 - Essential (primary) hypertension Category: Medical Plan: Continue on current blood pressure medication. Avoid salt intake and encourage healthy diet and regular exercise. (3) Hypercholesterolemia: Code(s): E78.00 - Pure hypercholesterolemia, unspecified Category: Medical Plan: Avoid foods that are high in cholesterol such as red meat, fried foods, eggs and baked goods. Triglyceride goal of less than 150 and LDL goal of less than 130. Not currently on medical management. Cholesterol continues to be elevated despite patient working on dietary lifestyle modification. ASCVD risk 11.3% in the next 10 years recommending moderate to high intensity statin. Advised starting on atorvastatin low-dose for tolerability and we will repeat cholesterol in 3 months. Given the presence of a systemic rash advised patient to start atorvastatin after rash has cleared. (4) Elevated blood sugar: Comment: Pt also has hypercholesterolemia,l afib, fatty liver Code(s): R73.9 - Hyperglycemia, unspecified Category: Medical Plan: Decrease the amount of carbohydrates such as pasta, bread, rice, and potatoes and limit the amount of sweets. Although fruits are generally healthy they should be eaten in moderation as they are still high in sugar. (5) Major depressive disorder, single episode, moderate: Code(s): F32.1 - Major depressive disorder, single episode, moderate Category: Medical Plan: Patient was seen and evaluated by outpatient psych clinic started on sertraline 50 mg and trazodone increased at bedtime. (6) PAF (paroxysmal atrial fibrillation): Comment: May 2023 status post JENNA cardioversion Code(s): I48.0 - Paroxysmal atrial fibrillation Category: Medical Plan: Patient being followed by Cardiology currently on Multaq and metoprolol. CHADS-VASc score of 1 no indication for anticoagulation at this time continue to follow with Cardiology. (7) Allergic dermatitis: Code(s): L23.9 - Allergic contact dermatitis, unspecified cause Category: Medical Plan: Patient has rash over flexor surfaces as well as forearms, upper back and buttocks has been present for 1 and half weeks. Rash was evaluated by myself and . The rash is very itchy and bothersome to the patient and has some open areas due to scratching. Rash looks most consistent with allergic reaction as it is present in both flexor surfaces as well as over other areas of the body. May be due to new addition of sertraline to medication regimen advised patient to discontinue this medication altogether and reach out to psych. Does not appear to be a fungal rash at this time and does not consistent eczematous rash. Advised patient to use Zyrtec daily and we will give prednisone taper for symptom resolution. Hydroxyzine can not be given has a interacts with Multaq for QT prolonging agents. Reviewed red flag symptoms of a rash and when to present for re-evaluation. Did advise patient if rash returns or does not improve with prednisone to reach out to the office for further evaluation. Plan This note was constructed using voice recognition software. While every effort has been made to ensure accuracy and cash surrender calculator, still areas may have been included sometimes these areas may affect the content or meeting of the given symptoms. Total time spent caring for the patient today was 30 minutes. This includes time spent before the visit reviewing the chart, time spent during the visit, and time spent after the visit and documentation. Orders: Orders Lipid Panel 3 Months E78.00 - Pure hypercholesterolemia, unspecified Comprehensive Met. Panel Today E78.00 - Pure hypercholesterolemia, unspecified Medications: New atorvastatin 10 mg PO BEDTIME 90 tabs 2RF prednisone Take 4 tablets on days 1-2, take 3 tablets on days 3-4, take 2 tablets on days 5-6, take 1 tablet on days 7-8. 10 mg PO DIRECTED 20 tabs 0RF cetirizine 10 mg PO DAILY 30 tabs 2RF
[2024-07-19 09:57] VITALS: BP 142/72; PULSE 85; O2SAT 95; BMI 33.6
[2024-07-19 10:33] VITALS: BP 130/72
== END 2024-07-19 10:39 | disposition home or self-care (01) ==
PROVIDERS: PCP Internal Medicine
DX: I48.0 Paroxysmal atrial fibrillation (principal); F32.1 Major depressive disorder, single episode, moderate; F10.10 Alcohol abuse, uncomplicated; I10 Essential (primary) hypertension; E78.00 Pure hypercholesterolemia, unspecified; R73.9 Hyperglycemia, unspecified; L23.9 Allergic contact dermatitis, unspecified cause

== ENCOUNTER → 2024-07-19 09:46 | Outpatient (BNVA) | payer OTHER, SELFPAY | PROVIDERS: PCP Internal Medicine | DX: F10.10 Alcohol abuse, uncomplicated (principal); I10 Essential (primary) hypertension; E78.00 Pure hypercholesterolemia, unspecified; R73.9 Hyperglycemia, unspecified; F32.1 Major depressive disorder, single episode, moderate; I48.0 Paroxysmal atrial fibrillation; L23.9 Allergic contact dermatitis, unspecified cause | CPT/HCPCS: 99212 ==

== ENCOUNTER 2024-07-27 10:06 | Outpatient (AMB) | payer OTHER, SELFPAY ==
--- NOTE | 2024-07-27 09:40 | MHC.OFFVISPS ---
Intake Intake Visit Reasons: consultation Tutor Required: No Allergies No Known Allergies Allergy (Verified 07/19/24 09:57) Medication List - Last Reconciled 07/27/24 by Blanche Cruz APRN atorvastatin 10 mg PO BEDTIME cetirizine 10 mg PO DAILY ciclopirox 8% 1 appl topical BEDTIME 4 weeks dronedarone (Multaq) 400 mg PO BID 90 days hydrochlorothiazide 12.5 mg PO QAM metoprolol succinate ER 50 mg PO DAILY trazodone 50 mg orally take 1-2 tablets at bedtime prn sleep PRN; HPI- Psychiatric Chief Complaint: consultation HPI Narrative: in interim, pt developed a rash on inside elbows, behind knees, under his arms and in creases of groin; he was seen by PCP and advised to stop the sertraline and given prednisone taper; he reports rash improving and fading. he is taking the trazodone 100mg at bedtime and getting more sleep however he continues to wake several times in the night. He reports he feels less overwhelmed and less distraught; has more hope for the future. He is still very sad and greiivng the loss of his . he has cut down on alcohol use and drinking approximately 4 drinks a night rather than drinking most of the day. He plans to continue to cut back; no SI or HI Past Psychiatric History: no previous treatment outpt or inpt Subjective Subjective Subjective Medication Compliance: Yes Side effects from medications: No Review of Systems Medical Review of Systems: unchanged Mental Status Exam Mental Status Exam Patient Appearance: Well Grooomed and Appropriate Patient Orientation: Person, Place, Time and Situation Level of Consciousness: Awake, Appropriate and Alert Patient Behavior: Appropriate and Cooperative Mood Description: Anxious and Sad Affect Description: Anxious and Sad Patient Cognition Impaired: No Ability to Follow Directions: Good Speech Pattern: Clear and Appropriate Memory Description: Intact Hallucinations: None Delusions: Not Present Thought Process: Intact and Goal Oriented Thought Content: positive for Intact and positive for Goal Oriented Judgement: Fair Results Reviewed Results Reviewed: review of record - saw pcpc and car cooper in interim Assessment and Plan Assessment & Plan (1) Alcohol abuse: Status: Acute Code(s): F10.10 - Alcohol abuse, uncomplicated (2) Bereavement: Status: Acute Code(s): Z63.4 - Disappearance and of family member (3) Major depressive disorder, single episode, moderate: Status: Acute Code(s): F32.1 - Major depressive disorder, single episode, moderate Plan Recommend no new meds started until rash has cleared fully. Recommend he start a vitamin-B complex once daily and magnesium glycinate 100 mg at bedtime as he continues to not sleep through the night return in 4 weeks Medications: New vitamin B comp and C no.3 (B Complex Plus Vitamin C) give with food (meal/snack) 1 cap PO DAILY 90 caps 1RF magnesium glycinate 100 mg PO BEDTIME 90 caps 1RF Refilled trazodone 50 mg orally take 1-2 tablets at bedtime prn sleep PRN; 60 tabs 2RF sleep G47.00 - Insomnia, unspecified Counseling and coordination of Care Pt. Self Management counseling: Exercise, Maintenance-social rhythm, Med illness tx adherence, Mod caffeine/ETOH intake, Nutrition education and improvement, Sleep hygiene, Behavior activation, General coping skills and Greif counseling Medication management counseling: Effectiveness, Side effects, Dosing range, Duration, Drug interaction and Adherence Diagnosis and Prognosis Counseling: Accuracy of diagnosis, Prognosis over time, Impact of diagnosis on life functions, Impact of family relationship, Problematic behaviors secondary to diagnosis and Adequacy of current interventions Details: I spent 40 minutes reviewing the record, seeing the patient and documenting in the medical record. Counseling provided to the patient/caregiver as outlined below. Addressed patient/caregiver concerns regarding current medication regime including effective adherence. Addressed patient/caregiver concerns regarding diagnosis and prognosis including accuracy of diagnosis, prognosis over time, impact of diagnosis. Addressed patient/caregiver concerns regarding impact of recent stressors. [facility] Medical History Atrial fibrillation History of cardioversion History of alcohol abuse DVT (deep venous thrombosis) Testicular cancer Surgical History H/O thumb surgery Hx of tonsillectomy H/O rotator cuff surgery History of right hip replacement History of orchiectomy Family History Mother Breast cancer Father Irregular heart beat Maternal Grandfather Heart attack Paternal Grandfather Heart attack Social History Household Members: None Housing: Apartment Do you presently have visiting nurse or other home services: No Alcohol intake: current Alcohol intake frequency: a few times a week Comment: 2 drinks a day Patient Tobacco Use Status: Former Tobacco user Tobacco use type: Cigar Years Smoked: stopped 42 years old, smokes weed e-Cigarette/Vaping Use: Never Used Second Hand Smoke Exposure: No Substance Use Type: Marijuana service: No Current occupational status: disabled Current occupational exposures/hazards: No Cognitive needs: No Hearing needs: No Vision needs: Yes Social History: lives alone, 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
== END 2024-07-27 10:10 | disposition home or self-care (01) ==
PROVIDERS: PCP Internal Medicine; Visit Provider Clinical Nurse Specialist Psychiatric/Mental Health
DX: F10.10 Alcohol abuse, uncomplicated (principal); Z63.4 Disappearance and death of family member; F32.1 Major depressive disorder, single episode, moderate
CPT/HCPCS: 90833; 99214

== ENCOUNTER → 2024-07-27 10:06 | Outpatient (BNVA) | payer OTHER, SELFPAY | PROVIDERS: PCP Internal Medicine; Visit Provider Clinical Nurse Specialist Psychiatric/Mental Health | DX: F32.1 Major depressive disorder, single episode, moderate (principal); F10.10 Alcohol abuse, uncomplicated; Z63.4 Disappearance and death of family member | CPT/HCPCS: 99212 ==

== ENCOUNTER 2024-07-28 11:38 | Inpatient (IN) | payer OTHER, SELFPAY ==
[2024-07-28] VITALS (10 sets, daily range): BP systolic 97–140; BP diastolic 57–83; PULSE 90–129; RESP 12–22; TEMP 36.3–37; O2SAT 96–98; BMI 32.5
--- NOTE | ~2024-07-28 | XR_ITS ---
EXAMINATION: XR CHEST 1 VIEW HISTORY: sob COMPARISON: Comparison is made with the prior examination dated 02/10/2024. FINDINGS: A single AP portable view of the chest performed at 12:17 PM is submitted. The lungs are expanded and clear. There is no pleural effusion, pneumothorax, or pulmonary vascular congestion. The heart is normal in size. There is degenerative disc disease of the spine. XR/XR chest 1V IMPRESSION: No acute cardiopulmonary abnormality. Electronically signed by: Ildefonso Bass MD 07/28/2024 12:36 PM EST
--- NOTE | 2024-07-28 11:50 | ED_ITS ---
HPI - Arrhythmia/Palpitations General Chief Complaint: Arrhythmia/Palpitations Stated Complaint: Irregular heart beat Time Seen by Provider: 07/28/24 11:56 Source: patient Mode of arrival: ambulatory History of Present Illness ED Provider: Mateo JUAREZ narrative: 64-year-old male who has a history of paroxysmal atrial fibrillation presents with feeling his heart racing and palpitations since early this morning, he does report everyday alcohol use and denies any use of anticoagulation. He reports that he is having some associated chest discomfort and sweating. Related Data Home Medications ?Medication ?Instructions ?Recorded ?Confirmed sertraline 50 mg tablet 50 mg PO DAILY 07/28/24 Previous Rx's ?Medication ?Instructions ?Recorded metoprolol succinate 50 mg 50 mg PO DAILY #90 tabs 03/05/24 tablet,extended release 24 hr ciclopirox 8 % topical solution 1 appl topical BEDTIME 4 weeks 05/18/24 #6.6 mL hydrochlorothiazide 12.5 mg tablet 12.5 mg PO QAM #30 tabs 05/18/24 dronedarone 400 mg tablet (Multaq) 400 mg PO BID 90 days #180 tabs 07/13/24 atorvastatin 10 mg tablet 10 mg PO BEDTIME #90 tabs 07/19/24 cetirizine 10 mg tablet 10 mg PO DAILY #30 tabs 07/19/24 magnesium glycinate 100 mg PO BEDTIME #90 caps 07/27/24 trazodone 50 mg tablet 50 mg PO .COMPLEX PRN sleep #60 07/27/24 tabs vitamin B comp and C no.3 15 mg-10 1 cap PO DAILY #90 caps 07/27/24 mg-50 mg-5 mg-300 mg capsule (B Complex Plus Vitamin C) Allergies Allergy/AdvReac Type Severity Reaction Status Date / Time No Known Allergies Allergy Verified 07/28/24 11:53 Review of Systems 2 Review of Systems: Pertinent positives and negatives as stated in HPI PMF Past Medical History Source: nursing notes reviewed Medical History Atrial fibrillation History of cardioversion History of alcohol abuse DVT (deep venous thrombosis) Testicular cancer Surgical History H/O thumb surgery Hx of tonsillectomy H/O rotator cuff surgery History of right hip replacement History of orchiectomy Family History Family History Mother Breast cancer Father Irregular heart beat Maternal Grandfather Heart attack Paternal Grandfather Heart attack Social History Social History Household Members: None Housing: Apartment Do you presently have visiting nurse or other home services: No Alcohol intake: current Alcohol intake frequency: a few times a week Comment: 2 drinks a day Patient Tobacco Use Status: Former Tobacco user Tobacco use type: Cigar Years Smoked: stopped 42 years old, smokes weed Smoked in Last 30 Days: No e-Cigarette/Vaping Use: Never Used Second Hand Smoke Exposure: No Use of substances other than those prescribed or required for medical reasons: Yes Substance Use Type: Marijuana Advance Directives: No Advance Directives Information Provided: Yes Do you have a plan to hurt others: No Plan service: No Current occupational status: disabled Current occupational exposures/hazards: No Cognitive needs: No Hearing needs: No Vision needs: Yes Physical Exam 2 Vital Signs: Vital Signs: Last Vital Signs Temp 98.6 F 07/28/24 11:49 Pulse 94 07/28/24 14:23 Resp 18 07/28/24 14:23 BP 102/72 07/28/24 14:23 Pulse Ox 96 07/28/24 14:23 O2 Del Method Room Air 07/28/24 14:23 BMI result Body Mass Index 32.5 VITAL SIGNS: Reviewed. GENERAL: Well developed, well nourished, in no acute distress. HEAD: Normocephalic/atraumatic EYES: PERRLA, EOMI EARS: Ext canals without abnormality NOSE: Nares patent bilateral OROPHARYNX: no oral lesions noted, posterior pharynx clear NECK: Supple, no adenopathy LUNGS: Normal breath sounds. No adventitious sounds or accessory muscle use. SpO2<98> CARDIOVASCULAR: Regular rate and rhythm without noted murmurs ABDOMEN: Soft, non-tender, non-distended with bowel sounds. MUSCULOSKELETAL: No tenderness, deformities, or effusions noted on gross inspection. EXTREMITIES: No cyanosis, clubbing or edema. SKIN: Inspection of the skin reveals no rashes, diaphoretic NEUROLOGIC: Alert and oriented x 4. Strength and sensation to light touch were grossly intact x 4. Course Course Course Narrative: This is a Rapid Medical Exam performed in triage by Radha Hutton PA-C. Full HPI, ROS and PE to be performed by primary ED provider. 64-year-old with a past medical history ETOH abuse, proximal AFib not on AC, HTN, HLD, depression, DVT presenting to the ED c/o palpitations & SOB since 2AM. Admits to associated lightheadedness. Denies chest pain PE: EKG AFib with RVR. diaphoretic, +SOB Plan: EKG, labs, viral testing, CXR Medications Administered Discontinued Medications Generic Name Dose Route Start Last Admin Trade Name Freq PRN Reason Stop Dose Admin Diltiazem HCl 5 mg 07/28/24 13:33 07/28/24 13:43 Diltiazem Hcl 50 Mg/10 Ml Vial IVPUSH 07/28/24 13:34 Not Given STAT STA Metoprolol Tartrate 5 mg 07/28/24 12:07 07/28/24 12:10 Metoprolol Tartrate 5 Mg/5 Ml Vial IVPUSH 07/28/24 12:08 5 mg ONCE ONE Administration Protocol Metoprolol Tartrate 5 mg 07/28/24 12:27 07/28/24 13:16 Metoprolol Tartrate 5 Mg/5 Ml Vial IVPUSH 07/28/24 12:28 5 mg ONCE ONE Administration Protocol Medical Decision Making Medical Decision Making MDM Narrative: 64-year-old male with history and clinical presentation, DD DX: Atrial fibrillation with RVR and will rule out underlying infection/anemia/electrolyte derangement but suspect secondary to alcohol use which would lend itself to likely electrolyte derangement and will correct if this is the case. EKG: Atrial fibrillation with RVR, HR-134, no STEMI, QRS/QTC/QTC are within normal limits. INTERVENTION: 5 mg x2 Lopressor, labs, EKG. I reviewed and interpreted all investigations and there is no infectious leukocytosis, anemia, or thrombocytopenia. Coagulation studies are within normal limits. There is no demonstrate JACOB/electrolyte derangements and suspect that the mildly elevated transaminases are reflective of patient's alcohol use. BNP is noted to be mildly elevated at 121 likely secondary to uncontrolled rate since early this morning. Patient is not hypoxic. Alcohol is undetectable and viral testing is negative for COVID-19/RSV/flu. Chest x-ray does not demonstrate infiltrate or venous congestion and otherwise my interpretation is in agreement with radiology's impression. 1415: Rate is better controlled at this time in the 90s, feel that patient would benefit from admission and follow-up echocardiogram, I did discuss with Cardiology. This time patient is [id number] and will defer DOACs to further workup. I will discuss with inpatient hospitalist. Recommendation from Cardiology is to stop Multaq since it did not prevent resumption into atrial fibrillation with RVR, will initiate Xarelto here in the emergency room. Differential Diagnosis Differential Diagnoses: The differential diagnosis associated with the presentation includes See above Admission/Observation Consideration of admission/observation: Escalation of care including admission/observation considered Consult Healthcare Provider Management of the patient was discussed with: Hospitalist and Brake Machine Operator See above Lab Data MDM Lab Attestation statement: I reviewed the patient's lab results. See above 07/28/24 11:59 07/28/24 11:59 Labs: Lab Results 07/28/24 Range/Units 11:59 WBC 6.7 (4.8-10.8) X10*3/uL RBC 5.31 (4.60-5.80) X10*6/uL Hgb 16.3 (14.0-18.0) g/dl Hct 47.3 (42.0-52.0) % MCV 89.1 (80.0-98.0) fL MCH 30.7 (27.0-33.0) pg MCHC 34.5 (31.0-36.0) g/dl RDW 14.4 (11.0-16.0) % Plt Count 189 (160-400) X10*3/uL MPV 8.5 L (9.4-12.4) fL Immature Gran % (Auto) 0.7 H (0.0-0.4) % Neut % (Auto) 77.0 H (45-73) % Lymph % (Auto) 13.2 L (20-40) % [place] % (Auto) 7.6 (2-11) % Eos % (Auto) 0.6 (0-4) % Baso % (Auto) 0.9 (0-2) % Lymph # (Auto) 0.9 L (1.2-4.9) X10*3/uL [place] # (Auto) 0.5 (0.1-1.2) X10*3/uL Eos # (Auto) 0.0 (0.0-0.4) X10*3/uL Baso # (Auto) 0.1 (0.0-0.2) X10*3/uL Abs Immat Gran (auto) 0.05 H (0.00-0.03) X10*3/uL Absolute Neuts (auto) 5.2 (2.0-8.3) x10*3/uL Absolute Nucleated RBC 0.000 (0.0-0.012) X10*3/uL Nucleated RBC % (auto) 0.0 (0.0-0.2) /100WBC PT 11.0 (10.9-12.4) SEC INR 0.9 (0.9-1.1) Sodium 139 (135-145) mmol/L Potassium 4.0 (3.3-5.1) mmol/L Chloride 99 (96-108) mmol/L Carbon Dioxide 22 (22-29) mmol/L Anion Gap 22 H (12-20) BUN 16 (9-16) mg/dL Creatinine 1.18 (0.5-1.4) mg/dL Estim Creat Clear Calc 97.1 Estimated GFR > 60 Random Glucose 161 H (60-115) mg/dL Calcium 9.6 (8.4-10.2) mg/dL Magnesium 1.8 (1.6-2.6) mg/dL Total Bilirubin 1.0 (0.0-1.0) mg/dL Direct Bilirubin 0.3 (0.0-0.5) mg/dL AST 46 H (5-37) U/L ALT 54 H (0-40) U/L Alkaline Phosphatase 64 (39-117) U/L Troponin I High Sens 5.2 D (<3.5-35.0) ng/L B-Natriuretic Peptide 121 H (<100) pg/mL Total Protein 8.3 H (6.5-8.0) g/dL Albumin 4.6 (3.5-5.0) g/dL TSH 1.47 (0.32-4.0) uIU/mL Ethyl Alcohol < 10 mg/dL Influenza Type A (PCR) NEGATIVE (Negative) Influenza Type B (PCR) NEGATIVE (Negative) RSV RNA Qual (PCR) NEGATIVE (Negative) SARS-CoV-2 RNA (RT-PCR) NEGATIVE (Negative) Independent Interpretation I performed an independent interpretation of an: EKG Interpretation: See above Radiology Impression Discussion of test interpretation with radiology: I have reviewed the radiologist's reading. Radiologist Impression: See above External Record Review External record reviewed: Prior outpatient labs and Prior outpatient radiology Chronic Conditions Patient?s care impacted by: Hypertension Critical Care Time Critical Care Time Critical Care Time: Yes Total Critical Care Time: 45 Attestation: I personally attest to this time spent taking care of the patient. Discharge Plan Discharge Clinical Impression: Atrial fibrillation with RVR Patient Disposition: Admitted As Inpatient Print Language: Korean
[2024-07-28 12:06] LABS: MANUAL DIFF FLAG NO
[2024-07-28 12:08] LABS: Basophils Absolute Auto 0.1 X10*3/uL (0.0-0.2); Basophils Percent Auto 0.9 % (0-2); Eosinophils Percent Auto 0.6 % (0-4); Hematocrit 47.3 % (42.0-52.0); Hemoglobin 16.3 g/dl (14.0-18.0); Imm Gran Abs Auto 0.05 X10*3/uL (0.00-0.03); Imm Gran Pct Auto 0.7 % (0.0-0.4); Lymphocytes Absolute Auto 0.9 X10*3/uL (1.2-4.9); Lymphocytes Percent Auto 13.2 % (20-40); Mean Corpuscular HGB Conc 34.5 g/dl (31.0-36.0); Mean Corpuscular Hemoglobin 30.7 pg (27.0-33.0); Mean Corpuscular Volume 89.1 fL (80.0-98.0); Mean Platelet Volume 8.5 fL (9.4-12.4); Monocytes Absolute Auto 0.5 X10*3/uL (0.1-1.2); Monocytes Percent Auto 7.6 % (2-11); Neutrophils Absolute Auto 5.2 x10*3/uL (2.0-8.3); Platelet Count 189 X10*3/uL (160-400); Red Blood Count 5.31 X10*6/uL (4.60-5.80); Red Cell Distribution Width 14.4 % (11.0-16.0); White Blood Count 6.7 X10*3/uL (4.8-10.8)
[2024-07-28] MEDS: Metoprolol Tartrate 5 MG/5 ML VIAL IVPUSH ×2 (12:10→13:16)
[2024-07-28 12:12] LABS: INTERNATIONAL NORM RATIO 0.9 (0.9-1.1)
[2024-07-28 12:27] LABS: B Type Natriuretic Peptide 121 pg/mL (<100)
[2024-07-28 12:29] LABS: Troponin-I High Sensitivity 5.2 ng/L (<3.5-35.0)
[2024-07-28 12:30] LABS: Alanine Aminotransferase 54 U/L (0-40); Albumin Level 4.6 g/dL (3.5-5.0); Alkaline Phosphatase 64 U/L (39-117); Anion Gap 22 (12-20); Aspartate Amino Transferase 46 U/L (5-37); Bilirubin Direct 0.3 mg/dL (0.0-0.5); Blood Urea Nitrogen 16 mg/dL (9-16); Calcium 9.6 mg/dL (8.4-10.2); Carbon Dioxide 22 mmol/L (22-29); Chloride 99 mmol/L (96-108); Creatinine Clr Calc Pharmacy 97.1; Estimated Glomerular Filt Rate > 60; Ethanol < 10 mg/dL; Glucose Random 161 mg/dL (60-115); Magnesium 1.8 mg/dL (1.6-2.6); Sodium 139 mmol/L (135-145); Total Protein 8.3 g/dL (6.5-8.0)
[2024-07-28 12:44] LABS: Influenza A PCR NEGATIVE (Negative); Influenza B PCR NEGATIVE (Negative); Resp Syncy Virus RNA Qual PCR NEGATIVE (Negative); SARS COV2 PCR INHOUSE NEGATIVE (Negative); TSH reflex Free T4 1.47 uIU/mL (0.32-4.0)
--- NOTE | 2024-07-28 14:59 | PM.IMHP ---
History of Present Illness Date of Service: 07/28/24 Attending physician on admission: Maxime Jacobsen Chief Complaint: Palpitations Pt is a 64-year-old male with a PMH significant for?paroxysmal AFib not on anticoagulation, hx of cardioversion x2, hx of DVT in 2021 previously on Xarelto, HTN, HLD, testicular cancer at age 37 s/p left orchiectomy, and right hip replacement who presents to the ED with?sudden-onset palpitations earlier this morning. Pt states he was awoken from sleep at 02:00 with palpitations and a fluttering heartbeat. Was able to go back to sleep, but when he awoke symptoms persisted and pt also felt diaphoretic, weak, lightheaded, and dizzy. Pt has a history of paroxysmal AFib with cardioversions in 10/2022 and 05/2023 and subsequently rate controlled metoprolol and Multaq, which pt reports is adherent to. Denies any recent illnesses. Reports drinks a couple of beers 2-3 days a week. No shortness a breath or difficulty breathing. No lower extremity edema. Denies chest pain or pressure. In the ED pt was tachycardic up to 129 and tachypneic up to 22. Labs showed mild BNP mildly elevated at 121 and transaminitis of AST 46 and ALT 54, otherwise grossly unremarkable and around baseline for pt. No leukocytosis. Stable H&H. No significant electrolyte abnormalities. Tested negative for flu, RSV, COVID. Ethyl alcohol levels undetectable. CXR negative for acute cardiopulmonary abnormality. EKG demonstrated AFib with RVR 134. Pt was treated with metoprolol 5 mg IV x2 doses. Pt will be admitted to the hospital for treatment and further evaluation of symptomatic AFib with RVR. Review of Systems Review of Systems: Negative except for that which is stated in [facility] Medical History Atrial fibrillation History of cardioversion History of alcohol abuse DVT (deep venous thrombosis) Testicular cancer Family History Mother Breast cancer Father Irregular heart beat Maternal Grandfather Heart attack Paternal Grandfather Heart attack Surgical History H/O thumb surgery Hx of tonsillectomy H/O rotator cuff surgery History of right hip replacement History of orchiectomy Social History Household Members: None Housing: Apartment Do you presently have visiting nurse or other home services: No Alcohol intake: current Alcohol intake frequency: a few times a week Comment: 2 drinks a day Patient Tobacco Use Status: Former Tobacco user Tobacco use type: Cigar Years Smoked: stopped 42 years old, smokes weed Smoked in Last 30 Days: No e-Cigarette/Vaping Use: Never Used Second Hand Smoke Exposure: No Use of substances other than those prescribed or required for medical reasons: Yes Substance Use Type: Marijuana Advance Directives: No Advance Directives Information Provided: Yes Do you have a plan to hurt others: No Plan Nutrition Risks: No Nutritional Risk service: No Current occupational status: disabled Current occupational exposures/hazards: No Cognitive needs: No Hearing needs: No Vision needs: Yes Meds Allergies Allergy/AdvReac Type Severity Reaction Status Date / Time No Known Allergies Allergy Verified 07/28/24 11:53 Home Medications ?Medication ?Instructions ?Recorded ?Confirmed ?Last Taken ?Type atorvastatin 10 mg tablet 10 mg PO DAILY 07/28/24 07/28/24 07/28/24 History hydrochlorothiazide 12.5 mg tablet 12.5 mg PO DAILY 07/28/24 07/28/24 07/28/24 History trazodone 50 mg tablet 100 mg PO BEDTIME PRN sleep 07/28/24 07/28/24 07/27/24 History Physical Exam Vital Signs and Narrative: Vital Signs: Last Vital Signs Temp 98.6 F 07/28/24 11:49 Pulse 91 07/28/24 14:53 Resp 18 07/28/24 14:53 BP 120/59 L 07/28/24 14:53 Pulse Ox 96 07/28/24 14:53 O2 Del Method Room Air 07/28/24 14:53 BMI result Body Mass Index 32.5 Constitutional: Alert, in no acute distress. Mental Status: Oriented to person, place and time. Eyes: Pupils are equal, round, and reactive to light. Ear, Nose, and Throat: Oropharynx clear, mucous membranes moist. Ears and nose without deformities. Trachea midline. Respiratory: Clear to auscultation bilaterally. No wheezing, rales, or rhonchi. Cardiovascular: Irregularly irregular rhythm Gastrointestinal: Abdomen soft, non-tender, non-distended. Normal bowel sounds. Neurologic: Cranial nerves II-XII are grossly intact bilaterally. No focal neurological deficits. Moves all extremities spontaneously. Skin: Warm, dry. Extremities: No edema. Psychiatric: Normal mood and affect. Results Labs 07/28/24 11:59 07/28/24 11:59 Labs: Laboratory Results - last 24 hr 07/28/24 11:59 MCV 89.1 MCH 30.7 MCHC 34.5 RDW 14.4 Plt Count 189 MPV 8.5 L Immature Gran % (Auto) 0.7 H Neut % (Auto) 77.0 H Lymph % (Auto) 13.2 L [place] % (Auto) 7.6 Eos % (Auto) 0.6 Baso % (Auto) 0.9 Lymph # (Auto) 0.9 L [place] # (Auto) 0.5 Eos # (Auto) 0.0 Baso # (Auto) 0.1 Abs Immat Gran (auto) 0.05 H Absolute Neuts (auto) 5.2 Absolute Nucleated RBC 0.000 Nucleated RBC % (auto) 0.0 PT 11.0 INR 0.9 Anion Gap 22 H Estim Creat Clear Calc 97.1 Estimated GFR > 60 Random Glucose 161 H Calcium 9.6 Magnesium 1.8 Total Bilirubin 1.0 Direct Bilirubin 0.3 AST 46 H ALT 54 H Alkaline Phosphatase 64 Troponin I High Sens 5.2 D B-Natriuretic Peptide 121 H Total Protein 8.3 H Albumin 4.6 TSH 1.47 Ethyl Alcohol < 10 Influenza Type A (PCR) NEGATIVE Influenza Type B (PCR) NEGATIVE RSV RNA Qual (PCR) NEGATIVE SARS-CoV-2 RNA (RT-PCR) NEGATIVE Imaging Radiologist's Impressions: Impressions Chest X-Ray 07/28/24 12:24 IMPRESSION: No acute cardiopulmonary abnormality. Electronically signed by: Ildefonso Bass MD 07/28/2024 12:36 PM [facility] [place] Assessment and Plan (1) Atrial fibrillation with RVR: Status: Acute Plan Pt is a 64-year-old male with a PMH significant for?paroxysmal AFib not on anticoagulation, hx of cardioversion x2, hx of DVT in 2021 previously on Xarelto, HTN, HLD, testicular cancer at age 37 s/p left orchiectomy, and right hip replacement who presents to the ED with?sudden-onset palpitations earlier this morning. Pt will be admitted to the hospital for treatment and further evaluation of symptomatic AFib with RVR. Symptomatic AFib with RVR Pt with palpitations, fluttering diaphoresis weakness, lightheadedness and dizziness since 02:00 this morning Pt with history of cardioversion x2 in 10/2022 and 05/2023 Currently not on anticoagulation Treated with metoprolol 5 mg IV x2 doses Will hold Multaq Will treat with metoprolol 25 mg p.o. q6h, Xarelto [id number] Score 1 point Echocardiogram Cardiology consult Monitor on telemetry Hx of DVT Secondary to right hip surgery in 2021 No longer on Xarelto HTN BP slightly soft, hold hydrochlorothiazide for now Resume as indicated HLD Continue statin Insomnia Continue trazodone Full Code Attending:?Dr. Jacobsen DVT Prophylaxis: On Xarelto Pt will require a hospitalization of at least two nights for treatment of?symptomatic AFib with RVR with close monitoring of cardiac function and specialist consultation with Cardiology for additional workup and possible cardioversion. Quality Stroke Does the patient have a stroke diagnosis?: No VTE Prior VTE?: Yes VTE Risk Level:: Medical - moderate - high VTE Device Contraindication: Treatment Not Indicated VTE Drug Contraindication: N/A - Med Ordered
--- NOTE | 2024-07-28 15:07 | ECG_ITS ---
Test Reason : irr heartrate Blood Pressure : */* mmHG Vent. Rate : 134 BPM Atrial Rate : * BPM P-R Int : * ms QRS Dur : 72 ms QT Int : 298 ms P-R-T Axes : * 9 -45 degrees QTcB Int : 445 ms Atrial fibrillation with rapid ventricular response Nonspecific ST and T wave abnormality Abnormal ECG When compared with ECG of 12-Feb-2024 10:35, Atrial fibrillation has replaced Sinus rhythm Nonspecific T wave abnormality now evident in Lateral leads Referred By: Laura Galindo Electronically Signed By: BARBI ODONNELL
--- NOTE | 2024-07-28 15:08 | PHA.MEDREC ---
Addendum entered by Thony Van RPh 07/28/24 15:27: Med rec was reviewed by [facility]. Original Note: Pharmacy Consult ? Medication Reconciliation Pharmacy has completed the medication reconciliation. Spoke with patient and he had a list he was able to confirm his medications with. He confirmed he is no longer taking the Sertraline 50mg tab and stated it gave him a rash and he didn't like how it was making him feel. He also stated he has not stated the Magnesium Glycinate or Vitamin B complex and C combo tab yet. He confirmed he just started taking 2 tablets of his Trazodone 50mg tab now at bedtime due to some events happening in his life and it helping a bit more for his sleep. He confirmed he took his morning medications this morning.
[2024-07-28] MEDS: Rivaroxaban 20 MG TABLET PO (16:26)
[2024-07-28] MEDS: 0.9 % Sodium Chloride Flush 3 ML SYRINGE IVFLUSH (16:26)
[2024-07-28] MEDS: Acetaminophen 325 MG TABLET 650 MG PO (16:30)
[2024-07-28] MEDS: Metoprolol Tartrate 25 MG TABLET PO ×2 (17:49→22:21)
--- NOTE | 2024-07-28 18:43 | PC.NURSE ---
Addendum entered by Elvia Chen RN 07/28/24 18:48: MARK Cross made aware. planning to come bedside. Original Note: pt up to ambulate to , pt returned to room diaphoretic, SOB and tachycardic in the 120s.
--- NOTE | 2024-07-28 18:48 | PC.NURSE ---
pt reports when getting back in bed his IV in his L hand got stuck on something and started bleeding. IV line completely pulled out. removed at this time. pt still has a 20G in the RAC patent.
--- NOTE | 2024-07-28 19:57 | PM.EVENT ---
Event Note Date of Service: 07/28/24 Event Note: Notified by nursing that pt became profusely diaphoretic, ashen, tachycardic up to 130s, and with increased work of breathing after ambulating to the bathroom. Pt's HR came down into the 110s after rest and commode was brought to bedside. Will make pt NPO after midnight for possible cardioversion in the morning. Time Spent With Patient Time: Total time managing care of this patient today ____ minutes.
[2024-07-29] VITALS (11 sets, daily range): BP systolic 97–129; BP diastolic 47–85; PULSE 73–180; RESP 14–20; TEMP 36.2–37.1; O2SAT 95–97
--- NOTE | 2024-07-29 03:39 | PC.NURSE ---
Patient has been sleeping the majority of this RN's shift, but easily arousable to verbal stimuli. Patient's son at bedside, also sleeping in recliner chair. Patient experienced brief episode of worsening tachycardia (140s) with exertion to use bedside commode. Patient was briefly short of breath, but was able to return heart rate and respiration rate to baseline in under 5 minutes. Cardiac monitoring continues. No apparent distress. Awaiting admission bed.
--- NOTE | 2024-07-29 04:00 | PC.NURSE ---
This remote mortgage underwriter assumed care of this Pt at 0300. Pt appears to be sleeping at this time, awakens with verbal stimuli. Pt denies any pain. Plan of care on going.
--- NOTE | 2024-07-29 07:00 | CA_ITS ---
Transthoracic Echocardiogram Patient (Last, First, Middle): Jf Jiménez, Gender: Male Date of : 1960 Age: 64 Procedure Date: 07/29/2024 Procedure Type: Transthoracic Echocardiogram Location[place] [facility] [place] Height: 198.12 cm Weight: 127.46 kg BSA: 2.61 m2 Heart Rate: 114 bpm BP: 97 / 47 mmHg Dough Braker: SB Referring MD: Tay FLORES Symptoms: Symptomatic AFib with RVR Study Quality: Fair/contrast ECG Rhythm: Atrial Fibrillation Conclusions: - The left ventricular systolic function is normal. The calculated ejection fraction is 67% by biplane method. - No obvious valvular pathology seen on this study. Findings Procedure Information Contrast agent, definity, is being given per protocol without apparent complications. Left Ventricle Normal left ventricular cavity size. The left ventricular systolic function is normal. The calculated ejection fraction is 67% by biplane method. There is no evidence of regional wall motion abnormalities. Diastolic function is indeterminate on the basis of available data. There is mild septal asymmetric hypertrophy. Right Ventricle Normal right ventricular cavity size. Atria Both atria are normal in size. Aortic Valve There is a normal trileaflet aortic valve. There is no aortic valve stenosis. There is no aortic valve regurgitation. Mitral Valve The mitral valve appears normal. There is no mitral valve regurgitation. There is no mitral valve stenosis. Pulmonic Valve The pulmonic valve is likely normal. Tricuspid Valve There is trace tricuspid valve regurgitation. There is no evidence of pulmonary hypertension. Great Vessels The asc aorta is normal in size. Venous The inferior vena cava was not well visualized. Pericardium/Pleural There is no evidence of pericardial effusion. Prior Study Comparison No significant change compared to prior study dated: 06/10/2023. Recommendations, Care & Conclusions No obvious valvular pathology seen on this study. Measurements 2D Linear Measurements IVSd: 1.16 0.6-0.9/0.6-1.0 cm LVIDd: 5.25 3.9-5.3/4.2-5.9 cm LVIDd Index: 2.01 2.4-3.2/2.2-3.1 cm/m2 LVIDs: 3.24 2.0-3.6 cm LVOT Diam: 2.40 3.0+(-)1.3 cm 2D Systolic Function EF 4C: 69.60 >55% EF 2C: 66.20 >55% EF BiP: 67.30 >55% Mitral Valve MV Pk E: 0.51 E'Medial: 6.56 E/E' Med: 7.80 Aortic Valve AoV Pk Stew: 1.25 AoV Pk Grad: 6.00 DINESH: 3.07 LVOT LVOT Pk Stew: 0.85 LVOT Mn Stew: 0.62 LVOT VTI: 0.13 LVOT Pk Grad: 3.00 LVOT Mn Grad: 2.00 LVOT Diam: 2.40 LVOT Area: 4.52 Diastolic Function MV Pk E: 0.51 E'Medial: 6.56 E/E' Med: 7.80 Right Ventricle TAPSE (mm): 15.30 TVS' Stew: 16.00 Tricuspid Valve TR Pk Stew: 2.09 TR Pk Grad: 17.00 Great Vessels Aorta Sinus of Valsalva: 3.60 2.0-3.5 cm Ao Asc: 3.50 2.1-3.4 cm Pulmonary Valve PV Pk Stew: 0.72 Peak PV Grad: 2.00 Updated in Other Vendor System with Status of Final Carlos Rao MD electronically signed on 07/29/2024 10:21:10 AM with status of Final
--- NOTE | 2024-07-29 08:48 | MHC.CM.PN ---
CM met with Patient at bedside. Patient lives alone in a duplex and uses a cane at times to assist with mobility. Home self care is the goal and CM has initiated and will follow for dc planning. PCP is Dr. Sanford; HCP is Sister/Mayelin, and Patient's car is here for transport to home.
[2024-07-29] MEDS: Metoprolol Tartrate 25 MG TABLET PO ×4 (09:25→20:05)
[2024-07-29] MEDS: 0.9 % Sodium Chloride Flush 3 ML SYRINGE IVFLUSH ×4 (09:26→20:05)
--- NOTE | 2024-07-29 09:31 | PM.CNCAR ---
History of Present Illness History of Present Illness Date of Service: 07/29/24 Chief complaint: Symptomatic Afib with RVR Narrative: This is a cardiology consultation regarding atrial fibrillation with rapid ventricular response. Generally seen by . It seems that is a prior history of atrial fibrillation with rapid rate and he has undergone JENNA/cardioversion in the past. He has been on Multaq and Metoprolol, but not on any anticoagulation. Currently admitted with palpitations and found to be in atrial fibrillation with rapid ventricular response. He has received IV Metoprolol and Diltiazem but still remains in atrial fibrillation. Hence admitted. He seems to clearly feel the palpitations and has had this for the last 24 hours or so. Per documentation, there is alcohol excess history. A recent psychiatric note, still there is mention of 4 drinks a day. Review of Systems Review of Systems: Yes all other systems are reviewed and are negative Constitutional: Constitutional: Reports as per HPI and Reports no additional constitutional complaints Eyes: Eyes: Reports as per HPI and Denies no additional eye complaints ENT: Denies system reviewed and no additional complaints, except as documented and Reports as per HPI Cardiovascular: Cardiovascular: Reports as per HPI, Reports no additional cardiovascular complaints, Denies acrocyanosis, Denies cool extremities, Denies chest pain, Denies leg edema, Denies lightheadedness, Reports palpitations and Denies dyspnea Respiratory: Respiratory: Reports as per HPI, Denies no additional respiratory complaints and Denies dyspnea Gastrointestinal: Gastrointestinal: Reports as per HPI and Denies no additional gastrointestinal complaints Genitourinary: Genitourinary: Reports no additional male genitourinary complaints and Reports as per HPI Musculoskeletal: Musculoskeletal: Reports no additional musculoskeletal complaints and Reports as per HPI Integumentary/Breasts: Skin/Breast: Reports system reviewed and no additional complaints, except as docu Neurologic: Reports system reviewed and no additional complaints, except as documented and Reports as per HPI Psychiatric: Psychiatric: Reports no additional psychiatric complaints and Reports as per HPI Endocrine: Endocrine: Reports no additional endocrine complaints, Reports as per HPI and Reports palpitations Hematologic/Lymphatic: Hematologic/Lymphatic: Reports no additional hematologic/lymphatic complaints and Reports as per HPI Allergic/Immunologic: Allergic/Immunologic: Reports no additional allergic/immunologic complaints and Reports as per HPI [facility] Past Medical History Medical History Atrial fibrillation History of cardioversion History of alcohol abuse DVT (deep venous thrombosis) Testicular cancer Family History Family History Mother Breast cancer Father Irregular heart beat Maternal Grandfather Heart attack Paternal Grandfather Heart attack Surgical History Surgical History H/O thumb surgery Hx of tonsillectomy H/O rotator cuff surgery History of right hip replacement History of orchiectomy Social History Social History Household Members: Other Housing: House Do you presently have visiting nurse or other home services: No Alcohol intake: current Alcohol intake frequency: a few times a week Comment: 2 drinks a day Patient Tobacco Use Status: Former Tobacco user Tobacco use type: Cigar Years Smoked: stopped 42 years old, smokes weed e-Cigarette/Vaping Use: Never Used Second Hand Smoke Exposure: No Substance Use Type: Marijuana service: No Current occupational status: disabled Current occupational exposures/hazards: No Cognitive needs: No Hearing needs: No Vision needs: Yes Meds Allergies Allergy/AdvReac Type Severity Reaction Status Date / Time No Known Allergies Allergy Verified 07/28/24 11:53 Active Medications: Current Medications Acetaminophen (Acetaminophen 325 Mg Tablet) 650 mg PO Q6H PRN PRN Reason: Pain, Mild 1-3,fever,headache Last Admin: 07/28/24 16:30 Dose: 650 mg Calcium Carbonate (Calcium Carbonate 750 Mg Tab.Chew) 750 mg PO Q4H PRN PRN Reason: Heartburn Diltiazem HCl (Diltiazem Hcl 50 Mg/10 Ml Vial) 10 mg IVPUSH STAT STA Stop: 07/29/24 09:27 Diltiazem HCl 125 mg/ Sodium (Chloride) 125 mls @ 0 mls/hr IVCONT .Q0M [facility]; Protocol Magnesium Hydroxide (Milk Of Magnesia 30 Ml Oral.Susp) 30 ml PO DAILY PRN PRN Reason: Constipation Melatonin (Melatonin 3 Mg Tablet) 6 mg PO BEDTIME PRN PRN Reason: Insomnia Metoprolol Tartrate (Metoprolol Tartrate 25 Mg Tablet) 25 mg PO QID [facility]; Protocol Last Admin: 07/29/24 09:25 Dose: 25 mg Ondansetron HCl (Ondansetron Hcl 4 Mg/2 Ml Vial) 4 mg IVPUSH Q8H PRN PRN Reason: Nausea and Vomiting Rivaroxaban (Rivaroxaban 20 Mg Tablet) 20 mg PO DAILY@1700 [facility] Sodium Chloride (0.9 % Sodium Chloride Flush 3 Ml Syringe) 3 ml IVFLUSH QSHIFT [facility] Last Admin: 07/29/24 09:26 Dose: 3 ml Home Medications ?Medication ?Instructions ?Recorded ?Confirmed ?Last Taken ?Type atorvastatin 10 mg tablet 10 mg PO DAILY 07/28/24 07/28/24 07/28/24 History hydrochlorothiazide 12.5 mg tablet 12.5 mg PO DAILY 07/28/24 07/28/24 07/28/24 History trazodone 50 mg tablet 100 mg PO BEDTIME PRN sleep 07/28/24 07/28/24 07/27/24 History Physical Exam Vital Signs: Vital Signs: Last Vital Signs Temp 98.8 F 07/29/24 08:38 Pulse 180 H 07/29/24 09:25 Resp 18 07/29/24 08:38 BP 125/85 07/29/24 08:38 Pulse Ox 96 07/29/24 08:38 O2 Del Method Room Air 07/29/24 08:38 BMI result Body Mass Index 32.5 Const: General: comfortable and no acute distress Orientation/consciousness: patient oriented x3 HEENT: Other: Unremarkable Head: Yes normal to inspection Neck: Neck: Yes normal visual inspection Chest: Chest palpation & inspection: normal inspection of the chest Resp: Auscultation: clear to auscultation bilaterally Cardio: Palpation: normal PMI Heart sounds: S1 normal heart sound present, S2 normal heart sound present, no gallops, no murmurs and no rubs GI: Palpation (GI): Soft to palpation Back/Spine/Pelvis: Other: unremarkable Skin: General skin exam: no rashes or lesions noted Neuro: General: patient oriented x3 Extrem: General: Yes normal to inspection Psych: Mental Status: mental status grossly normal Objective Labs and Meds 07/28/24 11:59 07/28/24 11:59 Lab results: Laboratory Results - last 24 hr 07/28/24 11:59 WBC 6.7 RBC 5.31 Hgb 16.3 Hct 47.3 MCV 89.1 MCH 30.7 MCHC 34.5 RDW 14.4 Plt Count 189 MPV 8.5 L Immature Gran % (Auto) 0.7 H Neut % (Auto) 77.0 H Lymph % (Auto) 13.2 L [place] % (Auto) 7.6 Eos % (Auto) 0.6 Baso % (Auto) 0.9 Lymph # (Auto) 0.9 L [place] # (Auto) 0.5 Eos # (Auto) 0.0 Baso # (Auto) 0.1 Abs Immat Gran (auto) 0.05 H Absolute Neuts (auto) 5.2 Absolute Nucleated RBC 0.000 Nucleated RBC % (auto) 0.0 PT 11.0 INR 0.9 Sodium 139 Potassium 4.0 Chloride 99 Carbon Dioxide 22 Anion Gap 22 H BUN 16 Creatinine 1.18 Estim Creat Clear Calc 97.1 Estimated GFR > 60 Random Glucose 161 H Calcium 9.6 Magnesium 1.8 Total Bilirubin 1.0 Direct Bilirubin 0.3 AST 46 H ALT 54 H Alkaline Phosphatase 64 Troponin I High Sens 5.2 D B-Natriuretic Peptide 121 H Total Protein 8.3 H Albumin 4.6 TSH 1.47 Ethyl Alcohol < 10 Influenza Type A (PCR) NEGATIVE Influenza Type B (PCR) NEGATIVE RSV RNA Qual (PCR) NEGATIVE SARS-CoV-2 RNA (RT-PCR) NEGATIVE ECG Interpretation: EKG with atrial fibrillation at 134/Min. Imaging Radiologist's impression: Impressions Chest X-Ray 07/28/24 12:24 IMPRESSION: No acute cardiopulmonary abnormality. Electronically signed by: Ildefonso Bass MD 07/28/2024 12:36 PM [facility] [place] Assessment and Plan (1) Atrial fibrillation with RVR: Status: Acute Plan Atrial fibrillation with rapid ventricular response. His heart rate is slightly rapid but sometimes goes quite fast into the 160s +. Can resume the Cardizem drip for today. He is on overall beta-blockers that can be continued. Continue anticoagulation. Plan for JENNA/cardioversion tomorrow. NPO past midnight. Will need to clearly cut back and stop alcohol use as more than likely it is going to cause recurring atrial fibrillation. Procedures Date of Service Date of Service: 07/29/24
[2024-07-29] MEDS: dilTIAZem HCL 50 MG/10 ML VIAL 10 MG IVPUSH (09:43)
[2024-07-29] MEDS: dilTIAZem HCL 125 MG in 0.9 % Sodium Chloride 100 ML 10 MG IVCONT (10:00)
--- NOTE | 2024-07-29 14:07 | P.PNIM_ITS ---
Subjective Subjective Date of Service: 07/29/24 Interval History: Poorly controlled ventricular response rate. Cardizem bolus with drip initiated with good results. Voiced no complaints during episodes Review of Systems Denies chest pain Denies shortness of breath Denies nausea vomiting diarrhea Denies fever chills Physical Exam 2 Vital Signs: Vital Signs: Last Vital Signs Temp 97.6 F 07/29/24 11:45 Pulse 88 07/29/24 13:52 Resp 18 07/29/24 11:45 BP 129/69 07/29/24 13:52 Pulse Ox 97 07/29/24 11:45 O2 Del Method Room Air 07/29/24 11:45 BMI result Body Mass Index 32.5 Const: Other: Awake alert no acute distress Resp: Other: Clear to auscultation bilaterally no rales rhonchi or wheezes Cardio: Other: No S4; positive S1-S2; no S3 murmurs rubs or gallops. Irregularly irregular Neuro: Other: Cranial nerves 2-12 grossly intact as tested. Motor is 5/5 all extremities. Sensation is intact. Cognition appropriate. Gait steady Extrem: Other: No edema bilaterally Objective Data Active Medications Acetaminophen (Acetaminophen 325 Mg Tablet) 650 mg PO Q6H PRN PRN Reason: Pain, Mild 1-3,fever,headache Last Admin: 07/28/24 16:30 Dose: 650 mg Documented By: BETSY Calcium Carbonate (Calcium Carbonate 750 Mg Tab.Chew) 750 mg PO Q4H PRN PRN Reason: Heartburn Diltiazem HCl 125 mg/ Sodium (Chloride) 125 mls @ 0 mls/hr IVCONT .Q0M [facility]; Protocol Last Admin: 07/29/24 10:00 Dose: 10 mg/hr, 10 mls/hr Documented By: ANIKET Magnesium Hydroxide (Milk Of Magnesia 30 Ml Oral.Susp) 30 ml PO DAILY PRN PRN Reason: Constipation Melatonin (Melatonin 3 Mg Tablet) 6 mg PO BEDTIME PRN PRN Reason: Insomnia Metoprolol Tartrate (Metoprolol Tartrate 25 Mg Tablet) 25 mg PO QID [facility]; Protocol Last Admin: 07/29/24 13:52 Dose: 25 mg Documented By: ANIKET Ondansetron HCl (Ondansetron Hcl 4 Mg/2 Ml Vial) 4 mg IVPUSH Q8H PRN PRN Reason: Nausea and Vomiting Rivaroxaban (Rivaroxaban 20 Mg Tablet) 20 mg PO DAILY@1700 [facility] Sodium Chloride (0.9 % Sodium Chloride Flush 3 Ml Syringe) 3 ml IVFLUSH QSHIFT [facility] Last Admin: 07/29/24 09:26 Dose: 3 ml Documented By: ANIKET Labs 07/28/24 11:59 07/28/24 11:59 Assessment and Plan (1) Atrial fibrillation with RVR: Status: Acute Plan Pt is a 64-year-old male with a PMH significant for?paroxysmal AFib not on anticoagulation, hx of cardioversion x2, hx of DVT in 2021 previously on Xarelto, HTN, HLD, testicular cancer at age 37 s/p left orchiectomy, and right hip replacement who presents to the ED with?sudden-onset palpitations earlier this morning. Pt will be admitted to the hospital for treatment and further evaluation of symptomatic AFib with RVR. 1.Symptomatic AFib with RVR -rate poorly controlled initially; Cardizem 10 mg IV followed by drip initiated with improved control of ventricular response rate -continue Xarelto as ordered -continue Cardizem drip; no indication to reduce drip as rate well control at this point -NPO after midnight pending JENNA and cardioversion in a.m. 2.Hx of DVT -Xarelto 3.HTN -acceptable control off therapies -reintroduce as clinically indicated Full Code Xarelto Requires ongoing hospitalization for IV Cardizem to control ventricular response rate. Specialty consultation for JENNA cardioversion in a.m. Quality Stroke Does the patient have a stroke diagnosis?: No VTE Prior VTE?: Yes VTE Risk Level:: Medical - moderate - high VTE Device Contraindication: Treatment Not Indicated VTE Drug Contraindication: N/A - Med Ordered
[2024-07-29] MEDS: Rivaroxaban 20 MG TABLET PO (16:32)
[2024-07-29] MEDS: dilTIAZem HCL 125 MG in 0.9 % Sodium Chloride 100 ML IVCONT (20:05)
[2024-07-30] VITALS (9 sets, daily range): BP systolic 112–134; BP diastolic 60–85; PULSE 52–107; RESP 16–20; TEMP 35.7–36.9; O2SAT 96–99
--- NOTE | 2024-07-30 07:00 | CA_ITS ---
Transesophageal Echocardiogram Patient (Last, First, Middle): Jf Jiménez, Gender: Male Date of : 1960 Age: 64 Procedure Date: 07/30/2024 Procedure Type: Transesophageal Echocardiogram Location: [facility] [place] Height: 160.02 cm Weight: kg Mercury Cell Cleaner: JOSEPH Referring MD: Carlos Rao MD Symptoms: AFIB, CARDIOVERSION Conclusion: ??? There is no evidence of a thrombus in the left atrial appendage. Findings Procedure Information The patient is being monitored per protocol. The quality of the study was good. Consent was obtained prior to the procedure. Pre JENNA oral cavity was checked and revealed no overcrowding. The adult 3D probe was passed with no difficulty. Left Ventricle Normal left ventricular cavity size. The left ventricular systolic function is normal. The visually estimated ejection fraction is between 55-60%. There is no evidence of regional wall motion abnormalities. Atria There is lipomatous hypertrophy of the interatrial septum. There is no evidence of a thrombus in the left atrial appendage. There is no evidence of interatrial shunt by color Doppler. There is no evidence of a patent foramen ovale. Aortic Valve There is a normal trileaflet aortic valve. There is no aortic valve stenosis. There is no aortic valve regurgitation. Mitral Valve The mitral valve appears normal. There is trace mitral valve regurgitation. There is no mitral valve stenosis. Pulmonic Valve The pulmonic valve was not well visualized. Tricuspid Valve There is mild tricuspid valve regurgitation. Great Vessels Moderate plaque is seen in the sino tubular ridge. Prior Study Comparison No significant change compared to prior study dated: 07/29/2024. Updated by Carlos Rao on 11:41 AM with Status of Final Carlos Rao MD electronically signed on 08/01/2024 11:41:09 AM with status of Final
[2024-07-30 07:10] LABS: MANUAL DIFF FLAG NO
[2024-07-30 07:14] LABS: Basophils Percent Auto 0.6 % (0-2); Eosinophils Absolute Auto 0.1 X10*3/uL (0.0-0.4); Eosinophils Percent Auto 2.6 % (0-4); Hematocrit 43.6 % (42.0-52.0); Hemoglobin 15.4 g/dl (14.0-18.0); Imm Gran Abs Auto 0.04 X10*3/uL (0.00-0.03); Imm Gran Pct Auto 0.8 % (0.0-0.4); Lymphocytes Absolute Auto 1.1 X10*3/uL (1.2-4.9); Lymphocytes Percent Auto 20.9 % (20-40); Mean Corpuscular HGB Conc 35.3 g/dl (31.0-36.0); Mean Corpuscular Hemoglobin 31.1 pg (27.0-33.0); Mean Corpuscular Volume 88.1 fL (80.0-98.0); Mean Platelet Volume 9.1 fL (9.4-12.4); Monocytes Absolute Auto 0.7 X10*3/uL (0.1-1.2); Monocytes Percent Auto 13.2 % (2-11); Neutrophils Absolute Auto 3.3 x10*3/uL (2.0-8.3); Neutrophils Percent Auto 61.9 % (45-73); Platelet Count 146 X10*3/uL (160-400); Red Blood Count 4.95 X10*6/uL (4.60-5.80); Red Cell Distribution Width 14.2 % (11.0-16.0); White Blood Count 5.3 X10*3/uL (4.8-10.8)
[2024-07-30 07:29] LABS: Alanine Aminotransferase 42 U/L (0-40); Albumin Level 3.9 g/dL (3.5-5.0); Alkaline Phosphatase 56 U/L (39-117); Anion Gap 14 (12-20); Aspartate Amino Transferase 34 U/L (5-37); Bilirubin Total 0.9 mg/dL (0.0-1.0); Blood Urea Nitrogen 14 mg/dL (9-16); Calcium 8.5 mg/dL (8.4-10.2); Carbon Dioxide 22 mmol/L (22-29); Chloride 106 mmol/L (96-108); Creatinine Clr Calc Pharmacy 113.5; Estimated Glomerular Filt Rate > 60; Glucose Fasting 117 mg/dL (60-99); Potassium 3.6 mmol/L (3.3-5.1); Sodium 138 mmol/L (135-145); Total Protein 7.1 g/dL (6.5-8.0)
[2024-07-30] MEDS: 0.9 % Sodium Chloride Flush 3 ML SYRINGE IVFLUSH ×3 (08:25→20:16)
[2024-07-30] MEDS: Metoprolol Tartrate 25 MG TABLET PO ×4 (08:25→20:16)
--- NOTE | 2024-07-30 09:58 | P.PNCA_ITS ---
Subjective Subjective Date of Service: 07/30/24 Interval history: Underwent transesophageal echocardiogram/cardioversion today. He feels okay. Review of Systems Review of Systems Yes all other systems are reviewed and are negative Constitutional: Reports as per HPI and Reports no additional constitutional complaints Eyes: Reports as per HPI and Denies no additional eye complaints Denies system reviewed and no additional complaints, except as documented and Reports as per HPI Cardiovascular: Reports as per HPI, Reports no additional cardiovascular complaints, Denies acrocyanosis, Denies cool extremities, Denies chest pain, Denies leg edema, Denies lightheadedness, Denies palpitations and Denies dyspnea Respiratory: Reports as per HPI, Denies no additional respiratory complaints and Denies dyspnea Gastrointestinal: Reports as per HPI and Denies no additional gastrointestinal complaints Genitourinary: Reports no additional male genitourinary complaints and Reports as per HPI Musculoskeletal: Reports no additional musculoskeletal complaints and Reports as per HPI Skin/Breast: Reports system reviewed and no additional complaints, except as docu Reports system reviewed and no additional complaints, except as documented and Reports as per HPI Psychiatric: Reports no additional psychiatric complaints and Reports as per HPI Endocrine: Reports no additional endocrine complaints, Reports as per HPI and Denies palpitations Hematologic/Lymphatic: Reports no additional hematologic/lymphatic complaints and Reports as per HPI Allergic/Immunologic: Reports no additional allergic/immunologic complaints and Reports as per HPI Physical Exam Vital Signs: Last Vital Signs Temp 98.4 F 07/30/24 07:42 Pulse 76 07/30/24 07:42 Resp 18 07/30/24 07:42 BP 123/67 07/30/24 07:42 Pulse Ox 96 07/30/24 07:42 O2 Del Method Room Air 07/30/24 07:42 BMI result Body Mass Index 32.5 Const General: comfortable and no acute distress Orientation/consciousness: patient oriented x3 HEENT Other: Unremarkable Head: Yes normal to inspection Neck Neck: Yes normal visual inspection Chest Chest palpation & inspection: normal inspection of the chest Resp Auscultation: clear to auscultation bilaterally Cardio Palpation: normal PMI Heart sounds: S1 normal heart sound present, S2 normal heart sound present, no gallops, no murmurs and no rubs GI Palpation (GI): Soft to palpation Back/Spine/Pelvis Other: unremarkable Skin General skin exam: no rashes or lesions noted Neuro General: patient oriented x3 Extrem General: Yes normal to inspection Psych Mental Status: mental status grossly normal Objective Labs and Meds 07/30/24 06:13 07/30/24 06:13 Lab results: Laboratory Results - last 24 hr 07/30/24 06:13 WBC 5.3 RBC 4.95 Hgb 15.4 Hct 43.6 MCV 88.1 MCH 31.1 MCHC 35.3 RDW 14.2 Plt Count 146 L MPV 9.1 L Immature Gran % (Auto) 0.8 H Neut % (Auto) 61.9 Lymph % (Auto) 20.9 [place] % (Auto) 13.2 H Eos % (Auto) 2.6 Baso % (Auto) 0.6 Lymph # (Auto) 1.1 L [place] # (Auto) 0.7 Eos # (Auto) 0.1 Baso # (Auto) 0.0 Abs Immat Gran (auto) 0.04 H Absolute Neuts (auto) 3.3 Absolute Nucleated RBC 0.000 Nucleated RBC % (auto) 0.0 Sodium 138 Potassium 3.6 Chloride 106 Carbon Dioxide 22 Anion Gap 14 BUN 14 Creatinine 1.01 Estim Creat Clear Calc 113.5 Estimated GFR > 60 Fasting Glucose 117 H Calcium 8.5 D Total Bilirubin 0.9 AST 34 ALT 42 H Alkaline Phosphatase 56 Total Protein 7.1 Albumin 3.9 Progress Note: A&P Assessment and plan (1) Atrial fibrillation with RVR: Status: Acute Plan Atrial fibrillation with rapid response in spite of using Multaq. Status post JENNA/cardioversion today. He is currently in sinus rhythm. Start amiodarone loading dose followed by maintenance. Continue anticoagulation. Continue beta-blockers. If he remains stable, plan discharge tomorrow. Follow up in clinic and potentially referral for ablation. Minimize or stop alcohol use. Discussed. Time Spent With Patient Time: Total time managing care of this patient today ____ minutes. Progress Note: Quality Stroke Does the patient have a stroke diagnosis?: No Procedures Date of Service Date of Service: 07/30/24
--- NOTE | 2024-07-30 12:04 | MHC.SHP ---
Pre-Procedural Eval Section A - 24 Hr Update-Section A only Date of Service: 07/30/24 The patient is an INPATIENT: Yes Section B - Complete if H&P > 30 days Chief Complaint: Symptomatic Afib with RVR Allergies: Allergies Allergy/AdvReac Type Severity Reaction Status Date / Time No Known Allergies Allergy Verified 07/28/24 11:53 Plan I have reviewed the history and physical and performed a pertinent physical examination on my patient. No changes have occurred unless specified. Time Spent With Patient Time: Total time managing care of this patient today ____ minutes.
--- NOTE | 2024-07-30 12:49 | P.PNIM_ITS ---
Subjective Subjective Date of Service: 07/30/24 Interval History: Rate well control overnight. DC this a.m. secondary to cardioversion Review of Systems Denies chest pain Denies shortness of breath Denies nausea vomiting diarrhea Denies fever chills Physical Exam 2 Vital Signs: Vital Signs: Last Vital Signs Temp 97.6 F 07/30/24 11:35 Pulse 107 H 07/30/24 11:35 Resp 16 07/30/24 11:35 BP 119/85 07/30/24 11:35 Pulse Ox 98 07/30/24 11:35 O2 Del Method Room Air 07/30/24 11:35 BMI result Body Mass Index 32.5 Const: Other: Awake alert no acute distress Resp: Other: Clear to auscultation bilaterally no rales rhonchi or wheezes Cardio: Other: No S4; positive S1-S2; no S3 murmurs rubs or gallops. Irregularly irregular Neuro: Other: Cranial nerves 2-12 grossly intact as tested. Motor is 5/5 all extremities. Sensation is intact. Cognition appropriate. Gait steady Extrem: Other: No edema bilaterally Objective Data Active Medications Acetaminophen (Acetaminophen 325 Mg Tablet) 650 mg PO Q6H PRN PRN Reason: Pain, Mild 1-3,fever,headache Last Admin: 07/28/24 16:30 Dose: 650 mg Documented By: BETSY Calcium Carbonate (Calcium Carbonate 750 Mg Tab.Chew) 750 mg PO Q4H PRN PRN Reason: Heartburn Diltiazem HCl 125 mg/ Sodium (Chloride) 125 mls @ 0 mls/hr IVCONT .Q0M [facility]; Protocol Last Titration: 07/30/24 09:20 Dose: 0 mg/hr, 0 mls/hr Documented By: ANIKET Magnesium Hydroxide (Milk Of Magnesia 30 Ml Oral.Susp) 30 ml PO DAILY PRN PRN Reason: Constipation Melatonin (Melatonin 3 Mg Tablet) 6 mg PO BEDTIME PRN PRN Reason: Insomnia Metoprolol Tartrate (Metoprolol Tartrate 25 Mg Tablet) 25 mg PO QID [facility]; Protocol Last Admin: 07/30/24 08:25 Dose: 25 mg Documented By: ANIKET Ondansetron HCl (Ondansetron Hcl 4 Mg/2 Ml Vial) 4 mg IVPUSH Q8H PRN PRN Reason: Nausea and Vomiting Rivaroxaban (Rivaroxaban 20 Mg Tablet) 20 mg PO DAILY@1700 [facility] Last Admin: 07/29/24 16:32 Dose: 20 mg Documented By: ANIKET Sodium Chloride (0.9 % Sodium Chloride Flush 3 Ml Syringe) 3 ml IVFLUSH QSHIFT [facility] Last Admin: 07/30/24 08:25 Dose: 3 ml Documented By: ANIKET Labs 07/30/24 06:13 07/30/24 06:13 Labs: Laboratory Results - last 24 hr 07/30/24 06:13 MCV 88.1 MCH 31.1 MCHC 35.3 RDW 14.2 Plt Count 146 L MPV 9.1 L Immature Gran % (Auto) 0.8 H Neut % (Auto) 61.9 Lymph % (Auto) 20.9 [place] % (Auto) 13.2 H Eos % (Auto) 2.6 Baso % (Auto) 0.6 Lymph # (Auto) 1.1 L [place] # (Auto) 0.7 Eos # (Auto) 0.1 Baso # (Auto) 0.0 Abs Immat Gran (auto) 0.04 H Absolute Neuts (auto) 3.3 Absolute Nucleated RBC 0.000 Nucleated RBC % (auto) 0.0 Anion Gap 14 Estim Creat Clear Calc 113.5 Estimated GFR > 60 Fasting Glucose 117 H Calcium 8.5 D Total Bilirubin 0.9 AST 34 ALT 42 H Alkaline Phosphatase 56 Total Protein 7.1 Albumin 3.9 Assessment and Plan (1) Atrial fibrillation with RVR: Status: Acute Plan Pt is a 64-year-old male with a PMH significant for?paroxysmal AFib not on anticoagulation, hx of cardioversion x2, hx of DVT in 2021 previously on Xarelto, HTN, HLD, testicular cancer at age 37 s/p left orchiectomy, and right hip replacement who presents to the ED with?sudden-onset palpitations earlier this morning. Pt will be admitted to the hospital for treatment and further evaluation of symptomatic AFib with RVR. 1.Symptomatic AFib with RVR -rate control on Cardizem drip; DC pending cardioversion later today -continue Xarelto as ordered -NPO pending JENNA and cardioversion today 2.Hx of DVT -Xarelto 3.HTN -acceptable control off therapies -reintroduce as clinically indicated Full Code Xarelto Requires ongoing hospitalization for IV Cardizem to control ventricular response rate. Specialty consultation for JENNA cardioversion in a.m. Quality Stroke Does the patient have a stroke diagnosis?: No VTE Prior VTE?: Yes VTE Risk Level:: Medical - moderate - high VTE Device Contraindication: Treatment Not Indicated VTE Drug Contraindication: N/A - Med Ordered
--- NOTE | 2024-07-30 12:50 | HO.CARDIVERS ---
Cardioversion Procedure Note Cardioversion Date of Procedure: 07/30/2024 Pre-Op Diagnosis: Atrial fibrillation with rapid ventricular response Post-Op Diagnosis: Sinus rhythm Procedure: After informed consent was obtained, the patient was taken to the operating room. Under anesthesia, transesophageal echocardiogram was initially performed. That showed no evidence of left atrial appendage thrombus. Subsequently, 120 joules synchronized shock administered through pads in the anteroposterior position. Rhythm converted from atrial fibrillation with rapid rate to sinus rhythm. Complications: None. Impression: Successful cardioversion from atrial fibrillation to sinus rhythm. Recommendations: Start amiodarone.
--- NOTE | 2024-07-30 12:51 | ECG_ITS ---
Test Reason : post cardioversion Blood Pressure : */* mmHG Vent. Rate : 69 BPM Atrial Rate : 69 BPM P-R Int : 180 ms QRS Dur : 78 ms QT Int : 424 ms P-R-T Axes : 8 1 -8 degrees QTcB Int : 454 ms Normal sinus rhythm Minimal voltage criteria for LVH, may be normal variant ( R in aVL ) Borderline ECG When compared with ECG of 28-Jul-2024 11:46, Sinus rhythm has replaced Atrial fibrillation Vent. rate has decreased by [address] and T wave abnormality anterior leads Referred By: Barbi Odonnell Electronically Signed By: BARBI ODONNELL
--- NOTE | 2024-07-30 13:01 | P.CONAN_ITS ---
[facility] Active Problems Active Problems: All Active Problems Atrial fibrillation with RVR (Acute) Allergic dermatitis (Acute) Alcohol abuse (Acute) Bereavement (Acute) Major depressive disorder, single episode, moderate (Acute) Colonoscopy refused (Acute) Onychomycosis (Acute) Insomnia (Acute) Gastroenteritis (Acute) Situational depression (Acute) Hospital discharge follow-up (Acute) PAF (paroxysmal atrial fibrillation) (Acute) Hypertension (Acute) Hypercholesterolemia (Acute) LFT elevation (Acute) Elevated blood sugar (Acute) Colon cancer screening (Acute) Tinnitus (Acute) Annual physical exam (Acute) History of alcohol abuse (Acute) DVT (deep venous thrombosis) (Acute) Past Medical History Medical History History of cardioversion History of alcohol abuse Atrial fibrillation DVT (deep venous thrombosis) Testicular cancer Family History Family History Mother Breast cancer Father Irregular heart beat Maternal Grandfather Heart attack Paternal Grandfather Heart attack Family history of problems with anesthesia: No Surgical History Surgical History (Updated 07/30/24 @ 11:40 by Ebonie Ann RN) H/O thumb surgery Hx of tonsillectomy H/O rotator cuff surgery History of right hip replacement History of orchiectomy History of Problems with Anesthesia: No Social History Social History Household Members: Other Housing: House Do you presently have visiting nurse or other home services: No Alcohol intake: current Alcohol intake frequency: a few times a week Comment: 2 drinks a day Patient Tobacco Use Status: Former Tobacco user Tobacco use type: Cigar Years Smoked: stopped 42 years old, smokes weed e-Cigarette/Vaping Use: Never Used Second Hand Smoke Exposure: No Substance Use Type: Marijuana service: No Current occupational status: disabled Current occupational exposures/hazards: No Cognitive needs: No Hearing needs: No Vision needs: Yes Meds Allergies Allergy/AdvReac Type Severity Reaction Status Date / Time No Known Allergies Allergy Verified 07/28/24 11:53 Active Medications: Current Medications Acetaminophen (Acetaminophen 325 Mg Tablet) 650 mg PO Q6H PRN PRN Reason: Pain, Mild 1-3,fever,headache Last Admin: 07/28/24 16:30 Dose: 650 mg Amiodarone HCl (Amiodarone Hcl 200 Mg Tablet) 400 mg PO BID [facility] Calcium Carbonate (Calcium Carbonate 750 Mg Tab.Chew) 750 mg PO Q4H PRN PRN Reason: Heartburn Magnesium Hydroxide (Milk Of Magnesia 30 Ml Oral.Susp) 30 ml PO DAILY PRN PRN Reason: Constipation Melatonin (Melatonin 3 Mg Tablet) 6 mg PO BEDTIME PRN PRN Reason: Insomnia Metoprolol Tartrate (Metoprolol Tartrate 25 Mg Tablet) 25 mg PO QID [facility]; Protocol Last Admin: 07/30/24 08:25 Dose: 25 mg Ondansetron HCl (Ondansetron Hcl 4 Mg/2 Ml Vial) 4 mg IVPUSH Q8H PRN PRN Reason: Nausea and Vomiting Rivaroxaban (Rivaroxaban 20 Mg Tablet) 20 mg PO DAILY@1700 [facility] Last Admin: 07/29/24 16:32 Dose: 20 mg Sodium Chloride (0.9 % Sodium Chloride Flush 3 Ml Syringe) 3 ml IVFLUSH QSHIFT [facility] Last Admin: 07/30/24 08:25 Dose: 3 ml Home Medications ?Medication ?Instructions ?Recorded ?Confirmed ?Last Taken ?Type atorvastatin 10 mg tablet 10 mg PO DAILY 07/28/24 07/28/24 07/28/24 History hydrochlorothiazide 12.5 mg tablet 12.5 mg PO DAILY 07/28/24 07/28/24 07/28/24 History trazodone 50 mg tablet 100 mg PO BEDTIME PRN sleep 07/28/24 07/28/24 07/27/24 History Exam Height,Weight and Vital Signs: Height 6 ft 6 in Weight 127.5 kg Last Vital Signs Temp 97.8 F 07/30/24 12:57 Pulse 80 07/30/24 12:57 Resp 17 07/30/24 12:57 BP 118/60 07/30/24 12:57 Pulse Ox 98 07/30/24 12:57 O2 Del Method Room Air 07/30/24 12:57 Pertinent Lab Results Pertinent Lab Results: Laboratory Tests 07/28/24 07/30/24 11:59 06:13 WBC 6.7 5.3 RBC 5.31 4.95 Hgb 16.3 15.4 Hct 47.3 43.6 MCV 89.1 88.1 MCH 30.7 31.1 MCHC 34.5 35.3 RDW 14.4 14.2 Plt Count 189 146 L MPV 8.5 L 9.1 L Immature Gran % (Auto) 0.7 H 0.8 H Neut % (Auto) 77.0 H 61.9 Lymph % (Auto) 13.2 L 20.9 [place] % (Auto) 7.6 13.2 H Eos % (Auto) 0.6 2.6 Baso % (Auto) 0.9 0.6 Lymph # (Auto) 0.9 L 1.1 L [place] # (Auto) 0.5 0.7 Eos # (Auto) 0.0 0.1 Baso # (Auto) 0.1 0.0 Abs Immat Gran (auto) 0.05 H 0.04 H Absolute Neuts (auto) 5.2 3.3 Absolute Nucleated RBC 0.000 0.000 Nucleated RBC % (auto) 0.0 0.0 PT 11.0 INR 0.9 Sodium 139 138 Potassium 4.0 3.6 Chloride 99 106 Carbon Dioxide 22 22 Anion Gap 22 H 14 BUN 16 14 Creatinine 1.18 1.01 Estim Creat Clear Calc 97.1 113.5 Estimated GFR > 60 > 60 Random Glucose 161 H Fasting Glucose 117 H Calcium 9.6 8.5 D Magnesium 1.8 Total Bilirubin 1.0 0.9 Direct Bilirubin 0.3 AST 46 H 34 ALT 54 H 42 H Alkaline Phosphatase 64 56 Troponin I High Sens 5.2 D B-Natriuretic Peptide 121 H Total Protein 8.3 H 7.1 Albumin 4.6 3.9 TSH 1.47 Ethyl Alcohol < 10 Influenza Type A (PCR) NEGATIVE Influenza Type B (PCR) NEGATIVE RSV RNA Qual (PCR) NEGATIVE SARS-CoV-2 RNA (RT-PCR) NEGATIVE Airway Mallampati Class: III TM Dist: >3cm Neck ROM: Full Heart: [email or web address]. Assessment and Plan Assessment Anesthesia Assessment: Anesthesia Plan Discussed and Chart Reviewed Final Anesthetic Review Family History of Problems with Anesthesia: No History of Problems with Anesthesia: No NPO: Yes ASA Class: III and Emergency Final Preanesthetic Review: No Changes in Pt Med Stat, Meds/Allgs Chart Reviewed, Consent Obtained/Reviewed and Anes Risks/Benef Reviewed Patient Risk: Intermediate Procedure Risk: Low Anesthetic Plan Anesthetic Plan: GA Disposition: Standard PACU
[2024-07-30] MEDS: Amiodarone HCL 200 MG TABLET 400 MG PO ×2 (13:42→20:16)
[2024-07-30] MEDS: Rivaroxaban 20 MG TABLET PO (17:01)
[2024-07-31 03:51] VITALS: BP 118/69; PULSE 66; RESP 18; TEMP 36.4; O2SAT 98
--- NOTE | 2024-07-31 06:31 | PC.NURSE ---
Pt's step son had been bedside and left early in the morning. Shortly after, pt came out of his room and was upset. He asked this RN what the policy was about family members leaving and returning. RN explained hospital's policy. Pt then stated to this RN When my stepson comes back I want you to tell him he's not allowed to leave again. Then pt walked back to his room. He was then heard yelling at someone. Katherin returned shortly after and then pt could be heard yelling at his stepson. Security was called to mediate between pt and stepson as this RN did not feel safe to do alone d/t pt's size. Security entered pt's room and spoke to both stepson and pt. This RN spoke to pt and explained concern d/t pt's HR being high and the importance for him to be able to sleep and not have his HR so elevated. This RN and security asked pt if he wanted his stepson to leave, pt declined each time when he was asked. Pt's HR eventually went down and stepson eventually left apologizing for any trouble I caused .
[2024-07-31] MEDS: 0.9 % Sodium Chloride Flush 3 ML SYRINGE IVFLUSH (07:53)
[2024-07-31 07:54] VITALS: BP 132/74; PULSE 66
[2024-07-31] MEDS: Amiodarone HCL 200 MG TABLET 400 MG PO (07:54)
[2024-07-31] MEDS: Metoprolol Tartrate 25 MG TABLET PO (07:54)
[2024-07-31 08:00] VITALS: BP 132/72; PULSE 66; RESP 18; TEMP 36.2; O2SAT 96
--- NOTE | 2024-07-31 09:04 | PM.PNCARD ---
Subjective Subjective Date of Service: 07/31/24 Interval history: He feels good. Underwent transesophageal echocardiogram/cardioversion yesterday. Review of Systems Review of Systems Yes all other systems are reviewed and are negative Constitutional: Reports as per HPI and Reports no additional constitutional complaints Eyes: Reports as per HPI and Denies no additional eye complaints Denies system reviewed and no additional complaints, except as documented and Reports as per HPI Cardiovascular: Reports as per HPI, Reports no additional cardiovascular complaints, Denies acrocyanosis, Denies cool extremities, Denies chest pain, Denies leg edema, Denies lightheadedness, Denies palpitations and Denies dyspnea Respiratory: Reports as per HPI, Denies no additional respiratory complaints and Denies dyspnea Gastrointestinal: Reports as per HPI and Denies no additional gastrointestinal complaints Genitourinary: Reports no additional male genitourinary complaints and Reports as per HPI Musculoskeletal: Reports no additional musculoskeletal complaints and Reports as per HPI Skin/Breast: Reports system reviewed and no additional complaints, except as docu Reports system reviewed and no additional complaints, except as documented and Reports as per HPI Psychiatric: Reports no additional psychiatric complaints and Reports as per HPI Endocrine: Reports no additional endocrine complaints, Reports as per HPI and Denies palpitations Hematologic/Lymphatic: Reports no additional hematologic/lymphatic complaints and Reports as per HPI Allergic/Immunologic: Reports no additional allergic/immunologic complaints and Reports as per HPI Physical Exam Vital Signs: Last Vital Signs Temp 97.2 F 07/31/24 08:00 Pulse 66 07/31/24 08:00 Resp 18 07/31/24 08:00 BP 132/72 07/31/24 08:00 Pulse Ox 96 07/31/24 08:00 O2 Del Method Room Air 07/31/24 08:00 BMI result Body Mass Index 32.5 Const General: comfortable and no acute distress Orientation/consciousness: patient oriented x3 HEENT Other: Unremarkable Head: Yes normal to inspection Neck Neck: Yes normal visual inspection Chest Chest palpation & inspection: normal inspection of the chest Resp Auscultation: clear to auscultation bilaterally Cardio Palpation: normal PMI Heart sounds: S1 normal heart sound present, S2 normal heart sound present, no gallops, no murmurs and no rubs GI Palpation (GI): Soft to palpation Back/Spine/Pelvis Other: unremarkable Skin General skin exam: no rashes or lesions noted Neuro General: patient oriented x3 Extrem General: Yes normal to inspection Psych Mental Status: mental status grossly normal Objective Labs and Meds 07/30/24 06:13 07/30/24 06:13 Progress Note: A&P Assessment and plan (1) Atrial fibrillation with RVR: Status: Acute (2) Alcohol abuse: Status: Acute Plan Atrial fibrillation with rapid response in spite of using Multaq. Status post JENNA/cardioversion yesterday. He is currently in sinus rhythm. Amiodarone loading dose followed by maintenance. Continue anticoagulation. Continue beta-blockers. Discharge planning. Outpatient follow-up. Likely needs referral for ablation. Stop alcohol abuse. Discussed about this today. Time Spent With Patient Time: Total time managing care of this patient today ____ minutes. Progress Note: Quality Stroke Does the patient have a stroke diagnosis?: No Procedures Date of Service Date of Service: 07/31/24
--- NOTE | 2024-07-31 11:34 | PM.DS ---
DS: Providers Provider Date of Service: 07/31/24 Date of admission: 07/28/24 15:51 Date of discharge: 07/31/24 Primary care physician: Danuta Sanford MD Consults: 07/28/24 15:41 Consult to Cardiology Routine Consulting Provider: [facility] [place] [facility] Reason for consultation: Symptomatic AFib with RVR DS: Diagnosis Discharge Diagnosis (1) Atrial fibrillation with RVR: Status: Acute (2) Alcohol abuse: Status: Acute DS: Summary Hospital Course Hospital Course: From the history and physical by the admitting hospitalist, MARK Jurado, 07/28/24: Pt is a 64-year-old male with a PMH significant for?paroxysmal AFib not on anticoagulation, hx of cardioversion x2, hx of DVT in 2021 previously on Xarelto, HTN, HLD, testicular cancer at age 37 s/p left orchiectomy, and right hip replacement who presents to the ED with?sudden-onset palpitations earlier this morning. Pt states he was awoken from sleep at 02:00 with palpitations and a fluttering heartbeat. Was able to go back to sleep, but when he awoke symptoms persisted and pt also felt diaphoretic, weak, lightheaded, and dizzy. Pt has a history of paroxysmal AFib with cardioversions in 10/2022 and 05/2023 and subsequently rate controlled metoprolol and Multaq, which pt reports is adherent to. Denies any recent illnesses. Reports drinks a couple of beers 2-3 days a week. No shortness a breath or difficulty breathing. No lower extremity edema. Denies chest pain or pressure. In the ED pt was tachycardic up to 129 and tachypneic up to 22. Labs showed mild BNP mildly elevated at 121 and transaminitis of AST 46 and ALT 54, otherwise grossly unremarkable and around baseline for pt. No leukocytosis. Stable H&H. No significant electrolyte abnormalities. Tested negative for flu, RSV, COVID. Ethyl alcohol levels undetectable. CXR negative for acute cardiopulmonary abnormality. EKG demonstrated AFib with RVR 134. Pt was treated with metoprolol 5 mg IV x2 doses. Pt will be admitted to the hospital for treatment and further evaluation of symptomatic AFib with RVR. He was admitted to the telemetry unit with Cardiology consultation. He was initially rate-controlled with diltiazem IV infusion. He was also started on rivaroxaban for anticoagulation. He underwent JENNA-guided cardioversion to normal sinus rhythm on 07/30/24. He was started on amiodarone oral load. He was discharged on amiodarone [400 mg bid x 14d then 200 mg daily], metoprolol succinate [increased to 50 mg bid], and rivaroxaban [20 mg daily]. Dronaderaone was discontinued. He will follow up with Cardiology in 2 weeks and referral for ablation will be considered. He was counseled to avoid alcohol. Time Attestation Discharge Coordination Time (in mins): 45 Quality: Safe Use of Opioids Does Pt have an Active Cancer Diagnosis on the Problem List?: No Quality: Stroke Does the patient have a stroke diagnosis?: No Physical Exam Vital Signs: Vital Signs: Last Vital Signs Temp 97.2 F 07/31/24 08:00 Pulse 66 07/31/24 08:00 Resp 18 07/31/24 08:00 BP 132/72 07/31/24 08:00 Pulse Ox 96 07/31/24 08:00 O2 Del Method Room Air 07/31/24 08:00 BMI result Body Mass Index 32.5 Gen: in no acute distress HEENT: sclera anicteric, moist mucus membranes Neck: supple Lungs: clear to auscultation bilaterally Heart: regular rate and rhythm, no murmurs Abd: soft, non-tender, non-distended Ext: no edema Skin: warm/well-perfused Neuro: alert and oriented x3, no focal findings Psych: appropriate affect DS: Data Data Completed and Pending Completed studies during hospitalization [Text1]: Laboratory Results WBC 5.3 X10*3/uL (4.8-10.8) 07/30/24 06:13 RBC 4.95 X10*6/uL (4.60-5.80) 07/30/24 06:13 Hgb 15.4 g/dl (14.0-18.0) 07/30/24 06:13 Hct 43.6 % (42.0-52.0) 07/30/24 06:13 MCV 88.1 fL (80.0-98.0) 07/30/24 06:13 MCH 31.1 pg (27.0-33.0) 07/30/24 06:13 MCHC 35.3 g/dl (31.0-36.0) 07/30/24 06:13 RDW 14.2 % (11.0-16.0) 07/30/24 06:13 Plt Count 146 X10*3/uL (160-400) L 07/30/24 06:13 MPV 9.1 fL (9.4-12.4) L 07/30/24 06:13 Immature Gran % (Auto) 0.8 % (0.0-0.4) H 07/30/24 06:13 Neut % (Auto) 61.9 % (45-73) 07/30/24 06:13 Lymph % (Auto) 20.9 % (20-40) 07/30/24 06:13 [place] % (Auto) 13.2 % (2-11) H 07/30/24 06:13 Eos % (Auto) 2.6 % (0-4) 07/30/24 06:13 Baso % (Auto) 0.6 % (0-2) 07/30/24 06:13 Lymph # (Auto) 1.1 X10*3/uL (1.2-4.9) L 07/30/24 06:13 [place] # (Auto) 0.7 X10*3/uL (0.1-1.2) 07/30/24 06:13 Eos # (Auto) 0.1 X10*3/uL (0.0-0.4) 07/30/24 06:13 Baso # (Auto) 0.0 X10*3/uL (0.0-0.2) 07/30/24 06:13 Abs Immat Gran (auto) 0.04 X10*3/uL (0.00-0.03) H 07/30/24 06:13 Absolute Neuts (auto) 3.3 x10*3/uL (2.0-8.3) 07/30/24 06:13 Absolute Nucleated RBC 0.000 X10*3/uL (0.0-0.012) 07/30/24 06:13 Nucleated RBC % (auto) 0.0 /100WBC (0.0-0.2) 07/30/24 06:13 PT 11.0 SEC (10.9-12.4) 07/28/24 11:59 INR 0.9 (0.9-1.1) 07/28/24 11:59 Sodium 138 mmol/L (135-145) 07/30/24 06:13 Potassium 3.6 mmol/L (3.3-5.1) 07/30/24 06:13 Chloride 106 mmol/L (96-108) 07/30/24 06:13 Carbon Dioxide 22 mmol/L (22-29) 07/30/24 06:13 Anion Gap 14 (12-20) 07/30/24 06:13 BUN 14 mg/dL (9-16) 07/30/24 06:13 Creatinine 1.01 mg/dL (0.5-1.4) 07/30/24 06:13 Estim Creat Clear Calc 113.5 07/30/24 06:13 Estimated GFR > 60 07/30/24 06:13 Random Glucose 161 mg/dL (60-115) H 07/28/24 11:59 Fasting Glucose 117 mg/dL (60-99) H 07/30/24 06:13 Calcium 8.5 mg/dL (8.4-10.2) D 07/30/24 06:13 Magnesium 1.8 mg/dL (1.6-2.6) 07/28/24 11:59 Total Bilirubin 0.9 mg/dL (0.0-1.0) 07/30/24 06:13 Direct Bilirubin 0.3 mg/dL (0.0-0.5) 07/28/24 11:59 AST 34 U/L (5-37) 07/30/24 06:13 ALT 42 U/L (0-40) H 07/30/24 06:13 Alkaline Phosphatase 56 U/L (39-117) 07/30/24 06:13 Troponin I High Sens 5.2 ng/L (<3.5-35.0) D 07/28/24 11:59 B-Natriuretic Peptide 121 pg/mL (<100) H 07/28/24 11:59 Total Protein 7.1 g/dL (6.5-8.0) 07/30/24 06:13 Albumin 3.9 g/dL (3.5-5.0) 07/30/24 06:13 TSH 1.47 uIU/mL (0.32-4.0) 07/28/24 11:59 Ethyl Alcohol < 10 mg/dL 07/28/24 11:59 Influenza Type A (PCR) NEGATIVE (Negative) 07/28/24 11:59 Influenza Type B (PCR) NEGATIVE (Negative) 07/28/24 11:59 RSV RNA Qual (PCR) NEGATIVE (Negative) 07/28/24 11:59 SARS-CoV-2 RNA (RT-PCR) NEGATIVE (Negative) 07/28/24 11:59 Impressions Chest X-Ray 07/28/24 12:24 IMPRESSION: No acute cardiopulmonary abnormality. Electronically signed by: Ildefonso Bass MD 07/28/2024 12:36 PM EST RP JENNA 07/29/24 - The left ventricular systolic function is normal. The calculated ejection fraction is 67% by biplane method. - No obvious valvular pathology seen on this study. Discharge Plan Discharge Anticipated Discharge Date/Time: 07/31/24 11:22 Patient Disposition: Home, Self-Care Discharge Diagnosis: atrial fibrillation with rapid ventricular response Referrals: Estiven Hutchins MD [Physician] - 2 Weeks Po,Danuta Devine MD [Primary Care Provider] - 1 Week Discharge Medications: New Xarelto 20 mg Tablet 20 mg PO DAILY@1700 Qty: 30 0RF amiodarone 200 mg Tablet See Rx Instructions .ROUTE .COMPLEX Qty: 72 0RF Rx Instructions: 400 mg (two 200 mg tabs) twice daily for 14 days, then 200 mg (one 100 mg tab) once daily metoprolol succinate 50 mg tablet extended release 24 hr 50 mg PO BID Qty: 60 0RF Continued trazodone 50 mg tablet 100 mg PO BEDTIME PRN (Reason: sleep) Rx Instructions: 50 mg orally take 1-2 tablets at bedtime prn sleep PRN; atorvastatin 10 mg tablet 10 mg PO DAILY cetirizine 10 mg tablet 10 mg PO DAILY Qty: 30 2RF Discontinued Multaq 400 mg tablet 400 mg PO BID 90 Days Qty: 180 3RF hydrochlorothiazide 12.5 mg tablet 12.5 mg PO DAILY metoprolol succinate 50 mg tablet extended release 24 hr 50 mg PO DAILY Qty: 90 3RF Discharge Orders: Discharge Order (Routine); Ordered 07/31/24 Ordered By: Jaehyun Jaziel Diet: Low salt diet Activity on Discharge: As tolerated Stand Alone Forms: Patient Portal Discharge page Print Language: Turkish Care Plan Goals: cardiac health Health Concerns: atrial fibrillation Plan of Treatment: STOP dronaderone [Multaq] START amiodarone 400 mg [two 200 mg tabs] twice daily for 14 days, then change to 200 mg [one 200 mg tab] once daily increase metoprolol succinate to 50 mg twice daily STOP hydrochlorothiazide START rivaroxaban [Xarelto] 20 mg once daily avoid alcohol follow up with [facility] [place] [facility] in 2 weeks Please follow up with your primary care doctor within 1 week. Return to the hospital if you experience recurrent or worsening symptoms. Assessment: See Discharge Summary.
--- NOTE | 2024-07-31 11:39 | MHC.CM.PN ---
PT TO DC HOME TODAY WITH NO SERVICES VIA SELF-TRANSPORT
--- NOTE | 2024-08-01 19:08 | HO.POSTANES ---
Post Anesthesia Evaluation Post Anesthesia Evaluation Date of Service: 08/01/24 Anesthesia: General Mental Status: Awake Pain Control: Satisfactory Nausea/Vomiting: None Hydration: Adequate Anesthesia-Related Issues: No Anes. Related Issues
== END 2024-07-31 11:50 | disposition home or self-care (01) | DRG 201 ==
LOC: HO.ED 14:20 → HO.EDOVER 15:59 → HO.IMC 07-29 07:40
PROVIDERS: Hospitalist; Internal Medicine; Physician Assistant; Admitting Provider Student in an Organized Health Care Education/Training Program; Emergency Provider Student in an Organized Health Care Education/Training Program; PCP Internal Medicine; Visit Provider Family Medicine
PROC: 5A2204Z Restoration of Cardiac Rhythm, Single (ICD-10-PCS; CPT 93312; principal; 2024-07-30 12:00)
PROC: 5A2204Z Restoration of Cardiac Rhythm, Single (ICD-10-PCS; 2024-07-30 12:00)
DX: I48.0 Paroxysmal atrial fibrillation (principal); E78.5 Hyperlipidemia, unspecified; F10.10 Alcohol abuse, uncomplicated; G47.00 Insomnia, unspecified; I10 Essential (primary) hypertension; Z20.822 Contact with and (suspected) exposure to COVID-19; Z86.718 Personal history of other venous thrombosis and embolism; Z87.891 Personal history of nicotine dependence; Z79.899 Other long term (current) drug therapy
CPT/HCPCS: 0241U; 36415; 71045; 80048; 80053; 80076; 80307; 83735; 83880; 84443; 84484; 85025; 85610; 92960; 93005; 93306; 99285; J2003; J2704; Q9957

== ENCOUNTER → 2024-07-28 11:52 | Outpatient (BNV) | payer OTHER, SELFPAY | PROVIDERS: Emergency Provider Student in an Organized Health Care Education/Training Program; PCP Internal Medicine; Visit Provider Radiology Diagnostic Radiology | DX: R07.9 Chest pain, unspecified (principal); I49.9 Cardiac arrhythmia, unspecified | CPT/HCPCS: 71045 ==

== ENCOUNTER → 2024-07-28 15:07 | Outpatient (BNV) | payer OTHER, SELFPAY | PROVIDERS: Admitting Provider Student in an Organized Health Care Education/Training Program; Emergency Provider Student in an Organized Health Care Education/Training Program; PCP Internal Medicine; Visit Provider Internal Medicine | DX: I48.91 Unspecified atrial fibrillation (principal); R94.31 Abnormal electrocardiogram [ECG] [EKG] | CPT/HCPCS: 93010 ==

== ENCOUNTER 2024-07-28 15:51 | Outpatient (BNV) | payer OTHER, SELFPAY | END 2024-07-30 12:51 | PROVIDERS: Admitting Provider Student in an Organized Health Care Education/Training Program; Emergency Provider Student in an Organized Health Care Education/Training Program; PCP Internal Medicine; Visit Provider Internal Medicine | DX: I36.1 Nonrheumatic tricuspid (valve) insufficiency (principal); I48.91 Unspecified atrial fibrillation | CPT/HCPCS: 76376; 93312; 93320; 93325 ==

== ENCOUNTER 2024-07-28 15:51 | Outpatient (BNV) | payer OTHER, SELFPAY | END 2024-07-29 07:00 | PROVIDERS: Admitting Provider Student in an Organized Health Care Education/Training Program; Emergency Provider Student in an Organized Health Care Education/Training Program; PCP Internal Medicine; Visit Provider Internal Medicine | DX: I42.2 Other hypertrophic cardiomyopathy (principal); I48.91 Unspecified atrial fibrillation | CPT/HCPCS: 93306 ==

== ENCOUNTER → 2024-07-28 15:51 | Outpatient (BNV) | payer OTHER, SELFPAY | PROVIDERS: Admitting Provider Student in an Organized Health Care Education/Training Program; Emergency Provider Student in an Organized Health Care Education/Training Program; PCP Internal Medicine; Visit Provider Internal Medicine | DX: I48.91 Unspecified atrial fibrillation (principal) | CPT/HCPCS: 99223 ==

== ENCOUNTER → 2024-07-28 15:51 | Outpatient (BNV) | payer OTHER, SELFPAY | PROVIDERS: Admitting Provider Student in an Organized Health Care Education/Training Program; Emergency Provider Student in an Organized Health Care Education/Training Program; PCP Internal Medicine; Visit Provider Student in an Organized Health Care Education/Training Program | DX: I48.91 Unspecified atrial fibrillation (principal) | CPT/HCPCS: 99231; 99232; 99499 ==

== ENCOUNTER 2024-08-06 14:31 | Outpatient (AMB) | payer OTHER, SELFPAY ==
--- NOTE | 2024-08-06 14:52 | A.OFFPC_ITS ---
Vital Signs 3 08/06/24 14:54 Height 6 ft 6 in Weight 278 lb 8 oz BMI 32.2 BP 110/62 Blood Pressure Location Lt brachial Position Sitting Pulse 72 Pulse Source Pulse Oximeter Temp 97.1 F Temp Source Skin Pulse Oximetry (%) 97 Oxygen Delivery Method Room Air Intake Visit Reasons: TCM [facility] AF[facility] 07/30 Intake Note: Patient is here for hospital discharge and TCM follow up. Patient was discharged from [facility] on 07/31/24. Poultry Raiser Required: No Child Care Sitter: Not Required per policy Accompanied by: Self / Same As Patient Allergies No Known Allergies Allergy (Verified 08/06/24 14:54) Tobacco use date assessed: 08/06/24 Dental Screening Dental Screen Date: 08/06/24 Did you have a dental visit in the last 12 months?: No Did you have a dental problem in the last 6 months where you did not have access to dental care?: No Was dental information given to patient?: No HPI TCM 2 TCM Information0 Date of Discharge 07/30/24 Discharged From [facility] Interactive Contact Date (Reference documentation from this date) 08/02/24 HPI Comments 2 History of Present Illness0 Details 64 y/o male patient who presents to the clinic today for TCM. Pt was admitted at [facility] on 07/28 - 07/31 due to A-fib with RvR. PMH significant for paroxysmal AFib not on anticoagulation, hx of cardioversion x2, hx of DVT in 2021 previously on Xarelto, HTN, HLD, testicular cancer at age 37 s/p left orchiectomy, Alcohol abuse and right hip replacement. Cardiology f/u Appointment on 08/16/24. Follows with Psych @ [facility]. New medications added: Xalelto 20 ng, Amiodarone 200 mg and Metoprolol 50 mg BID. Pt c/o Red itchy rash located on his Armpits, and Groins. PFSH Medical History (Updated 08/04/24 @ 00:01 by Opal Hughes) History of cardioversion History of alcohol abuse Atrial fibrillation DVT (deep venous thrombosis) Testicular cancer Surgical History H/O thumb surgery Hx of tonsillectomy H/O rotator cuff surgery History of right hip replacement History of orchiectomy Family History Mother Breast cancer Father Irregular heart beat Maternal Grandfather Heart attack Paternal Grandfather Heart attack Social History Household Members: Other Housing: House Do you presently have visiting nurse or other home services: No Alcohol intake: current Alcohol intake frequency: a few times a week Comment: 2 drinks a day Patient Tobacco Use Status: Former Tobacco user Tobacco use type: Cigar Years Smoked: stopped 42 years old, smokes weed e-Cigarette/Vaping Use: Never Used Second Hand Smoke Exposure: Yes Substance Use Type: Marijuana service: No Current occupational status: disabled Current occupational exposures/hazards: No Cognitive needs: No Hearing needs: No Vision needs: Yes Questionnaire PHQ-9 Over the last 2 weeks, how often have you been bothered by any of the following problems? 1. Little interest or pleasure in doing things: several days 2. Feeling down, depressed, or hopeless: more than half the days 3. Trouble falling or staying asleep, or sleeping too much: more than half the days 4. Feeling tired or having little energy: not at all 5. Poor appetite or overeating: not at all 6. Feeling bad about yourself - or that you are a failure or have let yourself or your family down: more than half the days 7. Trouble concentrating on things, such as reading the newspaper or watching television: more than half the days 8. Moving or speaking so slowly that other people could have noticed. Or the opposite - being so fidgety or restless that you have been moving around a lot more than usual: not at all 9. Thoughts that you would be better off or of hurting yourself in some way: not at all Total score: 9 Depression Screening Interpretation: Positive Depression Screening Done: Yes Source: Developed by Drs. Ildefonso Mills, Celeste Knight, Brett Maurice and colleagues, with an educational leslee from [employer]. Thrive Questionnaire Date Thrive assessed: 07/29/24 AUDIT C Alcohol Use Questionnaire (AUDIT-C) 1. How often do you have a drink containing alcohol?: 2-3 times a week 2. How many drinks containing alcohol do you have on a typical day when you are drinking?: 1 or 2 Total Score: 3 RUBÉN-7 AMB Questionnaire RUBÉN-7 Date RUBÉN - 7 assessed: 08/06/24 Feeling nervous, anxious, or on edge: 3 = Nearly every day Not being able to stop or control worryin = More than half the days Worrying too much about different things: 2 = More than half the days Trouble relaxin = More than half the days Being so restless that it is hard to sit still: 1 = Several days Becoming easily annoyed or irritable: 3 = Nearly every day Feeling afraid as if something awful might happen: 0 = Not at all Total RUBÉN-7 score (0-4 normal; 5-9 mild; 10-14 moderate; 15-21 severe): 13 Source: Developed by Drs. Ildefonso Mills, Celeste Knight, Brett Maurice and colleagues, with an educational leslee from [employer]. Review of Systems Const All systems reviewed & are unremarkable except as noted in HPI and below Physical exam (Primary Care) Vital Signs: Last Vital Signs Temp 97.1 F 08/06/24 14:54 Pulse 72 08/06/24 14:54 BP 110/62 08/06/24 14:54 Pulse Ox 97 08/06/24 14:54 Oxygen Delivery Method Room Air 08/06/24 14:54 BMI result Body Mass Index 32.2 Tobacco/Smoking Status: Tobacco use Status Tobacco use date assessed 08/06/24 08/06/24 15:00 Patient Tobacco Use Status Former Tobacco user 08/06/24 14:53 Tobacco use type Cigar 08/06/24 14:53 e-Cigarette/Vaping Use Never Used 08/06/24 14:53 PHQ-9: PHQ-9 Score PHQ-9: Total score 9 08/06/24 15:04 Depression Screening Interpretation: Positive Thrive Assessment: Date of Thrive Assessment Date Thrive assessed 07/29/24 08/06/24 14:53 Const General: cooperative and no acute distress Orientation/consciousness: patient oriented x3 Resp Effort & Inspection: normal respiratory effort and able to speak in complete sentences Auscultation: clear to auscultation bilaterally Cardio Heart sounds: S1 normal heart sound present and S2 normal heart sound present Skin Rashes: rashes noted (Torso, Armpits, and Groins. ) Full body images: 2 1. Macular papular raised erythematous rash 2. Macular papular raised erythematous rash 3. Macular papular raised erythematous rash 4. Macular papular raised erythematous rash Neuro General: patient oriented x3, gait normal and moves all extremities Psych Speech and movement: Normal speech and movement present Coding Level of Care Code TCM Mod MDM <= 7 Days Diagnoses Atrial fibrillation with RVR I48.91 Alcohol abuse F10.10 Rash and nonspecific skin eruption R21 Time Spent (min) 20 Assessment & Plan Assessment & Plan (1) Atrial fibrillation with RVR: Code(s): I48.91 - Unspecified atrial fibrillation Category: Medical Plan: Managed by Cardiology (2) Alcohol abuse: Code(s): F10.10 - Alcohol abuse, uncomplicated Category: Social Hx Plan: Last Drink 1 wek ago. Sees Psych @ [facility] (3) Rash and nonspecific skin eruption: Code(s): R21 - Rash and other nonspecific skin eruption Plan: Prescribed Fungal cream. Medications: New 2 clotrimazole-betamethasone 1-0.05 % 1 appl topical BID 2 weeks 30 mL 0RF R21 - Rash and other nonspecific skin eruption
[2024-08-06 14:54] VITALS: BP 110/62; PULSE 72; TEMP 36.2; O2SAT 97; BMI 32.2
== END 2024-08-06 15:16 | disposition home or self-care (01) ==
PROVIDERS: PCP Internal Medicine; Visit Provider Nurse Practitioner Family
DX: I48.91 Unspecified atrial fibrillation (principal); F10.10 Alcohol abuse, uncomplicated; R21 Rash and other nonspecific skin eruption

== ENCOUNTER → 2024-08-06 14:31 | Outpatient (BNVA) | payer OTHER, SELFPAY | PROVIDERS: PCP Internal Medicine; Visit Provider Nurse Practitioner Family | DX: I48.91 Unspecified atrial fibrillation (principal); F10.10 Alcohol abuse, uncomplicated; R21 Rash and other nonspecific skin eruption | CPT/HCPCS: 96127; 99495 ==

== ENCOUNTER 2024-08-16 10:11 | Outpatient (AMB) | payer OTHER, SELFPAY ==
--- NOTE | 2024-08-16 10:50 | A.OFFVIS_ITS ---
Vital Signs 08/16/24 10:52 Height 6 ft 6 in Weight 286 lb 9.615 oz BMI 33.1 BP 120/78 Blood Pressure Location Lt brachial Position Sitting Pulse 77 Pulse Source Monitor Intake Visit Reasons: 3 mth f/up Intake Note: 3 mth f/up Communications Attendant Required: No Accompanied by: Self / Same As Patient Allergies No Known Allergies Allergy (Verified 08/06/24 14:54) Medication List - Last Reconciled 08/16/24 by Estiven Hutchins MD amiodarone 200 mg PO DAILY atorvastatin 10 mg PO DAILY cetirizine 10 mg PO DAILY clotrimazole 1% 1 appl topical BID metoprolol succinate ER 50 mg PO BID rivaroxaban (Xarelto) 20 mg PO DAILY@1700 trazodone 100 mg PO BEDTIME PRN HPI Comments Details: 64-year-old gentleman who is here for follow-up. He was seen in the hospital when he presented with paroxysmal atrial fibrillation and palpitations. After discussion he was taken for JENNA cardioversion. He was successfully cardioverted and was discharged home on rivaroxaban and metoprolol succinate 75 mg once a day. The plan was to continue the rivaroxaban for 6 weeks as his stroke risk is low. He was drinking alcohol previously and has stop drinking completely. He also has been snoring at night and had some features of sleep apnea and has been referred for sleep study by his primary care team. No bleeding concerns. He is saying he takes 3 tablets of metoprolol succinate which is 75 mg he gets some lightheadedness. 05/28/2023: He returns for follow-up. Been doing well. Occasionally feels palpitations lasting for few seconds. He is exercising and with activity he has no symptoms. No chest discomfort. He has been off Xarelto after cardioversion. His chads Vasc score was 1 for hypertension. Blood pressure is elevated. He does not drink as much but does drink on weekends specially when he is watching sports. He is saying he drinks vodka and beer. 12/29/23: The patient is here for follow-up. His recently and he was on alprazolam after that. He is saying he has stopped using it at this stage. He is denying any significant. Taking Multaq and metoprolol. Not on anticoagulation currently. 05/05/24: Here for follow-up. Overall doing well. One episode of atrial fibrillation while he had gastroenteritis and was in the ER. This was short lived. He has been using Multaq and metoprolol. His blood pressure is elevated and manual recheck is 140/80. He is saying that he has been checking blood pressure at home and in the morning hours the blood pressure is high and as the time passes blood pressure improves. He unfortunately lost his in July and mornings are quite tough for him emotionally. Potentially this is the reason his blood pressure is elevated in the mornings. He continues to drink few drinks of vodka. He has been using a lot of processed foods with more salt intake than usual. 08/16/2024: He is here for follow-up. He recently got admitted to [facility] with AFib and underwent JENNA cardioversion. Since then he has stopped drinking alcohol completely. He is on amiodarone. He has been referred to EP at [facility] for ablation. Denying any significant symptoms. Tolerating anticoagulation. [facility] Medical History (Updated 08/16/24 @ 19:18 by Estiven Hutchins MD) History of cardioversion History of alcohol abuse Atrial fibrillation DVT (deep venous thrombosis) Testicular cancer Surgical History H/O thumb surgery Hx of tonsillectomy H/O rotator cuff surgery History of right hip replacement History of orchiectomy Family History Mother Breast cancer Father Irregular heart beat Maternal Grandfather Heart attack Paternal Grandfather Heart attack Social History Household Members: Other Housing: House Do you presently have visiting nurse or other home services: No Alcohol intake: current Alcohol intake frequency: a few times a week Comment: 2 drinks a day Patient Tobacco Use Status: Former Tobacco user Tobacco use type: Cigar Years Smoked: stopped 42 years old, smokes weed e-Cigarette/Vaping Use: Never Used Second Hand Smoke Exposure: Yes Substance Use Type: Marijuana service: No Current occupational status: disabled Current occupational exposures/hazards: No Cognitive needs: No Hearing needs: No Vision needs: Yes Review of Systems Const Denies chills, Denies fatigue, Denies fever(s), Denies frequent falls, Denies weakness, Denies weight gain and Denies weight loss ENT Denies dizziness Card Denies chest pain, Denies leg edema, Denies lightheadedness, Denies palpitations, Denies dyspnea and Denies dyspnea on exertion Resp Denies cough, Denies dyspnea and Denies dyspnea on exertion GI Denies hematochezia Musc Denies abnormal gait, Denies muscle weakness, Denies numbness, Denies radiating pain into limb and Denies tingling Neuro Denies abnormal gait, Denies dizziness, Denies frequent falls, Denies numbness, Denies tingling and Denies weakness Endo Denies fatigue and Denies palpitations Physical Exam Vital Signs: Last Vital Signs Pulse 77 08/16/24 10:52 BP 120/78 08/16/24 10:52 BMI result Body Mass Index 33.1 GENERAL APPEARANCE: in no acute distress, pleasant. NECK: no carotid bruit, no jugular venous distention. SKIN: no suspicious lesions, warm and dry. HEART: no murmurs, regular rate and rhythm. LUNGS: clear to auscultation bilaterally. ABDOMEN: soft, nontender. EXTREMITIES: no edema. PERIPHERAL PULSES: equal. NEUROLOGIC: No gross deficits, AAO X 3 Office Procedures EKG Details: Sinus rhythm 77 beats per minute, normal axis, normal ECG, QTC 434 milliseconds. [id number], Complete Assessment & Plan Assessment & Plan (1) PAF (paroxysmal atrial fibrillation): Code(s): I48.0 - Paroxysmal atrial fibrillation Category: Medical Plan Pleasant 64 year gentleman with symptomatic paroxysmal atrial fibrillation in the setting of alcohol use. He has stopped drinking alcohol since the last visit to [facility] when he had JENNA cardioversion performed. He is on amiodarone currently. EKGs showing sinus rhythm. He is on anticoagulation with rivaroxaban 20 mg daily. He is due to see electrophysiology end of the month at [facility]. We discussed in detail about ablation and he is agreeable. I think once he gets ablation we will stop the amiodarone. Thank you for allowing me to participate in the care of your patient. Please feel free to contact me if you have any questions. Medications: New amiodarone 200 mg PO DAILY 90 tabs 2RF Coding Level of Care Code Est Pt Level 4 (45271) Diagnoses PAF (paroxysmal atrial fibrillation) I48.0 CPT Codes EKG - CPT: 15494-[id number], Complete ([id number])
[2024-08-16 10:52] VITALS: BP 120/78; PULSE 77; BMI 33.1
--- OUTSIDE RECORDS SUMMARY | 2024-08-16 14:45 | XMS_ITS | Clinical Summary ---
Author Organization [facility] Address [address] [place] [address] Care Team Providers Care Corrections Cadet Name Role Phone Unavailable Primary Care Provider Unavailabl e Medications Medication Sig Dispensed Refills Start Date End Date Status minocycline (MINOCIN,DYNACIN) 100 MG capsule Take 100 mg by mouth every other day. 0 03/20/2017 Active Active Problems No known active problems Family History Medical History Relation Name Comments Diabetes Father Cancer Mother Relation Name Status Comments Father Alive Mother Alive Social History Tobacco Use Types Packs/Day Years Used Date Smoking Tobacco: Never Smokeless Tobacco: Never Alcohol Use Standard Drinks/Week Comments Yes 4 (1 standard drink = 0.6 oz pur e alcohol) Sex and Gender Information Value Date Recorded Sex Assigned at Male 08/08/2022 12:41 PM EST Gender Identity Not on file Sexual Orientation Not on file Job Start Date Occupation Industry Not on file Not on file Not on file Last Filed Vital Signs Vital Sign Reading Time Taken Comments Blood Pressure - - Pulse - - Temperature - - Respiratory Rate - - Oxygen Saturation - - Inhaled Oxygen Concentration - - Weight 124.7 kg (275 lb) 02/05/2018 9:27 AM EDT Height 198.1 cm (6' 6 ) 02/05/2018 9:27 AM EDT Body Mass Index 31.78 02/05/2018 9:27 AM EDT Plan of Treatment Health Maintenance Due Date Last Done Comments Hepatitis C Screening 1960 COVID-19 Vaccine (#1) 01/15/1963 Depression Screening 1974 Preventative Health Evaluation 1980 DTap / Tdap / Td (1 - Tdap) 1981 Colon Cancer Screening (Colonoscopy) 2007 Shingrix-Zoster Vaccine (1 of 2) 2012 Influenza Vaccine (#1) 2024 RSV Adult > 60+ Yrs or Pregn ant (1 - 1-dose 75+ series) 2037 Hepatitis B Vaccines Aged Out No long er eligible based on patient's age to complete this topic Pneumococcal Vaccine Aged Out No long er eligible based on patient's age to complete this topic RSV Ped < 20 months Aged Out No longe r eligible based on patient's age to complete this topic [employer] Workers Comp Self 1960 [address] [place], [place] [employer] Workers [employer] Self 1960 [address] [place] [employer] Workers [employer] Self 1960 [address] [place] [employer] Workers [employer] Self 1960 [address] [place] [employer] Personal/Family Self 1960 [address] [place] Jf [employer] Personal/Family Self [address] [place] [id number]
--- OUTSIDE RECORDS SUMMARY | 2024-08-16 14:46 | XMS_ITS | Clinical Summary ---
Author Organization [facility] Address [address] [place] [address] Care Team Providers Care Planer Chain Offbearer Name Role Phone Pcp, No Primary Care Provider Unavailvictorino e Hema Zuñiga MD Unavailable [phone] Allergies No known active allergies Medications Medication Sig Dispensed Refills Start Date End Date Status rivaroxaban (XARELTO) 20 MG tabletIndications: Arthritis of right hip Take 1 tablet (20 mg total) by mouth every morning. Take with meals. Do not start until June 20 Do not start before June 20, 2022. 06/20/2022 Active acetaminophen (TYLENOL) 325 MG tabletIndications: Arthritis of right hip Take 3 tablets (975 mg total) by mouth every 8 (eight) hours around the clock. 126 tablet 06/18/2022 Active HYDROmorphone (DILAUDID) 2 MG tabletIndications: Arthritis of right hip Take 1-2 tablets (2-4 mg total) by mouth every 3 (three) hours as needed for moderate pain or severe pain. Max Daily Amount: 32 mg 42 tablet 06/18/2022 Active methocarbamol (ROBAXIN) 750 MG tabletIndications: Arthritis of right hip Take 1 tablet (750 mg total) by mouth 4 times daily (every 6 hours) as needed for muscle spasms. 36 tablet 06/18/2022 Active PANTOprazole (PROTONIX) 40 MG EC tabletIndications: Arthritis of right hip Take 1 tablet (40 mg total) by mouth daily. 30 tablet 06/18/2022 Active polyethylene glycol (miraLAx) 17 g packetIndications: Arthritis of right hip Take 1 packet (17 g total) by mouth daily as needed for constipation (if not BM by postop day #1). 5 packet 06/18/2022 Active senna-docusate (SENNA-S) 8.6-50 MGIndications:Arth ritis of right hip Take 2 tablets by mouth nightly. 60 tablet 06/18/2022 Active minocycline (MINOCIN) 100 MG capsuleIndications :Arthritis of right hip Take 1 capsule (100 mg total) by mouth 2 (two) times a day. 14 capsule 06/18/2022 Active meloxicam (MOBIC) 15 MG tabletIndications: Arthritis of right hip Take 1 tablet (15 mg total) by mouth daily. 14 tablet 06/18/2022 Active Active Problems Problem Noted Date Diagnosed Date Arthritis of right hip 06/17/2022 DVT (deep venous thrombosis) 07/21/2021 Overview (06/03/2022): XARELTO by Dr Lynn Painful orthopaedic hardware 06/18/2018 Infection associated with in ternal fixation device of right femur 03/13/2017 Femoral neck fracture 02/27/2017 MRSA (methicillin resistant Staphylococcus aureu s) 07/21/2016 Overview (06/03/2022): right hip, right thumb Testicular cancer Overview (06/03/2022): 20 yrs ago; surgical repair, left, radiation Family History Medical History Relation Name Comments Diabetes Father Cancer, breast Mother No Known Problems Sister 1 No Known Problems Sister 2 Relation Name Status Comments Father Mother Sister 1 Alive Sister 2 Alive Social History Tobacco Use Types Packs/Day Years Used Date Smoking Tobacco: Former Cigars Smokeless Tobacco: Never Tobacco Cessation:Counseling Given: Not Answered Comments:Smoked cigars occasionally. Quit 20 years ago Alcohol Use Standard Drinks/Week Comments Not Currently 0 (1 standard drink = 0.6 oz pur e alcohol) Quit 01/2022 AUDIT-C Answer Date Recorded Q1: How often do you have a drink containing alcohol? Never 05/27/2022 Q2: How many drinks containi ng alcohol do you have on a typical day when you are drinking? Patient does not drink Q3: How often do you have si x or more drinks on one occasion? Never 05/27/2022 Sex and Gender Information Value Date Recorded Sex Assigned at Not on file Gender Identity Not on file Sexual Orientation Not on file Last Filed Vital Signs Vital Sign Reading Time Taken Comments Blood Pressure 119/58 06/18/2022 10:17 AM EST Pulse 80 06/18/2022 10:17 AM EST Temperature 36.7 ??C (98 ??F) 06/18/2022 10:17 AM EST Respiratory Rate 18 06/18/2022 10:17 AM EST Oxygen Saturation 97% 06/18/2022 10:17 AM EST Inhaled Oxygen Concentration - - Weight 119 kg (262 lb 12.8 oz) 06/03/2022 10:47 AM EST Height 190.5 cm (6' 3 ) 06/03/2022 10:47 AM EST Body Mass Index 32.85 06/03/2022 10:47 AM EST Plan of Treatment Health Maintenance Due Date Last Done Comments Hepatitis C Virus Screening 1962 COVID-19 Vaccine (#1) 1967 Pneumococcal Vaccine: Pediat nalini (0-5 Years) and At-Risk Patients (6 to 49 Years) (1 of 2 - PCV) 1968 HIV Screening 1975 DTaP/Tdap/Td Vaccines (1 - Tdap) 1981 Pneumococcal Vaccines 50+ (1 of 2 - PCV) 1981 Zoster (Shingles) Vaccine (1 of 2) 1981 Colonoscopy 2007 Influenza Vaccine 02/19/2024 RSV Vaccine 60 years and old er and Patients (1 - 1-dose 75+ series) 2037 Hepatitis B Vaccines Aged Out No long er eligible based on patient's age to complete this topic Medical Devices Implanted Type Area Media Arts Professor Device Identifier Shelf Expiration Date Model / Serial / Lot [id number] Shell Acetabular 62mm Hip 3 Hole Poly Por R3 Std Sterl - [id number] Implanted:Qty : 1 on 06/17/2022 by Francisco Lynn MD at [facility] Joint Prosthesis Right: Hip [employer] - DIV S [id number] 01/28/2028 [id number] / / [id number] 40mm I.D., 62mm O.D. R3 Xlpe 0 Acetabular Liner Implanted:Qty : 1 on 06/17/2022 by Francisco Lynn MD at [facility] Joint Prosthesis Right: Hip [employer] [id number] 11/17/2022 [id number] / / [id number] Stem Femoral 147mm Polarstem Ti Alum Vndm Duffy 126d 5 07/03 - [id number] Implanted:Qty : 1 on 06/17/2022 by Francisco Lynn MD at [facility] Joint Prosthesis Right: Hip [employer] - DIV S 01/31/2027 [id number] / / [id number] Titanium Modular Head Sleeve 07/03 Taper +8mm Implanted:Qty : 1 on 06/17/2022 by Francisco Lynn MD at [facility] Joint Prosthesis Right: Hip [employer] [id number] 05/30/2027 [id number] / / [id number] Head Femoral 40mm Hip Md Oxnm Sterl - [id number] Implanted:Qty : 1 on 06/17/2022 by Francisco Lynn MD at [facility] Joint Prosthesis Right: Hip [employer] DIV S [id number] 03/23/2032 [id number] / / [id number] Plate Hip 80mm 3 Hole Compression 130d Std Brl Ss Bone Ambi - [id number] Implanted:Qty : 1 on 02/28/2017 by Brooks Rogers MD at [facility] Plate Right: Hip [employer] DIV S [id number] 05/31/2025 [id number] / / [id number] Screw Bone Hip Fem Imhs 115mm Ss 21mm 12.7mm Lag Compression - [id number] Implanted:Qty : 1 on 02/28/2017 by Brooks Rogers MD at [facility] Screw Right: Hip [employer] DIV S [id number] 09/26/2025 [id number] / / [id number] Screw Bone Lg Bone Pthrd 100mm Ss 16mm 7.3mm Sahil Slfdrl - [id number] Implanted:Qty : 1 on 02/28/2017 by Brooks Rogers MD at [facility] Screw Right: Hip [employer] CORINA AND 208.900 / / Screw Bone Hip Hugo Ambi Cls 46mm Ss 4.5mm 8mm Slftp - [id number] Implanted:Qty : 1 on 02/28/2017 by Brooks Rogers MD at [facility] Screw Right: Hip [employer] DIV S [id number] / / Screw Bone Hip Hugo Ambi Cls 48mm Ss 4.5mm 8mm Slftp - [id number] Implanted:Qty : 2 on 02/28/2017 by Brooks Rogers MD at [facility] Screw Right: Hip [employer] DIV S [id number] / / [id number] Screw Bone Hip Acetabular Canc Reflc R3 Contour 30mm 6.5mm - [id number] Implanted:Qty : 1 on 06/17/2022 by Francisco Lynn MD at [facility] Screw Right: Hip [employer] DIV S [id number] 12/26/2031 [id number] / / [id number] Filler Bone Void 15cc 1.7-10mm Canc Algrf Chp Frzdr - [id number] Implanted:Qty : 1 on 06/18/2018 by Hema Saha MD at [facility] Void Filler Right: Hip [employer] 03/31/2021 [id number] / [id number] / Filler Bone Void 15cc 1.7-10mm Canc Algrf Chp Frzdr - [id number] Implanted:Qty : 1 on 06/18/2018 by Hema Saha MD at [facility] Void Filler Right: Hip [employer] 03/31/2021 [id number] / [id number] / Explanted Type Area Media Arts Professor Device Identifier Shelf Expiration Date Model / Serial / Lot [id number] Screw Bone Plvc Intellijoint Hip G2 136mm Nonst - [id number] Explanted:Qty: 2 on 06/17/2022 by Fracnisco Lynn MD at [facility] Screw Right: Hip [employer] / / Screw, Femur Lng Intellijoint Explanted:Qty: 1 on 06/17/2022 by Francisco Lynn MD at [facility] Screw Right: Hip [employer] 232 / / Description:SUPPLY ITEM Advance Directives * Full Code (Latest Code Status on File) Date Activated Date Inactivated Comments 06/17/2022 10:52 AM * Full Code Date Activated Date Inactivated Comments 06/17/2022 5:38 AM 06/17/2022 10:52 AM * Full Code Date Activated Date Inactivated Comments 06/18/2018 8:02 PM 06/17/2022 5:35 AM * Full Code Date Activated Date Inactivated Comments 06/18/2018 1:11 PM 06/18/2018 8:02 PM * Full Code Date Activated Date Inactivated Comments 05/26/2017 7:26 AM 06/18/2018 12:27 PM Care Teams Planer Chain Offbearer Relationship Specialty Start Date End Date Pcp, No PCP - General General Medicine 05/26/17 Hema Zuñiga MD Physician Infectious Disease 06/02/18
--- OUTSIDE RECORDS SUMMARY | 2024-08-16 14:46 | XMS_ITS | Encounter Summary ---
Author Organization [facility] Address [address] [place] [address] Care Team Providers Care Geochemist Name Role Phone Unknown Primary Care Provider [phone] Pcp, No Primary Care Provider Unavailabl e Hema Zuñiga MD Unavailable Reason for Visit * Reason Comments Medication Refill Encounter Details Date Type Department Care Team (Late st Contact Info) Description 05/21/2017 Refill [facility] [place] [address] [place] [address] [address] [address] Brooks Rogers MD [address] [place] [address] [address] [place] [address] Social History Tobacco Use Types Packs/Day Years Used Date Smoking Tobacco: Never Smokeless Tobacco: Never Alcohol Use Standard Drinks/Week Comments Yes 6 (1 standard drink = 0.6 oz pur e alcohol) glenda Sex and Gender Information Value Date Recorded Sex Assigned at Not on file Gender Identity Not on file Sexual Orientation Not on file documented as of this encounter Miscellaneous Notes * Telephone Encounter - Debbie Mccrary RN - 05/21/2017 11:48 AM EDT Not a patient of [facility]. documented in this encounter Plan of Treatment Not on file documented as of this encounter Visit Diagnoses Not on filedocumented in this encounter Additional Health Concerns Infection Onset Date Last Indicated Resolved Time MRSA - Increased Transmissio n Risk Comment:Change to Standard Precautions 201903/17/2017 03/17/2017 11/11/2019 12:00 AM EDT documented as of this encounter Care Teams Geochemist Relationship Specialty Start Date End Date Unknown Unknow Provider Address PCP - General 04/29/17 05/25/17 Pcp, No PCP - General General Medicine 05/26/17 Hema Zuñiga MD Physician Infectious Disease 06/02/18 documented as of this encounter
--- OUTSIDE RECORDS SUMMARY | 2024-08-16 14:46 | XMS_ITS | Encounter Summary ---
Author Organization [facility] Address [address] [place] [address] Care Team Providers Care Sorting Supervisor Name Role Phone Pcp, No Primary Care Provider Hema Cedeno MD Unavailable [phone] Encounter Details Date Type Department Care Team (Late st Contact Info) Description 06/08/2018 Prep for [facility] [place] [address] [place] [address] 2[address] [place] [address] [place] [address] Mayelin Vázquez, PAINTING INSTRUCTOR [address] [facility] [address] [place] [address] Social History Tobacco Use Types Packs/Day Years Used Date Smoking Tobacco: Former Cigarettes 1 08/02/1995 - 06/02/1999 Smokeless Tobacco: Never Comments:cigars Alcohol Use Standard Drinks/Week Comments Yes 21 (1 standard drink = 0.6 oz pure alcohol) 3 drinks/night; suggested he be tapered off by one week preop Sex and Gender Information Value Date Recorded Sex Assigned at Not on file Gender Identity Not on file Sexual Orientation Not on file documented as of this encounter Plan of Treatment Not on file documented as of this encounter Visit Diagnoses Not on filedocumented in this encounter Additional Health Concerns Infection Onset Date Last Indicated Resolved Time MRSA - Increased Transmissio n Risk Comment:Change to Standard Precautions 201903/17/2017 03/17/2017 11/11/2019 12:00 AM EDT documented as of this encounter Care Teams Sorting Supervisor Relationship Specialty Start Date End Date Pcp, No PCP - General General Medicine 05/26/17 Hema Zuñiga MD Physician Infectious Disease 06/02/18 documented as of this encounter
--- OUTSIDE RECORDS SUMMARY | 2024-08-16 14:46 | XMS_ITS | Encounter Summary ---
Author Organization [facility] Address [address] [place] [address] Care Team Providers Care Media Account Executive Name Role Phone Pcp, No Primary Care Provider Unavailivctorino e Hema Zuñiga MD Unavailable [phone] Encounter Details Date Type Department Care Team ([facility] st Contact Info) Description 01/28/2023 Scanned Document [facility] [address] [address] Francisco Lynn MD [address] [place] [address] Social History Tobacco Use Types Packs/Day Years Used Date Smoking Tobacco: Former Cigars Smokeless Tobacco: Never Comments:Smoked cigars occas ionally. Quit 20 years ago Alcohol Use Standard [...] Diagnoses Not on filedocumented in this encounter Care Teams Media Account Executive Relationship Specialty Start Date End Date Pcp, No PCP - General General Medicine 05/26/17 Hema Zuñiga MD Physician Infectious Disease 06/02/18 documented as of this encounter
--- OUTSIDE RECORDS SUMMARY | 2024-08-16 14:46 | XMS_ITS | Encounter Summary ---
Author Organization [facility] Address [address] [place] [address] Care Team Providers Care Maintenance Service Dispatcher Name Role Phone Pcp, No Primary Care Provider Unavailabl e Hema Zuñiga MD Unavailable Encounter Details Date Type Department Care Team (Late st Contact Info) Description 11/12/2021 Erroneous Encounter [facility] CONVERSION DEPT [address] [place] [id number] Provider, MD Jake Social History Tobacco Use Types Packs/Day Years Used Date Smoking Tobacco: Former Cigarettes 1 08/02/1995 - 06/02/1999 Smokeless Tobacco: Never Comments:cigars Alcohol Use Standard Drinks/Week Comments Yes 35 (1 standard drink = 0.6 oz pure alcohol) 3-5 drinks/night; suggested he be tapered off by one week preop Sex and Gender Information Value Date Recorded Sex Assigned at Not on file Gender Identity Not on file Sexual Orientation Not on file documented as of this encounter Plan of Treatment Not on file documented as of this encounter Visit Diagnoses Not on filedocumented in this encounter Care Teams Maintenance Service Dispatcher Relationship Specialty Start Date End Date Pcp, No PCP - General General Medicine 05/26/17 Hema Zuñiga MD Physician Infectious Disease 06/02/18 documented as of this encounter
--- OUTSIDE RECORDS SUMMARY | 2024-08-16 14:46 | XMS_ITS | Encounter Summary ---
Author Organization [facility] Address [address] [place] [address] Care Team Providers Care Phone Banker Name Role Phone Pcp, No Primary Care Provider Unavailvictorino e Hema Zuñiga MD Unavailable [phone] Encounter Details Date Type Department Care Team ([facility] st Contact Info) Description 02/17/2023 Scanned Document [facility] [address] [address] Francisco Lynn MD [address] [place] [address] Social History Tobacco Use Types Packs/Day Years [...] on filedocumented in this encounter Care Teams Phone Banker Relationship Specialty Start Date End Date Pcp, No PCP - General General Medicine 05/26/17 Hema Zuñiga MD Physician Infectious Disease 06/02/18 documented as of this encounter
--- OUTSIDE RECORDS SUMMARY | 2024-08-16 14:46 | XMS_ITS | Clinical Summary ---
Author Organization [facility] Address [address] [place] [address] Care Team Providers Care Acidity Tester Name Role Phone Ger Joy MD Primary Care Provider [phone] Surgical History Surgery Date Site/Laterality Comments TONSILLECTOMY PROCEDURE:TONSILLECTOMY TESTICLE SURGERY Left PROCEDURE:TESTICLE SURGERY;COMMENT:removed for cancer HIP OPEN REDUCTION Right PROCEDURE:HIP OPEN REDUCTION;COMMENT:fx repair Medical History Medical History Date Comments Arthritis DX:Arthritis Cancer (CMS/HCC) DX:Cancer (HCC) ;COMMENT:testicular on left Family History Medical History Relation Name Comments [...] on file Sexual Orientation Not on file Obstetrics History Plan of Treatment Health Maintenance Due Date Last Done Comments COVID-19 Vaccine (#1) 1967 DTaP,Tdap,and Td Vaccines (1 - Tdap) 1981 Zoster Vaccines (1 of 2) 2012 Cholesterol Screening (Lipid Panel) 06/18/2022 Colorectal Cancer Screening: Colonoscopy 06/18/2022 Depression Screening 06/18/2022 HIV Screening 06/18/2022 Hepatitis C Screening 06/18/2022 Social Influencers of Health Screening 06/18/2022 Influenza Vaccine (#1) 2024 RSV Immunization Patients 60 + Years Old (1 - 1-dose 75+ series) 2037 HIB Vaccines Aged Out No longer eligi ble based on patient's age to complete this topic HPV Vaccines Aged Out No longer eligi ble based on patient's age to complete this topic Hepatitis A Vaccines Aged Out No long er eligible based on patient's age to complete this topic Hepatitis B Vaccines Aged Out No long er eligible based on patient's age to complete this topic IPV Vaccines Aged Out No longer eligi ble based on patient's age to complete this topic MMR Vaccines Aged Out No longer eligi ble based on patient's age to complete this topic Meningococcal ACWY Vaccine Aged Out N o longer eligible based on patient's age to complete this topic Pneumococcal Vaccine: Pediat rics (0 to 5 Years) and At-Risk Patients (6 to 64 Years) Aged Out No longer eligible b ased on patient's age to complete this topic RSV Immunization Patients Un rahul 20 months Aged Out No longer eligible b ased on patient's age to complete this topic Varicella Vaccines Aged Out No longer eligible based on patient's age to complete this topic Care Teams Acidity Tester Relationship Specialty Start Date End Date Ger Joy MD [address] [place] [address] PCP - General Internal Medicine 03/12/17
== END 2024-08-16 11:19 | disposition home or self-care (01) ==
PROVIDERS: PCP Internal Medicine; Visit Provider Internal Medicine Cardiovascular Disease
DX: I48.0 Paroxysmal atrial fibrillation (principal)
CPT/HCPCS: 93010; 99214

== ENCOUNTER → 2024-08-16 10:11 | Outpatient (BNVA) | payer OTHER, SELFPAY | PROVIDERS: PCP Internal Medicine; Visit Provider Internal Medicine Cardiovascular Disease | DX: I48.0 Paroxysmal atrial fibrillation (principal); Z79.01 Long term (current) use of anticoagulants; Z87.891 Personal history of nicotine dependence; Z79.899 Other long term (current) drug therapy | CPT/HCPCS: 93005; 99212 ==

== ENCOUNTER 2024-08-18 14:43 | Outpatient (AMB) | payer OTHER, SELFPAY ==
--- NOTE | 2024-08-18 14:47 | A.OFFPC_ITS ---
Vital Signs 08/18/24 14:49 Height 6 ft 6 in Weight 295 lb 6 oz BMI 34.1 BP 100/60 Blood Pressure Location Lt brachial Position Sitting Pulse 70 Pulse Source Pulse Oximeter Temp 97.3 F Temp Source Skin Pulse Oximetry (%) 96 Oxygen Delivery Method Room Air Intake Visit Reasons: rash n groin, back of knees, armpits Intake Note: Patient is here to follow up on rash in groin area, back of both knees and armpits. Shape Brick Molder Required: No Horse Race Starter: Not Required per policy Accompanied by: Self / Same As Patient Allergies No Known Allergies Allergy (Verified 08/18/24 14:48) Tobacco use date assessed: 08/18/24 Dental Screening Dental Screen Date: 08/06/24 HPI rash n groin, back of knees, armpits HPI Details 64-year-old male with past medical histo ry of hypercholesterolemia, hypertension, atrial fibrillation, depression last seen by nurse practitioner 08/06/2024 coming in for acute problem.? In review of the notes, patient was seen by Cardiology 08/16/2024 continue on amiodarone and Xarelto and plan for ablation. Patient was previously seen several months ago for the rash in bilateral armpits initially was given steroid cream without good relief. He returned the clinic and was seen by nurse practitioner given clotrimazole cream without good relief as well. He continues to have itchiness in bilateral armpits, groin, low back into the buttocks and behind both knees. [facility] Medical History History of cardioversion History of alcohol abuse Atrial fibrillation DVT (deep venous thrombosis) Testicular cancer Surgical History H/O thumb surgery Hx of tonsillectomy H/O rotator cuff surgery History of right hip replacement History of orchiectomy Family History Mother Breast cancer Father Irregular heart beat Maternal Grandfather Heart attack Paternal Grandfather Heart attack Social History Household Members: Other Housing: House Do you presently have visiting nurse or other home services: No Alcohol intake: current Alcohol intake frequency: a few times a week Comment: 2 drinks a day Patient Tobacco Use Status: Former Tobacco user Tobacco use type: Cigar Years Smoked: stopped 42 years old, smokes weed e-Cigarette/Vaping Use: Never Used Second Hand Smoke Exposure: Yes Substance Use Type: Marijuana service: No Current occupational status: disabled Current occupational exposures/hazards: No Cognitive needs: No Hearing needs: No Vision needs: Yes Questionnaire Thrive Questionnaire Date Thrive assessed: 07/29/24 RUBÉN-7 AMB Questionnaire RUBÉN-7 Date RUBÉN - 7 assessed: 08/06/24 Source: Developed by Drs. Ildefonso Mills, Celeste Knight, Brett Maurice and colleagues, with an educational leslee from [employer]. Review of Systems Const Denies body aches, Denies chills, Denies fever(s), Denies headache(s) and Denies poor appetite Eyes Reports no additional complaints ENT Denies dizziness and Denies headache(s) Card Denies chest pain, Denies syncope, Denies edema, Denies irregular heart rhythm, Denies lightheadedness and Denies dyspnea Resp Denies cough and Denies dyspnea GI Denies abdominal pain, Denies constipation, Denies diarrhea, Denies nausea and Denies vomiting Reports no additional complaints Musc Reports no additional complaints and Denies abnormal gait Skin/Breast Reports system reviewed and no additional complaints, except as documented Neuro Denies abnormal gait, Denies dizziness, Denies syncope and Denies headache(s) Psych Reports no additional complaints Physical exam (Primary Care) Vital Signs: Last Vital Signs Temp 97.3 F 08/18/24 14:49 Pulse 70 08/18/24 14:49 BP 100/60 08/18/24 14:49 Pulse Ox 96 08/18/24 14:49 Oxygen Delivery Method Room Air 08/18/24 14:49 BMI result Body Mass Index 34.1 Tobacco/Smoking Status: Tobacco use Status Tobacco use date assessed 08/18/24 08/18/24 14:57 Patient Tobacco Use Status Former Tobacco user 08/18/24 14:57 Tobacco use type Cigar 08/18/24 14:57 e-Cigarette/Vaping Use Never Used 08/18/24 14:57 Thrive Assessment: Date of Thrive Assessment Date Thrive assessed 07/29/24 08/18/24 14:57 Const General: cooperative, healthy appearing, comfortable and no acute distress Orientation/consciousness: patient oriented x3 HENMT Head: Yes normocephalic Ears: hearing grossly normal bilaterally General nose exam: Normal external nose present Eyes General: appearance normal, both eyes and all related structures Conjunctivae: conjunctivae normal Neck Neck: Yes full ROM and Yes no lymphadenopathy Resp Effort & Inspection: normal respiratory effort Auscultation: clear to auscultation bilaterally, no crackles, no rales, no rhonchi and no wheezes Cardio Rate: regular rate Rhythm: regular rhythm Skin Other: Erythematous raised rash in bilateral armpits. Erythematous, scaly dry rash on lower back extending into top of the buttocks Neuro General: patient oriented x3 Gait exam (Neuro): Normal gait present Extrem General: Yes normal to inspection, Yes full ROM and No edema Psych Affect: normal affect Attitude: cooperative Insight: Good insight present (Psych) Judgement: Good judgement present (Psych) Coding Level of Care Code Est Pt Level 3 (45897) Diagnoses Dermatitis L30.9 Assessment & Plan Assessment & Plan (1) Dermatitis: Code(s): L30.9 - Dermatitis, unspecified Category: Medical Plan: Patient continues to have dermatitis despite treatment with steroid cream and clotrimazole cream. Discussed with Dr. Sanford and we will treat with clobetasol and ketoconazole cream and refer to Dermatology for further management. Rash most consistent with psoriasis however we will have Dermatology treat going forward. Plan This note was constructed using voice recognition software. While every effort has been made to ensure accuracy and technology resource teacher, still areas may have been included sometimes these areas may affect the content or meeting of the given symptoms. Total time spent caring for the patient today was 20 minutes. This includes time spent before the visit reviewing the chart, time spent during the visit, and time spent after the visit and documentation. Orders: Referrals Dermatology Referral L30.9 - Dermatitis, unspecified Medications: New ketoconazole 2% 1 appl topical DAILY 60 grams 1RF clobetasol 0.05% 1 appl topical DAILY 60 grams 0RF Discontinued clotrimazole 1% Discontinued Reason: Patient no longer taking 1 appl topical BID 45 grams 1RF R21 - Rash and other nonspecific skin eruption
[2024-08-18 14:49] VITALS: BP 100/60; PULSE 70; TEMP 36.3; O2SAT 96; BMI 34.1
--- OUTSIDE RECORDS SUMMARY | 2024-08-18 16:55 | XMS_ITS | Encounter Summary ---
Author Organization [facility] Address [address] [place] [address] Care Team Providers Care Belt Tender Name Role Phone Pcp, No Primary Care Provider Unavailvictorino e Hema Zuñiga MD Unavailable [phone] Encounter Details Date Type Department Care Team ([facility] st Contact Info) Description 02/17/2023 Scanned Document [facility] [address] [address] Francisco Lynn MD [address] [place] [id number] Social History Tobacco Use Types Packs/Day Years [...] on filedocumented in this encounter Care Teams Belt Tender Relationship Specialty Start Date End Date Pcp, No PCP - General General Medicine 05/26/17 Hema Zuñiga MD Physician Infectious Disease 06/02/18 documented as of this encounter
--- OUTSIDE RECORDS SUMMARY | 2024-08-18 16:55 | XMS_ITS | Encounter Summary ---
Author Organization [facility] Address [address] [place] [address] Care Team Providers Care Threshing Machine Operator Name Role Phone Pcp, No Primary Care Provider Hema Cedeno MD Unavailable [phone] Encounter Details Date Type Department Care Team (Late st Contact Info) Description 06/08/2018 Prep [facility] [place] [address] [place] [address] 2nd [address] [place] [address] Mayelin Vázquez, COMMERCIAL CONSTRUCTION ESTIMATOR [address] [facility] [address] [place] [address] Social History Tobacco Use Types Packs/Day Years [...] documented as of this encounter Care Teams Threshing Machine Operator Relationship Specialty Start Date End Date Pcp, No PCP - General General Medicine 05/26/17 Hema Zuñiga MD Physician Infectious Disease 06/02/18 documented as of this encounter
--- OUTSIDE RECORDS SUMMARY | 2024-08-18 16:55 | XMS_ITS | Encounter Summary ---
Author Organization [facility] Address [address] [place] [address] Care Team Providers Care Housing Assistant Name Role Phone Pcp, No Primary Care Provider Unavailabl e Hema Zuñiga MD Unavailable [phone] Encounter Details Date Type Department Care Team (Late st Contact Info) Description 11/12/2021 Erroneous Encounter [facility] CONVERSION DEPT [address] [place] [id number] Provider, MD Jake Social History Tobacco Use [...] on filedocumented in this encounter Care Teams Housing Assistant Relationship Specialty Start Date End Date Pcp, No PCP - General General Medicine 05/26/17 Hema Zuñiga MD Physician Infectious Disease 06/02/18 documented as of this encounter
--- OUTSIDE RECORDS SUMMARY | 2024-08-18 16:55 | XMS_ITS | Clinical Summary ---
Author Organization [facility] Address [address] [place] [address] Care Team Providers Care Fiscal Services Manager Name Role Phone Pcp, No Primary Care Provider Unavailvictorino e Hema Zuñiga MD Unavailable [phone] Allergies No known active allergies Medications Medication [...] this topic Medical Devices Implanted Type Area Project Management Analyst Device Identifier Shelf Expiration Date Model / Serial / Lot [id number] Shell Acetabular 62mm Hip 3 Hole Poly Por R3 Std Sterl - [id number] Implanted:Qty : 1 on 06/17/2022 by Francisco Lynn MD at [facility] Joint Prosthesis Right: Hip [employer] - DIV S [id number] 01/28/2028 [id number] / / [id number] 40mm I.D., 62mm O.D. R3 Xlpe 0 Acetabular Liner Implanted:Qty : 1 on 06/17/2022 by Francisco Lynn MD at [facility] Joint Prosthesis Right: Hip [employer] [id number] 11/17/2022 [id number] / / [id number] Stem Femoral 147mm Polarstem Ti Alum Vndm Duffy 126d 5 07/03 - [id number] Implanted:Qty : 1 on 06/17/2022 by Francisco Lynn MD at [facility] Joint Prosthesis Right: Hip [employer] - DIV S 01/31/2027 [id number] / / [id number] Titanium Modular Head Sleeve 07/03 Taper +8mm Implanted:Qty : 1 on 06/17/2022 by Francisco Lynn MD at [facility] Joint Prosthesis Right: Hip [employer] [id number] 05/30/2027 [id number] / / [id number] Head Femoral 40mm Hip Md Oxnm Sterl - [id number] Implanted:Qty : 1 on 06/17/2022 by Francisco Lynn MD at [facility] Joint Prosthesis Right: Hip [employer] DIV S [id number] 03/23/2032 [id number] / / [id number] Plate Hip 80mm 3 Hole Compression 130d Std Brl Ss Bone Ambi - [id number] Implanted:Qty : 1 on 02/28/2017 by Brooks Rogers MD at [facility] Plate Right: Hip [employer] DIV S [id number] 05/31/2025 [id number] / / [id number] Screw Bone Hip Fem Imhs 115mm Ss 21mm 12.7mm Lag Compression - [id number] Implanted:Qty : 1 on 02/28/2017 by Brooks Rogers MD at [facility] Screw Right: Hip [employer] DIV S [id number] 09/26/2025 [id number] / / [id number] Screw Bone Lg Bone Pthrd 100mm Ss 16mm 7.3mm Sahil Slfdrl - [id number] Implanted:Qty : 1 on 02/28/2017 by Brooks Rogers MD at [facility] Screw Right: Hip [employer] CORINA AND 208.900 / / Screw Bone Hip Hugo Ambi Cls 46mm Ss 4.5mm 8mm Slftp - [id number] Implanted:Qty : 1 on 02/28/2017 by Brooks Rogers MD at [facility] Screw Right: Hip [employer] - DIV S [id number] / / Screw Bone Hip Hugo Ambi Cls 48mm Ss 4.5mm 8mm Slftp - [id number] Implanted:Qty : 2 on 02/28/2017 by Brooks Rogers MD at [facility] Screw Right: Hip [employer] - DIV S [id number] / / [id number] Screw Bone Hip Acetabular Canc Reflc R3 Contour 30mm 6.5mm - [id number] Implanted:Qty : 1 on 06/17/2022 by Francisco Lynn MD at [facility] Screw Right: Hip [employer] - DIV S [id number] 12/26/2031 [id number] / / [id number] Filler Bone Void 15cc 1.7-10mm Canc Algrf Chp Frzdr - [id number] Implanted:Qty : 1 on 06/18/2018 by Hema Saha MD at [facility] Void Filler Right: Hip [employer] 03/31/2021 [id number] / [id number] / Filler Bone Void 15cc 1.7-10mm Canc Algrf Chp Frzdr - [id number] Implanted:Qty : 1 on 06/18/2018 by Hema Saha MD at [facility] Void Filler Right: Hip [employer] 03/31/2021 [id number] / [id number] / Explanted Type Area Project Management Analyst Device Identifier Shelf Expiration Date Model / Serial / Lot [id number] Screw Bone Plvc Intellijoint Hip G2 136mm Nonst - [id number] Explanted:Qty: 2 on 06/17/2022 by Francisco Lynn MD at [facility] Screw Right: Hip [employer] / / Screw, Femur Lng Intellijoint Explanted:Qty: 1 on 06/17/2022 by Francisco Lynn MD at [facility] Screw Right: Hip [employer] 232 [...] 7:26 AM 06/18/2018 12:27 PM Care Teams Fiscal Services Manager Relationship Specialty Start Date End Date Pcp, No PCP - General General Medicine 05/26/17 Hema Zuñiga MD Physician Infectious Disease 06/02/18
--- OUTSIDE RECORDS SUMMARY | 2024-08-18 16:55 | XMS_ITS | Encounter Summary ---
Author Organization [facility] Address [address] [place] [address] Care Team Providers Care Cert Occupational Therapy Asst Name Role Phone Pcp, No Primary Care Provider Unavailvictorino e Hema Zuñiga MD Unavailable [phone] Encounter Details Date Type Department Care Team ([facility] st Contact Info) Description 01/28/2023 Scanned Document [facility] [address] [id number] Francisco Lynn MD [address] [place] [address] Social History Tobacco Use Types Packs/Day Years [...] on filedocumented in this encounter Care Teams Cert Occupational Therapy Asst Relationship Specialty Start Date End Date Pcp, No PCP - General General Medicine 05/26/17 Hema Zuñiga MD Physician Infectious Disease 06/02/18 documented as of this encounter
--- OUTSIDE RECORDS SUMMARY | 2024-08-18 16:55 | XMS_ITS | Encounter Summary ---
Author Organization [facility] Address [address] [place] [address] Care Team Providers Care Sports Bookmaker Name Role Phone Unknown Primary Care Provider [phone] Pcp, No Primary Care Provider Unavailabl e Hema Zuñiga MD Unavailable Reason for Visit * Reason Comments Medication Refill Encounter Details Date Type Department Care Team (Late st Contact Info) Description 05/21/2017 Refill [facility] [place] [address] [place] [address] [address], [place] [address] Brooks Rogers MD [address] [place] [address] [address] [place] [address] Social History Tobacco Use Types Packs/Day Years [...] documented as of this encounter Care Teams Sports Bookmaker Relationship Specialty Start Date End Date Unknown Unknow Provider Address PCP - General 04/29/17 05/25/17 Pcp, No PCP - General General Medicine 05/26/17 Hema Zuñiga MD Physician Infectious Disease 06/02/18 documented as of this encounter
--- OUTSIDE RECORDS SUMMARY | 2024-08-18 16:55 | XMS_ITS | Clinical Summary ---
Author Organization [facility] Address [address] [place] [address] Care Team Providers Care Medical Technologist Blood Bank Name Role Phone Ger Joy MD Primary Care Provider [phone] Surgical History Surgery Date Site/Laterality Comments TONSILLECTOMY [...] age to complete this topic Care Teams Medical Technologist Blood Bank Relationship Specialty Start Date End Date Ger Joy MD [address] [place] [address] PCP - General Internal Medicine 03/12/17
--- OUTSIDE RECORDS SUMMARY | 2024-08-18 16:55 | XMS_ITS | Clinical Summary ---
Author Organization [facility] Address [address] [place] [address] Care Team Providers Care Exhaust Worker Name Role Phone Unavailable Primary Care Provider [...] Jf Jiménez Workers Comp Self 1960 [address] [place], [place] Jf Jiménez Workers Comp Self 1960 [address] [place] Jf Jiménez Workers Comp Self 1960 [address] [place] Jf Jiménez Workers Comp Self [address] [place] Jf Jiménez Personal/Family Self 1960 [address] [place] Jf Jiménez Personal/Family Self [address] [place] [address]
== END 2024-08-18 15:25 | disposition home or self-care (01) ==
PROVIDERS: PCP Internal Medicine
DX: L30.9 Dermatitis, unspecified (principal)

== ENCOUNTER → 2024-08-18 14:43 | Outpatient (BNVA) | payer OTHER, SELFPAY | PROVIDERS: PCP Internal Medicine | DX: L30.9 Dermatitis, unspecified (principal) | CPT/HCPCS: 99212 ==

== ENCOUNTER 2024-09-27 13:40 | Outpatient (AMB) | payer OTHER, SELFPAY ==
--- NOTE | 2024-09-27 14:15 | MHC.OFFVISPS ---
Intake Intake Visit Reasons: f/u consultation Business Services Administrator Required: No Allergies No Known Allergies Allergy (Verified 08/18/24 14:48) Medication List - Last Reconciled 09/27/24 by Blanche Cruz APRN amiodarone 200 mg PO DAILY atorvastatin 10 mg PO DAILY cetirizine 10 mg PO DAILY clobetasol 0.05% 1 appl topical DAILY ketoconazole 2% 1 appl topical DAILY metoprolol succinate ER 50 mg PO DAILY rivaroxaban (Xarelto) 20 mg PO DAILY@1700 HPI- Psychiatric Chief Complaint: f/u consultation HPI Narrative: pt symptoms worsened. His step son took his own life approximately 3 weeks ago. Pt had been feeling better and drinking less. He has been more distressed and drinking every day again; he is having a hard time sleeping. He is ruminating. He denies SI ro HI. He wants to cut back or stop drinking but struggling with anxiety, grief and insomnia. Past Psychiatric History: no previous treatment outpt or inpt Subjective Subjective Subjective Medication Compliance: Yes Side effects from medications: No Review of Systems Medical Review of Systems: unchanged Mental Status Exam Mental Status Exam Patient Appearance: Well Grooomed Patient Orientation: Person, Place, Time and Situation Level of Consciousness: Awake and Appropriate Patient Behavior: Appropriate, Cooperative and Crying Mood Description: Anxious and Sad Affect Description: Anxious and Sad Ability to Follow Directions: Good Speech Pattern: Clear and Appropriate Memory Description: Intact Hallucinations: None Delusions: Not Present Thought Process: Intact and Rumination Thought Content: positive for Intact and positive for Preoccupation Judgement: Good Assessment and Plan Assessment & Plan (1) Alcohol abuse: Status: Acute Code(s): F10.10 - Alcohol abuse, uncomplicated (2) Bereavement: Status: Acute Code(s): Z63.4 - Disappearance and of family member (3) Major depressive disorder, single episode, moderate: Status: Acute Code(s): F32.1 - Major depressive disorder, single episode, moderate (4) Insomnia: Status: Acute Qualifiers: Insomnia type: due to other mental disorder Qualified Code(s): F51.05 - Insomnia due to other mental disorder; F99 - Mental disorder, not otherwise specified Code(s): G47.00 - Insomnia, unspecified Plan magnesium glycinate 200mg at bedtime vit b complex daily start remeron 15 mg at bedtime for depression and sleep Medications: New mirtazapine (Remeron) 15 mg PO BEDTIME 30 tabs 0RF Counseling and coordination of Care Pt. Self Management counseling: Maintenance-social rhythm, Mod caffeine/ETOH intake, Sleep hygiene, Greif counseling and Problem solving Medication management counseling: Effectiveness, Side effects, Dosing range, Duration, Drug interaction and Adherence Diagnosis and Prognosis Counseling: Accuracy of diagnosis, Prognosis over time, Impact of diagnosis on life functions, Impact of family relationship, Problematic behaviors secondary to diagnosis and Adequacy of current interventions Details: I spent 50 minutes reviewing the record, seeing the patient and documenting in the medical record. Counseling provided to the patient/caregiver as outlined below. Addressed patient/caregiver concerns regarding current medication regime including effective adherence. Addressed patient/caregiver concerns regarding diagnosis and prognosis including accuracy of diagnosis, prognosis over time, impact of diagnosis. Addressed patient/caregiver concerns regarding impact of recent stressors. [facility] Medical History History of cardioversion History of alcohol abuse Atrial fibrillation DVT (deep venous thrombosis) Testicular cancer Surgical History H/O thumb surgery Hx of tonsillectomy H/O rotator cuff surgery History of right hip replacement History of orchiectomy Family History Mother Breast cancer Father Irregular heart beat Maternal Grandfather Heart attack Paternal Grandfather Heart attack Social History Household Members: Other Housing: House Do you presently have visiting nurse or other home services: No Alcohol intake: current Alcohol intake frequency: a few times a week Comment: 2 drinks a day Patient Tobacco Use Status: Former Tobacco user Tobacco use type: Cigar Years Smoked: stopped 42 years old, smokes weed e-Cigarette/Vaping Use: Never Used Second Hand Smoke Exposure: Yes Substance Use Type: Marijuana service: No Current occupational status: disabled Current occupational exposures/hazards: No Cognitive needs: No Hearing needs: No Vision needs: Yes Social History: lives alone, currently out of work; 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
--- OUTSIDE RECORDS SUMMARY | 2024-09-27 15:25 | XMS_ITS | Encounter Summary ---
Author Organization [facility] Address [address] [place] [address] Care Team Providers Care Mold Clamper Name Role Phone Pcp, No Primary Care Provider Hema Cedeno MD Unavailable [phone] Encounter Details Date Type Department Care Team (Late st Contact Info) Description 06/08/2018 Prep [facility] [place] [address] [place] [address] 2nd [address] [place] [address] Mayelin Vázquez, FREELANCE WRITER [address] [facility] [address] [place] [address] Social History Tobacco Use Types Packs/Day Years [...] documented as of this encounter Care Teams Mold Clamper Relationship Specialty Start Date End Date Pcp, No PCP - General General Medicine 05/26/17 Hema Zuñiga MD Physician Infectious Disease 06/02/18 documented as of this encounter
--- OUTSIDE RECORDS SUMMARY | 2024-09-27 15:25 | XMS_ITS | Encounter Summary ---
Author Organization [facility] Address [address] [place] [address] Care Team Providers Care Requirements Analyst Name Role Phone Pcp, No Primary Care Provider Unavailabl e Hema Zuñiga MD Unavailable [phone] Encounter Details Date Type Department Care Team (Late st Contact Info) Description 11/12/2021 Erroneous Encounter [facility] CONVERSION DEPT [address] [place] [id number] Provider, MD Jake Social History Tobacco Use [...] on filedocumented in this encounter Care Teams Requirements Analyst Relationship Specialty Start Date End Date Pcp, No PCP - General General Medicine 05/26/17 Hema Zuñiga MD Physician Infectious Disease 06/02/18 documented as of this encounter
--- OUTSIDE RECORDS SUMMARY | 2024-09-27 15:25 | XMS_ITS | Clinical Summary ---
Author Organization [facility] Address [address] [place] [address] Care Team Providers Care Saw Feeder Name Role Phone Unavailable Primary Care Provider [...] Jf Jiménez Workers Comp Self 1960 [address] [place], [place] Jf Jiménez Workers Comp Self 1960 [address] [place] Jf Jiménez Workers Comp Self 1960 [address] [place] Jf Jiménez Workers Comp Self 1960 [address] [place] Jf Jiménez Personal/Family Self 1960 [address] [place] Jf Jiménez Personal/Family Self [address] [place] [address]
--- OUTSIDE RECORDS SUMMARY | 2024-09-27 15:25 | XMS_ITS | Clinical Summary ---
Author Organization [facility] Address [address] [place] [address] Care Team Providers Care Trimmer And Borer Machine Operator Name Role Phone Ger Joy MD Primary Care Provider [phone] Surgical History Surgery Date Site/Laterality Comments TONSILLECTOMY [...] Recorded Sex Assigned at Not on file Legal Sex Male 10:52 AM EST Gender Identity Not on file Sexual Orientation Not on file Obstetrics History Plan of Treatment Health Maintenance Due Date Last Done Comments COVID-19 Vaccine (#1) 1967 DTaP,Tdap,and Td Vaccines (1 - Tdap) 1981 Pneumococcal Vaccine: 50+ Ye ars (1 of 1 - PCV) 2012 Zoster Vaccines (1 of 2) 2012 Cholesterol [...] patient's age to complete this topic Meningococcal B Vacine Aged Out No lo nger eligible based on patient's age to complete [...] age to complete this topic Care Teams Trimmer And Borer Machine Operator Relationship Specialty Start Date End Date Ger Joy MD [address] [place] [id number] PCP - General Internal Medicine 03/12/17
--- OUTSIDE RECORDS SUMMARY | 2024-09-27 15:25 | XMS_ITS | Encounter Summary ---
Author Organization [facility] Address [address] [place] [address] Care Team Providers Care Trimming Assembler Name Role Phone Pcp, No Primary Care Provider Unavailvcitorino e Hema Zuñiga MD Unavailable [phone] Encounter Details Date Type Department Care Team ([facility] st Contact Info) Description 02/17/2023 Scanned Document [facility] [address] [address] Francisco Lynn MD [address] [place] [id number] Social History Tobacco Use Types Packs/Day Years [...] on filedocumented in this encounter Care Teams Trimming Assembler Relationship Specialty Start Date End Date Pcp, No PCP - General General Medicine 05/26/17 Hema Zuñiga MD Physician Infectious Disease 06/02/18 documented as of this encounter
--- OUTSIDE RECORDS SUMMARY | 2024-09-27 15:25 | XMS_ITS | Clinical Summary ---
Author Organization [facility] Address [address] [place] [address] Care Team Providers Care Health Care Marketing Specialist Name Role Phone Pcp, No Primary Care Provider Unavailvictorino e Hema Zuñiga MD Unavailable [phone] Allergies No known active allergies Medications Medication [...] this topic Medical Devices Implanted Type Area University Counselor Device Identifier Shelf Expiration Date Model / Serial / Lot [id number] Shell Acetabular 62mm Hip 3 Hole Poly Por R3 Std Sterl - [id number] Implanted:Qty : 1 on 06/17/2022 by Francisco Lynn MD at [facility] Joint Prosthesis Right: Hip [employer] - DIV S [id number] 01/28/2028 [id number] / / [id number] 40mm I.D., 62mm O.D. R3 Xlpe 0 Acetabular Liner Implanted:Qty : 1 on 06/17/2022 by Francisco Lynn MD at [facility] Joint Prosthesis Right: Hip [employer] [id number] 11/17/2022 [id number] / / [id number] Stem Femoral 147mm Polarstem Ti Alum Vndm Duffy 126d 5 07/03 - [id number] Implanted:Qty : 1 on 06/17/2022 by Francisco Lynn MD at [facility] Joint Prosthesis Right: Hip [employer] - DIV S 01/31/2027 [id number] / / [id number] Titanium Modular Head Sleeve 07/03 Taper +8mm Implanted:Qty : 1 on 06/17/2022 by Francisco Lynn MD at [facility] Joint Prosthesis Right: Hip [employer] [id number] 05/30/2027 [id number] / / [id number] Head Femoral 40mm Hip Md Oxnm Sterl - [id number] Implanted:Qty : 1 on 06/17/2022 by Francisco Lynn MD at [facility] Joint Prosthesis Right: Hip [employer] - DIV S [id number] 03/23/2032 [id number] / / [id number] Plate Hip 80mm 3 Hole Compression 130d Std Brl Ss Bone Ambi - [id number] Implanted:Qty : 1 on 02/28/2017 by Brooks Rogers MD at [facility] Plate Right: Hip [employer] - DIV S [id number] 05/31/2025 [id number] / / [id number] Screw Bone Hip Fem Imhs 115mm Ss 21mm 12.7mm Lag Compression - [id number] Implanted:Qty : 1 on 02/28/2017 by Brooks Rogers MD at [facility] Screw Right: Hip [employer] - DIV S [id number] 09/26/2025 [id number] / / [id number] Screw Bone Lg Bone Pthrd 100mm Ss 16mm 7.3mm Sahil Slfdrl - [id number] Implanted:Qty : 1 on 02/28/2017 by Brooks Rogers MD at [facility] Screw Right: Hip [employer] - A CORINA AN 208.900 / / Screw Bone Hip Hugo Ambi Cls 46mm Ss 4.5mm 8mm Slftp - [id number] Implanted:Qty : 1 on 02/28/2017 by Brooks Rogers MD at [facility] Screw Right: Hip [employer] - DIV S [id number] / / Screw Bone Hip Hugo Ambi Cls 48mm Ss 4.5mm 8mm Slftp - [id number] Implanted:Qty : 2 on 02/28/2017 by Brooks Rogers MD at [facility] Screw Right: Hip [employer] - DIV S [id number] / / [id number] Screw Bone Hip Acetabular Canc Reflc R3 Contour 30mm 6.5mm - [id number] Implanted:Qty : 1 on 06/17/2022 by Francisco Lynn MD at [facility] Screw Right: Hip [employer] - DIV S [id number] 12/26/2031 [id number] / / [id number] Filler Bone Void 15cc 1.7-10mm Canc Algrf Chp Frzdr - [id number] Implanted:Qty : 1 on 06/18/2018 by Hema Saha MD at [facility] Void Filler Right: Hip [employer] 03/31/2021 [id number] / [id number] / Filler Bone Void 15cc 1.7-10mm Canc Algrf Chp Frzdr - [id number] Implanted:Qty : 1 on 06/18/2018 by Hema Saha MD at [facility] Void Filler Right: Hip [employer] 03/31/2021 [id number] / [id number] / Explanted Type Area University Counselor Device Identifier Shelf Expiration Date Model / Serial / Lot [id number] Screw Bone Plvc Intellijoint Hip G2 136mm Nonst - [id number] Explanted:Qty: 2 on 06/17/2022 by Francisco Lynn MD at [facility] Screw Right: Hip [employer] [id number] / / Screw, Femur Lng Intellijoint Explanted:Qty: 1 on 06/17/2022 by Francisco Lynn MD at [facility] Screw Right: Hip [employer] -232 / / Description:SUPPLY ITEM Advance Directives * [...] 7:26 AM 06/18/2018 12:27 PM Care Teams Health Care Marketing Specialist Relationship Specialty Start Date End Date Pcp, No PCP - General General Medicine 05/26/17 Hema Zuñiga MD Physician Infectious Disease 06/02/18
--- OUTSIDE RECORDS SUMMARY | 2024-09-27 15:25 | XMS_ITS | Encounter Summary ---
Author Organization [facility] Address [address] [place] [address] Care Team Providers Care Pie Maker Name Role Phone Pcp, No Primary Care Provider Unavailvictorino e Hema Zuñiga MD Unavailable [phone] Encounter Details Date Type Department Care Team ([facility] st Contact Info) Description 01/28/2023 Scanned Document [facility] [address] [address] Francisco Lynn MD [address] [place] [id number] Social History Tobacco Use Types Packs/Day Years [...] on filedocumented in this encounter Care Teams Pie Maker Relationship Specialty Start Date End Date Pcp, No PCP - General General Medicine 05/26/17 Hema Zuñiga MD Physician Infectious Disease 06/02/18 documented as of this encounter
--- OUTSIDE RECORDS SUMMARY | 2024-09-27 15:25 | XMS_ITS | Encounter Summary ---
Author Organization [facility] Address [address] [place] [address] Care Team Providers Care Government Gauger Name Role Phone Unknown Primary Care Provider [phone] Pcp, No Primary Care Provider Unavailabl e Hema Zuñiga MD Unavailable [phone] Reason for Visit * Reason Comments Medication Refill Encounter Details Date Type Department Care Team (Late st Contact Info) Description 05/21/2017 Refill [facility] [place] [facility] [address] [place] [address] [address], [place] [address] Brooks Rogers MD [address] [place] [address] [address] [place] [address] Social History Tobacco Use Types Packs/Day Years [...] documented as of this encounter Care Teams Government Gauger Relationship Specialty Start Date End Date Unknown Unknow Provider Address PCP - General 04/29/17 05/25/17 Pcp, No PCP - General General Medicine 05/26/17 Hema Zuñiga MD Physician Infectious Disease 06/02/18 documented as of this encounter
== END 2024-09-27 16:29 | disposition home or self-care (01) ==
LOC: HO.HOP 13:40
PROVIDERS: PCP Internal Medicine; Visit Provider Clinical Nurse Specialist Psychiatric/Mental Health
DX: F10.10 Alcohol abuse, uncomplicated (principal); Z63.4 Disappearance and death of family member; F32.1 Major depressive disorder, single episode, moderate; F51.05 Insomnia due to other mental disorder; F99 Mental disorder, not otherwise specified
CPT/HCPCS: 90833; 99214

== ENCOUNTER → 2024-09-27 13:40 | Outpatient (BNVA) | payer OTHER, SELFPAY | PROVIDERS: PCP Internal Medicine; Visit Provider Clinical Nurse Specialist Psychiatric/Mental Health | DX: F10.10 Alcohol abuse, uncomplicated (principal); F32.1 Major depressive disorder, single episode, moderate; F51.05 Insomnia due to other mental disorder; F99 Mental disorder, not otherwise specified; G47.00 Insomnia, unspecified; Z71.89 Other specified counseling; Z63.4 Disappearance and death of family member | CPT/HCPCS: 99212 ==

== ENCOUNTER 2024-10-18 09:30 | Outpatient (AMB) | payer OTHER, SELFPAY ==
[2024-10-18 09:36] VITALS: BP 132/70; PULSE 85; TEMP 35.8; O2SAT 95; BMI 33.8
--- NOTE | 2024-10-18 09:36 | MHC.PC.OV ---
Vital Signs 10/18/24 09:36 Height 6 ft 6 in Weight 292 lb 6 oz BMI 33.8 BP 132/70 Blood Pressure Location Rt brachial Position Sitting Pulse 85 Pulse Source Pulse Oximeter Temp 96.4 F L Temp Source Temporal Artery Scan Pulse Oximetry (%) 95 Oxygen Delivery Method Room Air Intake Visit Reasons: f/u HLD and HTN Intake Note: Patient is here to follow up on HLD, HTN. Medical Consultant Required: No Instrument Operator: Not Required per policy Accompanied by: Self / Same As Patient Allergies No Known Allergies Allergy (Verified 10/18/24 09:44) Medication List - Last Reconciled 10/18/24 by Renata Vines PA-C amiodarone 200 mg PO DAILY atorvastatin 10 mg PO DAILY cetirizine 10 mg PO DAILY clobetasol 0.05% 1 appl topical DAILY ketoconazole 2% 1 appl topical DAILY metoprolol succinate ER 50 mg PO DAILY mirtazapine (Remeron) 15 mg PO BEDTIME rivaroxaban (Xarelto) 20 mg PO DAILY@1700 Tobacco use date assessed: 10/18/24 Dental Screening Dental Screen Date: 08/06/24 HPI f/u HLD and HTN HPI Details 64-year-old male with past medical history of hypercholesterolemia, hypertension, atrial fibrillation, depression last seen 07/2024 coming in for follow up.?In review of the notes, patient has been following with outpatient psych clinic last seen 09/27/2024 started on Remeron for depression and sleep.?Patient was seen by Cardiology 08/2024 advised to continue on amiodarone, rivaroxaban and arrange for PVI with CT scan for vein mapping. Presenting with medication management and cardiovascular concerns. The patient experiences challenges with medication availability, particularly with amiodarone and metoprolol, which have been prescribed post-cardioversion. Incidents of gum bleeding correlated with the use of Xarelto, which ceased upon temporary discontinuation of the drug. Adheres to dietary recommendations; however, recent LDL levels were elevated. Undergoing an ablation for atrial fibrillation in October, with prior history of orthopedic surgeries with noted complications. [facility] Medical History History of cardioversion History of alcohol abuse Atrial fibrillation DVT (deep venous thrombosis) Testicular cancer Surgical History H/O thumb surgery Hx of tonsillectomy H/O rotator cuff surgery History of right hip replacement History of orchiectomy Family History Mother Breast cancer Father Irregular heart beat Maternal Grandfather Heart attack Paternal Grandfather Heart attack Social History Household Members: Other Housing: House Do you presently have visiting nurse or other home services: No Alcohol intake: current Alcohol intake frequency: a few times a week Comment: 2 drinks a day Patient Tobacco Use Status: Former Tobacco user Tobacco use type: Cigar Years Smoked: stopped 42 years old, smokes weed e-Cigarette/Vaping Use: Never Used Second Hand Smoke Exposure: Yes Substance Use Type: Marijuana service: No Current occupational status: disabled Current occupational exposures/hazards: No Cognitive needs: No Hearing needs: No Vision needs: Yes Questionnaire Thrive Questionnaire Date Thrive assessed: 07/29/24 RUBÉN-7 AMB Questionnaire RUBÉN-7 Date RUBÉN - 7 assessed: 08/06/24 Source: Developed by Drs. Ildefonso Mills, Celeste Knight, Brett Maurice and colleagues, with an educational leslee from [employer]. Review of Systems Const Denies body aches, Denies chills, Denies fever(s), Denies headache(s) and Denies poor appetite Eyes Reports no additional complaints ENT Denies dysphagia, Denies dizziness, Denies headache(s) and Denies odynophagia Card Denies chest pain, Denies syncope, Denies edema, Denies irregular heart rhythm, Denies lightheadedness and Denies dyspnea Resp Denies cough and Denies dyspnea GI Denies abdominal pain, Denies constipation, Denies dysphagia, Denies diarrhea, Denies nausea, Denies odynophagia and Denies vomiting Reports no additional complaints Musc Reports no additional complaints and Denies abnormal gait Skin/Breast Reports system reviewed and no additional complaints, except as documented Neuro Denies abnormal gait, Denies dizziness, Denies syncope and Denies headache(s) Psych Reports no additional complaints Physical exam (Primary Care) Vital Signs: Last Vital Signs Temp 96.4 F L 10/18/24 09:36 Pulse 85 10/18/24 09:36 BP 132/70 10/18/24 09:36 Pulse Ox 95 10/18/24 09:36 Oxygen Delivery Method Room Air 10/18/24 09:36 BMI result Body Mass Index 33.8 Tobacco/Smoking Status: Tobacco use Status Tobacco use date assessed 10/18/24 10/18/24 09:44 Patient Tobacco Use Status Former Tobacco user 10/18/24 09:44 Tobacco use type Cigar 10/18/24 09:44 e-Cigarette/Vaping Use Never Used 10/18/24 09:44 Thrive Assessment: Date of Thrive Assessment Date Thrive assessed 07/29/24 10/18/24 09:44 Const General: cooperative, healthy appearing, comfortable and no acute distress Orientation/consciousness: patient oriented x3 HENMT Head: Yes normocephalic Ears: hearing grossly normal bilaterally General nose exam: Normal external nose present Eyes General: appearance normal, both eyes and all related structures Conjunctivae: conjunctivae normal Neck Neck: Yes full ROM and Yes no lymphadenopathy Resp Effort & Inspection: normal respiratory effort Auscultation: clear to auscultation bilaterally, no crackles, no rales, no rhonchi and no wheezes Cardio Rate: regular rate Rhythm: regular rhythm Skin General skin exam: no rashes or lesions noted Neuro General: patient oriented x3 Gait exam (Neuro): Normal gait present Extrem General: Yes normal to inspection, Yes full ROM and No edema Psych Affect: normal affect Attitude: cooperative Insight: Good insight present (Psych) Judgement: Good judgement present (Psych) Coding Level of Care Code Est Pt Level 3 (05097) Diagnoses Atrial fibrillation with RVR I48.91 Major depressive disorder, single episode, moderate F32.1 Hypertension I10 Hypercholesterolemia E78.00 Elevated blood sugar R73.9 History of alcohol abuse F10.11 Assessment & Plan Assessment & Plan (1) Atrial fibrillation with RVR: Code(s): I48.91 - Unspecified atrial fibrillation Category: Medical Plan: Patient is currently following with cardiology plans to have ablation and discontinue amiodarone s/p ablation. PVI is being coordinated by his cardiology team and due to have CT scan for vein mapping. PAtient reporting bleeding gums secondary to Xarelto which resolved after stopping Xarelto for several days. I advised patient not to skip doses of his blood thinner and follow up with his generation technologist for these concerns. (2) Major depressive disorder, single episode, moderate: Code(s): F32.1 - Major depressive disorder, single episode, moderate Category: Medical Plan: Patient is currently following with outpatient psych clinic for management of depression, bereavement and alcohol use disorder. He was recently started on Remeron 15 mg at bedtime. (3) Hypertension: Code(s): I10 - Essential (primary) hypertension Category: Medical Plan: Continue on current blood pressure medication. Avoid salt intake and encourage healthy diet and regular exercise. (4) Hypercholesterolemia: Code(s): E78.00 - Pure hypercholesterolemia, unspecified Category: Medical Plan: Avoid foods that are high in cholesterol such as red meat, fried foods, eggs and baked goods. Triglyceride goal of less than 150 and LDL goal of less than 100. Continue on atorvastatin 10. Reminded patient about blood work. (5) Elevated blood sugar: Comment: Pt also has hypercholesterolemia,l afib, fatty liver Code(s): R73.9 - Hyperglycemia, unspecified Category: Medical Plan: Decrease the amount of carbohydrates such as pasta, bread, rice, and potatoes and limit the amount of sweets. Although fruits are generally healthy they should be eaten in moderation as they are still high in sugar. (6) History of alcohol abuse: Comment: few days a wk Code(s): F10.11 - Alcohol abuse, in remission Category: Medical Plan: Continue to follow with outpatient psych clinic. Plan I adjusted the metoprolol prescription to reflect the correct 100 mg daily dose. The patient was encouraged to continue all cardiovascular medications as prescribed to avoid complications, and follow-up with his generation technologist to address bleeding concerns linked to Xarelto was strongly advised due to the risk of thromboembolic events. We will monitor blood pressure, and cholesterol levels require re-evaluation, with potential adjustments to statin therapy. Patient was reminded to complete the outstanding laboratory work in the forthcoming weeks for optimal health monitoring. This note was constructed using voice recognition software. While every effort has been made to ensure accuracy and child development associate teacher, still areas may have been included sometimes these areas may affect the content or meeting of the given symptoms. Total time spent caring for the patient today was 20 minutes. This includes time spent before the visit reviewing the chart, time spent during the visit, and time spent after the visit and documentation. Patient was informed and verbally consented to the use of an ambient scribe for clinic note documentation during this visit. Medications: Changed From metoprolol succinate ER 50 mg PO DAILY 90 tabs 3RF To metoprolol succinate ER 50 mg PO BID 90 days 180 tabs 3RF Refilled amiodarone 200 mg PO DAILY 90 tabs 2RF rivaroxaban (Xarelto) 20 mg PO DAILY@1700 30 tabs 0RF
== END 2024-10-18 10:13 | disposition home or self-care (01) ==
LOC: HO.HMCH 09:31
PROVIDERS: PCP Internal Medicine
DX: I48.91 Unspecified atrial fibrillation (principal); F32.1 Major depressive disorder, single episode, moderate; I10 Essential (primary) hypertension; E78.00 Pure hypercholesterolemia, unspecified; R73.9 Hyperglycemia, unspecified; F10.11 Alcohol abuse, in remission

== ENCOUNTER → 2024-10-18 09:30 | Outpatient (BNVA) | payer OTHER, SELFPAY | PROVIDERS: PCP Internal Medicine | DX: I48.91 Unspecified atrial fibrillation (principal); F32.1 Major depressive disorder, single episode, moderate; I10 Essential (primary) hypertension; E78.00 Pure hypercholesterolemia, unspecified; F10.11 Alcohol abuse, in remission; R73.9 Hyperglycemia, unspecified | CPT/HCPCS: 99212 ==

== ENCOUNTER 2024-10-24 12:08 | Emergency (ER) | payer OTHER, SELFPAY ==
[2024-10-24 12:10] VITALS: BP 166/91; PULSE 83; RESP 18; TEMP 36.3; O2SAT 97; BMI 33.8
--- NOTE | 2024-10-24 12:10 | ED_ITS ---
HPI - General Adult General Chief complaint: General Medical Stated complaint: med refill Time Seen by Provider: 10/24/24 12:21 Source: patient Mode of arrival: ambulatory Limitations: no limitations History of Present Illness ED Provider: Pallavi Nicole PA-C HPI narrative: Patient is a 64 year old assigned male at with a history of atrial fib on (on xarelto, metoprolol, and amiodarone), HTN, and alcohol abuse presenting to the emergency department today requesting a mediation refill. Patient states that he ran out of his metoprolol this morning and would like a refill as he is concerned about going into atrial fib. Patient states that he has an ablation scheduled soon with his vice president of operations. Patient denies any dizziness, lightheadedness, abdominal pain, nausea, vomiting, fever, chills, blurry vision, double vision, loss of vision, chest pain, difficulty breathing, shortness of breath, back pain, night sweats, pain with urination, increased urinary frequency, increased urinary urgency, blood in his urine or stool, syncope or a near syncopal episode, recent trauma or falls, bowel incontinence, bladder incontinence, or any other complaints at this time. Relieving factors: none Exacerbating factors: none Associated symptoms: denies other symptoms Treatments prior to arrival: none Related Data Home Medications ?Medication ?Instructions ?Recorded ?Confirmed atorvastatin 10 mg tablet 10 mg PO DAILY 07/28/24 10/18/24 Previous Rx's ?Medication ?Instructions ?Recorded clobetasol 0.05 % topical ointment 1 appl topical DAILY #60 grams 08/18/24 mirtazapine 15 mg tablet (Remeron) 15 mg PO BEDTIME #30 tabs 09/27/24 ketoconazole 2 % topical cream 1 appl topical DAILY #60 grams 10/11/24 cetirizine 10 mg tablet 10 mg PO DAILY #30 tabs 10/14/24 amiodarone 200 mg tablet 200 mg PO DAILY #90 tabs 10/18/24 metoprolol succinate 50 mg 50 mg PO BID 90 days #180 tabs 10/18/24 tablet,extended release 24 hr rivaroxaban 20 mg tablet (Xarelto) 20 mg PO DAILY@1700 #30 tabs 10/18/24 metoprolol succinate 50 mg 50 mg PO BID #60 tabs 04/06/25 tablet,extended release 24 hr Allergies Allergy/AdvReac Type Severity Reaction Status Date / Time No Known Allergies Allergy Verified 10/24/24 12:12 Review of Systems Constitutional: Constitutional: Reports no additional constitutional complaints, Denies chills, Denies fever(s) and Denies night sweats Eyes: Eyes: Reports no additional eye complaints, Denies blurry vision, Denies change in vision, Denies diplopia, Denies eye discharge, Denies loss of vision and Denies eye pain ENT: Denies dizziness Cardiovascular: Cardiovascular: Reports no additional cardiovascular complaints, Denies chest pain, Denies lightheadedness, Denies Loss of Consciousness and Denies dyspnea Respiratory: Respiratory: Reports no additional respiratory complaints and Denies dyspnea Gastrointestinal: Gastrointestinal: Reports no additional gastrointestinal complaints, Denies abdominal pain, Denies melena, Denies hematochezia, Denies change in bowel habits and Denies change in stool character Genitourinary: Genitourinary: Reports no additional male genitourinary complaints, Denies hematuria, Denies oliguria, Denies difficulty urinating, Denies dysuria, Denies urinary frequency, Denies urinary hesitancy, Denies urinary incontinence and Denies urinary urgency Musculoskeletal: Musculoskeletal: Reports no additional musculoskeletal complaints, Denies numbness and Denies tingling Neurologic: Denies dizziness, Denies loss of vision, Denies numbness and Denies tingling Psychiatric: Psychiatric: Reports no additional psychiatric complaints Endocrine: Endocrine: Reports no additional endocrine complaints Hematologic/Lymphatic: Hematologic/Lymphatic: Reports no additional hematologic/lymphatic complaints Allergic/Immunologic: Allergic/Immunologic: Reports no additional allergic/immunologic complaints [facility] Past Medical History Attestation statement: The following information was validated with the patient. Source: old records reviewed and nursing notes reviewed Medical History History of cardioversion History of alcohol abuse Atrial fibrillation DVT (deep venous thrombosis) Testicular cancer Surgical History H/O thumb surgery Hx of tonsillectomy H/O rotator cuff surgery History of right hip replacement History of orchiectomy Family History Family History Mother Breast cancer Father Irregular heart beat Maternal Grandfather Heart attack Paternal Grandfather Heart attack Social History Social History Household Members: Other Housing: House Do you presently have visiting nurse or other home services: No Alcohol intake: current Alcohol intake frequency: a few times a week Comment: 2 drinks a day Patient Tobacco Use Status: Former Tobacco user Tobacco use type: Cigar Years Smoked: stopped 42 years old, smokes weed e-Cigarette/Vaping Use: Never Used Second Hand Smoke Exposure: Yes Substance Use Type: Marijuana Advance Directives: No Advance Directives Information Provided: No Do you have a plan to hurt others: No Plan service: No Current occupational status: disabled Current occupational exposures/hazards: No Cognitive needs: No Hearing needs: No Vision needs: Yes Physical Exam ED Vital Signs: Vital Signs - 24 hr 10/24/24 12:10 Temperature 97.4 F Pulse Rate 83 Respiratory Rate 18 Blood Pressure 166/91 H Pulse Oximetry 97 Oxygen Delivery Method Room Air BMI result Body Mass Index 33.8 Const General: cooperative, no acute distress, alert and awake Nutritional Appearance: well nourished Orientation/consciousness: patient oriented x3 Limitations: no limitations HENMT Head: Yes normal to inspection and Yes atraumatic Ears: hearing grossly normal bilaterally and external ears normal General nose exam: Normal external nose present, no nasal discharge noted and no epistaxis Face and sinus: Yes normal facial exam, No abrasion and No laceration Mouth: Normal oral and palatal mucosa present, no drooling and no muffled voice Eyes General: appearance normal, both eyes and all related structures Periorbital: periorbital findings normal Eyelids: Yes eyelids normal Conjunctivae: conjunctivae normal Pupils: Equal, round and reactive pupils present EOM: EOMs intact bilaterally Neck Neck: Yes normal visual inspection, Yes full ROM and Yes no lymphadenopathy Chest Chest palpation & inspection: normal inspection of the chest Resp Effort & Inspection: normal respiratory effort and able to speak in complete sentences GI Inspection: Yes normal to inspection Neuro General: patient oriented x3, moves all extremities and CN's II-XI intact bilaterally Cranial nerves: Yes Equal, round and reactive pupils present Cognition (Neuro): normal cognition Extrem General: Yes normal to inspection, Yes full ROM and Yes capillary refill normal Psych Appearance: grossly normal Mental Status: mental status grossly normal Affect: normal affect Attitude: cooperative Thought process: Normal thought process present Thought content: Normal thought content present Insight: Good insight present (Psych) Medical Decision Making Medical Decision Making MDM Narrative: Patient is a 64 year old assigned male at with a history of atrial fib on (on xarelto, metoprolol, and amiodarone), HTN, and alcohol abuse presenting to the emergency department today requesting a mediation refill. Patient's physical exam was unremarkable. I explained my physical exam findings to the patient. I answered all questions asked by the patient. I stressed the importance of the patient taking his medication as directed (either prescribed or as the over the counter packaging recommends). I stressed the importance of the patient following up with his primary care provider and his vice president of operations. I stressed the importance of the patient returning to the emergency department immediately if his symptoms were to worsen or if he were to develop any dizziness, shortness of breath, difficulty breathing, chest pain, blurry vision, loss of vision, nausea, vomiting, abdominal pain, fever, chills, back pain, or any other complaints. Patient verbalized agreement and understanding with this treatment plan and discharge. Differential Diagnosis Differential Diagnoses: The differential diagnosis associated with the presentation includes Medication refill Prescription Management I considered prescription management with: Other (refill of metoprolol) Chronic Conditions Patient?s care impacted by: Hypertension Discharge Plan Discharge Clinical Impression: Encounter for medication refill Patient Disposition: Home, Self-Care Instructions: Medicine Refill (ED) Additional Instructions: Follow up with your primary care provider. Return to the emergency department immediately if your symptoms worsen or if you develop any numbness, tingling, dizziness, shortness of breath, difficulty breathing, chest pain, blurry vision, loss of vision, nausea, vomiting, abdominal pain, fever, chills, back pain, or any other complaints. Please see the information below about our Patient Portal. If you are not yet enrolled in the [facility] Patient Portal, you will receive an enrollment email invitation following your visit to any [facility] care setting. You may also self-enroll in the Patient Portal by visiting our website: [email or web address] The following information is required to access the Patient Portal: - Your [facility] Medical Record Number - Your personal home email address (must match what is in your electronic medical record, Registration staff can assist with this) - Name - Date of Capabilities of the Patient Portal: - Message some providers - View upcoming appointments - Access your health summary, medical history, and visit history - View current conditions and allergies - View procedure and lab results - View your medications, including guidelines, side effects, and precautions - Complete pre-appointment questionnaires requested by your provider - Ready summary reports of your office visits and procedures To access the Patient Portal Mobile [place], follow these directions: - Search Vouchercloud in the [place] Store or delicious Store - Download the [place] - Search for [facility] - Enter your login/password Prescriptions: New metoprolol succinate 50 mg tablet extended release 24 hr 50 mg PO BID Qty: 60 0RF No Action ketoconazole 2 % cream 1 appl topical DAILY Qty: 60 1RF cetirizine 10 mg tablet 10 mg PO DAILY Qty: 30 2RF atorvastatin 10 mg tablet 10 mg PO DAILY clobetasol 0.05 % ointment 1 appl topical DAILY Qty: 60 0RF metoprolol succinate 50 mg tablet extended release 24 hr 50 mg PO BID 90 Days Qty: 180 3RF amiodarone 200 mg tablet 200 mg PO DAILY Qty: 90 2RF Xarelto 20 mg tablet 20 mg PO DAILY@1700 Qty: 30 0RF mirtazapine [Remeron] 15 mg tablet 15 mg PO BEDTIME Qty: 30 0RF Referrals: Po,Danuta Devine MD [Primary Care Provider] - Print Language: Slovenian
--- OUTSIDE RECORDS SUMMARY | 2024-10-24 12:20 | XMS_ITS | Clinical Summary ---
Author Organization [facility] Address [address] [place] [address] Care Team Providers Care Bird Tender Name Role Phone Ger Joy MD Primary Care Provider [phone] Surgical History Surgery Date Site/Laterality Comments TONSILLECTOMY [...] 06/18/2022 Influenza Vaccine (#1) 2024 RSV Immunization Adult Patie nts (1 - 1-dose 75+ series) 2037 HIB [...] age to complete this topic Care Teams Bird Tender Relationship Specialty Start Date End Date Ger Joy MD [address] [place] [address] PCP - General Internal Medicine 03/12/17
--- OUTSIDE RECORDS SUMMARY | 2024-10-24 12:20 | XMS_ITS | Clinical Summary ---
Author Organization [facility] Address [address] [place] [address] Care Team Providers Care Making Machine Operator Name Role Phone Unavailable Primary Care Provider [...] Jf Jiménez Workers Comp Self 1960 [address] [place], [place] Jf Jiménez Workers Comp Self 1960 [address] [place] Jf Jiménez Workers Comp Self 1960 [address] [place]f Jiménez Workers Comp Self 1960 [address] [place] Jf Jiménez Personal/Family Self 1960 [address] [place] Jf Jiménez Personal/Family Self [address] [place] [id number]
--- OUTSIDE RECORDS SUMMARY | 2024-10-24 12:20 | XMS_ITS | Clinical Summary ---
Author Organization [facility] Address [address] [place] [address] Care Team Providers Care Oracle Identity Management Consultant Name Role Phone Pcp, No Primary Care Provider Unavailvictorino e Hema Zuñiga MD Unavailable [phone] Allergies No known active allergies Medications Medication [...] this topic Medical Devices Implanted Type Area Control Operator Device Identifier Shelf Expiration Date Model / Serial / Lot [id number] Shell Acetabular 62mm Hip 3 Hole Poly Por R3 Std Sterl - [id number] Implanted:Qty : 1 on 06/17/2022 by Francisco Lynn MD at [facility] Joint Prosthesis Right: Hip [employer] DIV S [id number] 01/28/2028 [id number] / / [id number] 40mm I.D., 62mm O.D. R3 Xlpe 0 Acetabular Liner Implanted:Qty : 1 on 06/17/2022 by Francisco Lynn MD at [facility] Joint Prosthesis Right: Hip [employer] [id number] 11/17/2022 [id number] / / [id number] Stem Femoral 147mm Polarstem Ti Alum Vndm Duffy 126d 5 07/03 - [id number] Implanted:Qty : 1 on 06/17/2022 by Francisco Lynn MD at [facility] Joint Prosthesis Right: Hip [employer] DIV S 01/31/2027 [id number] / / [id number] Titanium Modular Head Sleeve 07/03 Taper +8mm Implanted:Qty : 1 on 06/17/2022 by Francisco Lynn MD at [facility] Joint Prosthesis Right: Hip [employer] [id number] 05/30/2027 [id number] / / [id number] Head Femoral 40mm Hip Md Oxnm Sterl - [id number] Implanted:Qty : 1 on 06/17/2022 by Francisco Lynn MD at [facility] Joint Prosthesis Right: Hip [employer] S [id number] 03/23/2032 [id number] / / [id number] Plate Hip 80mm 3 Hole Compression 130d Std Brl Ss Bone Ambi - [id number] Implanted:Qty : 1 on 02/28/2017 by Brooks Rogers MD at [facility] Plate Right: Hip [employer] S [id number] 05/31/2025 [id number] / / [id number] Screw Bone Hip Fem Imhs 115mm Ss 21mm 12.7mm Lag Compression - [id number] Implanted:Qty : 1 on 02/28/2017 by Brooks Rogers MD at [facility] Screw Right: Hip [employer] [id number] 09/26/2025 [id number] / / [id number] Screw Bone Lg Bone Pthrd 100mm Ss 16mm 7.3mm Sahil Slfdrl - [id number] Implanted:Qty : 1 on 02/28/2017 by Brooks Rogers MD at [facility] Screw Right: Hip [employer] A CORINA AND 208.900 / / Screw Bone Hip Hugo Ambi Cls 46mm Ss 4.5mm 8mm Slftp - [id number] Implanted:Qty : 1 on 02/28/2017 by Brooks Rogers MD at [facility] Screw Right: Hip [employer] DIV S [id number] / / Screw Bone Hip Hugo Ambi Cls 48mm Ss 4.5mm 8mm Slftp - [id number] Implanted:Qty : 2 on 02/28/2017 by Brooks Rogers MD at [facility] Screw Right: Hip [employer] DIV S [id number] / / [id number] Screw Bone Hip Acetabular Canc Reflc R3 Contour 30mm 6.5mm - [id number] Implanted:Qty : 1 on 06/17/2022 by Francisco Lynn MD at [facility] Screw Right: Hip [employer] DIV S [id number] 12/26/2031 [id number] / / [id number] Filler Bone Void 15cc 1.7-10mm Canc Algrf Chp Frzdr - [id number] Implanted:Qty : 1 on 06/18/2018 by Hema Saha MD at [facility] Void Filler Right: Hip [employer] 03/31/2021 [id number] / [id number] / Filler Bone Void 15cc 1.7-10mm Canc Algrf Chp Frzdr - [id number] Implanted:Qty : 1 on 06/18/2018 by Hema Saha MD at [facility] Void Filler Right: Hip [employer] 03/31/2021 [id number] / [id number] / Explanted Type Area Control Operator Device Identifier Shelf Expiration Date Model / Serial / Lot [id number] Screw Bone Plvc Intellijoint Hip G2 136mm Nonst - [id number] Explanted:Qty: 2 on 06/17/2022 by Francisco Lynn MD at [facility] Screw Right: Hip [employer] / / Screw, Femur Lng Intellijoint Explanted:Qty: 1 on 06/17/2022 by Francisco Lynn MD at [facility] Screw Right: Hip [employer] [...] 7:26 AM 06/18/2018 12:27 PM Care Teams Oracle Identity Management Consultant Relationship Specialty Start Date End Date Pcp, No PCP - General General Medicine 05/26/17 Hema Zuñiga MD Physician Infectious Disease 06/02/18
--- OUTSIDE RECORDS SUMMARY | 2024-10-24 12:20 | XMS_ITS | Encounter Summary ---
Author Organization [facility] Address [address] [place] [address] Care Team Providers Care Continuous Drier Helper Name Role Phone Unknown Primary Care Provider [phone] Pcp, No Primary Care Provider Unavailabl e Hema Zuñiga MD Unavailable Reason for Visit * Reason Comments Medication Refill Encounter Details Date Type Department Care Team (Late st Contact Info) Description 05/21/2017 Refill [facility] [place] [address] [place] [address] [address], [place] [address] Brooks Rogers MD [address] [place] [address] [address] [place] [address] Social History Tobacco Use Types Packs/Day Years [...] documented as of this encounter Care Teams Continuous Drier Helper Relationship Specialty Start Date End Date Unknown Unknow Provider Address PCP - General 04/29/17 05/25/17 Pcp, No PCP - General General Medicine 05/26/17 Hema Zuñiga MD Physician Infectious Disease 06/02/18 documented as of this encounter
--- OUTSIDE RECORDS SUMMARY | 2024-10-24 12:20 | XMS_ITS | Encounter Summary ---
Author Organization [facility] Address [address] [place] [address] Care Team Providers Care Sexual Assault Social Worker Name Role Phone Pcp, No Primary Care Provider Hema Cedeno MD Unavailable [phone] Encounter Details Date Type Department Care Team (Late st Contact Info) Description 06/08/2018 Prep for [facility] [place] [address] [place] [address] [address] [place] [address] Mayelin Vázquez, STAND [place] [address] [facility] [address] [place] [address] Social History Tobacco Use Types Packs/Day Years [...] documented as of this encounter Care Teams Sexual Assault Social Worker Relationship Specialty Start Date End Date Pcp, No PCP - General General Medicine 05/26/17 Hema Zuñiga MD Physician Infectious Disease 06/02/18 documented as of this encounter
--- OUTSIDE RECORDS SUMMARY | 2024-10-24 12:20 | XMS_ITS | Encounter Summary ---
Author Organization [facility] Address [address] [place] [address] Care Team Providers Care Authorization Representative Name Role Phone Pcp, No Primary Care Provider Unavailvictorino e Hema Zuñiga MD Unavailable [phone] Encounter Details Date Type Department Care Team ([facility] st Contact Info) Description 01/28/2023 Scanned Document [facility] [address] [address] Francisco Lynn MD [address] [place] [address] Social History Tobacco Use Types Packs/Day Years [...] on filedocumented in this encounter Care Teams Authorization Representative Relationship Specialty Start Date End Date Pcp, No PCP - General General Medicine 05/26/17 Hema Zuñiga MD Physician Infectious Disease 06/02/18 documented as of this encounter
--- OUTSIDE RECORDS SUMMARY | 2024-10-24 12:20 | XMS_ITS | Encounter Summary ---
Author Organization [facility] Address [address] [place] [address] Care Team Providers Care Information Systems Supervisor Name Role Phone Pcp, No Primary Care Provider Unavailvictorino e Hema Zuñiga MD Unavailable [phone] Encounter Details Date Type Department Care Team ([facility] st Contact Info) Description 02/17/2023 Scanned Document [facility] [address] [address] Francisco Lynn MD [address] [place] [id number] Social History Tobacco Use Types Packs/Day Years [...] on filedocumented in this encounter Care Teams Information Systems Supervisor Relationship Specialty Start Date End Date Pcp, No PCP - General General Medicine 05/26/17 Hema Zuñiga MD Physician Infectious Disease 06/02/18 documented as of this encounter
--- OUTSIDE RECORDS SUMMARY | 2024-10-24 12:20 | XMS_ITS | Encounter Summary ---
Author Organization [facility] Address [address] [place] [address] Care Team Providers Care Production Support Engineer Name Role Phone Pcp, No Primary Care Provider Unavailabl e Hema Zuñiga MD Unavailable [phone] Encounter Details Date Type Department Care Team (Late st Contact Info) Description 11/12/2021 Erroneous Encounter [facility] CONVERSION DEPT [address] [place] [address] Provider, MD Jake Social History Tobacco Use [...] on filedocumented in this encounter Care Teams Production Support Engineer Relationship Specialty Start Date End Date Pcp, No PCP - General General Medicine 05/26/17 Hema Zuñiga MD Physician Infectious Disease 06/02/18 documented as of this encounter
[2024-10-24 12:25] VITALS: BP 166/91; PULSE 83; RESP 18; TEMP 36.3; O2SAT 97
== END 2024-10-24 12:26 | disposition home or self-care (01) ==
PROVIDERS: Emergency Provider Emergency Medicine; PCP Internal Medicine
DX: Z76.0 Encounter for issue of repeat prescription (principal); I10 Essential (primary) hypertension; I48.91 Unspecified atrial fibrillation; I48.0 Paroxysmal atrial fibrillation
CPT/HCPCS: 99282

== ENCOUNTER 2024-10-26 09:30 | Outpatient (AMB) | payer OTHER, SELFPAY ==
--- NOTE | 2024-10-26 09:03 | MHC.OFFVISPS ---
Intake Intake Visit Reasons: f/u consultation Manager Fashion Required: No Allergies No Known Allergies Allergy (Verified 10/24/24 12:12) Medication List - Last Reconciled 10/26/24 by Blanche Cruz APRN amiodarone 200 mg PO DAILY atorvastatin 10 mg PO DAILY cetirizine 10 mg PO DAILY clobetasol 0.05% 1 appl topical DAILY ketoconazole 2% 1 appl topical DAILY metoprolol succinate ER 50 mg PO BID metoprolol succinate ER 50 mg PO BID 90 days mirtazapine (Remeron) 15 mg PO BEDTIME rivaroxaban (Xarelto) 20 mg PO DAILY@1700 HPI- Psychiatric Chief Complaint: f/u consultation HPI Narrative: Pt reports continued feelings of depression and anxiety. he has little interest and motivation to do things; he has little enjoyment in activities. He has poor appetite but no significant weight loss. He is generally sleep ing better especially if he takes the remeron . he is not taking it daily. He has anxiety nervousness and worry frequently; he periodically has anxiety or panic attacks where he feels numb/tingling hands and feels fearful and sad. it is usually brought on by a memory of arguing with . he often feels guilty and sad. he is trying to make a plan to work again if he can. Pt reports 1-2 drinks daily. he has ablation surgery scheduled for 11/10. He is grieving his and step son. He has good support from family and friends . No SI or HI. he is future oriented. Past Psychiatric History: no previous treatment outpt or inpt Subjective Subjective Subjective Medication Compliance: Yes Side effects from medications: No Review of Systems Medical Review of Systems: unchanged Mental Status Exam Mental Status Exam Patient Appearance: Well Grooomed and Appropriate Patient Orientation: Person, Place, Time and Situation Level of Consciousness: Awake and Appropriate Patient Behavior: Appropriate and Cooperative Mood Description: Sad Affect Description: Sad Patient Cognition Impaired: No Ability to Follow Directions: Good Speech Pattern: Clear and Coherent Memory Description: Intact Hallucinations: None Delusions: Not Present Thought Process: Intact and Goal Oriented Thought Content: positive for Intact and positive for Goal Oriented Judgement: Good Assessment and Plan Assessment & Plan (1) Major depressive disorder, single episode, moderate: Status: Acute Code(s): F32.1 - Major depressive disorder, single episode, moderate (2) Alcohol abuse: Status: Acute Code(s): F10.10 - Alcohol abuse, uncomplicated (3) Generalized anxiety disorder with panic attacks: Status: Acute Code(s): F41.1 - Generalized anxiety disorder; F41.0 - Panic disorder [episodic paroxysmal anxiety] Plan discussed possibility of utilizing low dose benzodiazepeine for panic as needed for short term; discussed pros and cons, benefits vs risks; We agreed to hold off and he will take remeron every night and see if that helps prevent anxiety/panic. ordered blood work due to alcohol use and anxiety//depression encouraged routines re; ADLs and food, fluids intake discussed therapy short term to help him with goal setting return in 6 weeks . Medications: Refilled mirtazapine (Remeron) 15 mg PO BEDTIME 30 tabs 0RF Orders: Orders Magnesium Today F10.10 - Alcohol abuse, uncomplicated, F32.1 - Major depressive disorder, single episode, moderate Vitamin B6 Today F10.10 - Alcohol abuse, uncomplicated, F32.1 - Major depressive disorder, single episode, moderate Vitamin B12 and Folate Today F10.10 - Alcohol abuse, uncomplicated, F32.1 - Major depressive disorder, single episode, moderate Vitamin B1 Today F10.10 - Alcohol abuse, uncomplicated, F32.1 - Major depressive disorder, single episode, moderate Counseling and coordination of Care Pt. Self Management counseling: Maintenance-social rhythm, Mod caffeine/ETOH intake, Nutrition education and improvement, Sleep hygiene, Behavior activation, General coping skills and Problem solving Medication management counseling: Effectiveness, Side effects, Dosing range, Duration, Drug interaction and Adherence Diagnosis and Prognosis Counseling: Accuracy of diagnosis, Prognosis over time, Impact of diagnosis on life functions, Impact of family relationship, Problematic behaviors secondary to diagnosis and Adequacy of current interventions Details: I spent 45 minutes reviewing the record, seeing the patient and documenting in the medical record. Counseling provided to the patient/caregiver as outlined below. Addressed patient/caregiver concerns regarding current medication regime including effective adherence. Addressed patient/caregiver concerns regarding diagnosis and prognosis including accuracy of diagnosis, prognosis over time, impact of diagnosis. Addressed patient/caregiver concerns regarding impact of recent stressors. [facility] Medical History History of cardioversion History of alcohol abuse Atrial fibrillation DVT (deep venous thrombosis) Testicular cancer Surgical History H/O thumb surgery Hx of tonsillectomy H/O rotator cuff surgery History of right hip replacement History of orchiectomy Family History Mother Breast cancer Father Irregular heart beat Maternal Grandfather Heart attack Paternal Grandfather Heart attack Social History Household Members: Other Housing: House Do you presently have visiting nurse or other home services: No Alcohol intake: current Alcohol intake frequency: a few times a week Comment: 2 drinks a day Patient Tobacco Use Status: Former Tobacco user Tobacco use type: Cigar Years Smoked: stopped 42 years old, smokes weed e-Cigarette/Vaping Use: Never Used Second Hand Smoke Exposure: Yes Substance Use Type: Marijuana service: No Current occupational status: disabled Current occupational exposures/hazards: No Cognitive needs: No Hearing needs: No Vision needs: Yes Social History: lives alone, 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
--- OUTSIDE RECORDS SUMMARY | 2024-10-26 10:41 | XMS_ITS | Clinical Summary ---
Author Organization [facility] Address [address] [place] [address] Care Team Providers Care County Demonstrator Name Role Phone Ger Joy MD Primary Care Provider [phone] Surgical History Surgery Date Site/Laterality Comments TONSILLECTOMY [...] age to complete this topic Meningococcal B Vaccine Aged Out No l onger eligible based on patient's age to complete [...] age to complete this topic Care Teams County Demonstrator Relationship Specialty Start Date End Date Ger Joy MD [address] [place] [address] PCP - General Internal Medicine 03/12/17
--- OUTSIDE RECORDS SUMMARY | 2024-10-26 10:41 | XMS_ITS | Encounter Summary ---
Author Organization [facility] Address [address] [place] [address] Care Team Providers Care Plan Coordinator Name Role Phone Pcp, No Primary Care Provider Hema Cedeno MD Unavailable [phone] Encounter Details Date Type Department Care Team (Late st Contact Info) Description 06/08/2018 Prep for [facility] [place] [address] [place] [address] 2nd [address] [place] [address] Mayelin Vázquez, LINT CLEANER [address] [facility] [address] [place] [address] Social History Tobacco Use Types Packs/Day Years [...] documented as of this encounter Care Teams Plan Coordinator Relationship Specialty Start Date End Date Pcp, No PCP - General General Medicine 05/26/17 Hema Zuñiga MD Physician Infectious Disease 06/02/18 documented as of this encounter
--- OUTSIDE RECORDS SUMMARY | 2024-10-26 10:41 | XMS_ITS | Clinical Summary ---
Author Organization [facility] Address [address] [place] [address] Care Team Providers Care Environmental Lawyer Name Role Phone Unavailable Primary Care Provider [...] Jf Jiménez Workers Comp Self 1960 [address] [place], [place] Jf Jiménez Workers Comp Self 1960 [address] [place] Jf Jiménez Workers Comp Self 1960 [address] [place] Jf Jiménez Workers Comp Self 1960 [address] [place] Jf Jiménez Personal/Family Self 1960 [address] [place] Jf Jiménez Personal/Family Self [address] [place] [id number]
--- OUTSIDE RECORDS SUMMARY | 2024-10-26 10:41 | XMS_ITS | Encounter Summary ---
Author Organization [facility] Address [address] [place] [address] Care Team Providers Care Balance Clerk Name Role Phone Pcp, No Primary Care Provider Unavailvictorino e Hema Zuñiga MD Unavailable [phone] Encounter Details Date Type Department Care Team ([facility] st Contact Info) Description 02/17/2023 Scanned Document [facility] [address] [address] Francisco Lynn MD [address] [place] [address] Social History Tobacco Use Types Packs/Day Years [...] on filedocumented in this encounter Care Teams Balance Clerk Relationship Specialty Start Date End Date Pcp, No PCP - General General Medicine 05/26/17 Hema Zuñiga MD Physician Infectious Disease 06/02/18 documented as of this encounter
--- OUTSIDE RECORDS SUMMARY | 2024-10-26 10:41 | XMS_ITS | Encounter Summary ---
Author Organization [facility] Address [address] [place] [address] Care Team Providers Care V Belt Skiver Name Role Phone Pcp, No Primary Care Provider Unavailabl e Hema Zuñiga MD Unavailable Encounter Details Date Type Department Care Team (Late st Contact Info) Description 11/12/2021 Erroneous Encounter [facility] CONVERSION DEPT [address] [place] [phone] Provider, MD Jake Social History Tobacco Use [...] on filedocumented in this encounter Care Teams V Belt Skiver Relationship Specialty Start Date End Date Pcp, No PCP - General General Medicine 05/26/17 Hema Zuñiga MD Physician Infectious Disease 06/02/18 documented as of this encounter
--- OUTSIDE RECORDS SUMMARY | 2024-10-26 10:41 | XMS_ITS | Encounter Summary ---
Author Organization [facility] Address [address] [place] [address] Care Team Providers Care Linotype Machinist Apprentice Name Role Phone Pcp, No Primary Care Provider Unavailvictorino e Hema Zuñiga MD Unavailable [phone] Encounter Details Date Type Department Care Team ([facility] st Contact Info) Description 01/28/2023 Scanned Document [facility] [address] [address] Francisco Lynn MD [address] [place] [address] Social History Tobacco Use Types Packs/Day Years [...] on filedocumented in this encounter Care Teams Linotype Machinist Apprentice Relationship Specialty Start Date End Date Pcp, No PCP - General General Medicine 05/26/17 Hema Zuñiga MD Physician Infectious Disease 06/02/18 documented as of this encounter
== END 2024-10-26 09:50 | disposition home or self-care (01) ==
LOC: HO.HOP 09:30
PROVIDERS: PCP Internal Medicine; Visit Provider Clinical Nurse Specialist Psychiatric/Mental Health
DX: F32.1 Major depressive disorder, single episode, moderate (principal); F10.10 Alcohol abuse, uncomplicated; F41.1 Generalized anxiety disorder; F41.0 Panic disorder [episodic paroxysmal anxiety]
CPT/HCPCS: 99215

== ENCOUNTER → 2024-10-26 09:30 | Outpatient (BNVA) | payer OTHER, SELFPAY | PROVIDERS: PCP Internal Medicine; Visit Provider Clinical Nurse Specialist Psychiatric/Mental Health | DX: F32.1 Major depressive disorder, single episode, moderate (principal); F10.10 Alcohol abuse, uncomplicated; F41.1 Generalized anxiety disorder; F41.0 Panic disorder [episodic paroxysmal anxiety]; Z71.89 Other specified counseling | CPT/HCPCS: 99212 ==

== ENCOUNTER 2024-11-04 08:08 | Outpatient (REF) | payer OTHER, SELFPAY ==
--- OUTSIDE RECORDS SUMMARY | 2024-11-04 08:25 | XMS_ITS | Clinical Summary ---
Author Organization [facility] Address [address] [place] [address] Care Team Providers Care Parts Consultant Name Role Phone Unavailable Primary Care Provider [...] Jf Jiménez Workers Comp Self 1960 [address] [place], [place] Jf Jiménez Workers Comp Self 1960 [address] [place] Jf Jiménez Workers Comp Self 1960 [address] [place] Jf Jiménez Workers Comp Self 1960 [address] [place] Jf Jiménez Personal/Family Self 1960 [address] [place] Jf Jiménez Personal/Family Self [address] [place] [address]
--- OUTSIDE RECORDS SUMMARY | 2024-11-04 08:25 | XMS_ITS | Encounter Summary ---
Author Organization [facility] Address [address] [place], [place] [id number] Care Team Providers Care Body Builder Name Role Phone Pcp, No Primary Care Provider Margaret e Hema Zuñiga MD Unavailable [phone] Encounter Details Date Type Department Care Team (Late st Contact Info) Description 01/28/2023 Scanned Document [facility] [address] [phone] Francisco Lynn MD [address] [place] [address] Social History Tobacco Use Types Packs/Day Years [...] at Not on file Legal Sex Male 4:03 PM EDT Gender Identity Not on file Sexual Orientation Not on file documented as of this encounter Plan of Treatment Not on file documented as of this encounter Visit Diagnoses Not on filedocumented in this encounter Care Teams Body Builder Relationship Specialty Start Date End Date Pcp, Mallory PCP - General General Medicine 05/26/17 Hema Zuñiga MD Physician Infectious Disease 06/02/18 documented as of this encounter
--- OUTSIDE RECORDS SUMMARY | 2024-11-04 08:25 | XMS_ITS | Encounter Summary ---
Author Organization [facility] Address [address] [place] [address] Care Team Providers Care Vacuum System Tester Name Role Phone Pcp, No Primary Care Provider Hema Cedeno MD Unavailable [phone] Encounter Details Date Type Department Care Team (Late st Contact Info) Description 06/08/2018 Prep for Surgery [facility] [place] [address] [facility] 2nd [address] [place] [address] Mayelin Vázquez, CLOTHESPIN MACHINE OPERATOR [address] [facility] [address] [place] [address] Social History Tobacco Use Types Packs/Day Years [...] documented as of this encounter Care Teams Vacuum System Tester Relationship Specialty Start Date End Date Pcp, No PCP - General General Medicine 05/26/17 Hema Zuñiga MD Physician Infectious Disease 06/02/18 documented as of this encounter
--- OUTSIDE RECORDS SUMMARY | 2024-11-04 08:25 | XMS_ITS | Encounter Summary ---
Author Organization [facility] Address [address] [place] [address] Care Team Providers Care Loading Unit Operator Name Role Phone Unknown Primary Care Provider [phone] Pcp, No Primary Care Provider [facility] Hema Zuñiga MD Unavailable [phone] Reason for Visit * Reason Comments Medication Refill Encounter Details Date Type Department Care Team (Late st Contact Info) Description 05/21/2017 Refill [facility] [place] [address] [place] [address] [address] [place] [phone] Brooks Rogers MD [address] [place] [address] [address] [place] [address] Social History Tobacco Use Types Packs/Day Years Used Date Smoking Tobacco: Never Smokeless Tobacco: Never Alcohol Use Standard Drinks/Week Comments Yes 6 (1 standard drink = 0.6 oz pur e alcohol) Jostleanshu Sex and Gender Information Value Date Recorded [...] documented as of this encounter Care Teams Loading Unit Operator Relationship Specialty Start Date End Date Unknown Unknow Provider Address PCP - General 04/29/17 05/25/17 Pcp, No PCP - General General Medicine 05/26/17 Hema Zuñiga MD Physician Infectious Disease 06/02/18 documented as of this encounter
--- OUTSIDE RECORDS SUMMARY | 2024-11-04 08:25 | XMS_ITS | Clinical Summary ---
Author Organization [facility] Address [address] [place] [address] Care Team Providers Care Customer Support Executive Name Role Phone Ger Joy MD Primary Care Provider [phone] Surgical History Surgery Date Site/Laterality Comments TONSILLECTOMY PROCEDURE:TONSILLECTOMY TESTICLE SURGERY Left PROCEDURE:TESTICLE SURGERY;COMMENT:removed for cancer HIP OPEN REDUCTION Right PROCEDURE:HIP OPEN REDUCTION;COMMENT:fx repair Medical History Medical History Date Comments Arthritis DX:Arthritis Cancer (CMS/HCC V24, CMS/HCC V28) DX:Cancer (HCC);COMMENT:testicular on left Family History Medical History Relation [...] Influencers of Health Screening 06/18/2022 Influenza Vaccine (Season Ended) 2025 RSV Immunization Adult Patie nts (1 - [...] age to complete this topic Care Teams Customer Support Executive Relationship Specialty Start Date End Date Ger Joy MD [address] [place] [address] PCP - General Internal Medicine 03/12/17
--- OUTSIDE RECORDS SUMMARY | 2024-11-04 08:25 | XMS_ITS | Encounter Summary ---
Author Organization [facility] Address [address] [place] [address] Care Team Providers Care Pressure Controller Name Role Phone Pcp, No Primary Care Provider Margaret e Hema Zuñiga MD Unavailable [phone] Encounter Details Date Type Department Care Team (Late st Contact Info) Description 02/17/2023 Scanned Document [facility] [address] [phone] Francisco Lynn MD [address] [place] [address] Social History Tobacco Use Types Packs/Day Years [...] on filedocumented in this encounter Care Teams Pressure Controller Relationship Specialty Start Date End Date Pcp, Mallory PCP - General General Medicine 05/26/17 Hema Zuñiga MD Physician Infectious Disease 06/02/18 documented as of this encounter
--- OUTSIDE RECORDS SUMMARY | 2024-11-04 08:25 | XMS_ITS | Encounter Summary ---
Author Organization [facility] Address [address] [place] [address] Care Team Providers Care Bobcat Operator Name Role Phone Pcp, No Primary Care Provider Margaret e Hema Zuñiga MD Unavailable [phone] Encounter Details Date Type Department Care Team (Late st Contact Info) Description 11/12/2021 Erroneous Encounter [facility] CONVERSION DEPT [address] [place] [phone] ProviderJake MD Social History Tobacco Use Types Packs/Day Years [...] on filedocumented in this encounter Care Teams Bobcat Operator Relationship Specialty Start Date End Date Pcp, No PCP - General General Medicine 05/26/17 Hema Zuñiga MD Physician Infectious Disease 06/02/18 documented as of this encounter
--- OUTSIDE RECORDS SUMMARY | 2024-11-04 08:26 | XMS_ITS | Clinical Summary ---
Author Organization [facility] Address [address] [place] [id number] Care Team Providers Care Maintainer Operator Name Role Phone Pcp, No Primary Care Provider Margaret e Hema Zuñiga MD Unavailable [phone] Allergies No known active allergies Medications rivaroxaban (XARELTO) 20 MG tabletIndicatio ns:Arthritis of right hip Take 1 tablet (20 mg total) by mouth every morning. Take with meals. Do not start until June 20 Do not start before June 20, 2022. 2 Active acetaminophen (TYLENOL) 325 MG tabletIndicatio ns:Arthritis of right hip Take 3 tablets (975 mg total) by mouth every 8 (eight) hours around the clock. 126 tablet 2 Active HYDROmorphone (DILAUDID) 2 MG tabletIndicatio ns:Arthritis of right hip Take 1-2 tablets (2-4 mg total) by mouth every 3 (three) hours as needed for moderate pain or severe pain. Max Daily Amount: 32 mg 42 tablet 2 Active methocarbamol (ROBAXIN) 750 MG tabletIndicatio ns:Arthritis of right hip Take 1 tablet (750 mg total) by mouth 4 times daily (every 6 hours) as needed for muscle spasms. 36 tablet 2 Active PANTOprazole (PROTONIX) 40 MG EC tabletIndicatio ns:Arthritis of right hip Take 1 tablet (40 mg total) by mouth daily. 30 tablet 2 Active polyethylene glycol (miraLAx) 17 g packetIndicatio ns:Arthritis of right hip Take 1 packet (17 g total) by mouth daily as needed for constipation (if not BM by postop day #1). 5 packet 2 Active senna-docusate (SENNA-S) 8.6-50 MGIndications:A rthritis of right hip Take 2 tablets by mouth nightly. 60 tablet 2 Active minocycline (MINOCIN) 100 MG capsuleIndicati ons:Arthritis of right hip Take 1 capsule (100 mg total) by mouth 2 (two) times a day. 14 capsule 2 Active meloxicam (MOBIC) 15 MG tabletIndicatio ns:Arthritis of right hip Take 1 tablet (15 mg total) by mouth daily. 14 tablet 2 Active Active Problems Problem Noted Date Diagnosed [...] this topic Medical Devices Implanted Type Area Glass Maker Device Identifier Shelf Expiration Date Model / Serial / Lot [id number] Shell Acetabular 62mm Hip 3 Hole Poly Por R3 Std Sterl - [id number] Implanted:Qty : 1 on 06/17/2022 by Francisco Lynn MD at [facility] Joint Prosthesis Right: Hip [employer] - D [id number] 01/28/2028 [id number] / / [id number] 40mm I.D., 62mm O.D. R3 Xlpe 0 Acetabular Liner Implanted:Qty : 1 on 06/17/2022 by Francisco Lynn MD at [facility] Joint Prosthesis Right: Hip [employer] [id number] 11/17/2022 [id number] / / [id number] Stem Femoral 147mm Polarstem Ti Alum Vndm Duffy 126d 5 07/03 - [id number] Implanted:Qty : 1 on 06/17/2022 by Francisco Lynn MD at [facility] Joint Prosthesis Right: Hip [employer] - D 01/31/2027 [id number] / / [id number] Titanium Modular Head Sleeve 07/03 Taper +8mm Implanted:Qty : 1 on 06/17/2022 by Francisco Lynn MD at [facility] Joint Prosthesis Right: Hip [employer] [id number] 05/30/2027 [id number] / / [id number] Head Femoral 40mm Hip Md Oxnm Sterl - [id number] Implanted:Qty : 1 on 06/17/2022 by Francisco Lynn MD at [facility] Joint Prosthesis Right: Hip [employer] - D [id number] 03/23/2032 [id number] / / [id number] Plate Hip 80mm 3 Hole Compression 130d Std Brl Ss Bone Ambi - [id number] Implanted:Qty : 1 on 02/28/2017 by Brooks Rogers MD at [facility] Plate Right: Hip [employer] - D [id number] 05/31/2025 [id number] / / [id number] Screw Bone Hip Fem Imhs 115mm Ss 21mm 12.7mm Lag Compression - [id number] Implanted:Qty : 1 on 02/28/2017 by Brooks Rogers MD at [facility] Screw Right: Hip [employer] - D [id number] 09/26/2025 [id number] / / [id number] Screw Bone Lg Bone Pthrd 100mm Ss 16mm 7.3mm Sahil Slfdrl - [id number] Implanted:Qty : 1 on 02/28/2017 by Brooks Rogers MD at [facility] Screw Right: Hip [employer] - A CORINA AND 208.900 / / Screw Bone Hip Hugo Ambi Cls 46mm Ss 4.5mm 8mm Slftp - [id number] Implanted:Qty : 1 on 02/28/2017 by Brooks Rogers MD at [facility] Screw Right: Hip [employer] - D [id number] / / Screw Bone Hip Hugo Ambi Cls 48mm Ss 4.5mm 8mm Slftp - [id number] Implanted:Qty : 2 on 02/28/2017 by Brooks Rogers MD at [facility] Screw Right: Hip [employer] - D [id number] / / [id number] Screw Bone Hip Acetabular Canc Reflc R3 Contour 30mm 6.5mm - [id number] Implanted:Qty : 1 on 06/17/2022 by Francisco Lynn MD at [facility] Screw Right: Hip [employer] - D [id number] 12/26/2031 [id number] / / [id number] Filler Bone Void 15cc 1.7-10mm Canc Algrf Chp Frzdr - [id number] Implanted:Qty : 1 on 06/18/2018 by Hema Saha MD at [facility] Void Filler Right: Hip [employer] 03/31/2021 [id number] / [id number] / Filler Bone Void 15cc 1.7-10mm Canc Algrf Chp Frzdr - [id number] Implanted:Qty : 1 on 06/18/2018 by Hema Saha MD at [facility] Void Filler Right: Hip [employer] 03/31/2021 [id number] / [id number] / Explanted Type Area Glass Maker Device Identifier Shelf Expiration Date Model / Serial / Lot [id number] Screw Bone Plvc Intellijoint Hip G2 136mm Nonst - [id number] Explanted:Qty: 2 on 06/17/2022 by Francisco Lynn MD at [facility] Screw Right: Hip [employer] [id number] / / Screw, Femur Lng Intellijoint Explanted:Qty: 1 on 06/17/2022 by Francisco Lynn MD at [facility] Screw Right: Hip [employer] [id number] / / 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
[2024-11-04 11:26] LABS: Folate 3.4 ng/mL (> or = 4.0); Vitamin B12 579 pg/mL (200-900)
[2024-11-09 16:03] LABS: Vitamin B6 30.8 ng/mL (2.1-21.7)
[2024-11-14 08:53] LABS: Vitamin B1 15 nmol/L (8-30)
== END 2024-11-04 08:09 | disposition home or self-care (01) ==
LOC: HO.LAB 08:08
PROVIDERS: Clinical Nurse Specialist Psychiatric/Mental Health; PCP Internal Medicine
DX: F10.10 Alcohol abuse, uncomplicated (principal); F32.1 Major depressive disorder, single episode, moderate
CPT/HCPCS: 36415; 82607; 82746; 83735; 84207; 84425

== ENCOUNTER 2024-12-07 09:23 | Outpatient (AMB) | payer OTHER, SELFPAY ==
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
--- OUTSIDE RECORDS SUMMARY | 2024-12-07 10:11 | XMS_ITS | Clinical Summary ---
Author Organization [facility] Address [address] [id number] Care Team Providers Care Steel Post Installer Name Role Phone Pcp, No Primary Care Provider Margaret e Hema Zuñiga MD Unavailable [phone] Allergies No known active allergies Medications rivaroxaban [...] Virus Screening 1962 COVID-19 Vaccine (#1) 1967 HIV Screening 1975 DTaP/Tdap/Td Vaccines (1 - Tdap) 1981 Pneumococcal Vaccines 50+ (1 of 2 - PCV) 1981 Zoster (Shingles) Vaccine (1 of 2) 1981 Colonoscopy 2007 Influenza Vaccine 02/18/2025 RSV Vaccine 60 years and old er and Patients (1 - 1-dose 75+ series) 2037 Hepatitis B Vaccines Aged Out No long er eligible based on patient's age to complete this topic Medical Devices Implanted Type Area Financial Aid Officer Device Identifier Shelf Expiration Date Model / Serial / Lot [id number] Shell Acetabular 62mm Hip 3 Hole Poly Por R3 Std Sterl - [id number] Implanted:Qty : 1 on 06/17/2022 by Francisco Lynn MD at Joint Prosthesis Right: Hip [employer] - DIV S [id number] 01/28/2028 [id number] / / [id number] 40mm I.D., 62mm O.D. R3 Xlpe 0 Acetabular Liner Implanted:Qty : 1 on 06/17/2022 by Francisco Lynn MD at Joint Prosthesis Right: Hip [employer] [id number] 11/17/2022 [id number] / / [id number] Stem Femoral 147mm Polarstem Ti Alum Vndm Duffy 126d 5 07/03 - [id number] Implanted:Qty : 1 on 06/17/2022 by Francisco Lynn MD at Joint Prosthesis Right: Hip [employer] DIV S 01/31/2027 [id number] / / [id number] Titanium Modular Head Sleeve 07/03 Taper +8mm Implanted:Qty : 1 on 06/17/2022 by Francisco Lynn MD at Joint Prosthesis Right: Hip [employer] [id number] 05/30/2027 [id number] / / [id number] Head Femoral 40mm Hip Md Oxnm Sterl - [id number] Implanted:Qty : 1 on 06/17/2022 by Francisco Lynn MD at Joint Prosthesis Right: Hip [employer] DIV S [id number] 03/23/2032 [id number] / / [id number] Plate Hip 80mm 3 Hole Compression 130d Std Brl Ss Bone Ambi - [id number] Implanted:Qty : 1 on 02/28/2017 by Brooks Rogers MD at Plate Right: Hip [employer] DIV S [id number] 05/31/2025 [id number] / / [id number] Screw Bone Hip Fem Imhs 115mm Ss 21mm 12.7mm Lag Compression - [id number] Implanted:Qty : 1 on 02/28/2017 by Brooks Rogers MD at Screw Right: Hip [employer] DIV S [id number] 09/26/2025 [id number] / / [id number] Screw Bone Lg Bone Pthrd 100mm Ss 16mm 7.3mm Sahil Slfdrl - [id number] Implanted:Qty : 1 on 02/28/2017 by Brooks Rogers MD at Screw Right: Hip [employer] CORINA AND 208.900 / / Screw Bone Hip Hugo Ambi Cls 46mm Ss 4.5mm 8mm Slftp - [id number] Implanted:Qty : 1 on 02/28/2017 by Brooks Rogers MD at Screw Right: Hip [employer] - DIV S [id number] / / Screw Bone Hip Hugo Ambi Cls 48mm Ss 4.5mm 8mm Slftp - [id number] Implanted:Qty : 2 on 02/28/2017 by Brooks Rogers MD at Screw Right: Hip [employer] DIV S [id number] / / [id number] Screw Bone Hip Acetabular Canc Reflc R3 Contour 30mm 6.5mm - [id number] Implanted:Qty : 1 on 06/17/2022 by Francisco Lynn MD at Screw Right: Hip [employer] DIV S [id number] 12/26/2031 [id number] / / [id number] Filler Bone Void 15cc 1.7-10mm Canc Algrf Chp Frzdr - [id number] Implanted:Qty : 1 on 06/18/2018 by Hema Saha MD at Void Filler Right: Hip [employer] 03/31/2021 [id number] / [id number] / Filler Bone Void 15cc 1.7-10mm Canc Algrf Chp Frzdr - [id number] Implanted:Qty : 1 on 06/18/2018 by Hema Saha MD at Void Filler Right: Hip [employer] 03/31/2021 [id number] / [id number] / Explanted Type Area Financial Aid Officer Device Identifier Shelf Expiration Date Model / Serial / Lot [id number] Screw Bone Plvc Intellijoint Hip G2 136mm Nonst - [id number] Explanted:Qty: 2 on 06/17/2022 by Francisco Lynn MD at Screw Right: Hip [employer] [id number] / / Screw, Femur Lng Intellijoint Explanted:Qty: 1 on 06/17/2022 by Francisco Lynn MD at Screw Right: Hip [employer] [id number] / / 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
--- OUTSIDE RECORDS SUMMARY | 2024-12-07 10:11 | XMS_ITS | Encounter Summary ---
Author Organization [facility] Address [address] [place] [address] Care Team Providers Care Drafter Geological Name Role Phone Pcp, No Primary Care Provider Margaret e Hema Zuñiga MD Unavailable [phone] Encounter Details Date Type Department Care Team (Late st Contact Info) Description 02/17/2023 Scanned Document [facility] [address] [phone] Francisco Lynn MD [address] [place] [address] Social History Tobacco Use Types Packs/Day Years [...] on filedocumented in this encounter Care Teams Drafter Geological Relationship Specialty Start Date End Date Pcp, Mallory PCP - General General Medicine 05/26/17 Hema Zuñiga MD Physician Infectious Disease 06/02/18 documented as of this encounter
--- OUTSIDE RECORDS SUMMARY | 2024-12-07 10:11 | XMS_ITS | Encounter Summary ---
Author Organization [facility] Address [address] [place] [address] Care Team Providers Care Limousine And Hearse Upholsterer Name Role Phone Pcp, No Primary Care Provider Margaret e Hema Zuñiga MD Unavailable Encounter Details Date Type Department Care Team (Late st Contact Info) Description 11/12/2021 Erroneous Encounter [facility] [address] [place] [phone] ProviderJake MD Social History Tobacco Use Types [...] on filedocumented in this encounter Care Teams Limousine And Hearse Upholsterer Relationship Specialty Start Date End Date Pcp, No PCP - General General Medicine 05/26/17 Hema Zuñiga MD Physician Infectious Disease 06/02/18 documented as of this encounter
--- OUTSIDE RECORDS SUMMARY | 2024-12-07 10:11 | XMS_ITS | Encounter Summary ---
Author Organization [facility] Address [address] [place] [address] Care Team Providers Care Mattress Filling Machine Tender Name Role Phone Pcp, No Primary Care Provider Hema Cedeno MD Unavailable [phone] Encounter Details Date Type Department Care Team (Late st Contact Info) Description 06/08/2018 Prep for [facility] [place] [address] [facility] 2nd [address] [place] [address] Mayelin Vázquez, ENGINEERING PRODUCTION WORKER [address] [facility] [address] [place] [address] Social History Tobacco Use Types Packs/Day Years [...] documented as of this encounter Care Teams Mattress Filling Machine Tender Relationship Specialty Start Date End Date Pcp, No PCP - General General Medicine 05/26/17 Hema Zuñiga MD Physician Infectious Disease 06/02/18 documented as of this encounter
--- OUTSIDE RECORDS SUMMARY | 2024-12-07 10:11 | XMS_ITS | Clinical Summary ---
Author Organization [facility] Address [address] [place] [address] Care Team Providers Care Insert Operator Name Role Phone Ger Joy MD Primary Care Provider [phone] Surgical History Surgery Date Site/Laterality Comments TONSILLECTOMY [...] age to complete this topic Care Teams Insert Operator Relationship Specialty Start Date End Date Ger Joy MD [address] [place] [id number] PCP - General Internal Medicine 03/12/17
--- OUTSIDE RECORDS SUMMARY | 2024-12-07 10:11 | XMS_ITS | Encounter Summary ---
Author Organization [facility] Address [address] [place] [address] Care Team Providers Care Modeling Teacher Name Role Phone Unknown Primary Care Provider [phone] Pcp, No [facility] H[facility] MD Unavailable [phone] Reason for Visit * Reason Comments Medication Refill Encounter Details Date Type Department Care Team (Late st Contact Info) Description 05/21/2017 Refill [facility] [address] [place] [address] [address], [place] [phone] Brooks Rogers MD [address] [place] [address] [address] [place] [address] Social History Tobacco Use Types Packs/Day Years Used Date Smoking Tobacco: Never Smokeless Tobacco: Never Alcohol Use Standard Drinks/Week Comments Yes 6 (1 standard drink = 0.6 oz pur e alcohol) SmarTotsanshu Sex and Gender Information Value Date Recorded [...] documented as of this encounter Care Teams Modeling Teacher Relationship Specialty Start Date End Date Unknown Unknow Provider Address PCP - General 04/29/17 05/25/17 Pcp, No PCP - General General Medicine 05/26/17 Hema Zuñiga MD Physician Infectious Disease 06/02/18 documented as of this encounter
--- OUTSIDE RECORDS SUMMARY | 2024-12-07 10:11 | XMS_ITS | Encounter Summary ---
Author Organization [facility] Address [address] [place] [address] Care Team Providers Care Cottage Parent Name Role Phone Pcp, No Primary Care Provider Margaret e Hema Zuñiga MD Unavailable [phone] Encounter Details Date Type Department Care Team (Late st Contact Info) Description 01/28/2023 Scanned Document [facility] [address] [phone] Francisco Lynn MD [address] [place] [id number] Social History Tobacco Use Types Packs/Day Years [...] on filedocumented in this encounter Care Teams Cottage Parent Relationship Specialty Start Date End Date Pcp, Mallory PCP - General General Medicine 05/26/17 Hema Zuñiga MD Physician Infectious Disease 06/02/18 documented as of this encounter
--- OUTSIDE RECORDS SUMMARY | 2024-12-07 10:11 | XMS_ITS | Clinical Summary ---
Author Organization [facility] Address [address] [place] [address] Care Team Providers Care Circus Laborer Name Role Phone Unavailable Primary Care Provider [...] Jf Jiménez Workers Comp Self 1960 [address], [place] Jf Jiménez Workers Comp Self 1960 [address] [place] Jf Jiménez Workers Comp Self 1960 [address] [place] Jf Jiménez Workers Comp Self 1960 [address] [place] Jf Jiménez Personal/Family Self 1960 [address] [place] Jf Jiménez Personal/Family Self [address] [place] [address]
== END 2024-12-07 13:58 | disposition home or self-care (01) ==
LOC: HO.HOP 09:23
PROVIDERS: PCP Internal Medicine; Visit Provider Clinical Nurse Specialist Psychiatric/Mental Health
DX: F41.1 Generalized anxiety disorder (principal); F41.0 Panic disorder [episodic paroxysmal anxiety]; F32.1 Major depressive disorder, single episode, moderate
CPT/HCPCS: 99214

== ENCOUNTER → 2024-12-07 09:23 | Outpatient (BNVA) | payer OTHER, SELFPAY | PROVIDERS: PCP Internal Medicine; Visit Provider Clinical Nurse Specialist Psychiatric/Mental Health | DX: F41.1 Generalized anxiety disorder (principal); F32.1 Major depressive disorder, single episode, moderate; F41.0 Panic disorder [episodic paroxysmal anxiety] | CPT/HCPCS: 99212 ==

== ENCOUNTER 2024-12-15 10:07 | Outpatient (AMB) | payer OTHER, SELFPAY ==
[2024-12-15 10:25] VITALS: BP 130/62; PULSE 85; BMI 33.6
--- NOTE | 2024-12-15 10:25 | A.OFFVIS_ITS ---
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 He was seen in the hospital when he presented with paroxysmal atrial fibrillation and palpitations. After discussion he was taken for JENNA cardioversion. He was successfully cardioverted and was discharged home on rivaroxaban and metoprolol succinate 75 mg once a day. The plan was to continue the rivaroxaban for 6 weeks as his stroke risk is low. He was drinking alcohol previously and has stop drinking completely. He also has been snoring at night and had some features of sleep apnea and has been referred for sleep study by his primary care team. No bleeding concerns. He is saying he takes 3 tablets of metoprolol succinate which is 75 mg he gets some lightheadedness. 05/28/2023: He returns for follow-up. Been doing well. Occasionally feels palpitations lasting for few seconds. He is exercising and with activity he has no symptoms. No chest discomfort. He has been off Xarelto after cardioversion. His chads Vasc score was 1 for hypertension. Blood pressure is elevated. He does not drink as much but does drink on weekends specially when he is watching sports. He is saying he drinks vodka and beer. 12/29/23: The patient is here for follow-up. His recently and he was on alprazolam after that. He is saying he has stopped using it at this stage. He is denying any significant. Taking Multaq and metoprolol. Not on anticoagulation currently. 05/05/24: Here for follow-up. Overall doing well. One episode of atrial fibrillation while he had gastroenteritis and was in the ER. This was short lived. He has been using Multaq and metoprolol. His blood pressure is elevated and manual recheck is 140/80. He is saying that he has been checking blood pressure at home and in the morning hours the blood pressure is high and as the time passes blood pressure improves. He unfortunately lost his in July and mornings are quite tough for him emotionally. Potentially this is the reason his blood pressure is elevated in the mornings. He continues to drink few drinks of vodka. He has been using a lot of processed foods with more salt intake than usual. 08/16/2024: He is here for follow-up. He recently got admitted to [facility] with AFib and underwent JENNA cardioversion. Since then he has stopped drinking alcohol completely. He is on amiodarone. He has been referred to EP at [facility] for ablation. Denying any significant symptoms. Tolerating anticoagulation. 03/09/2025: He is here for follow-up. He underwent ablation in October 2024 and has been taken off the amiodarone. EKGs showing sinus rhythm. He continues to drink and has been drinking vodka up to 3 times a week. We discussed in detail again about stopping alcohol completely because it is a clear trigger for atrial fibrillation. [facility] Medical History History of cardioversion History of alcohol abuse Atrial fibrillation DVT (deep venous thrombosis) Testicular cancer Surgical History H/O thumb surgery Hx of tonsillectomy H/O rotator cuff surgery History of right hip replacement History of orchiectomy Family History Mother Breast cancer Father Irregular heart beat Maternal Grandfather Heart attack Paternal Grandfather Heart attack Social History Household Members: Other Housing: House Do you presently have visiting nurse or other home services: No Alcohol intake: current Alcohol intake frequency: a few times a week Comment: 2 drinks a day Patient Tobacco Use Status: Former Tobacco user Tobacco use type: Cigar Years Smoked: stopped 42 years old, smokes weed e-Cigarette/Vaping Use: Never Used Second Hand Smoke Exposure: Yes Substance Use Type: Marijuana service: No Current occupational status: disabled Current occupational exposures/hazards: No Cognitive needs: No Hearing needs: No Vision needs: Yes Review of Systems Const Denies chills, Denies fatigue, Denies fever(s), Denies frequent falls, Denies weakness, Denies weight gain and Denies weight loss ENT Denies dizziness Card Denies chest pain, Denies leg edema, Denies lightheadedness, Denies pa lpitations, Denies dyspnea and Denies dyspnea on exertion Resp Denies cough, Denies dyspnea and Denies dyspnea on exertion GI Denies hematochezia Musc Denies abnormal gait, Denies muscle weakness, Denies numbness, Denies radiating pain into limb and Denies tingling Neuro Denies abnormal gait, Denies dizziness, Denies frequent falls, Denies numbness, Denies tingling and Denies weakness Endo Denies fatigue and Denies palpitations Physical Exam Vital Signs: Last Vital Signs Pulse 85 12/15/24 10:25 BP 130/62 12/15/24 10:25 BMI result Body Mass Index 33.6 GENERAL APPEARANCE: in no acute distress, pleasant. NECK: no carotid bruit, no jugular venous distention. SKIN: no suspicious lesions, warm and dry. HEART: no murmurs, regular rate and rhythm. LUNGS: clear to auscultation bilaterally. ABDOMEN: soft, nontender. EXTREMITIES: no edema. PERIPHERAL PULSES: equal. NEUROLOGIC: No gross deficits, AAO X 3 Office Procedures EKG Details: Sinus rhythm 85 beats per minute, normal axis, premature ventricular complexes, QTC 447 milliseconds [id number], Complete Assessment & Plan Assessment & Plan (1) Hypertension: Code(s): I10 - Essential (primary) hypertension Category: Medical (2) PAF (paroxysmal atrial fibrillation): Code(s): I48.0 - Paroxysmal atrial fibrillation Category: Medical Plan Pleasant 64 year gentleman who is here for follow-up. He has background history of alcohol use and atrial fibrillation. He was cardioverted previously and was referred for ablation. He is now status post successful ablation and has been taken off the amiodarone. On anticoagulation and has been tolerating it well. He has been drinking vodka and we discussed about complete abstinence from alcohol. He understands this and we will cut back. Follow-up with us in few months. Thank you for allowing me to participate in the care of your patient. Please feel free to contact me if you have any questions. Coding Level of Care Code Est Pt Level 4 (62861) Diagnoses Hypertension I10 PAF (paroxysmal atrial fibrillation) I48.0 CPT Codes EKG - CPT: 78470-[id number], Complete ([id number])
--- OUTSIDE RECORDS SUMMARY | 2024-12-15 11:08 | XMS_ITS | Clinical Summary ---
Author Organization [facility] Address [address] [place] [address] Care Team Providers Care Vba Programmer Name Role Phone Unavailable Primary Care Provider [...] Jf Jiménez Workers Comp Self 1960 [address] [place] Jf Jiménez Workers Comp Self 1960 [address] [place] Jf Jiménez Workers Comp Self 1960 [address] [place] Jf Jiménez Workers Comp Self 1960 [address] [place]f Jiménez Personal/Family Self 1960 [address] [place] Jf Jiménez Personal/Family Self [address] [place] [address]
== END 2024-12-15 10:45 | disposition home or self-care (01) ==
LOC: HO.HCS 10:08
PROVIDERS: PCP Internal Medicine; Visit Provider Internal Medicine Cardiovascular Disease
DX: I10 Essential (primary) hypertension (principal); I48.0 Paroxysmal atrial fibrillation
CPT/HCPCS: 93010; 99214

== ENCOUNTER → 2024-12-15 10:07 | Outpatient (BNVA) | payer OTHER, SELFPAY | PROVIDERS: PCP Internal Medicine; Visit Provider Internal Medicine Cardiovascular Disease | DX: I10 Essential (primary) hypertension (principal); I48.0 Paroxysmal atrial fibrillation | CPT/HCPCS: 93005; 99212 ==

== ENCOUNTER 2025-01-31 06:38 | Outpatient (REF) | payer OTHER, SELFPAY ==
--- OUTSIDE RECORDS SUMMARY | 2025-01-31 06:41 | XMS_ITS | Clinical Summary ---
Author Organization [facility] Address [address] [place] [address] Care Team Providers Care Health Coordinator Name Role Phone Unavailable Primary Care Provider [...] (1 of 2) 2012 Influenza Vaccine (#1) 2025 RSV Adult > 60+ Yrs or Pregn [...] Jf Jiménez Workers Comp Self 1960 [address] [place], [place] Jf Jim[employer] Workers Comp Self 1960 [address] [place] [employer]f [employer] Workers Comp Self 1960 [address] [place] Self 1960 [address] [place] Jf Jiménez Personal/Family Self 1960 [address] [place] Jf Jiménez Personal/Family Self [address] [place] [id number]
--- OUTSIDE RECORDS SUMMARY | 2025-01-31 06:41 | XMS_ITS ---
Author Name [facility] Organization Unknown History of Medication Use Medication Directions Dispensed Refills Start Date End Date Stat senna-docusate (SENNA-S) 8.6-50 MG Take 2 tablets by mouth nightly. 06/18/2022 07/19/2022 active acetaminophen (TYLENOL) 325 MG tablet Take 3 tablets (975 mg total) by mouth every 8 (eight) hours around the clock. 06/18/2022 07/03/2022 active meloxicam (MOBIC) 15 MG tablet Take 1 tablet (15 mg total) by mouth daily. 06/18/2022 07/03/2022 active methocarbamol (ROBAXIN) 750 MG tablet Take 1 tablet (750 mg total) by mouth 4 times daily (every 6 hours) as needed for muscle spasms. 06/18/2022 06/28/2022 active minocycline (MINOCIN) 100 MG capsule Take 1 capsule (100 mg total) by mouth 2 (two) times a day. 06/18/2022 06/26/2022 active HYDROmorphone (DILAUDID) 2 MG tablet Take 1-2 tablets (2-4 mg total) by mouth every 3 (three) hours as needed for moderate pain or severe pain. Max Daily Amount: 32 mg 06/18/2022 active mupirocin (BACTROBAN) 2 % ointment Apply topically 2 (two) times a day. Apply ointment with Qtip inside each side of your nose twice a day for five days 06/04/2022 06/10/2022 active Problems Problem Status Onset Date Problem Type Date of Resolution Source Testicular cancer active ProblemAct H [facility] MRSA (methicillin resistant Staphylococcus aureus) active 2016-07-21 ProblemAct [facility] Infection associated with internal fixation device of right femur active 2017-03-13 ProblemAct [facility] DVT (deep venous thrombosis) active 2021-07-21 ProblemAct [facility] Painful orthopaedic hardware active 2018-06-18 ProblemAct [facility] Status post total replacement of right hip active EncounterDiagnosisAct [facility] Arthritis of right hip active 2022-06-17 ProblemAct [facility] Femoral neck fracture active 2017-02-27 ProblemAct [facility] Encounters Encounter Type Encounter Reason Primary Diagnosis Location Date [facility]ulatory [facility] 04/30/2024 Ambulatory Presence of right artificial hip joint Presence of right artificial hip joint [facility] 06/26/2023 Ambulatory Presence of right artificial hip joint Presence of right artificial hip joint [facility] 06/26/2023 Ambulatory Personal history of other venous thrombosis and embolism Personal history of other venous thrombosis and embolism [facility] 06/06/2023 Ambulatory Unilateral prima ry osteoarthritis, right hip [facility] 06/17/2022 Ambulatory Encounter for preprocedural laboratory examination [facility] 06/15/2022 Ambulatory Encounter for ot her preprocedural examination [facility] 06/03/2022 Care Team Organization Name Specialty Phone Email Start Date End Da te [facility] 2024 [facility] 3 12/17/2024 [facility] 3 06/06/2023 [facility] PCP,No Primary Care 06/17/2022 10/06/2024 [facility] NO PCP Primary Care 06/03/2022 06/03/2022
--- OUTSIDE RECORDS SUMMARY | 2025-01-31 06:41 | XMS_ITS | Encounter Summary ---
Author Organization [facility] Address [address] [place] [address] Care Team Providers Care Geospatial Technologist Name Role Phone Pcp, No Primary Care Provider Margaret e Hema Zuñiga MD Unavailable [phone] Encounter Details Date Type Department Care Team (Late st Contact Info) Description 02/17/2023 Scanned Document [facility] [address] [phone] Francisco Lynn MD [address] [place] [address] Social History Tobacco Use Types Packs/Day Years [...] on filedocumented in this encounter Care Teams Geospatial Technologist Relationship Specialty Start Date End Date Pcp, Mallory PCP - General General Medicine 05/26/17 Hema Zuñiga MD Physician Infectious Disease 06/02/18 documented as of this encounter
--- OUTSIDE RECORDS SUMMARY | 2025-01-31 06:41 | XMS_ITS | Clinical Summary ---
Author Organization [facility] Address [address] [place] [address] Care Team Providers Care Harpooner Name Role Phone Ger Joy MD Primary Care Provider [phone] Surgical History Surgery Date Site/Laterality Comments TONSILLECTOMY [...] Tdap) 1981 Zoster Vaccines (1 of 2) 1981 Pneumococcal Vaccine: 50+ Ye ars (1 of 1 - PCV) 2012 Cholesterol Screening (Lipid Panel) 06/18/2022 Colorectal Cancer Screening: Colonoscopy 06/18/2022 Depression Screening 06/18/2022 HIV Screening 06/18/2022 Hepatitis C Screening 06/18/2022 Social Influencers of Health Screening 06/18/2022 Influenza Vaccine (#1) 2025 RSV Immunization Adult Patie nts (1 [...] age to complete this topic Care Teams Harpooner Relationship Specialty Start Date End Date Ger Joy MD [address] [place] [id number] PCP - General Internal Medicine 03/12/17
[2025-01-31 08:01] LABS: Alanine Aminotransferase 23 U/L (0-40); Albumin Level 3.9 g/dL (3.5-5.0); Alkaline Phosphatase 87 U/L (39-117); Anion Gap 14 (12-20); Aspartate Amino Transferase 28 U/L (5-37); Blood Urea Nitrogen 6 mg/dL (9-16); Calcium 8.8 mg/dL (8.4-10.2); Carbon Dioxide 20 mmol/L (22-29); Chloride 110 mmol/L (96-108); Cholesterol 181 mg/dL (<200); Estimated Glomerular Filt Rate > 60; HDL Cholesterol 63 mg/dL (>40); Potassium 4.0 mmol/L (3.3-5.1); Sodium 140 mmol/L (135-145); Total Protein 7.1 g/dL (6.5-8.0); Triglycerides 64 mg/dL (<150)
== END 2025-01-31 06:39 | disposition home or self-care (01) ==
LOC: HO.LAB 06:38
PROVIDERS: PCP Internal Medicine
DX: E78.00 Pure hypercholesterolemia, unspecified (principal)
CPT/HCPCS: 36415; 80053; 80061

== ENCOUNTER 2025-02-01 08:34 | Outpatient (AMB) | payer OTHER, SELFPAY ==
--- NOTE | 2025-02-01 08:36 | MHC.PC.OV ---
Vital Signs 02/01/25 08:37 Height 6 ft 6 in Weight 289 lb BMI 33.4 BP 124/80 Blood Pressure Location Lt brachial Position Sitting Pulse 68 Pulse Source Pulse Oximeter Pulse Oximetry (%) 95 Oxygen Delivery Method Room Air Intake Visit Reasons: 3 mo f/u Intake Note: Patient here for a 3 month follow up Service Delivery Analyst Required: No Accompanied by: Self / Same As Patient Allergies No Known Allergies Allergy (Verified 02/01/25 08:38) Medication List - Last Reconciled 02/01/25 by Danuta Sanford MD atorvastatin 10 mg PO DAILY cetirizine 10 mg PO DAILY clobetasol 0.05% 1 appl topical DAILY folic acid 1 mg PO DAILY ketoconazole 2% 1 appl topical DAILY metoprolol succinate ER 50 mg PO BID mirtazapine 30 mg PO BEDTIME rivaroxaban (Xarelto) 20 mg PO DAILY@1700 Tobacco use date assessed: 10/18/24 Dental Screening Dental Screen Date: 02/01/25 Did you have a dental visit in the last 12 months?: No Did you have a dental problem in the last 6 months where you did not have access to dental care?: No Was dental information given to patient?: Patient has dentist [facility] Medical History History of cardioversion History of alcohol abuse Atrial fibrillation DVT (deep venous thrombosis) Testicular cancer Surgical History H/O thumb surgery Hx of tonsillectomy H/O rotator cuff surgery History of right hip replacement History of orchiectomy Family History Mother Breast cancer Father Irregular heart beat Maternal Grandfather Heart attack Paternal Grandfather Heart attack Social History Household Members: Other Housing: House Do you presently have visiting nurse or other home services: No Alcohol intake: current Alcohol intake frequency: a few times a week Comment: 2 drinks a day Patient Tobacco Use Status: Former Tobacco user Tobacco use type: Cigar Years Smoked: stopped 42 years old, smokes weed e-Cigarette/Vaping Use: Never Used Second Hand Smoke Exposure: Yes Substance Use Type: Marijuana service: No Current occupational status: disabled Current occupational exposures/hazards: No Cognitive needs: No Hearing needs: No Vision needs: Yes Questionnaire PHQ-9 Over the last 2 weeks, how often have you been bothered by any of the following problems? 1. Little interest or pleasure in doing things: more than half the days 2. Feeling down, depressed, or hopeless: more than half the days 3. Trouble falling or staying asleep, or sleeping too much: more than half the days 4. Feeling tired or having little energy: more than half the days 5. Poor appetite or overeating: more than half the days 6. Feeling bad about yourself - or that you are a failure or have let yourself or your family down: more than half the days 7. Trouble concentrating on things, such as reading the newspaper or watching television: more than half the days 8. Moving or speaking so slowly that other people could have noticed. Or the opposite - being so fidgety or restless that you have been moving around a lot more than usual: not at all 9. Thoughts that you would be better off or of hurting yourself in some way: not at all Total score: 14 Depression Screening Interpretation: Positive Depression Screening Done: Yes Source: Developed by Drs. Ildefonso Mills, Celeste Knight, Brett Maurice and colleagues, with an educational leslee from [employer]. Thrive Questionnaire Date Thrive assessed: 02/01/25 I am a: Patient What is your living situation today?: I choose not to answer this question Within the past 12 months, did the food you bought not last and you didn't have the money to get more?: I choose not to answer this question Within the past 12 months, did you worry whether your food would run out before you got money to buy more?: I choose not to answer this question Do you have trouble paying for medicines?: I choose not to answer this question Do you have trouble getting transportation to medical appointments?: I choose not to answer this question Do you have trouble paying your heating and electricity bill?: I choose not to answer this question Do you have trouble taking care of your child, family member or friend?: I choose not to answer this question Do you have trouble with day-to-day activities such as bathing, preparing meals, shopping, managing finances, etc.?: I choose not to answer this question Are you currently unemployed and looking for a job?: I choose not to answer this question Are you interested in more education?: I choose not to answer this question Please select the resources that you would like help with: None Currently or been in a relationship where the following occur: I choose not to answer THRIVE Score: 0 AUDIT C Alcohol Use Questionnaire (AUDIT-C) 1. How often do you have a drink containing alcohol?: 2-4 times a month 2. How many drinks containing alcohol do you have on a typical day when you are drinking?: 3 or 4 3. How often do you have six or more drinks on one occasion?: Less than monthly Total Score: 4 RUBÉN-7 AMB Questionnaire RUBÉN-7 Date RUBÉN - 7 assessed: 02/01/25 Feeling nervous, anxious, or on edge: 2 = More than half the days Not being able to stop or control worryin = More than half the days Worrying too much about different things: 2 = More than half the days Trouble relaxin = More than half the days Being so restless that it is hard to sit still: 2 = More than half the days Becoming easily annoyed or irritable: 1 = Several days Feeling afraid as if something awful might happen: 1 = Several days Total RUBÉN-7 score (0-4 normal; 5-9 mild; 10-14 moderate; 15-21 severe): 12 Source: Developed by Drs. Ildefonso Mills, Celeste Knight, Brett Maurice and colleagues, with an educational leslee from [employer]. Physical exam (Primary Care) Vital Signs: Last Vital Signs Pulse 68 02/01/25 08:37 BP 124/80 02/01/25 08:37 Pulse Ox 95 02/01/25 08:37 Oxygen Delivery Method Room Air 02/01/25 08:37 BMI result Body Mass Index 33.4 Tobacco/Smoking Status: Tobacco use Status Tobacco use date assessed 10/18/24 02/01/25 08:41 Patient Tobacco Use Status Former Tobacco user 02/01/25 08:41 Tobacco use type Cigar 02/01/25 08:41 e-Cigarette/Vaping Use Never Used 02/01/25 08:41 PHQ-9: PHQ-9 Score PHQ-9: Total score 14 02/01/25 09:00 Depression Screening Interpretation: Positive Thrive Assessment: Date of Thrive Assessment Date Thrive assessed 02/01/25 02/01/25 08:41 Currently or been in a relationship where the following occur: I choose not to answer Const General: alert; No acute distress Eyes Conjunctivae: conjunctivae normal Resp Auscultation: clear to auscultation bilaterally Cardio Rate: regular rate Rhythm: regular rhythm GI Inspection: Yes normal to inspection Extrem General: Yes normal to inspection and No edema Coding Level of Care Code Est Pt Level 4 (50532) Complex EM visit Add On G2211 Diagnoses PAF (paroxysmal atrial fibrillation) I48.0 Hypercholesterolemia E78.00 Hypertension I10 Alcohol abuse F10.10 Major depressive disorder, single episode, moderate F32.1 Folic acid deficiency E53.8 Impaired fasting glucose R73.01 Assessment & Plan Assessment & Plan (1) PAF (paroxysmal atrial fibrillation): Code(s): I48.0 - Paroxysmal atrial fibrillation Category: Medical Plan: Patient on anticoagulation with Xarelto continue to monitor renal function January 2025 last blood work (2) Hypercholesterolemia: Code(s): E78.00 - Pure hypercholesterolemia, unspecified Category: Medical Plan: Avoid fried foods, chicken skin, eggs, butter margarine, pastries and meat. Be it pork or beef they have a lot of cholesterol LDL goal of less than 130 and triglyceride of less than 150 on atorvastatin 10 mg once a day (3) Hypertension: Code(s): I10 - Essential (primary) hypertension Category: Medical Plan: Continue with blood pressure medication. Decrease salt intake and exercise (4) Alcohol abuse: Code(s): F10.10 - Alcohol abuse, uncomplicated Category: Social Hx Plan: Discussion on abstaining from alcohol (5) Major depressive disorder, single episode, moderate: Code(s): F32.1 - Major depressive disorder, single episode, moderate Category: Medical Plan: Continue to follow-up with psychiatry and counseling (6) Folic acid deficiency: Code(s): E53.8 - Deficiency of other specified B group vitamins Category: Medical Plan: Continue to take folic acid once a day (7) Impaired fasting glucose: Code(s): R73.01 - Impaired fasting glucose Category: Medical Plan History of Present Illness The patient is a 64-year-old male presenting for a follow-up visit. The patient has a history of deep vein thrombosis (DVT) in the right leg, diagnosed in 2021, and a history of alcohol use disorder. He was hospitalized on July 28 for atrial fibrillation following alcohol abuse. The patient has been advised to abstain from alcohol and has reported a reduction in alcohol consumption, limiting intake to a few beers occasionally. The patient has a history of hypertension, hypercholesterolemia, and atrial fibrillation. He has been cardioverted and referred for successful ablation, which resulted in no inducible sustained arrhythmias post-procedure. The patient is on anticoagulation therapy with Xarelto and continues to monitor renal function. The patient has a history of depression and anxiety disorder, with no recent follow-up with psychiatry. He reports some improvement in managing stress and emotions over the past year. A CT of the heart in October 2024 showed mild coronary artery calcifications and moderate thoracic spondylosis, with no significant pulmonary vein stenosis. Blood work in July showed mild thrombocytopenia, and in January, elevated blood glucose at 115 mg/dL, with normal electrolytes and renal function. The patient was noted to have low folic acid levels in October. Health Maintenance - Patient declined colonoscopy screening. - Discussion on abstaining from alcohol to prevent atrial fibrillation episodes. - Continue to take folic acid supplementation once a day. - Discussion on dietary modifications to manage elevated blood glucose, including reducing carbohydrate intake. - Vaccination discussion included pneumonia and shingles vaccines. Social History - Substance Use: History of alcohol use disorder with recent reduction in consumption. - Exercise: Engages in activities such as golf and uses a treadmill for exercise. - Social Support: Limited family interaction, occasional contact with sister and a friend. Review of Systems - Cardiovascular: Reports history of atrial fibrillation. Denies current palpitations. - Psychological: Reports history of depression and anxiety disorder. Denies current psychiatric follow-up. Physical Exam Results - Labs: Mild thrombocytopenia noted in July blood work. - Labs: Elevated blood glucose at 115 mg/dL in January, with normal electrolytes and renal function. - Imaging: CT of the heart in October 2024 showed mild coronary artery calcifications and moderate thoracic spondylosis. Plan The patient will continue anticoagulation therapy with Xarelto, with regular monitoring of renal function to ensure safety and efficacy. Dietary modifications are recommended to manage elevated blood glucose levels, focusing on reducing carbohydrate intake and increasing green leafy vegetables. The patient is advised to continue folic acid supplementation to address previously noted deficiency. A discussion on abstaining from alcohol was emphasized to prevent further episodes of atrial fibrillation, with the patient reporting a reduction in alcohol consumption. Vaccination options were discussed, including pneumonia and shingles vaccines, to enhance preventative care. Patient was informed and verbally consented to the use of an ambient scribe for clinic note documentation during this visit. Discussion Notes I discussed with the patient the importance of continuing anticoagulation therapy with Xarelto and the need for regular renal function monitoring. We reviewed dietary changes to manage elevated blood glucose, emphasizing the reduction of carbohydrate intake. I advised the patient to continue folic acid supplementation and highlighted the significance of abstaining from alcohol to prevent atrial fibrillation episodes. We also discussed vaccination options, including pneumonia and shingles vaccines, to enhance preventative care. Follow-up appointments and further evaluations were recommended to monitor the patient's progress and adjust the treatment plan as necessary. Patient Instructions - Continue taking Xarelto as prescribed and monitor renal function regularly. - Follow dietary recommendations to reduce carbohydrate intake and increase green leafy vegetables. - Continue taking folic acid supplements daily. - Avoid alcohol to prevent atrial fibrillation episodes. - Consider pneumonia and shingles vaccinations for preventative care. Orders: Orders Comprehensive Met. Panel 3 Months R73.01 - Impaired fasting glucose Reticulocyte Count 3 Months R73.01 - Impaired fasting glucose Hemoglobin A1c 3 Months R73.01 - Impaired fasting glucose Complete Blood Count Auto Diff 3 Months R73.01 - Impaired fasting glucose Vitamin B12 and Folate 3 Months R73.01 - Impaired fasting glucose IRON PROFILE 3 Months R73.01 - Impaired fasting glucose Medications: New atorvastatin 10 mg PO DAILY 90 tabs 3RF E78.00 - Pure hypercholesterolemia, unspecified Refilled cetirizine 10 mg PO DAILY 90 tabs 0RF
[2025-02-01 08:37] VITALS: BP 124/80; PULSE 68; O2SAT 95; BMI 33.4
--- OUTSIDE RECORDS SUMMARY | 2025-02-01 08:41 | XMS_ITS | Encounter Summary ---
Author Organization [facility] Address [address] [place] [address] Care Team Providers Care Client Reporting Associate Name Role Phone Pcp, No Primary Care Provider Margaret e Hema Zuñiga MD Unavailable [phone] Encounter Details Date Type Department Care Team (Late st Contact Info) Description 02/17/2023 Scanned Document [facility] [address] [phone] Francisco Lynn MD [address] [place] [address] Social History Tobacco Use Types Packs/Day Years [...] on filedocumented in this encounter Care Teams Client Reporting Associate Relationship Specialty Start Date End Date Pcp, Mallory PCP - General General Medicine 05/26/17 Hema Zuñiga MD Physician Infectious Disease 06/02/18 documented as of this encounter
--- OUTSIDE RECORDS SUMMARY | 2025-02-01 08:41 | XMS_ITS | Clinical Summary ---
Author Organization [facility] Address [address] [place] [address] Care Team Providers Care Lubricating Specialist Name Role Phone Ger Joy MD Primary Care Provider [phone] Surgical History Surgery Date Site/Laterality Comments TONSILLECTOMY [...] age to complete this topic Care Teams Lubricating Specialist Relationship Specialty Start Date End Date Ger Joy MD [address] [place] [id number] PCP - General Internal Medicine 03/12/17
--- OUTSIDE RECORDS SUMMARY | 2025-02-01 08:41 | XMS_ITS | Clinical Summary ---
Author Organization [facility] Address [address] [place] [address] Care Team Providers Care Renovation Plant Supervisor Name Role Phone Unavailable Primary Care Provider [...] Jf Jiménez Workers Comp Self 1960 [address] [place], [place] Jf Jiménez Workers Comp Self 1960 [address] [place], [place] Jf Jiménez Workers Comp Self 1960 [address] [place], [place]f Jiménez Workers Comp Self 1960 [address] [place], [place] Jf Jiménez Personal/Family Self 1960 [address] [place], [place] Jf Jiménez Personal/Family Self [address] [place] [id number]
== END 2025-02-01 09:24 | disposition home or self-care (01) ==
LOC: HO.HMCH 08:35
PROVIDERS: PCP Internal Medicine; Visit Provider Internal Medicine
DX: I48.0 Paroxysmal atrial fibrillation (principal); F32.1 Major depressive disorder, single episode, moderate; E78.00 Pure hypercholesterolemia, unspecified; I10 Essential (primary) hypertension; F10.10 Alcohol abuse, uncomplicated; E53.8 Deficiency of other specified B group vitamins; R73.01 Impaired fasting glucose

== ENCOUNTER → 2025-02-01 08:34 | Outpatient (BNVA) | payer OTHER, SELFPAY | PROVIDERS: PCP Internal Medicine; Visit Provider Internal Medicine | DX: I48.0 Paroxysmal atrial fibrillation (principal); E78.00 Pure hypercholesterolemia, unspecified; I10 Essential (primary) hypertension; F10.10 Alcohol abuse, uncomplicated; F32.1 Major depressive disorder, single episode, moderate; E53.8 Deficiency of other specified B group vitamins; R73.01 Impaired fasting glucose; F41.9 Anxiety disorder, unspecified; Z86.718 Personal history of other venous thrombosis and embolism | CPT/HCPCS: 99212 ==

== ENCOUNTER 2025-03-09 14:31 | Outpatient (AMB) | payer OTHER, SELFPAY ==
--- NOTE | 2025-03-09 15:05 | MHC.OFFVIS ---
Vital Signs 03/09/25 15:06 Height 6 ft 6 in Weight 291 lb 7.218 oz BMI 33.7 BP 140/80 H Blood Pressure Location Lt brachial Position Sitting Pulse 76 Pulse Source Pulse Oximeter Intake Visit Reasons: 3 mth f/up Intake Note: 3 mht f/up Highway Maintainer Required: No Accompanied by: Self / Same As Patient Allergies No Known Allergies Allergy (Verified 02/01/25 08:38) Medication List - Last Reconciled 03/09/25 by Estiven Hutchins MD atorvastatin 10 mg PO DAILY cetirizine 10 mg PO DAILY clobetasol 0.05% 1 appl topical DAILY folic acid 1 mg PO DAILY metoprolol succinate ER 50 mg PO BID rivaroxaban (Xarelto) 20 mg PO DAILY@1700 trazodone 50 mg PO BEDTIME PRN HPI Comments Details: 64-year-old gentleman who is here for follow-up. He was seen in the hospital when he presented with paroxysmal atrial fibrillation and palpitations. After discussion he was taken for JENNA cardioversion. He was successfully cardioverted and was discharged home on rivaroxaban and metoprolol succinate 75 mg once a day. The plan was to continue the rivaroxaban for 6 weeks as his stroke risk is low. He was drinking alcohol previously and has stop drinking completely. He also has been snoring at night and had some features of sleep apnea and has been referred for sleep study by his primary care team. No bleeding concerns. He is saying he takes 3 tablets of metoprolol succinate which is 75 mg he gets some lightheadedness. 05/28/2023: He returns for follow-up. Been doing well. Occasionally feels palpitations lasting for few seconds. He is exercising and with activity he has no symptoms. No chest discomfort. He has been off Xarelto after cardioversion. His chads Vasc score was 1 for hypertension. Blood pressure is elevated. He does not drink as much but does drink on weekends specially when he is watching sports. He is saying he drinks vodka and beer. 12/29/23: The patient is here for follow-up. His recently and he was on alprazolam after that. He is saying he has stopped using it at this stage. He is denying any significant. Taking Multaq and metoprolol. Not on anticoagulation currently. 05/05/24: Here for follow-up. Overall doing well. One episode of atrial fibrillation while he had gastroenteritis and was in the ER. This was short lived. He has been using Multaq and metoprolol. His blood pressure is elevated and manual recheck is 140/80. He is saying that he has been checking blood pressure at home and in the morning hours the blood pressure is high and as the time passes blood pressure improves. He unfortunately lost his in July and mornings are quite tough for him emotionally. Potentially this is the reason his blood pressure is elevated in the mornings. He continues to drink few drinks of vodka. He has been using a lot of processed foods with more salt intake than usual. 08/16/2024: He is here for follow-up. He recently got admitted to [facility] with AFib and underwent JENNA cardioversion. Since then he has stopped drinking alcohol completely. He is on amiodarone. He has been referred to EP at [facility] for ablation. Denying any significant symptoms. Tolerating anticoagulation. 03/09/2025: He is here for follow-up. He underwent ablation in October 2024 and has been taken off the amiodarone. He has cut back on alcohol significantly. His blood pressure is elevated in his saying that he checks it at home and once a week he will have elevated blood pressures. I have advised him to keep a log for the next 10 days and call us. He will check his blood pressure after resting for at least 5 minutes and we will not check it after exercise. [facility] Medical History History of cardioversion History of alcohol abuse Atrial fibrillation DVT (deep venous thrombosis) Testicular cancer Surgical History H/O thumb surgery Hx of tonsillectomy H/O rotator cuff surgery History of right hip replacement History of orchiectomy Family History Mother Breast cancer Father Irregular heart beat Maternal Grandfather Heart attack Paternal Grandfather Heart attack Social History Household Members: Other Housing: House Do you presently have visiting nurse or other home services: No Alcohol intake: current Alcohol intake frequency: a few times a week Comment: 2 drinks a day Patient Tobacco Use Status: Former Tobacco user Tobacco use type: Cigar Years Smoked: stopped 42 years old, smokes weed e-Cigarette/Vaping Use: Never Used Second Hand Smoke Exposure: Yes Substance Use Type: Marijuana service: No Current occupational status: disabled Current occupational exposures/hazards: No Cognitive needs: No Hearing needs: No Vision needs: Yes Review of Systems Const Denies chills, Denies fatigue, Denies fever(s), Denies frequent falls, Denies weakness, Denies weight gain and Denies weight loss ENT Denies dizziness Card Denies chest pain, Denies leg edema, Denies lightheadedness, Denies palpitations, Denies dyspnea and Denies dyspnea on exertion Resp Denies cough, Denies dyspnea and Denies dyspnea on exertion GI Denies hematochezia Musc Denies abnormal gait, Denies muscle weakness, Denies numbness, Denies radiating pain into limb and Denies tingling Neuro Denies abnormal gait, Denies dizziness, Denies frequent falls, Denies numbness, Denies tingling and Denies weakness Endo Denies fatigue and Denies palpitations Physical Exam Vital Signs: Last Vital Signs Pulse 76 03/09/25 15:06 BP 140/80 H 03/09/25 15:06 BMI result Body Mass Index 33.7 GENERAL APPEARANCE: in no acute distress, pleasant. NECK: no carotid bruit, no jugular venous distention. SKIN: no suspicious lesions, warm and dry. HEART: no murmurs, regular rate and rhythm. LUNGS: clear to auscultation bilaterally. ABDOMEN: soft, nontender. EXTREMITIES: no edema. PERIPHERAL PULSES: equal. NEUROLOGIC: No gross deficits, AAO X 3 Assessment & Plan Assessment & Plan (1) Hypertension: Code(s): I10 - Essential (primary) hypertension Category: Medical (2) PAF (paroxysmal atrial fibrillation): Code(s): I48.0 - Paroxysmal atrial fibrillation Category: Medical Plan [age] year gentleman who is here for follow-up. He has known history of symptomatic paroxysmal atrial fibrillation. Underwent cardioversion in the past. He subsequently had ablation done and since then has been doing well. He is on Toprol-XL 50 mg twice a day along with rivaroxaban for anticoagulation. Blood pressure is elevated. He will keep a log of his blood pressure at home for the next 10 days and then report to us. Follow up with us in 4 months. Thank you for allowing me to participate in the care of your patient. Please feel free to contact me if you have any questions. Medications: Changed From metoprolol succinate ER 50 mg PO BID 60 tabs 0RF To metoprolol succinate ER Dose changed and he is running out, please refill earlier. 50 mg PO BID 180 tabs 3RF Coding Level of Care Code Est Pt Level 4 (33470) Diagnoses Hypertension I10 PAF (paroxysmal atrial fibrillation) I48.0
[2025-03-09 15:06] VITALS: BP 140/80; PULSE 76; BMI 33.7
--- OUTSIDE RECORDS SUMMARY | 2025-03-09 15:30 | XMS_ITS | Clinical Summary ---
Author Organization [facility] Address [address] [place] [address] Care Team Providers Care Brand Advocate Name Role Phone Unavailable Primary Care Provider [...] Jf Jiménez Workers Comp Self 1960 [address] [place] Jf Jiménez Workers Comp Self 1960 [address] [place], [place] Jf Jiménez Workers Comp Self 1960 [address] [place] Jf Jiménez Workers Comp Self 1960 [address] [place] Jf Jiménez Personal/Family Self 1960 [address] [place] Jf Jiménez Personal/Family Self [address] [place] [id number]
--- OUTSIDE RECORDS SUMMARY | 2025-03-09 15:30 | XMS_ITS | Encounter Summary ---
Author Organization [facility] Address [address] [place] [address] Care Team Providers Care Computer Technician Name Role Phone Pcp, No Primary Care Provider Margaret e Hema Zuñiga MD Unavailable [phone] Encounter Details Date Type Department Care Team (Late st Contact Info) Description 02/17/2023 Scanned Document [facility] [address] [phone] Francisco Lynn MD [address] [place] [address] Social History Tobacco Use Types Packs/Day Years [...] on filedocumented in this encounter Care Teams Computer Technician Relationship Specialty Start Date End Date Pcp, Mallory PCP - General General Medicine 05/26/17 Hema Zuñiga MD Physician Infectious Disease 06/02/18 documented as of this encounter
--- OUTSIDE RECORDS SUMMARY | 2025-03-09 15:30 | XMS_ITS | Clinical Summary ---
Author Organization [facility] Address [address] [place] [address] Care Team Providers Care Worker'S Compensation Claims Examiner Name Role Phone Ger Joy MD Primary Care Provider [phone] Surgical History Surgery Date Site/Laterality Comments TONSILLECTOMY [...] Panel) 06/18/2022 Colorectal Cancer Screening: Colonoscopy 06/18/2022 HIV Screening 06/18/2022 Hepatitis C Screening 06/18/2022 Social Influencers of Health Screening 06/18/2022 Depression Screening 07/21/2024 Influenza Vaccine (#1) 2025 RSV Immunization Adult [...] age to complete this topic Care Teams Worker'S Compensation Claims Examiner Relationship Specialty Start Date End Date Ger Joy MD [address] [place] [address] PCP - General Internal Medicine 03/12/17
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
== END 2025-03-09 15:39 | disposition home or self-care (01) ==
LOC: HO.HCS 14:32
PROVIDERS: PCP Internal Medicine; Visit Provider Internal Medicine Cardiovascular Disease
DX: I10 Essential (primary) hypertension (principal); I48.0 Paroxysmal atrial fibrillation
CPT/HCPCS: 99214

== ENCOUNTER → 2025-03-09 14:31 | Outpatient (BNVA) | payer OTHER, SELFPAY | PROVIDERS: PCP Internal Medicine; Visit Provider Internal Medicine Cardiovascular Disease | DX: I10 Essential (primary) hypertension (principal); I48.0 Paroxysmal atrial fibrillation; R00.2 Palpitations | CPT/HCPCS: 99212 ==

== ENCOUNTER 2025-05-26 06:10 | Outpatient (REF) | payer OTHER, SELFPAY ==
--- OUTSIDE RECORDS SUMMARY | 2025-05-26 06:12 | XMS_ITS | Encounter Summary ---
Author Organization [facility] Address [address] [place] [address] Care Team Providers Care Machine Operator Farmworker Name Role Phone Pcp, No Primary Care Provider Hema Cedeno MD Unavailable [phone] Encounter Details Date Type Department Care Team (Late st Contact Info) Description 06/08/2018 Prep for Surgery [facility] [address] [place] [address] 2nd [place] [address] [place] [address] Mayelin Vázquez, GREEN INSPECTOR [address] [facility] [address] [place] [address] Social History Tobacco Use Types Packs/Day Years [...] n Risk Comment:Change to Standard Precautions 201903/17/2017 03/17/201711/1011/11/2019 12:00 AM EDT documented as of this encounter Care Teams Machine Operator Farmworker Relationship Specialty Start Date End Date Pcp, No PCP - General General Medicine 05/26/17 Hema Zuñiga MD Physician Infectious Disease 06/02/18 documented as of this encounter
--- OUTSIDE RECORDS SUMMARY | 2025-05-26 06:12 | XMS_ITS | Encounter Summary ---
Author Organization [facility] Address [address] [place] [address] Care Team Providers Care Jewelry Sales Representative Name Role Phone Pcp, No Primary Care Provider Unavailvictorino e Hema Zuñiga MD Unavailable [phone] Encounter Details Date Type Department Care Team ([facility] st Contact Info) Description 01/28/2023 Scanned Document [facility] [address] [phone] Francisco Lynn MD [address] [place] [address] Social History Tobacco Use Types Packs/Day Years [...] on filedocumented in this encounter Care Teams Jewelry Sales Representative Relationship Specialty Start Date End Date Pcp, No PCP - General General Medicine 05/26/17 Hema Zuñiga MD Physician Infectious Disease 06/02/18 documented as of this encounter
--- OUTSIDE RECORDS SUMMARY | 2025-05-26 06:12 | XMS_ITS | Clinical Summary ---
Author Organization [facility] Address [address] [place] [address] Care Team Providers Care Medical Accountant Name Role Phone Pcp, No Primary Care Provider Unavailabl e Hema Zuñiga MD Unavailable [phone] Allergies No known active allergies Medications rivaroxaban [...] 80 06/18/2022 10:17 AM EST Temperature 36.7 C (98 F) 06/18/2022 10:17 AM EST Respiratory Rate 18 [...] Colonoscopy 2007 Influenza Vaccine 02/18/2025 RSV Vaccine 50 years and old er and Patients (1 - 1-dose 75+ series) 2037 Hepatitis B Vaccines Aged Out No long er eligible based on patient's age to complete this topic Medical Devices Implanted Type Area Business Solutions Director Device Identifier Shelf Expiration Date Model / Serial / Lot [id number] Shell Acetabular 62mm Hip 3 Hole Poly Por R3 Std Sterl - [id number] Implanted:Qty : 1 on 06/17/2022 by Francisco Lynn MD at [facility] Joint Prosthesis Right: Hip [employer] - DIV S [id number] 01/28/2028 [id number] / / [id number] 40mm I.D., 62mm O.D. R3 Xlpe 0 Acetabular Liner Implanted:Qty : 1 on 06/17/2022 by Francisco Lynn MD at [facility] Joint Prosthesis Right: Hip [employer] [id number] 11/17/2022 [id number] / / [id number] Stem Femoral 147mm Polarstem Ti Alum Vndm Duffy 126d 5 07/03 - [id number] Implanted:Qty : 1 on 06/17/2022 by Francisco Lynn MD at [facility] Joint Prosthesis Right: Hip [employer] DIV S 01/31/2027 [id number] / / [id number] Titanium Modular Head Sleeve 07/03 Taper +8mm Implanted:Qty : 1 on 06/17/2022 by Francisco Lynn MD at [facility] Joint Prosthesis Right: Hip [employer] [id number] 05/30/2027 [id number] / / [id number] Head Femoral 40mm Hip Mdlr Oxnm Sterl - [id number] Implanted:Qty : 1 on 06/17/2022 by Francisco Lynn MD at [facility] Joint Prosthesis Right: Hip [employer] DIV S [id number] 03/23/2032 [id number] / / [id number] Plate Hip 80mm 3 Hole Compression 130d Std Brl Ss Bone Ambi - [id number] Implanted:Qty : 1 on 02/28/2017 by Brooks Rogers MD at [facility] Plate Right: Hip [employer] DIV S [id number] 05/31/2025 [id number] / / [id number] Screw Bone Hip Fem Imhs 115mm Ss 21mm 12.7mm Lag Compression - [id number] Implanted:Qty : 1 on 02/28/2017 by Brooks Rogers MD at [facility] Screw Right: Hip [employer] DIV S [id number] 09/26/2025 [id number] / / [id number] Screw Bone Lg Bone Pthrd 100mm Ss 16mm 7.3mm Ashil Slfdrl - [id number] Implanted:Qty : 1 on 02/28/2017 by Brooks Rogers MD at [facility] Screw Right: Hip [employer] A 208.900 / / Screw Bone Hip Hugo Ambi Cls 46mm Ss 4.5mm 8mm Slftp - [id number] Implanted:Qty : 1 on 02/28/2017 by Brooks Rogers MD at [facility] Screw Right: Hip [employer] DIV S [id number] / / Screw Bone Hip Hugo Ambi Cls 48mm Ss 4.5mm 8mm Slftp - [id number] Implanted:Qty : 2 on 02/28/2017 by Brooks Rogers MD at [facility] Screw Right: Hip [employer] DIV S [id number] / / [id number] Screw Bone Hip Acetabular Canc Reflc R3 Contour 30mm 6.5mm - [id number] Implanted:Qty : 1 on 06/17/2022 by Francisco Lynn MD at [facility] Screw Right: Hip [employer] DIV S [id number] 12/26/2031 [id number] / / [id number] Filler Bone Void 15cc 1.7-10mm Canc Algrf Chp Frzdr - [id number] Implanted:Qty : 1 on 06/18/2018 by Hema Saha MD at [facility] Void Filler Right: Hip [employer] 03/31/2021 [id number] / [id number] / Filler Bone Void 15cc 1.7-10mm Canc Algrf Chp Frzdr - [id number] Implanted:Qty : 1 on 06/18/2018 by Hema Saha MD at [facility] Void Filler Right: Hip [employer] 03/31/2021 [id number] / [id number] / Explanted Type Area Business Solutions Director Device Identifier Shelf Expiration Date Model / Serial / Lot [id number] Screw Bone Plvc Intellijoint Hip G2 136mm Nonst - [id number] Explanted:Qty: 2 on 06/17/2022 by Francisco Lynn MD at [facility] Screw Right: Hip [employer] 233 / / Screw, Femur Lng Intellijoint Explanted:Qty: 1 on 06/17/2022 by Francisco Lynn MD at [facility] Screw Right: Hip [employer] 232 / / Description:SUPPLY ITEM Insurance [facility] WORKER'S COMP Advance Directives * Full Code [...] 7:26 AM 06/18/2018 12:27 PM Care Teams Medical Accountant Relationship Specialty Start Date End Date Pcp, No PCP - General General Medicine 05/26/17 Hema Zuñiga MD Physician Infectious Disease 06/02/18
--- OUTSIDE RECORDS SUMMARY | 2025-05-26 06:12 | XMS_ITS | Clinical Summary ---
Author Organization [facility] Address [address] [place] [address] Care Team Providers Care Supervisor Dairy Sanitation Name Role Phone Unavailable Primary Care Provider [...] Jf Jiménez Workers Comp Self 1960 [address] [place], [place] Jf Jiménez Workers Comp Self 1960 [address] [place]f Jiménez Workers Comp Self 1960 [address] [place] Jf Jiménez Workers Comp Self 1960 [address] [place] Jf Jiménez Personal/Family Self 1960 [address] [place], [place] Jf Jiménez Personal/Family Self [address] [place] [address]
--- OUTSIDE RECORDS SUMMARY | 2025-05-26 06:12 | XMS_ITS | Clinical Summary ---
Author Organization [facility] Address [address] [place] [address] Care Team Providers Care Collective Bargaining Specialist Name Role Phone Ger Joy MD Primary Care Provider [phone] Surgical History Surgery Date Site/Laterality Comments TONSILLECTOMY [...] Health Maintenance Due Date Last Done Comments Colorectal Cancer Screening: Colonoscopy 1962 COVID-19 Vaccine (#1) 1967 DTaP,Tdap,and Td Vaccines (1 - Tdap) 1981 Zoster Vaccines (1 of 2) 1981 Pneumococcal Vaccine: 50+ Ye ars (1 of 1 - PCV) 2012 Cholesterol Screening (Lipid Panel) 06/18/2022 HIV Screening 06/18/2022 Hepatitis C Screening [...] age to complete this topic Care Teams Collective Bargaining Specialist Relationship Specialty Start Date End Date Ger Joy MD [address] [place] [address] PCP - General Internal Medicine 03/12/17
--- OUTSIDE RECORDS SUMMARY | 2025-05-26 06:12 | XMS_ITS | Encounter Summary ---
Author Organization [facility] Address [address] [place] [address] Care Team Providers Care Post Anesthesia Nurse Name Role Phone Pcp, No Primary Care Provider Unavailvictorino e Hema Zuñiga MD Unavailable [phone] Encounter Details Date Type Department Care Team ([facility] st Contact Info) Description 02/17/2023 Scanned Document [facility] [address] [phone] Francisco Lynn MD [address] [place] [address] Social History Tobacco Use Types Packs/Day Years [...] on filedocumented in this encounter Care Teams Post Anesthesia Nurse Relationship Specialty Start Date End Date Pcp, No PCP - General General Medicine 05/26/17 Hema Zuñiga MD Physician Infectious Disease 06/02/18 documented as of this encounter
--- OUTSIDE RECORDS SUMMARY | 2025-05-26 06:12 | XMS_ITS | Clinical Summary ---
Author Organization [facility] Address [address] [employer] [address] [address] Phone Care Team Providers Care Lab Support Service Tech Name Role Phone Pcp, Not Required Primary [...] 2012 ZOSTER VACCINES (1 of 2) 2012 INFLUENZA VACCINE (#1) 2025 COVID-19 VACCINE (1 - 2024-2 6 season) 2025 Adult Td,Tdap Booster 11/02/2026 11/02/2016 , 09/07/2015 [...] Advance Directives For more information, please contact: [phone] (9AM - 5PM [facility], Friday-Friday) * Full Code (Presumed) (Latest Code Status on File) Date Activated Date Inactivated Comments 11/02/2016 10:51 AM 11/06/2016 2:39 PM Care Teams Lab Support Service Tech Relationship Specialty Start Date End Date Pcp, Not Required [address] [place] [id number] PCP - General 11/01/16 Additional Source Comments The information contained in this document represents components of the legal health record. It is not the complete legal health record.[facility]
[2025-05-26 06:29] LABS: MANUAL DIFF FLAG NO
[2025-05-26 07:20] LABS: Hematocrit 43.2 % (42.0-52.0); Hemoglobin 14.9 g/dl (14.0-18.0); Imm Gran Abs Auto 0.03 X10*3/uL (0.00-0.03); Imm Gran Pct Auto 0.4 % (0.0-0.4); Lymphocytes Absolute Auto 1.6 X10*3/uL (1.2-4.9); Mean Corpuscular HGB Conc 34.5 g/dl (31.0-36.0); Mean Corpuscular Hemoglobin 31.1 pg (27.0-33.0); Mean Corpuscular Volume 90.2 fL (80.0-98.0); NRBC Abs Auto 0.000 X10*3/uL (0.0-0.012); NRBC Pct Auto 0.0 /100WBC (0.0-0.2); Platelet Count 200 X10*3/uL (160-400); Red Blood Count 4.79 X10*6/uL (4.60-5.80); Reticulocytes Absolute 0.057 X10*6/uL (0.026-0.095); White Blood Count 6.8 X10*3/uL (4.8-10.8)
[2025-05-26 07:47] LABS: Alanine Aminotransferase 37 U/L (0-40); Albumin Level 4.5 g/dL (3.5-5.0); Alkaline Phosphatase 77 U/L (39-117); Anion Gap 15 (12-20); Aspartate Amino Transferase 35 U/L (5-37); Blood Urea Nitrogen 14 mg/dL (9-16); Calcium 9.4 mg/dL (8.4-10.2); Carbon Dioxide 26 mmol/L (22-29); Chloride 102 mmol/L (96-108); Estimated Glomerular Filt Rate > 60; Iron 88 mcg/dL (45-160); Percent Iron Saturation 32 % (15-50); Potassium 3.9 mmol/L (3.3-5.1); Sodium 139 mmol/L (135-145); Total Iron Binding Capacity 276 mcg/dL (228-428); Total Protein 7.8 g/dL (6.5-8.0); Unsaturated Iron Binding 188 ug/dL
[2025-05-26 09:02] LABS: Folate 13.7 ng/mL (> or = 4.0); Vitamin B12 498 pg/mL (200-900)
== END 2025-05-26 06:11 | disposition home or self-care (01) ==
LOC: HO.LAB 06:10
PROVIDERS: PCP Internal Medicine; Visit Provider Internal Medicine
DX: R73.01 Impaired fasting glucose (principal)
CPT/HCPCS: 36415; 80053; 82607; 82746; 83036; 83540; 85025; 85045

== ENCOUNTER 2025-05-27 09:27 | Outpatient (AMB) | payer OTHER, SELFPAY ==
--- NOTE | 2025-05-27 09:29 | A.OFFPC_ITS ---
Vital Signs 05/27/25 09:30 05/27/25 10:00 Height 6 ft 6 in Weight 280 lb 8 oz BMI 32.4 BP 140/82 H 130/80 Blood Pressure Location Lt brachial Lt brachial Position Sitting Sitting Pulse 92 Pulse Source Pulse Oximeter Temp 97.1 F Temp Source Temporal Artery Scan Pulse Oximetry (%) 98 Oxygen Delivery Method Room Air Intake Visit Reasons: Annual Exam Allergies No Known Allergies Allergy (Verified 05/27/25 09:34) Medication List - Last Reconciled 05/27/25 by Danuta Sanford MD atorvastatin 10 mg PO DAILY cetirizine 10 mg PO DAILY clobetasol 0.05% 1 appl topical DAILY folic acid 1 mg PO DAILY metoprolol succinate ER 50 mg PO BID trazodone 50 mg PO BEDTIME PRN Tobacco use date assessed: 05/27/25 Dental Screening Dental Screen Date: 05/27/25 Did you have a dental visit in the last 12 months?: No Did you have a dental problem in the last 6 months where you did not have access to dental care?: No Was dental information given to patient?: No [facility] Medical History History of cardioversion History of alcohol abuse Atrial fibrillation DVT (deep venous thrombosis) Testicular cancer Surgical History H/O thumb surgery Hx of tonsillectomy H/O rotator cuff surgery History of right hip replacement History of orchiectomy Family History Mother Breast cancer Father Irregular heart beat Maternal Grandfather Heart attack Paternal Grandfather Heart attack Social History (Updated 05/27/25 @ 10:07 by Danuta Sanford MD) Household Members: Other Housing: House Do you presently have visiting nurse or other home services: No Alcohol intake: current Alcohol intake frequency: a few times a week Comment: 2 drinks a day, 12 a week Patient Tobacco Use Status: Former Tobacco user Tobacco use type: Cigar Years Smoked: stopped 42 years old, smokes weed e-Cigarette/Vaping Use: Never Used Second Hand Smoke Exposure: Yes Substance Use Type: Marijuana service: No Current occupational status: disabled Current occupational exposures/hazards: No Cognitive needs: No Hearing needs: No Vision needs: Yes Questionnaire PHQ-9 Over the last 2 weeks, how often have you been bothered by any of the following problems? 1. Little interest or pleasure in doing things: more than half the days 2. Feeling down, depressed, or hopeless: more than half the days 3. Trouble falling or staying asleep, or sleeping too much: more than half the days 4. Feeling tired or having little energy: more than half the days 5. Poor appetite or overeating: more than half the days 6. Feeling bad about yourself - or that you are a failure or have let yourself or your family down: more than half the days 7. Trouble concentrating on things, such as reading the newspaper or watching television: more than half the days 8. Moving or speaking so slowly that other people could have noticed. Or the opposite - being so fidgety or restless that you have been moving around a lot more than usual: not at all 9. Thoughts that you would be better off or of hurting yourself in some way: not at all Total score: 14 Depression Screening Interpretation: Positive Depression Screening Done: Yes Source: Developed by Drs. Ildefonso Mills, Celeste Knight, Brett Maurice and colleagues, with an educational leslee from [employer]. Thrive Questionnaire Date Thrive assessed: 02/01/25 I am a: Patient What is your living situation today?: I choose not to answer this question Within the past 12 months, did the food you bought not last and you didn't have the money to get more?: I choose not to answer this question Within the past 12 months, did you worry whether your food would run out before you got money to buy more?: I choose not to answer this question Do you have trouble paying for medicines?: I choose not to answer this question Do you have trouble getting transportation to medical appointments?: I choose not to answer this question Do you have trouble paying your heating and electricity bill?: I choose not to answer this question Do you have trouble taking care of your child, family member or friend?: I choose not to answer this question Do you have trouble with day-to-day activities such as bathing, preparing meals, shopping, managing finances, etc.?: I choose not to answer this question Are you currently unemployed and looking for a job?: I choose not to answer this question Are you interested in more education?: I choose not to answer this question Please select the resources that you would like help with: None Currently or been in a relationship where the following occur: I choose not to answer THRIVE Score: 0 AUDIT C Alcohol Use Questionnaire (AUDIT-C) 1. How often do you have a drink containing alcohol?: 2-4 times a month 2. How many drinks containing alcohol do you have on a typical day when you are drinking?: 3 or 4 3. How often do you have six or more drinks on one occasion?: Less than monthly Total Score: 4 RUBÉN-7 AMB Questionnaire RUBÉN-7 Date RUBÉN - 7 assessed: 02/01/25 Feeling nervous, anxious, or on edge: 2 = More than half the days Not being able to stop or control worryin = More than half the days Worrying too much about different things: 2 = More than half the days Trouble relaxin = More than half the days Being so restless that it is hard to sit still: 2 = More than half the days Becoming easily annoyed or irritable: 1 = Several days Feeling afraid as if something awful might happen: 1 = Several days Total RUBÉN-7 score (0-4 normal; 5-9 mild; 10-14 moderate; 15-21 severe): 12 Source: Developed by Drs. Ildefonso Mills, Celeste Knight, Brett Maurice and colleagues, with an educational leslee from [employer]. Review of Systems Const Denies poor appetite and Denies weakness Eyes Denies no additional complaints ENT Reports Normal hearing present, Denies dizziness, Denies nasal congestion, Denies tinnitus and Denies sore throat Card Denies chest pain, Denies syncope, Denies rapid heart rate and Denies dyspnea Resp Denies cough and Denies dyspnea GI Denies change in stool character, Reports constipation, Denies diarrhea, Denies nausea and Denies vomiting Denies dysuria and Denies urinary frequency Neuro Reports Normal hearing present, Denies confusion, Denies dizziness, Denies syncope and Denies weakness Psych Denies confusion Physical exam (Primary Care) Vital Signs: Last Vital Signs Temp 97.1 F 05/27/25 09:30 Pulse 92 05/27/25 09:30 BP 130/80 05/27/25 10:00 Pulse Ox 98 05/27/25 09:30 Oxygen Delivery Method Room Air 05/27/25 09:30 BMI result Body Mass Index 32.4 Tobacco/Smoking Status: Tobacco use Status Tobacco use date assessed 05/27/25 05/27/25 09:35 Patient Tobacco Use Status Former Tobacco user 05/27/25 10:07 Tobacco use type Cigar 05/27/25 10:07 e-Cigarette/Vaping Use Never Used 05/27/25 10:07 PHQ-9: PHQ-9 Score PHQ-9: Total score 14 05/27/25 09:55 Depression Screening Interpretation: Positive Thrive Assessment: Date of Thrive Assessment Date Thrive assessed 02/01/25 05/27/25 09:35 Currently or been in a relationship where the following occur: I choose not to answer Const General: No confusion Orientation/consciousness: No confusion HENMT Head: Yes normocephalic Ears: external ears normal and TM's normal bilaterally Face and sinus: Yes normal facial exam Mouth: moist mucous membranes Throat: Yes tonsils normal Eyes Conjunctivae: conjunctivae normal Pupils: Equal, round and reactive pupils present and Pupil accommodation reflex normal Direct Ophthalmoscopy: normal light reflex Neck Neck: No lymphadenopathy Thyroid: Thyroid normal Chest Chest palpation & inspection: normal inspection of the chest Resp Effort & Inspection: normal respiratory effort and no audible wheezes Auscultation: clear to auscultation bilaterally, no crackles, no wheezes and lung sounds not diminished Cardio Rate: regular rate Rhythm: regular rhythm Peripheral pulses: radial pulses present and dorsalis pedis present GI Palpation (GI): no masses Auscultation: normal bowel sounds and normoactive bowel sounds Rectal Exam - Male: Yes deferred Skin General skin exam: no rashes or lesions noted Rashes: no rashes Neuro General: No confusion Cranial nerves: Yes Equal, round and reactive pupils present and Yes Normal hearing present Cognition (Neuro): normal cognition Gait exam (Neuro): Normal gait present Motor exam (neuro): 5/5 motor strength present throughout Deep tendon reflexes (DTR's): Right brachioradialis reflex intensity grade: 2+, Left brachioradialis reflex intensity grade: 2+, Right patellar reflex intensity grade: 2+ and Left patellar reflex intensity grade: 2+ Extrem General: No edema Coding Level of Care Code Est Pt Prev Care 40-64y(14369) Diagnoses Annual physical exam Z00.00 PAF (paroxysmal atrial fibrillation) I48.0 Hypertension I10 Hypercholesterolemia E78.00 Elevated blood sugar R73.9 Situational depression F43.21 Dupuytren's contracture of both hands M72.0 Nose abrasion S00.31XA Colon cancer screening Z12.11 Assessment & Plan Assessment & Plan (1) Annual physical exam: Code(s): Z00.00 - Encounter for general adult medical examination without abnormal findings Category: Medical Plan: Patient is advised to eat healthy, keep well hydrated, keep active and have adequate sleep. (2) PAF (paroxysmal atrial fibrillation): Code(s): I48.0 - Paroxysmal atrial fibrillation Category: Medical Plan: Patient follows up with Cardiology and reviewed the notes from cardiac academic support director chads Vasc score of 2 and anticoagulation has been discontinued. (3) Hypertension: Code(s): I10 - Essential (primary) hypertension Category: Medical Plan: Continue with blood pressure medication. Decrease salt intake and exercise on metoprolol 50 mg twice a day (4) Hypercholesterolemia: Code(s): E78.00 - Pure hypercholesterolemia, unspecified Category: Medical Plan: Avoid fried foods, chicken skin, eggs, butter margarine, pastries and meat. Be it pork or beef they have a lot of cholesterol on atorvastatin 10 mg once a day (5) Elevated blood sugar: Comment: Pt also has hypercholesterolemia,l afib, fatty liver Code(s): R73.9 - Hyperglycemia, unspecified Category: Medical Plan: Will continue to monitor blood sugar (6) Situational depression: Code(s): F43.21 - Adjustment disorder with depressed mood Category: Medical Plan: Continue with present medication (7) Dupuytren's contracture of both hands: Code(s): M72.0 - Palmar fascial fibromatosis [Dupuytren] Category: Medical (8) Nose abrasion: Code(s): S00.31XA - Abrasion of nose, initial encounter Category: Medical (9) Colon cancer screening: Comment: Discussed benefits versus risks, and alternatives Code(s): Z12.11 - Encounter for screening for malignant neoplasm of colon Category: Medical Plan History of Present Illness The patient is a 64-year-old obese male presenting for a physical exam and chronic condition management. He reports an 11-pound weight loss since February. His history is significant for atrial fibrillation, for which he was cardioverted in 2022 and again in May 2023, at which time dronedarone was started. He experienced rapid atrial fibrillation again in July 2024, which was treated with IV diltiazem, followed by metoprolol and a third cardioversion. He subsequently underwent a pulmonary vein isolation via PFA in October, after which dronedarone was discontinued. Since the ablation, he has been in sinus rhythm and feels well. An echocardiogram showed normal left ventricular function with an ejection fraction of 67% and a normal-sized left atrium. He self- discontinued Xarelto, as advised by his cattle and wheat farmer, given his [id number] score of 2. Other chronic conditions include hypertension managed with metoprolol 50 mg twice daily, hypercholesterolemia, and a history of deep vein thrombosis in the right leg in 2021. He also has a history of elevated blood sugar, alcohol abuse, testicular cancer, and allergic rhinitis. His family history is notable for grandparents with heart attacks and a mother with breast cancer. Socially, the patient reports drinking about 12 beers per week and smoking marijuana, but he does not smoke cigarettes. 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 Health Maintenance A referral will be placed to gastroenterology for a colonoscopy for colon cancer screening, which the patient has agreed to. Counseling was provided on the risks associated with smoking marijuana, including an increased risk of heart attacks, strokes, and bladder cancer. The shingles vaccine was discussed, including its benefits and side effects; the patient may obtain it at a pharmacy if he chooses. The patient will follow up in six months, with fasting labs to be completed prior to the visit. Social History - Substance Use: Has a history of alcohol abuse. - Current alcohol intake is approximately 12 beers per week. - He does not smoke cigarettes but does smoke marijuana. 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 - Activity Level: Remains active, recently performing two weeks of physical labor. - Hobbies: Enjoys playing the [employer]. - Nutrition: Has been working on dietary changes, including eating more vegetables and fish, and reducing steak consumption. - Weight Management: Has experienced an 11-pound weight loss. Review of Systems - Constitutional: Reports feeling groggy in the morning. - Reports sleeping 6-7 hours per night but has difficulty staying asleep. - Denies fevers, passing out, dizziness, nausea, or vomiting. - Eyes: Reports floaters. - Denies problems with vision, though he uses reading glasses. - Ears: Reports tinnitus, for which he has been diagnosed. - Denies hearing problems beyond the diagnosed tinnitus. - Nose: Reports a non-healing scab on his nose for months. - Oropharynx: Denies problems with swallowing. - Cardiovascular: Denies chest heaviness or discomfort. - Respiratory: Denies waking up short of breath or getting winded with exertion such as climbing stairs. - Gastrointestinal: Denies heartburn or blood in stool. - Reports normal bowel movements. - Reports a case of hemorrhoids about a month ago. - Genitourinary: Reports nocturia, waking up to three times per night to urinate. - Denies other urinary problems. - Musculoskeletal: Reports joint pains, particularly upon getting out of bed, related to prior injuries from a fall. - Reports Dupuytren's contracture. Physical Exam General: Cooperative, healthy appearing, comfortable, no acute distress and well developed Orientation: Patient oriented x3 Limitations: No limitations Head: Normal to inspection Ears: Hearing grossly normal bilaterally, diagnosed with tinnitus Nose: Normal external nose present, with a persistent scab Face and sinus: Normal facial exam Eyes: Appearance normal, both eyes and all related structures Neck: Normal visual inspection and Yes full ROM Respiratory: Normal respiratory effort and able to speak in complete sentences. Clear to auscultation bilaterally Cardiovascular: Regular rate and rhythm. Normal S1 and S2 GI: Normal to inspection. Soft to palpation and nontender Skin: No rashes or lesions noted, except for a persistent scab on the nose Neuro: Patient oriented x3 Extremities: Normal to inspection, with Dupuytren's contracture noted on the hand Results - Labs from May 26: - CBC: Normal blood count, not anemic. - CMP: Electrolytes normal. - Creatinine: 1.14 mg/dL. - Glucose: Fasting blood sugar 120 mg/dL. - Hemoglobin A1c: Normal. - Liver Function Tests: Normal. - B12 and Folic Acid: Normal. - Lipid Panel (January 2025): LDL 106 mg/dL. - Echocardiogram (prior): Normal left ventricular function with an ejection fraction of 67%, no valvular pathology, and normal left atrium size. Plan Patient was informed and verbally consented to the use of an ambient scribe for clinic note documentation during this visit. 1. Atrial Fibrillation The patient is status post pulmonary vein isolation ablation and remains in sinus rhythm. His [id number] score is 2, and anticoagulation with Xarelto has been discontinued per his cattle and wheat farmer. He will continue metoprolol 50 mg twice daily for rate control. He was advised to obtain a [employer] device to monitor his heart rhythm. He will continue to follow up with his cattle and wheat farmer. 2. Hypertension Office blood pressure was 130/x mmHg. The patient reports variable home readings, with some elevated measurements in the morning. He will continue his current medication of metoprolol 50 mg twice daily. He was educated on the proper technique for home blood pressure monitoring, including resting for 3-5 minutes before measurement. 3. Hypercholesterolemia The patient will continue on atorvastatin 10 mg once daily. His last LDL was 106 mg/dL in January 2025. He will have follow-up labs in six months. 4. Hyperglycemia The patient's fasting blood sugar was 120 mg/dL, though his hemoglobin A1c is normal. He was counseled extensively on dietary modifications, including avoiding or limiting high-sugar foods such as pasta, bread, rice, potatoes, beer, and sweet fruits. We will continue to monitor his blood sugar, and a fasting blood test will be ordered for six months from now. 5. Dupuytren's Contracture The patient is concerned about this condition affecting his hand, particularly for playing guitar, and notes it is starting on the contralateral hand as well. A referral will be placed to a hand specialist for further evaluation and management. 6. Non-Healing Skin Lesion On Nose The patient has a persistent scab on his nose for months, which he repeatedly scrapes off while showering. He was advised to avoid traumatizing the area to allow it to heal over the next one to two weeks. A referral to dermatology will be placed, which can be canceled if the lesion resolves. Discussion Notes I reviewed the patient's extensive cardiac history and noted that he feels well and is in sinus rhythm since his cardiac ablation. I confirmed that his cattle and wheat farmer appropriately stopped his Xarelto. I reviewed his recent lab work, noting the elevated fasting glucose of 120 mg/dL despite a normal A1c, and the slight rise in creatinine to 1.14 mg/dL. We had an extensive discussion about dietary modifications to manage his blood sugar, focusing on reducing intake of carbohydrates, alcohol, and sugary foods. I also counseled him on the cardiovascular and oncologic risks of smoking marijuana. Referrals will be made to a hand surgeon for his Dupuytren's contracture, to dermatology for his non-healing nose lesion if it persists, and to gastroenterology for a screening colonoscopy. We also discussed the benefits of the shingles vaccine. The plan is for repeat fasting labs in six months with a follow-up appointment at that time. Patient Instructions - Continue taking atorvastatin 10 mg daily and metoprolol 50 mg twice daily. - Monitor your blood pressure at home, but make sure to rest and sit quietly for 3-5 minutes before taking a reading. - Your blood sugar is a little high. - Please be mindful of your diet by limiting sugar, alcohol, pasta, bread, rice, potatoes, and sweet fruits like strawberries. - Be aware that smoking marijuana can increase your risk of heart attack, stroke , and bladder cancer. - To help you sleep through the night, try to stop drinking liquids 2-3 hours before bedtime. - We are placing referrals for you to see a hand specialist, a staff nurse icu resource team for the spot on your nose, and a production expediter for a colonoscopy. - Please do not scrub the spot on your nose for the next 1-2 weeks to give it a chance to heal. - If you heal, you can cancel the dermatology appointment. - You will need to get fasting blood work done in about 6 months. - Please schedule a follow-up appointment here in 6 months, after you have completed your labs. Orders: Orders Complete Blood Count Auto Diff 6 Months E78.00 - Pure hypercholesterolemia, unspecified Comprehensive Met. Panel 6 Months E78.00 - Pure hypercholesterolemia, unspecified Hemoglobin A1c 6 Months E78.00 - Pure hypercholesterolemia, unspecified Lipid Panel 6 Months E78.00 - Pure hypercholesterolemia, unspecified Prostate Specific Antigen Scr 6 Months E78.00 - Pure hypercholesterolemia, unspecified Thyroid Stimulating Hormone 6 Months E78.00 - Pure hypercholesterolemia, unspecified Free T4 (Free Thyroxine) 6 Months E78.00 - Pure hypercholesterolemia, unspecified Referrals Dermatology Referral S00.31XA - Abrasion of nose, initial encounter Orthopedics Referral M72.0 - Palmar fascial fibromatosis [Dupuytren] Gastroenterology Referral Z12.11 - Encounter for screening for malignant neoplasm of colon
[2025-05-27 09:30] VITALS: BP 140/82; PULSE 92; TEMP 36.2; O2SAT 98; BMI 32.4
[2025-05-27 10:00] VITALS: BP 130/80
--- OUTSIDE RECORDS SUMMARY | 2025-05-27 10:44 | XMS_ITS | Encounter Summary ---
Author Organization [facility] Address [address] [place] [address] Care Team Providers Care Home Care Manager Rn Name Role Phone Pcp, No Primary Care Provider Unavailvictorino e Hema Zuñiga MD Unavailable [phone] Encounter Details Date Type Department Care Team ([facility] st Contact Info) Description 02/17/2023 Scanned Document [facility] [address] [id number] Francisco Lynn MD [address] [place] [id number] Social History Tobacco Use Types Packs/Day Years [...] on filedocumented in this encounter Care Teams Home Care Manager Rn Relationship Specialty Start Date End Date Pcp, No PCP - General General Medicine 05/26/17 Hema Zuñiga MD Physician Infectious Disease 06/02/18 documented as of this encounter
--- OUTSIDE RECORDS SUMMARY | 2025-05-27 10:44 | XMS_ITS | Clinical Summary ---
Author Organization [facility] Address [address] [place] [address] Care Team Providers Care Vp Emerging Media Name Role Phone Unavailable Primary Care Provider [...] Jf Jiménez Workers Comp Self 1960 [address] [place], [place] Jf Jiménez Workers Comp Self 1960 [address] [place] Jf Jiménez Workers Comp Self 1960 [address] [place]f Jiménez Workers Comp Self 1960 [address] [place] Jf Jiménez Personal/Family Self 1960 [address] [place] Jf Jiménez Personal/Family Self [address] [place] [id number]
--- OUTSIDE RECORDS SUMMARY | 2025-05-27 10:44 | XMS_ITS | Clinical Summary ---
Author Organization [facility] Address [address] [address] Phone Care Team Providers Care Tempering Oven Operator Name Role Phone Pcp, Not Required Primary [...] Advance Directives For more information, please contact: [phone] (9AM - 5PM [facility], Friday-Friday) * Full Code (Presumed) (Latest Code Status on File) Date Activated Date Inactivated Comments 11/02/2016 10:51 AM 11/06/2016 2:39 PM Care Teams Tempering Oven Operator Relationship Specialty Start Date End Date Pcp, Not Required [address] [place] [id number] PCP - General 11/01/16 Additional Source Comments The information contained in this document represents components of the legal health record. It is not the complete legal health record.[facility]
--- OUTSIDE RECORDS SUMMARY | 2025-05-27 10:44 | XMS_ITS | Encounter Summary ---
Author Organization [facility] Address [address] [place] [address] Care Team Providers Care Angledozer Operator Name Role Phone Pcp, No Primary Care Provider Unavailvictorino e Hema Zuñiga MD Unavailable [phone] Encounter Details Date Type Department Care Team ([facility] st Contact Info) Description 01/28/2023 Scanned Document [facility] [address] [phone] Francisco Lynn MD [address] [place] [id number] Social History Tobacco Use Types Packs/Day Years [...] on filedocumented in this encounter Care Teams Angledozer Operator Relationship Specialty Start Date End Date Pcp, No PCP - General General Medicine 05/26/17 Hema Zuñiga MD Physician Infectious Disease 06/02/18 documented as of this encounter
--- OUTSIDE RECORDS SUMMARY | 2025-05-27 10:44 | XMS_ITS | Clinical Summary ---
Author Organization [facility] Address [address] [place] [address] Care Team Providers Care Research Statistician Name Role Phone Ger Joy MD Primary Care Provider [phone] Surgical History Surgery Date Site/Laterality Comments TONSILLECTOMY [...] age to complete this topic Care Teams Research Statistician Relationship Specialty Start Date End Date Ger Joy MD [address] [place] [id number] PCP - General Internal Medicine 03/12/17
--- OUTSIDE RECORDS SUMMARY | 2025-05-27 10:44 | XMS_ITS | Encounter Summary ---
Author Organization [facility] Address [address] [place] [address] Care Team Providers Care Manager Laundry Name Role Phone Pcp, No Primary Care Provider Hema Cedeno MD Unavailable [phone] Encounter Details Date Type Department Care Team (Late st Contact Info) Description 06/08/2018 Prep for Surgery [facility] [place] [address] [place] [address] 2nd [place] [address] [place] [address] Mayelin Vázquez, MACHINE WOODWORKING SANDER [address] [facility] [address] [place] [address] Social History Tobacco Use Types Packs/Day Years [...] documented as of this encounter Care Teams Manager Laundry Relationship Specialty Start Date End Date Pcp, No PCP - General General Medicine 05/26/17 Hema Zuñiga MD Physician Infectious Disease 06/02/18 documented as of this encounter
--- OUTSIDE RECORDS SUMMARY | 2025-05-27 10:44 | XMS_ITS | Clinical Summary ---
Author Organization [facility] Address [address] [place] [address] Care Team Providers Care Street Inspector Name Role Phone Pcp, No Primary Care Provider Unavailabl e Hema Zuñiga MD Unavailable [phone] Allergies No known active allergies Medications rivaroxaban [...] this topic Medical Devices Implanted Type Area Drycleaner Device Identifier Shelf Expiration Date Model / Serial / Lot [id number] Shell Acetabular 62mm Hip 3 Hole Poly Por R3 Std Sterl - [id number] Implanted:Qty : 1 on 06/17/2022 by Francisco Lynn MD at [facility] Joint Prosthesis Right: Hip [employer] - DIV S [id number] 01/28/2028 [id number] / / [id number] 40mm I.D., 62mm O.D. R3 Xlpe 0 Acetabular Liner Implanted:Qty : 1 on 06/17/2022 by Francisco Lynn MD at [facility] Joint Prosthesis Right: Hip [employer] [id number] 11/17/2022 [id number] / / [id number] Stem Femoral 147mm Polarstem Ti Alum Vndm Duffy 126d 5 07/03 - [id number] Implanted:Qty : 1 on 06/17/2022 by Francisco Lynn MD at [facility] Joint Prosthesis Right: Hip [employer] - DIV S 01/31/2027 [id number] / / [id number] Titanium Modular Head Sleeve 07/03 Taper +8mm Implanted:Qty : 1 on 06/17/2022 by Francisco Lynn MD at [facility] Joint Prosthesis Right: Hip [employer] [id number] 05/30/2027 [id number] / / [id number] Head Femoral 40mm Hip Mdlr Oxnm Sterl - [id number] Implanted:Qty : 1 on 06/17/2022 by Francisco Lynn MD at [facility] Joint Prosthesis Right: Hip [employer] DIV S [id number] 03/23/2032 [id number] / / [id number] Plate Hip 80mm 3 Hole Compression 130d Std Brl Ss Bone Ambi - [id number] Implanted:Qty : 1 on 02/28/2017 by Brooks Rogers MD at [facility] Plate Right: Hip [employer] DIV S [id number] 05/31/2025 [id number] / / [id number] Screw Bone Hip Fem Imhs 115mm Ss 21mm 12.7mm Lag Compression - [id number] Implanted:Qty : 1 on 02/28/2017 by Brooks Rogers MD at [facility] Screw Right: Hip [employer] DIV S [id number] 09/26/2025 [id number] / / [id number] Screw Bone Lg Bone Pthrd 100mm Ss 16mm 7.3mm Sahil Slfdrl - [id number] Implanted:Qty : 1 on 02/28/2017 by Brooks Rogers MD at [facility] Screw Right: Hip [employer] A 208.900 / / Screw Bone Hip Hugo Ambi Cls 46mm Ss 4.5mm 8mm Slftp - [id number] Implanted:Qty : 1 on 02/28/2017 by Brooks Rogers MD at [facility] Screw Right: Hip [employer] DIV S [id number] / / Screw Bone Hip Hugo Ambi Cls 48mm Ss 4.5mm 8mm Slftp - [id number] Implanted:Qty : 2 on 02/28/2017 by Brooks Rogers MD at [facility] Screw Right: Hip [employer] DIV S [id number] / / [id number] Screw Bone Hip Acetabular Canc Reflc R3 Contour 30mm 6.5mm - [id number] Implanted:Qty : 1 on 06/17/2022 by Francisco Lynn MD at [facility] Screw Right: Hip [employer] DIV S [id number] 12/26/2031 [id number] / / [id number] Filler Bone Void 15cc 1.7-10mm Canc Algrf Chp Frzdr - [id number] Implanted:Qty : 1 on 06/18/2018 by Hema Saha MD at [facility] Void Filler Right: Hip [employer] 03/31/2021 [id number] / [id number] / Filler Bone Void 15cc 1.7-10mm Canc Algrf Chp Frzdr - [id number] Implanted:Qty : 1 on 06/18/2018 by Hema Saha MD at [facility] Void Filler Right: Hip [employer] 03/31/2021 [id number] / [id number] / Explanted Type Area Drycleaner Device Identifier Shelf Expiration Date Model / Serial / Lot [id number] Screw Bone Plvc [employer] Hip G2 136mm Nonst - [id number] Explanted:Qty: 2 on 06/17/2022 by Francisco Lynn MD at [facility] Screw Right: Hip [employer] 233 / / Screw, Femur Lng Intellijoint Explanted:Qty: 1 on 06/17/2022 by Francisco Lynn MD at [facility] Screw Right: Hip [employer] 232 / / Description: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 WORKER'S COMP Advance Directives * Full Code [...] 7:26 AM 06/18/2018 12:[address] Inspector Relationship Specialty Start Date End Date Pcp, No PCP - General General Medicine 05/26/17 Hema Zuñiga MD Physician Infectious Disease 06/02/18
== END 2025-05-27 10:35 | disposition home or self-care (01) ==
LOC: HO.HMCH 09:28
PROVIDERS: PCP Internal Medicine; Visit Provider Internal Medicine
DX: Z00.00 Encounter for general adult medical examination without abnormal findings (principal); I48.0 Paroxysmal atrial fibrillation; I10 Essential (primary) hypertension; E78.00 Pure hypercholesterolemia, unspecified; R73.9 Hyperglycemia, unspecified; F43.21 Adjustment disorder with depressed mood; M72.0 Palmar fascial fibromatosis [Dupuytren]; S00.31XA Abrasion of nose, initial encounter; Z12.11 Encounter for screening for malignant neoplasm of colon

== ENCOUNTER → 2025-05-27 09:27 | Outpatient (BNVA) | payer OTHER, SELFPAY | PROVIDERS: PCP Internal Medicine; Visit Provider Internal Medicine | DX: Z00.00 Encounter for general adult medical examination without abnormal findings (principal); I48.0 Paroxysmal atrial fibrillation; I10 Essential (primary) hypertension; E78.00 Pure hypercholesterolemia, unspecified; R73.9 Hyperglycemia, unspecified; F43.21 Adjustment disorder with depressed mood; M72.0 Palmar fascial fibromatosis [Dupuytren]; S00.31XA Abrasion of nose, initial encounter; X58.XXXA Exposure to other specified factors, initial encounter; Y93.9 Activity, unspecified; Y92.9 Unspecified place or not applicable; Y99.9 Unspecified external cause status | CPT/HCPCS: 99396 ==